=== PATIENT | female | born 1960 | race Caucasian/White ===

== ENCOUNTER → 2017-02-27 | Outpatient (CLI) | payer OTHER ==
--- NOTE | 2017-02-27 13:57 | DIAGNOSTIC IMAGING REPORT ---
ULTRASOUND-GUIDED FINE-NEEDLE ASPIRATION OF A RIGHT INGUINAL LYMPH NODE HISTORY:. INGUINAL LYMPHADENOPATHY COMPARISON: None. PROCEDURE: Written informed consent was obtained. The right groin was prepped and draped in the usual sterile fashion. 1% lidocaine was used for local anesthesia. A total of 2 passes using a 25-gauge needle were made through enlarged right inguinal lymph node under ultrasound guidance. Specimens were given to the on-site pathologist who determined adequate tissue for diagnosis. The patient tolerated the procedure well. There were no immediate complications. IMPRESSION: Successful ultrasound-guided fine-needle aspiration of a right inguinal lymph node. Electronically signed by: Benito Griffiths M.D. 02/27/2017 1:56 PM Dictated Date/Time: 02/27/2017 1:55 PM
== END | disposition home or self-care (01) ==
LOC: C.ULTR 12:59
PROVIDERS: ATTEND Internal Medicine Hematology
DX: C50.912 Malignant neoplasm of unspecified site of left female breast (principal); Z17.0 Estrogen receptor positive status [ER+]; R59.0 Localized enlarged lymph nodes; C85.95 Non-Hodgkin lymphoma, unspecified, lymph nodes of inguinal region and lower limb

== ENCOUNTER 2017-03-23 07:25 | Day surgery (SDC) | payer OTHER ==
[2017-03-19 13:26] VITALS: BMI 35.0
[~2017-03-23] VITALS: Ht 162.6 cm; Wt 92.3 kg
[~2017-03-23 07:25] MED LIST: CEFAZOLIN 2000MG IV PUSH 10 ML IV SCH; CYAN500T PO; LACTATED RINGER'S 1000ML 1,000 ML IV SCH; LISI20TA3 PO
[2017-03-23 07:51] VITALS: BP 120/69; PULSE 88; TEMP 36.4; O2SAT 94; Ht 162.6 cm; Wt 92.3 kg
[2017-03-23] MEDS ORDERED: ONDANSETRON INJ 2 MG/ML 2 ML VIAL IV PRN ×2 (08:45→10:15)
[2017-03-23] MEDS ORDERED: ATROPINE SULFATE 0.1 MG/ML 5ML SYR IV PRN (08:45)
[2017-03-23] MEDS ORDERED: FENTANYL CITRATE INJ 50 MCG/1 ML 2 ML VIAL IV PRN (08:45)
[2017-03-23] MEDS ORDERED: CLINDAMYCIN 600 MG/54 ML D5W IV ONE (08:58)
[2017-03-23] MEDS ORDERED: MIDAZOLAM HCL 1 MG/ML 2ML VIAL ONE (08:58)
[2017-03-23] MEDS ORDERED: FENTANYL CITRATE INJ 50 MCG/1 ML 2 ML VIAL ONE (08:58)
--- NOTE | 2017-03-23 08:58 | History & Physical Bridge Note ---
H&P Re-Evaluation Bridge Note: I have examined the patient, reviewed the History & Physical and in the interval since the performance of the History & Physical I have noted the following changes of clinical significance: No changes noted
[2017-03-23] MEDS ORDERED: LIDOCAINE HCL 1% 20 ML VIAL ONE (09:06)
[2017-03-23] MEDS ORDERED: BUPIVACAINE 0.5 % 5 MG/1 ML MPF 30ML VIAL ONE (09:06)
[2017-03-23] MEDS ORDERED: BACITRACIN OINT 15 GM TUBE ONE (09:06)
[2017-03-23] MEDS ORDERED: ONDANSETRON INJ 2 MG/ML 2 ML VIAL ONE (09:40)
[2017-03-23] MEDS ORDERED: PROPOFOL IV EMULSION 10 MG/ML 20 ML VIAL IV ONE (09:40)
[2017-03-23] MEDS ORDERED: SODIUM CHLORIDE 0.9% 1000ML 1,000 ML IV SCH (10:13)
--- NOTE | 2017-03-23 10:13 | [facility] Post Operative Brief Note ---
Immediate Operative Summary Operative Date Mar 23, 2017. Pre-Operative Diagnosis Enlarged Right Inguinal Lymph Node Post-Operative Diagnosis Enlarged Right Inguinal Lymph Node Procedure(s) Performed Right Groin Lymph Node Biopsy Surgeon Dr. Karlie Corrigan [employer]p [employer] Surgeon(s) none Estimated Blood Loss 5mL Findings enlargement og right groin lymph node Fluids (cc crystalloids) 500ml Specimens Fresh Specimen out of room at 0952 by Anni Wadsworth RN 1. Right Groin Lymph Node Drains none Anesthesia LMA Complication(s) None Disposition Recovery Room / PACU
[2017-03-23] MEDS ORDERED: OXYC-57 PO (10:15)
[2017-03-23] MEDS ORDERED: OXYCODONE/ACETAMINOPHEN 5-325 TAB PO PRN ×2 (10:15)
--- NOTE | 2017-03-23 10:18 | Discharge Instructions ---
Discharge Instructions Date of Service Mar 23, 2017. Visit Reason for Visit: Lymphadenopathy, Inguinal Discharge Discharge Diagnosis / Problem: S/P biopsy right groin lymph node Discharge Goals Goal(s): Decrease discomfort, Improve function Activity Recommendations Activity Limitations: per Instructions/Follow-up section Lifting Limitations: none Exercise/Sports Limitations: rest today May Resume Sexual Activity: when tolerated Shower/Bathe: may shower/bathe in 3 days Driving or Machine Use: resume 3 days after discharge Anesthesia . Post Anesthesia Instructions: If you have had General Anesthesia or IV Sedation: * Do not drive today. * Resume driving when surgeon permits. * Do not make important decisions or sign legal documents today. * Call surgeon for: 1. Temperature elevations greater than 101 degrees F. 2. Uncontrollable pain. 3. Excessive bleeding. 4. Persistent nausea and vomiting. 5. Medication intolerance (nausea, vomiting or rash). * For nausea and vomiting use only clear liquids such as: tea, soda, bouillon until nausea subsides, then gradually increase diet as tolerated. * If you have any concerns or questions, call your surgeon's office. If physician is unavailable and it is an emergency, call 911 or go to the nearest emergency room. . Instructions / Follow-Up Instructions / Follow-Up Keep the dressing on for 4 days, she can take a shower on 03/27/2017, no driving while taking pain medicine, follow up Dr. Corrigan 1 week, Diet Recommendations Recommended Home Diet: resume previous diet Procedures Procedures Performed: Right Groin Lymph Node Biopsy Pending Studies Studies pending at discharge: no Medical Emergencies . Who to Call and When: Medical Emergencies: If at any time you feel your situation is an emergency, please call 911 immediately. . Non-Emergent Contact Non-Emergency issues call your: Surgeon . . "Provider Documentation" section prepared by Arianna Corrigan. . [place] Drug Monitoring Program Search Results: no issues identified
--- NOTE | 2017-03-23 10:41 | OPERATIVE REPORT ---
DATE OF OPERATION: 03/23/2017 PREOPERATIVE DIAGNOSIS: Enlarged right inguinal lymph node. POSTOPERATIVE DIAGNOSIS: Same. PROCEDURE: Biopsy of right groin lymph node. SURGEON: Arianna Corrigan MD. ANESTHESIA: LMA plus local. ESTIMATED BLOOD LOSS: 5 mL. FINDINGS: Enlarged lymph node on the right groin. COMPLICATIONS: None. INDICATIONS FOR THE PROCEDURE: This is a 56-year-old female who is referred for biopsy of enlarged lymph node on the right groin. I did talk to the patient about the benefit and risk, alternate procedure. I indicated the risks may include but not limited such as bleeding, infection, nonhealing wound, DVT. The patient understands. She signed informed consent and I answered all questions. DETAILS OF PROCEDURE: We brought the patient to the OR, put the patient in the supine position. The patient received SCD on bilateral legs to prevent DVT. Also, the patient received 600 mg of clindamycin IV for prophylactic antibiotic. The patient received LMA by the anesthesiology without difficulty. The right groin area was prepped and draped in routine sterile fashion. After time out, I injected the local anesthesia by using 1% lidocaine mixed with 0.5% Marcaine around the right groin. Then I made about 3 cm incision on the right groin, deepened through the subcutaneous layer. Then we found the patient had 1 enlarged lymph node size about 2 x 1.5 cm and I used a 5 mm metal clip, clipped across the lesion to the lymph node and then we completely removed the lymph node and sent to pathology. Hemostasis was obtained. Then, I used 2-0 Vicryl to close subcutaneous layer continuous running, closed skin by using 4-0 Vicryl continuous running. We put the dressing on. The patient tolerated the procedure well. All the instrument, needle and sponge count correct x2 at the end of case. The specimen sent to pathology. The patient tolerated the procedure well and transferred to recovery room in stable condition. After the procedure, I did talk to the patient's family member about the OR findings, procedure we did and he understands. Also, I gave them the postop care instructions, the patient's family member understands. I attest to the content of the Intraoperative Record and any orders documented therein. Any exceptions are noted below. MIGUEL
--- NOTE | 2017-03-23 10:51 | Anesthesiology Progress Note ---
Anesthesia Post Op Note Date & Time Mar 23, 2017 at 10:50 Vital Signs Pain Intensity: 2 Vital Signs Past 12 Hours Date Time Temp Pulse Resp B/P (MAP) Pulse Ox O2 Delivery O2 Flow Rate FiO2 03/23/17 10:45 36.8 59 17 121/77 95 Room Air 03/23/17 10:40 69 16 122/83 95 Room Air 03/23/17 10:30 70 15 113/81 100 Oxymask 10 03/23/17 10:20 74 15 130/90 100 Oxymask 10 03/23/17 10:12 36.9 72 16 132/98 100 Oxymask 10 03/23/17 07:51 36.4 88 18 120/69 (86) 94 Room Air Notes Mental Status: alert / awake / arousable, participated in evaluation Pt Amnestic to Procedure: Yes Nausea / Vomiting: adequately controlled Pain: adequately controlled Airway Patency, RR, SpO2: stable & adequate BP & HR: stable & adequate Hydration State: stable & adequate Anesthetic Complications: no major complications apparent
[2017-03-23 11:00] VITALS: BP 118/69; PULSE 69; TEMP 36.7; O2SAT 95
[2017-03-23 11:30] VITALS: BP 114/67; PULSE 70; O2SAT 97
[2017-03-24] MEDS ORDERED: CLINDAMYCIN 600 MG/54 ML D5W IV ONE (06:00)
== END 2017-03-23 11:58 | disposition home or self-care (01) ==
LOC: C.ACU 07:25
PROVIDERS: ATTEND Surgery
DX: R59.0 Localized enlarged lymph nodes (principal); C50.919 Malignant neoplasm of unspecified site of unspecified female breast; Z85.72 Personal history of non-Hodgkin lymphomas; Z92.3 Personal history of irradiation; I10 Essential (primary) hypertension; F41.9 Anxiety disorder, unspecified; F32.9 Major depressive disorder, single episode, unspecified; E66.9 Obesity, unspecified; Z68.35 Body mass index [BMI] 35.0-35.9, adult; Z79.899 Other long term (current) drug therapy

== ENCOUNTER 2017-04-24 09:52 | Observation (INO) | payer OTHER ==
[2017-04-15 10:44] VITALS: BMI 35.0
--- NOTE | 2017-04-15 11:13 | PAT Medication Instructions ---
Service Date Apr 15, 2017. Current Home Medication List Cyanocobalamin (Vitamin B-12), 500 MCG PO QAM Lisinopril (Prinivil), 20 MG PO QAM Medication Instructions For Your Scheduled Surgery - Hold the following medications the morning of surgery: Cyanocobalamin (Vitamin B-12), 500 MCG PO QAM Lisinopril (Prinivil), 20 MG PO QAM If you have any questions please call us at [phone] or [phone] or [phone]
[2017-04-15 11:34] LABS: BASO % 0.4 %; BASO ABS # 0.02 K/uL (0-0.2); EOS % 1.7 %; EOS ABS # 0.09 K/uL (0-0.5); HEMATOCRIT 41.5 % (37-47); HEMOGLOBIN 13.7 g/dL (12.0-16.0); IG# 0.01 K/uL (0.00-0.02); LYMPH % 21.6 %; LYMPH ABS # 1.16 K/uL (1.2-3.4); MEAN CELL VOLUME 91.6 fL (80-100); MEAN CORPUSCULAR HEMOGLOBIN 30.2 pg (25-34); MONO % 10.6 %; MONO ABS # 0.57 K/uL (0.11-0.59); NEUT % 65.5 %; NEUT ABS # 3.52 K/uL (1.4-6.5); PLATELET COUNT 221 K/uL (130-400); RED CELL DISTRIBUTION WIDTH SD 46.6 fL (36.4-46.3); WHITE BLOOD COUNT 5.37 K/uL (4.8-10.8)
--- NOTE | 2017-04-15 11:57 | DIAGNOSTIC IMAGING REPORT ---
CHEST 2 VIEWS ROUTINE CLINICAL HISTORY: Preoperative chest HISTORY OF PRIOR LEFT BREAST CARCINOMA COMPARISON STUDY: No previous studies for comparison. FINDINGS: The cardiac and mediastinal contours are normal. There is no evidence of focal pulmonary consolidation. There is no evidence of failure. No pleural effusions are visualized.[ Multiple surgical clips are present in the left axillary region. There are postsurgical changes within the lower cervical spine. IMPRESSION: No active disease in the chest. Electronically signed by: Ari Mckeon M.D. 04/15/2017 11:56 AM Dictated Date/Time: 04/15/2017 11:55 AM
[2017-04-15 13:40] LABS: CALCIUM 9.3 mg/dl (8.5-10.1); CREATININE 0.69 mg/dl (0.60-1.20); POTASSIUM 4.3 mmol/L (3.5-5.1)
[2017-04-24] VITALS (8 sets, daily range): BP systolic 103–129; BP diastolic 68–80; PULSE 54–85; TEMP 36.4–36.8; O2SAT 95–99; Ht 162.6 cm; Wt 93.2 kg
[~2017-04-24] VITALS: Ht 162.6 cm; Wt 93.2 kg
[~2017-04-24 09:52] MED LIST changes: -CEFAZOLIN 2000MG IV PUSH 10 ML IV SCH; +CEFAZOLIN 2000MG IV PUSH 15 ML IV SCH
[2017-04-24] MEDS ORDERED: PHENYLEPHRINE HCL INJ 10 MG/ML VIAL ONE (10:12)
[2017-04-24] MEDS ORDERED: DEXAMETHASONE SOD INJ 4 MG/ML VIAL ONE (10:12)
[2017-04-24] MEDS ORDERED: EpHEDrine SULFATE INJ 50 MG/ML AMP ONE (10:12)
[2017-04-24] MEDS ORDERED: SUCCINYLCHOLINE CHLORIDE 20 MG/ML 10 ML VIAL IV ONE (10:12)
[2017-04-24] MEDS ORDERED: LIDOCAINE HCL 2% 2 ML VIAL (20MG/ML) ONE (10:12)
[2017-04-24] MEDS ORDERED: FENTANYL CITRATE INJ 50 MCG/1 ML 2 ML VIAL ONE ×2 (10:13→13:52)
[2017-04-24] MEDS ORDERED: MIDAZOLAM HCL 1 MG/ML 2ML VIAL ONE (10:13)
[2017-04-24] MEDS ORDERED: GLYCOPYRROLATE INJ 0.2 MG/ML VIAL ONE (10:13)
[2017-04-24] MEDS ORDERED: NEOSTIGMINE METHYLSULFATE 5 MG/5 ML SYR ONE (10:13)
[2017-04-24] MEDS ORDERED: ONDANSETRON INJ 2 MG/ML 2 ML VIAL ONE (10:13)
[2017-04-24] MEDS ORDERED: PROPOFOL IV EMULSION 10 MG/ML 20 ML VIAL IV ONE (10:13)
[2017-04-24] MEDS ORDERED: BUPIVACAINE 0.5 % 5 MG/1 ML MPF 30ML VIAL ONE (11:16)
[2017-04-24] MEDS ORDERED: CEFAZOLIN SOD 2000MG/15 ML IV PUSH IV ONE (11:19)
[2017-04-24] MEDS ORDERED: ATROPINE SULFATE 0.1 MG/ML 5ML SYR IV PRN (12:00)
[2017-04-24] MEDS ORDERED: PROMETHAZINE HCL INJ 12.5 MG in SODIUM CHLORIDE 0.9% 50ML 50 ML IV PRN ×2 (12:00→15:00)
[2017-04-24] MEDS ORDERED: ONDANSETRON INJ 2 MG/ML 2 ML VIAL IV PRN ×2 (12:00→15:00)
[2017-04-24] MEDS ORDERED: KETOROLAC TROMETHAMINE 30 MG/ML VIAL IV. PRN ×2 (12:00→15:00)
[2017-04-24] MEDS ORDERED: HYDROmorphone INJ 2 MG/ML SYR/VIAL ONE (12:46)
[2017-04-24] MEDS ORDERED: DiphenhydrAMINE HCL 50 MG/ML VIAL ONE ×2 (13:08→13:32)
[2017-04-24] MEDS ORDERED: METHYLENE BLUE 0.5% 10 ML VIAL ONE (13:31)
[2017-04-24] MEDS ORDERED: ROCURONIUM BROMIDE 10 MG/ML 5 ML VIAL IV ONE (13:32)
[2017-04-24] MEDS ORDERED: TISSEEL FIBRIN SEALANT 4ML TOP ONE (14:20)
--- NOTE | 2017-04-24 14:52 | [facility] Post Operative Brief Note ---
Immediate Operative Summary Operative Date Apr 24, 2017. Pre-Operative Diagnosis Thickened Endometrium, History of breast cancer, Previous Tamoxifen Use Post-Operative Diagnosis Thickened Endometrium, History of breast cancer, Previous Tamoxifen Use Procedure(s) Performed Total Laparoscopic Hysterectomy, Bilateral Salpingo-Oophorectomy, Cystoscopy, Repair of Vaginal tear Surgeon Dr. Re Lerner Claim Processor Surgeon(s) Dr. Brayden Cobb Estimated Blood Loss 50 ml Findings Consistent with Post-Op Diagnosis Fluids (cc crystalloids) 1900 Specimens Permanent Specimen A: Uterus, cervix and bilateral ovaries and Fallopian tubes Drains None Anesthesia Type General Complication(s) none Disposition Disposition: Recovery Room / PACU
[2017-04-24] MEDS ORDERED: OXYCODONE/ACETAMINOPHEN 5-325 TAB PO PRN (15:00)
[2017-04-24] MEDS ORDERED: ACETAMINOPHEN 325 MG TAB PO PRN (15:00)
[2017-04-24] MEDS ORDERED: SIMETHICONE 80 MG CHEW PO PRN (15:00)
--- NOTE | 2017-04-24 15:11 | [facility] Operative Report ---
Operative Report Operative Date Apr 24, 2017. Pre-Operative Diagnosis Thickened Endometrium, History of breast cancer, Previous Tamoxifen Use Post-Operative Diagnosis Thickened Endometrium, History of breast cancer, Previous Tamoxifen Use Procedure(s) Performed Total Laparoscopic Hysterectomy, Bilateral Salpingo-Oophorectomy, Cystoscopy, Repair of Vaginal tear Surgeon Dr. Re Lerner Laboratory Coordinator Surgeon(s) Dr. Brayden Cobb Estimated Blood Loss 50 ml Findings 8 cm anteverted uterus. Normal appearing fallopian tubes and ovaries. Bowel adhered to the pelvic sidewall bilaterally. Normal appearing anterior and posterior cul de sacs. Normal appearing liver edge. Fluids 1900 Specimens Permanent Specimen A: Uterus, cervix and bilateral ovaries and Fallopian tubes Drains None Anesthesia Type General Complication(s) none Disposition Recovery Room / PACU Description of Procedure Mrs. Heather Olmos is a 57 year old patient with history of breast cancer and previous tamoxifen use. Patient with a thickened endometrium noted on pelvic sonogram. Endometrial biopsy negative for neoplasia. The patient requested definitive management with a hysterectomy and bilateral removal of fallopian tubes and ovaries after discussing all possible medical options. Consent was signed in the office prior and all risks and benefits were reviewed. Under GA in the dorsal lithotomy position, the patient was prepped and drapped in the usual sterile fashion. A weighted speculum was placed in the vagina and with the help of a right angle retractor the cervix was visualized and grasped anteriorly with a single tooth tenaculum. The uterus was then sounded to 8 cm. A V-care uterine manipulator was then applied to allow mobilization of the uterus. The weighted speculum was then removed. Attention was turned to the abdomen. 0.25% marcaine solution was infiltrated in the subumbilical area. A 5 mm subumbilical incision was made through the skin with a #11 blade and the 5 mm trocar with laparoscope was inserted uneventfully in the peritoneal cavity. The peritoneal cavity was insufflated with CO2 gas to a maximum pressure of 15 mmHg. The laparoscope confirmed appropriate location with no inadvertent damage to underlying structures. Examination of the peritoneal cavity revealed the above noted findings. The patient was then placed in steep Trendelenburg and three more 5 mm trocars were placed, one on the right and two on the left, taking care to avoid the epigastric vessels. All trocars were placed under direct visualization with no inadvertent damage to underlying structures. The uterus was upheld from below with good visualization. Beginning on the left side, the Infundibular ligament was identified by lifting the tube towards the anterior wall of the abdomen. The ureter was confirmed along the pelvic side wall and peristalsis was noted. The XI Harmonic device was then used to clamp and ligate the IP ligament in three sequential bites. The IP was then cut middistance, again being sure to be clear of the ureter. Following this, the broad ligament was sequentially grasped, ligated, and cut in the direction of the round ligament hugging next to the fallopean tube. The round ligament was then ligated and cut. Following this, the anterior leaf of the broad ligament was then taken down on the left side, dissecting down towards the peritoneal reflection at the base of the bladder and adjacent to the cervix. The same process was then repeated on the right side such that both sides met and the anterior leaflet had been appropriately skeletonized. Once the bladder was appropriately dissected free from the lower anterior uterine segment and the tissues skeletonized, the uterine arteries were bilaterally clamped and ligated. Pedicles were checked and hemostatic. At the level of the plastic cup of the uterine manipulator, the vaginal vault was incised circumferentially with an XI Harmonic. The uterus and cervix was delivered through the vagina and sent to pathology. A sterile glove was placed into the vagina to form a pneumatic seal and all the pedicles as well as the cuff edges were examined. Hemostasis was achieved with bipolar cautery. The vaginal vault was then closed with a 2-0 V-loc being sure to avoid the bladder lateral pedicles. Following vault closure, an inspection of all areas was made to ensure hemostasis. All ports were removed under direct visualization and hemostasis noted. The final 5 mm port was then opened to release the abdominal gas and removed with the laparoscope inplace to visualize its removal. All the incision sites were then closed with 4-0 monocryl sutures in a subcuticular fashion and dermabond. Cystoscopy was then performed with a 30 degree scope and revealed no lesions or suture in the bladder. Normal appearing bladder dome and trigone. Bilateral efflux of methylene blue by ureteral orifices. The bladder was then drained and the cystoscope was then removed. Vaginal inspection revealed a laceration in the left apex of the vaginal. The laceration was closed with 2-0 Vicryl in a running locked fashion. Hemostasis was achieved. At the end of the procedure, all sponges, instruments, and sharps were counted and correct. Estimated blood loss was 50 ml. The patient was taken to recovery in stable condition. I attest to the content of the Intraoperative Record and any orders documented therein. Any exceptions are noted below.
[2017-04-24] MEDS ORDERED: MRLP17 PO (15:14)
[2017-04-24] MEDS ORDERED: OXYC-57 PO (15:14)
[2017-04-24] MEDS ORDERED: CLC100 PO (15:14)
[2017-04-24] MEDS ORDERED: IBUP-1450 PO (15:14)
[2017-04-24] MEDS ORDERED: MYL80 PO (15:14)
[2017-04-24] MEDS ORDERED: ACET-1047 PO (15:14)
--- NOTE | 2017-04-24 15:16 | Discharge Instructions ---
Discharge Instructions Date of Service Apr 24, 2017. Admission Reason for Admission: History of Breast Cancer, Previous Tamoxifen Use Discharge Discharge Diagnosis / Problem: Postop Discharge Goals Goal(s): Routine recovery after surgery Activity Recommendations Activity Limitations: per Instructions/Follow-up section POST OPERATIVE: BOWEL FUNCTION/MEDICATIONS: 1. Constipation pain and discomfort are the most common complaints 5-7 days after surgery. Points 2-6 address the things that can help. 2. Chewing gum can help stimulate the gut and help improve digestion and motility. 3. Milk of Magnesia 1-2 times per day until return of bowel function. 4. Colace is a stool softener that helps. Taking this 2-3 times per day until bowel function returns to normal is highly recommended. 5. Dulcolax is a laxative that may be used if several days have passed without a bowel movement. Alternatively Miralax may be used daily instead. 6. Drink plenty of fluids as this will also reduce constipation. 7. Narcotic pain medications will be prescribed by your physician. They are safe to use and we encourage you to use them. If you are not allergic, ibuprofen will also be prescribed. Many patients will be able to transition off of the narcotic medications to ibuprofen by postoperative day 3. ACTIVITY RECOMMENDATIONS: 1. Get plenty of rest and listen to your body. If you are tired, take a nap. 2. You may shower, but do not take a tub bath until you see your doctor at the 2 week post operative visit. 3. Absolutely NO intercourse and nothing in the vagina until you are examined by your doctor at the 6 week visit. At that visit it will be determined when such activities can be resumed. This can range from 6-12 weeks after your surgery depending on healing time. 4. The main physical activity in the first week should be walking. By the second week you can slowly increase activity. There are no limits on walking up and down stairs. 5. Do not lift more than 5-10 lbs for 4 weeks. Remember the "one-handed rule", i.e. if you can lift something with only one hand it's likely okay. 6. Minimize incident commander like vacuuming and exercising for 4 weeks. "Overdoing it" can lead to incisions not healing, pain and vaginal bleeding , so again, listen to your body. 7. Driving can be resumed when you feel able. Do not drive within 24 hours of taking a narcotic medication. EXPECTATIONS: 1. Vaginal spotting, bleeding and discharge are common after surgery. There may even be an odor to the discharge which is often related to sutures used in the vagina. If you experience heavy vaginal bleeding, call the office number day or night [phone]. 2. Bladder discomfort is common after surgery from the catheter. This usually resolves in 1-2 weeks. 3. By the end of the 3rd or 4th week you should be feeling much better. It may take up to 6 weeks for your energy levels to return to normal. 4. Narcotic medications have side effects such as: dizziness, headache, nausea and/or vomiting. If you suspect your pain medication is causing problems, call our office and we may be able to prescribe an alternate medication. 5. The skin incisions are often covered with a liquid bandage. This will gradually peel off over time. CALL THE OFFICE IF YOU HAVE ANY OF THE FOLLOWIN. Temperature of 101 degrees or higher. 2. Severe abdominal or pelvic pain not relieved by pain medication. 3. Persistent nausea or vomiting. 4. Increased pain with urination or difficulty urinating. 5. Bright red bleeding that soaks more than 1 pad per hour. CONTACT PHONE NUMBERS: Main Office: [phone] FOLLOW-UP: Post-Operative Appointments: * Individual instructions will have been given about the timing of your first examination, but this is usually at the end of the second week home. * You will need to call the office at soon after discharge to make the appointment for your post-op check-up if it has not already been scheduled. * Additional information regarding activity, sexual intercourse and when to return to work will be given at this appointment. WE WISH YOU A SPEEDY RECOVERY! . Current Hospital Diet Patient's current hospital diet: Discharge Diet Recommended Diet: Regular Diet Procedures Procedures Performed: Total Laparoscopic Hysterectomy, Bilateral Salpingo-Oophorectomy, Cystoscopy, Repair of Vaginal tear Pending Studies Studies pending at discharge: no Medical Emergencies . Who to Call and When: Medical Emergencies: If at any time you feel your situation is an emergency, please call 911 immediately. . Non-Emergent Contact Non-Emergency issues call your: Specialist . . "Provider Documentation" section prepared by Re Thakur. . VTE Core Measure Inpt VTE Proph given/why not?: Treatment not indicated
[2017-04-24] MEDS: HYDROmorphone INJ 2 MG/ML SYR/VIAL IV PRN ×8 (15:19→15:57)
--- NOTE | 2017-04-24 16:26 | Anesthesiology Progress Note ---
Anesthesia Post Op Note Date & Time Apr 24, 2017 at 16:25 Vital Signs Pain Intensity: 5 Vital Signs Past 12 Hours Date Time Temp Pulse Resp B/P (MAP) Pulse Ox O2 Delivery O2 Flow Rate FiO2 04/24/17 16:10 57 12 111/72 95 Nasal Cannula 2 04/24/17 16:00 37.1 53 12 113/68 98 Nasal Cannula 2 04/24/17 15:50 56 12 129/77 98 Nasal Cannula 2 04/24/17 15:40 54 16 139/86 98 Nasal Cannula 2 04/24/17 15:30 55 12 150/83 96 Nasal Cannula 2 04/24/17 15:20 59 12 145/91 100 Oxymask 10 04/24/17 15:10 71 23 143/98 100 Oxymask 10 04/24/17 15:04 36.4 74 17 114/83 100 Oxymask 10 04/24/17 10:18 36.8 85 18 122/80 (94) 98 Room Air Notes Mental Status: alert / awake / arousable, participated in evaluation Pt Amnestic to Procedure: Yes Nausea / Vomiting: adequately controlled Pain: adequately controlled Airway Patency, RR, SpO2: stable & adequate BP & HR: stable & adequate Hydration State: stable & adequate Anesthetic Complications: no major complications apparent
[2017-04-24] MEDS ORDERED: IV FLUIDS COMPLETED PRN (17:00)
[2017-04-24] MEDS ORDERED: LACTATED RINGER'S 1000ML 1,000 ML IV SCH (17:15)
[2017-04-24] MEDS: IBUPROFEN 600 MG TAB PO SCH ×2 (18:05→20:49)
[2017-04-24 20:32] LABS: HEMATOCRIT 38.5 % (37-47); HEMOGLOBIN 12.5 g/dL (12.0-16.0)
[2017-04-24] MEDS: DOCUSATE SODIUM 100 MG CAP PO SCH (20:49)
[2017-04-24] MEDS ORDERED: NURSING VERBAL MED ORDER ONE (21:15)
[2017-04-24] MEDS ORDERED: PHENAZOPYRIDINE HCL 200 MG TAB PO STA (21:30)
[2017-04-25 04:30] VITALS: BP 131/86; PULSE 61; TEMP 36.5; O2SAT 93
[2017-04-25 06:11] LABS: HEMATOCRIT 35.8 % (37-47); HEMOGLOBIN 11.8 g/dL (12.0-16.0); IG# 0.01 K/uL (0.00-0.02); LYMPH % 15.1 %; LYMPH ABS # 1.08 K/uL (1.2-3.4); MEAN CORPUSCULAR HEMOGLOBIN 30.3 pg (25-34); MEAN PLATELET VOLUME 9.3 fL (7.4-10.4); MONO % 11.2 %; NEUT % 73.6 %; NEUT ABS # 5.26 K/uL (1.4-6.5); PLATELET COUNT 203 K/uL (130-400); RED CELL DISTRIBUTION WIDTH CV 13.8 % (11.5-14.5); RED CELL DISTRIBUTION WIDTH SD 46.3 fL (36.4-46.3); WHITE BLOOD COUNT 7.15 K/uL (4.8-10.8)
[2017-04-25 07:08] LABS: BLOOD UREA NITROGEN 16 mg/dl (7-18); CALCIUM 8.3 mg/dl (8.5-10.1); CARBON DIOXIDE 27 mmol/L (21-32); CREATININE 0.63 mg/dl (0.60-1.20); GLUCOSE 92 mg/dl (70-99); SODIUM 135 mmol/L (136-145)
[2017-04-25 07:30] VITALS: BP 118/68; PULSE 79; TEMP 36.5; O2SAT 95
[2017-04-25] MEDS ORDERED: POLYETHYLENE (MIRALAX) 17 GM PACK PO SCH (09:00)
[2017-04-25] MEDS: DOCUSATE SODIUM 100 MG CAP PO SCH (09:08)
[2017-04-25] MEDS: IBUPROFEN 600 MG TAB PO SCH (09:09)
[2017-04-25 09:17] VITALS: BP 118/68; PULSE 79; TEMP 36.5; O2SAT 95
--- NOTE | 2017-04-25 09:47 | Surgery Progress Note ---
Surgery Progress Note Date of Service Apr 25, 2017. Subjective Post OP Day: 1 + feeling well, + ambulating, + pain controlled (with oral medication), + diet ( tolerating regular diet), No complaints, No chest pain, No SOB, No bowel movement, No flatus, No nausea, No vomiting Objective Vital Signs: Date Time Temp Pulse Resp B/P (MAP) Pulse Ox O2 Delivery O2 Flow Rate FiO2 04/25/17 09:17 36.5 79 18 95 Room Air 04/25/17 07:30 95 04/25/17 07:30 36.5 79 18 118/68 (85) 95 Room Air 04/25/17 04:30 36.5 61 18 131/86 (101) 93 Room Air 04/24/17 23:45 97 Room Air 04/24/17 23:45 36.5 55 18 129/79 (96) 97 Room Air 04/24/17 19:00 36.6 67 20 124/79 (94) 95 Room Air 04/24/17 18:00 36.5 54 18 124/77 (93) 99 Nasal Cannula 2.0 04/24/17 17:40 36.6 67 16 109/70 (83) 95 Nasal Cannula 2.0 04/24/17 17:00 36.6 55 18 103/68 (80) 97 Nasal Cannula 2.0 04/24/17 16:45 36.6 62 16 111/72 (85) 96 Nasal Cannula 2.0 04/24/17 16:30 98 Nasal Cannula 2.0 04/24/17 16:30 98 Nasal Cannula 2.0 04/24/17 16:30 36.4 57 18 106/69 (81) 98 Nasal Cannula 2.0 04/24/17 16:10 57 12 111/72 95 Nasal Cannula 2 04/24/17 16:00 37.1 53 12 113/68 98 Nasal Cannula 2 04/24/17 15:50 56 12 129/77 98 Nasal Cannula 2 04/24/17 15:40 54 16 139/86 98 Nasal Cannula 2 04/24/17 15:30 55 12 150/83 96 Nasal Cannula 2 04/24/17 15:20 59 12 145/91 100 Oxymask 10 04/24/17 15:10 71 23 143/98 100 Oxymask 10 04/24/17 15:04 36.4 74 17 114/83 100 Oxymask 10 04/24/17 10:18 36.8 85 18 122/80 (94) 98 Room Air General Appearance: WD/WN, no apparent distress Respiratory/Chest: chest non-tender, lungs clear, normal breath sounds, no respiratory distress, no accessory muscle use Cardiovascular: regular rate, rhythm, no edema, no gallop, no JVD, no murmur Abdomen: normal bowel sounds, non tender, non distended, soft, no organomegaly , no pulsatile mass Incision(s): clean, dry, intact, no erythema, no drainage Extremities: normal range of motion, non-tender, normal inspection, no pedal edema, no calf tenderness, normal capillary refill, pelvis stable Laboratory Results: Results Past 24 Hours Test 04/24/17 20:13 04/25/17 05:43 04/25/17 07:42 Range/Units Hemoglobin 12.5 11.8 12.0-16.0 g/dL Hematocrit 38.5 35.8 37-47 % White Blood Count 7.15 4.8-10.8 K/uL Red Blood Count 3.89 4.2-5.4 M/uL Mean Corpuscular Volume 92.0 80-100 fL Mean Corpuscular Hemoglobin 30.3 25-34 pg Mean Corpuscular Hemoglobin Concent 33.0 32-36 g/dl Platelet Count 203 130-400 K/uL Mean Platelet Volume 9.3 7.4-10.4 fL Neutrophils (%) (Auto) 73.6 % Lymphocytes (%) (Auto) 15.1 % Monocytes (%) (Auto) 11.2 % Eosinophils (%) (Auto) 0.0 % Basophils (%) (Auto) 0.0 % Neutrophils # (Auto) 5.26 1.4-6.5 K/uL Lymphocytes # (Auto) 1.08 1.2-3.4 K/uL Monocytes # (Auto) 0.80 0.11-0.59 K/uL Eosinophils # (Auto) 0.00 0-0.5 K/uL Basophils # (Auto) 0.00 0-0.2 K/uL RDW Standard Deviation 46.3 36.4-46.3 fL RDW Coefficient of Variation 13.8 11.5-14.5 % Immature Granulocyte % (Auto) 0.1 % Immature Granulocyte # (Auto) 0.01 0.00-0.02 K/uL Sodium Level 135 136-145 mmol/L Potassium Level 3.8 3.5-5.1 mmol/L Chloride Level 103 98-107 mmol/L Carbon Dioxide Level 27 21-32 mmol/L Anion Gap 5.0 3-11 mmol/L Blood Urea Nitrogen 16 7-18 mg/dl Creatinine 0.63 0.60-1.20 mg/dl Est Creatinine Clear Calc Drug Dose 106.4 ml/min Estimated GFR () 113.8 Estimated GFR (Non- 98.2 BUN/Creatinine Ratio 25.8 10-20 Random Glucose 92 70-99 mg/dl Calcium Level 8.3 8.5-10.1 mg/dl Assessment & Plan 57 yo G0 s/p TLH/BSO/Repair of vaginal laceration/Cystoscopy on 04/24/2017 for thickened endometrium, h/o breast cancer, and previous tamoxifen use. Patient meeting all discharge criteria. Discharge to home.
--- NOTE | 2017-04-29 08:24 | EDITING REQUIRED CODING QUERY ---
CODING QUERY To promote full compliance with coding requirements relating to patient care, provider participation is requested in all cases of medical records coder uncertainty. Please assist us with the question(s) below: Coding Question(s): Please clarify the length of the vaginal tear repair 2 cm. Physician's Response(s): Thank you Cristal Snell Principal Diagnosis: "_that condition established after study, to be chiefly responsible for occasioning the admission of the patient to the hospital for care." Co-Existing Principal Diagnosis: "_when two or more diagnoses equally meet the criteria for principal diagnosis as determined by the circumstances of admission, diagnostic work up, and/or therapy provided, and the Alphabetic Index, Tabular List, or another coding guideline does not provide sequencing direction, any one of the diagnoses may be sequenced first." "When the physician has documented what appears to be a current diagnosis in the body of the record, but has not included the diagnosis in the final diagnostic statement, the physician should be asked whether the diagnosis should be added." (Source [facility] 2 QTR90. p3-4)
== END 2017-04-25 10:45 | disposition home or self-care (01) ==
LOC: C.ACU 09:52 → C.MS4N 14:51 → ENRESERV 15:33 → EDBEDREQ 15:55
PROVIDERS: ADMIT Obstetrics & Gynecology Obstetrics; ATTEND Obstetrics & Gynecology Obstetrics
DX: N85.00 Endometrial hyperplasia, unspecified (principal); N73.6 Female pelvic peritoneal adhesions (postinfective); N83.8 Other noninflammatory disorders of ovary, fallopian tube and broad ligament; N72 Inflammatory disease of cervix uteri; N85.8 Other specified noninflammatory disorders of uterus; D25.9 Leiomyoma of uterus, unspecified; N80.0 Endometriosis of uterus; Z85.3 Personal history of malignant neoplasm of breast; Z92.29 Personal history of other drug therapy; E66.9 Obesity, unspecified; I10 Essential (primary) hypertension; Z98.890 Other specified postprocedural states; Z90.12 Acquired absence of left breast and nipple; Z80.7 Family history of other malignant neoplasms of lymphoid, hematopoietic and related tissues; Z68.35 Body mass index [BMI] 35.0-35.9, adult

== ENCOUNTER 2022-11-13 19:18 | Observation (INO) ==
[2022-11-13 20:22] LABS: Basophils # (auto) 0.01 K/uL (0.00-0.20); Basophils % (auto) 0.3 %; Eosinophils # (auto) 0.04 K/uL (0.00-0.50); Eosinophils % (auto) 1.4 %; Hematocrit (blood only) 37.4 % (37.0-47.0); Hemoglobin 12.3 g/dl (12.0-16.0); Immature Granulocytes # (auto) 0.02 K/uL (0.01-0.20); Immature Granulocytes % (auto) 0.7 %; Lymphocytes # (auto) 0.41 K/uL (1.20-3.40); Lymphocytes % (auto) 14.2 %; Mean Corpuscular Hemoglobin 27.8 pg (25.0-34.0); Mean Corpuscular Hgb Conc 32.9 g/dL (32.0-36.0); Mean Corpuscular Volume 84.4 fL (80.0-100.0); Mean Platelet Volume 8.6 fL (9.4-12.4); Monocytes # (auto) 0.26 K/uL (0.11-0.59); Neutrophils # (auto) 2.15 K/uL (1.40-6.50); Neutrophils % (auto) 74.4 %; Platelet Count 100 K/uL (130-400); RDW Coefficient of Variation 14.1 % (11.5-14.5); RDW Standard Deviation 43.2 fL (36.4-46.3); Red Blood Count 4.43 M/uL (4.20-5.40); White Blood Count 2.89 K/ul (4.8-10.8)
[2022-11-13 20:39] LABS: Albumin Globulin Ratio 2.4 (0.9-2); Albumin Level 4.6 gm/dl (3.4-5.0); BUN Creatinine Ratio 17.2 (10-20); Calcium 9.4 mg/dl (8.6-10.3); Creatinine Clr Calc Pharmacy 71.3 ml/min; Est GFR (African American) 81.6 ml/min; Est GFR (Non-African American) 70.4 ml/min; Globulin 1.9 gm/dl (2.5-4.0); Potassium 3.5 mmol/L (3.5-5.1); Total Protein 6.5 gm/dl (6.0-8.3)
[2022-11-13 20:50] LABS: Appearance Urine Clear (Clear); Bilirubin Urine 2+ (Negative); Blood Urine Negative (Negative); Color Urine Yellow; Glucose Urine UA Negative (Negative); Ketones Urine 2+ (Negative); Leukocyte Esterase Urine Trace (Negative); Nitrite Urine Negative (Negative); Protein Urine 2+ (Negative); Specific Gravity Urine >= 1.030 (1.000-1.030); Urobilinogen Urine Negative (Negative); pH Urine 5.5 (4.5-7.5)
[2022-11-13] MEDS ORDERED: SODIUM CHLORIDE 0.9% 1000ML 1,000 ML IV ONE (21:42)
[2022-11-13] MEDS ORDERED: fentaNYL citrate PF 100 MCG/2 ML VIAL IV STA (21:42)
--- NOTE | 2022-11-13 21:57 | Emergency Department Note ---
History of Present Illness General Chief complaint: Referred by Doctor Stated complaint: REF BY Time Seen by Provider: 11/13/22 21:34 History of Present Illness Maximum Pain Intensity: 6 62-year-old female presents emergency department with a 3-day history of left upper quadrant abdominal pain and generally not feeling well. Patient of note has a history of non-Hodgkin's lymphoma and breast cancer and follicular lymphoma that has infected and spread to her bone and into her spleen. Patient is followed by Dr. Chavez from oncology. Patient is not currently undergoing any treatment. Patient states decreased p.o. intake and no appetite for the past few days. Patient denies any nausea vomiting denies diarrhea. Patient denies urinary symptoms. Patient denies fever. Patient was referred by her primary care physician to an urgent care center and states that her pain increased and therefore she presented here. Patient has no other mitigating or alleviating factors.'s nonradiating left upper quadrant Home Medications Medication Instructions Recorded Confirmed Type Lisinopril (Prinivil) 20 mg PO QAM #0 tabs 03/19/17 History ACETAMINOPHEN (MAPAP) 650 mg PO Q6H PRN Pain-(Pain scale 04/24/17 Rx 1-3)/BUCKLEY/fever #60 tabs Docusate Sodium 100 mg PO BID #60 caps 04/24/17 Rx OXYCODONE/ACETAMINOPHEN 5MG/325MG 1 tab PO Q4H PRN Pain (pain scale 04/24/17 Rx (PERCOCET 5MG/325MG) 1-5) #20 tabs Polyethylene (Miralax) 17 g PO DAILY #1 btl 04/24/17 Rx Simethicone (Mi-Acid Gas Relief) 80 mg PO TID PRN GAS #90 tabs 04/24/17 Rx lisinopril 30 mg tablet 30 mg PO DAILY 11/14/22 11/14/22 History mirabegron 50 mg tablet,extended 50 mg PO DAILY 11/14/22 11/14/22 History release 24 hr (Myrbetriq) pregabalin 50 mg capsule 50 mg PO BID 11/14/22 11/14/22 History Allergies Allergy/AdvReac Type Severity Reaction Status Date / Time cephalexin Allergy Unknown HIVES Verified 04/24/17 10:32 Past Med/Surg History Social History Smoking Status: Never smoker Preferred Language: Grenadian Feels Safe at Home: Yes Immunizations: Past medical history non-Hodgkin's lymphoma, follicular cancer Review of Systems A total of 10 systems reviewed and were otherwise negative Cardiovascular: no chest pain Gastrointestinal: + abdominal pain Physical Exam Vital Signs Vital Signs - 24 hr 11/13/22 19:32 Temperature 36.8 C Temperature Source Temporal Artery Scan Pulse Rate 87 Respiratory Rate 18 Respiratory Depth Normal Blood Pressure 132/89 Blood Pressure Mean 103 Pulse Oximetry 96 Oxygen Delivery Method Room Air Sepsis Recent Fever Within 48 Hours No Sepsis New/Unexplained Change in Mental Status N/A Sepsis Action Taken by Nursing No Action Required GENERAL: Patient is awake alert in no acute distress patient is resting comfortably and showing no signs of anxiety EYES: The conjunctivae are clear. The pupils are round and reactive. EARS, NOSE, MOUTH AND THROAT: The nose is without any evidence of any deformity. Mucous membranes are moist. Tongue is midline. NECK: The neck is nontender and supple. RESPIRATORY: Normal respiratory effort is noted there is no evidence of wheezing rhonchi or rales CARDIOVASCULAR: Regular rate and rhythm noted there no murmurs rubs or gallops normal S1 normal S2. GASTROINTESTINAL: The abdomen is soft. Abdomen is mildly tender in her left upper quadrant, there is no rebound rigidity guarding BACK: No midline tenderness or or step-off noted range of motion in flexion extension as well as rotation no signs of muscle spasm noted MUSCULOSKELETAL/EXTREMITIES: There is no evidence of gross deformity full range of motion is noted in the hips and shoulders. SKIN: There is no obvious evidence of any rash. There are no petechiae, pallor or cyanosis noted. NEUROLOGIC: Patient is awake alert and oriented x3 strength is symmetric Course Reevaluation(s) Reevaluation #1: On my repeat examination, the patient continues to have diffuse abdominal pain. I discussed evaluation with the patient at bedside. Time: 23:37 Consultations Consultation #1: Case was discussed with the [facility] hospitalist for intractable abdominal pain in the setting of lymphoma Time: 23:37 Administered Medications Discontinued Medications Fentanyl Citrate (Fentanyl Citrate Pf 100 Mcg/2 Ml Vial) 50 mcg IV NOW STA Stop: 11/13/22 21:43 Last Admin: 11/13/22 22:08 Dose: 50 mcg Documented By: MED Sodium Chloride (Nss 1000ml) 1,000 mls @ 999 mls/hr IV .Q1H1M ONE Stop: 11/13/22 22:42 Last Infusion: 11/13/22 23:29 Dose: 0 mls/hr Documented By: railway switchman: 11/13/22 22:09 Dose: 999 mls/hr Documented By: JAI Ioversol (Optiray 320 100ml) 100 ml IV ONCE ONE Stop: 11/13/22 22:34 Last Admin: 11/13/22 22:35 Dose: 90 ml Documented By: DARRIAN Medical Decision Making Medical Records Attestation: I reviewed the patient's medical records. Home Medications Current Medication List: was personally reviewed by me Laboratory Data Attestation: I reviewed the patient's lab results. Patient has leukopenia per my interpretation 11/13/22 20:05 11/13/22 20:05 Lab Results 11/13/22 11/13/22 11/13/22 Range/Units 20:05 20:05 20:24 WBC 2.89 L (4.8-10.8) K/ul RBC 4.43 (4.20-5.40) M/uL Hgb 12.3 (12.0-16.0) g/dl Hct 37.4 (37.0-47.0) % MCV 84.4 (80.0-100.0) fL MCH 27.8 (25.0-34.0) pg MCHC 32.9 (32.0-36.0) g/dL RDW Std Deviation 43.2 (36.4-46.3) fL RDW Coeff of Sudhakar 14.1 (11.5-14.5) % Plt Count 100 L (130-400) K/uL MPV 8.6 L (9.4-12.4) fL Immature Gran % (Auto) 0.7 % Neut % (Auto) 74.4 % Lymph % (Auto) 14.2 % [place] % (Auto) 9.0 % Eos % (Auto) 1.4 % Baso % (Auto) 0.3 % Neut # (Auto) 2.15 (1.40-6.50) K/uL Lymph # (Auto) 0.41 L (1.20-3.40) K/uL [place] # (Auto) 0.26 (0.11-0.59) K/uL Eos # (Auto) 0.04 (0.00-0.50) K/uL Baso # (Auto) 0.01 (0.00-0.20) K/uL Immature Gran # (Auto) 0.02 (0.01-0.20) K/uL Sodium 142 (136-145) mmol/L Potassium 3.5 (3.5-5.1) mmol/L Chloride 105 (98-107) mmol/L Carbon Dioxide 27 (21-32) mmol/L Anion Gap 10 (3-11) BUN 15 (6-23) mg/dl Creatinine 0.87 (0.6-1.2) mg/dl Est Cr Clr Drug Dosing 71.3 ml/min Est GFR ( Amer) 81.6 ml/min Est GFR (Non-Af Amer) 70.4 ml/min BUN/Creatinine Ratio 17.2 (10-20) Glucose 90 (70-99(Fasting)) mg/dl Lactate (0.4-2.0) mmol/L Calcium 9.4 (8.6-10.3) mg/dl Total Bilirubin 1.0 (0.2-1.0) mg/dl AST 32 (13-39) U/L ALT 13 (7-52) U/L Alkaline Phosphatase 87 (34-104) U/L Troponin I High Sens (0-14) pg/ml Total Protein 6.5 (6.0-8.3) gm/dl Albumin 4.6 (3.4-5.0) gm/dl Globulin 1.9 L (2.5-4.0) gm/dl Albumin/Globulin Ratio 2.4 H (0.9-2) Lipase 7 L (11-82) U/L Urine Color Yellow Urine Appearance Clear (Clear) Urine pH 5.5 (4.5-7.5) Ur Specific [place] >= 1.030 (1.000-1.030) Urine Protein 2+ H (Negative) Urine Glucose (UA) Negative (Negative) Urine Ketones 2+ H (Negative) Urine Blood Negative (Negative) Urine Nitrite Negative (Negative) Urine Bilirubin 2+ H (Negative) Urine Urobilinogen Negative (Negative) Ur Leukocyte Esterase Trace H (Negative) SARS-CoV-2, RNA, NAAT (NEGATIVE) 11/13/22 11/13/22 11/13/22 Range/Units 21:38 22:05 22:05 WBC (4.8-10.8) K/ul RBC (4.20-5.40) M/uL Hgb (12.0-16.0) g/dl Hct (37.0-47.0) % MCV (80.0-100.0) fL MCH (25.0-34.0) pg MCHC (32.0-36.0) g/dL RDW Std Deviation (36.4-46.3) fL RDW Coeff of Sudhakar (11.5-14.5) % Plt Count (130-400) K/uL MPV (9.4-12.4) fL Immature Gran % (Auto) % Neut % (Auto) % Lymph % (Auto) % [place] % (Auto) % Eos % (Auto) % Baso % (Auto) % Neut # (Auto) (1.40-6.50) K/uL Lymph # (Auto) (1.20-3.40) K/uL [place] # (Auto) (0.11-0.59) K/uL Eos # (Auto) (0.00-0.50) K/uL Baso # (Auto) (0.00-0.20) K/uL Immature Gran # (Auto) (0.01-0.20) K/uL Sodium (136-145) mmol/L Potassium (3.5-5.1) mmol/L Chloride (98-107) mmol/L Carbon Dioxide (21-32) mmol/L Anion Gap (3-11) BUN (6-23) mg/dl Creatinine (0.6-1.2) mg/dl Est Cr Clr Drug Dosing ml/min Est GFR ( Amer) ml/min Est GFR (Non-Af Amer) ml/min BUN/Creatinine Ratio (10-20) Glucose (70-99(Fasting)) mg/dl Lactate 0.7 (0.4-2.0) mmol/L Calcium (8.6-10.3) mg/dl Total Bilirubin (0.2-1.0) mg/dl AST (13-39) U/L ALT (7-52) U/L Alkaline Phosphatase (34-104) U/L Troponin I High Sens 8.1 (0-14) pg/ml Total Protein (6.0-8.3) gm/dl Albumin (3.4-5.0) gm/dl Globulin (2.5-4.0) gm/dl Albumin/Globulin Ratio (0.9-2) Lipase (11-82) U/L Urine Color Urine Appearance (Clear) Urine pH (4.5-7.5) Ur Specific [place] (1.000-1.030) Urine Protein (Negative) Urine Glucose (UA) (Negative) Urine Ketones (Negative) Urine Blood (Negative) Urine Nitrite (Negative) Urine Bilirubin (Negative) Urine Urobilinogen (Negative) Ur Leukocyte Esterase (Negative) SARS-CoV-2, RNA, NAAT NEGATIVE (NEGATIVE) Imaging Data Radiologist's Impression: Abdomen/Pelvis CT 11/13/22 21:34 Exam(s): CT ABDOMEN + PELVIS With Contrast IV Amt: 90 ml optiray 320 EXAM: CT Abdomen and Pelvis With Intravenous Contrast CLINICAL HISTORY: Reason for exam: abd pain. TECHNIQUE: Axial computed tomography images of the abdomen and pelvis with intravenous contrast. CTDI is 27.3 mGy and DLP is 1372.73 mGy-cm. Automated exposure control was utilized for the study. A dose lowering technique was utilized adhering to the principles of ALARA. CONTRAST: Patient received 90 ml optiray 320 of IV contrast COMPARISON: No relevant prior studies available. FINDINGS: Lung bases: Unremarkable. No mass. No consolidation. ABDOMEN: Liver: Numerous large simple cysts throughout the liver measuring up to 8.1 cm. Gallbladder and bile ducts: Unremarkable. No calcified stones. No ductal dilation. Pancreas: Unremarkable. No mass. No ductal dilation. Spleen: Moderate splenomegaly measuring up to 16.4 cm. Adrenals: Unremarkable. No mass. Kidneys and ureters: Unremarkable. No solid mass. No hydronephrosis. Stomach and bowel: Unremarkable. No obstruction. No mucosal thickening. PELVIS: Appendix: No findings to suggest acute appendicitis. Bladder: Unremarkable. No mass. Reproductive: Uterus has been removed. ABDOMEN and PELVIS: Intraperitoneal space: Small amount of free fluid in the pelvis. No free air. Bones/joints: No acute fracture. No dislocation. Mild remote L4 compression fracture. Soft tissues: Subcutaneous collection measuring 3.3 cm within the left lower quadrant adjacent to the anterior abdominal wall. This has a thick wall. Questions small subacute hematoma. Vasculature: Unremarkable. No abdominal aortic aneurysm. Lymph nodes: Extensive conglomerate lymphadenopathy involving the central mesentery. Additional examples of lymphadenopathy are present as follows: Left gastric-3.6 cm, aortocaval-1.8 cm, left para-aortic retroperitoneal-2.5 cm, and left common iliac-2.6 cm. Findings are consistent with lymphoma until proven otherwise. IMPRESSION: 1. Extensive conglomerate lymphadenopathy involving the central mesentery. Additional examples of lymphadenopathy are present as follows: Left gastric-3.6 cm, aortocaval-1.8 cm, left para-aortic retroperitoneal- 2.5 cm, and left common iliac-2.6 cm. Findings are consistent with lymphoma until proven otherwise. 2. Moderate splenomegaly. 3. Subcutaneous collection measuring 3.3 cm within the left lower quadrant adjacent to the anterior abdominal wall with a thick wall. Questions small subacute hematoma. Electronically signed by: Kd Chavez M.D. 11/13/22 23:23 PM MDM Narrative Medical decision making differential diagnosis includes bowel obstruction, colitis, gastritis, gastroenteritis, metabolic derangement, urinary tract infection. Plan is to check labs, CT, give IV fluids IV pain medicine Patient has a history of lymphoma currently not being treated however the patient is followed by oncology. Patient continues to complain of abdominal distention and pain. Patient has a multitude of lymphadenopathy and splenomeg tish in the abdomen. Patient has no evidence of bowel obstruction. Patient was receiving IV fluids and IV opiates. Will admit the patient for intractable abdominal pain Impression & Plan Abdominal pain, Leukopenia, Splenomegaly Discharge Plan Visit Data Chief Complaint: Referred by Doctor Stated Complaint: REF BY ED Provider: Isaias Omalley Discharge Problem: Abdominal pain, Leukopenia, Splenomegaly Patient Disposition: Admitted As Inpatient Forms Stand Alone Forms: [facility] Prescriptions Prescriptions: No Action Lisinopril (Prinivil) 20 MG tablet 20 mg PO QAM Qty: 0 ACETAMINOPHEN (MAPAP) 325 MG tablet 650 mg PO Q6H PRN (Reason: Pain-(Pain scale 1-3)/BUCKLEY/fever) Qty: 60 0RF Docusate Sodium 100 MG capsule 100 mg PO BID Qty: 60 1RF OXYCODONE/ACETAMINOPHEN 5MG/325MG (PERCOCET 5MG/325MG) tablet 1 tab PO Q4H PRN (Reason: Pain (pain scale 1-5)) Qty: 20 0RF Rx Instructions: PAIN Polyethylene (Miralax) 17 GM POW 17 g PO DAILY Qty: 1 1RF Simethicone (Mi-Acid Gas Relief) 80 MG CHEWABLE TAB 80 mg PO TID PRN (Reason: GAS) Qty: 90 0RF lisinopril 30 mg tablet 30 mg PO DAILY pregabalin 50 mg capsule 50 mg PO BID Myrbetriq 50 mg tablet extended release 24 hr 50 mg PO DAILY Referrals Referrals: PCP,NO [Physician] -
[2022-11-13] MEDS ORDERED: OPTIRAY 320 100ml IV ONE (22:33)
--- NOTE | 2022-11-13 23:23 | CT Scan Report ---
Exam(s): CT ABDOMEN + PELVIS With Contrast IV Amt: 90 ml optiray 320 EXAM: CT Abdomen and Pelvis With Intravenous Contrast CLINICAL HISTORY: Reason for exam: abd pain. TECHNIQUE: Axial computed tomography images of the abdomen and pelvis with intravenous contrast. CTDI is 27.3 mGy and DLP is 1372.73 mGy-cm. Automated exposure control was utilized for the study. A dose lowering technique was utilized adhering to the principles of ALARA. CONTRAST: Patient received 90 ml optiray 320 of IV contrast COMPARISON: No relevant prior studies available. FINDINGS: Lung bases: Unremarkable. No mass. No consolidation. ABDOMEN: Liver: Numerous large simple cysts throughout the liver measuring up to 8.1 cm. Gallbladder and bile ducts: Unremarkable. No calcified stones. No ductal dilation. Pancreas: Unremarkable. No mass. No ductal dilation. Spleen: Moderate splenomegaly measuring up to 16.4 cm. Adrenals: Unremarkable. No mass. Kidneys and ureters: Unremarkable. No solid mass. No hydronephrosis. Stomach and bowel: Unremarkable. No obstruction. No mucosal thickening. PELVIS: Appendix: No findings to suggest acute appendicitis. Bladder: Unremarkable. No mass. Reproductive: Uterus has been removed. ABDOMEN and PELVIS: Intraperitoneal space: Small amount of free fluid in the pelvis. No free air. Bones/joints: No acute fracture. No dislocation. Mild remote L4 compression fracture. Soft tissues: Subcutaneous collection measuring 3.3 cm within the left lower quadrant adjacent to the anterior abdominal wall. This has a thick wall. Questions small subacute hematoma. Vasculature: Unremarkable. No abdominal aortic aneurysm. Lymph nodes: Extensive conglomerate lymphadenopathy involving the central mesentery. Additional examples of lymphadenopathy are present as follows: Left gastric-3.6 cm, aortocaval-1.8 cm, left para-aortic retroperitoneal-2.5 cm, and left common iliac-2.6 cm. Findings are consistent with lymphoma until proven otherwise. IMPRESSION: 1. Extensive conglomerate lymphadenopathy involving the central mesentery. Additional examples of lymphadenopathy are present as follows: Left gastric-3.6 cm, aortocaval-1.8 cm, left para-aortic retroperitoneal- 2.5 cm, and left common iliac-2.6 cm. Findings are consistent with lymphoma until proven otherwise. 2. Moderate splenomegaly. 3. Subcutaneous collection measuring 3.3 cm within the left lower quadrant adjacent to the anterior abdominal wall with a thick wall. Questions small subacute hematoma. Electronically signed by: Kd Chavez M.D. 11/13/22 23:23 PM
[2022-11-14] MEDS ORDERED: HYDROmorphone INJ 0.5 MG/0.5 ML SYR IV STA (01:57)
[2022-11-14] MEDS ORDERED: FAMOTIDINE 20MG IV PUSH 20 MG/5 ML SYR IV STA (02:03)
--- NOTE | 2022-11-14 02:29 | History & Physical Report ---
Date of Service November 14, 2022 Assessment & Plan (1) Abdominal pain: Plan: 62-year-old female with past medical significant for lymphoma involving the left of the neck in 1993 s/p radiation treatment to that area, history of left breast intraductal carcinoma s/p lumpectomy, s/p MammoSite radiation to left breast in 2010, follicular lymphoma involving the bone marrow splenomegaly lymph nodes in the chest and abdomen in September 2021 currently under observation, as per the [facility] heme-onc notes patient not interested in any kind of chemotherapy treatment at this time presents with severe abdominal pain Severe abdominal pain Started last Thursday and getting worse CT abdomen pelvis showing extensive lymphadenopathy, moderate splenomegaly and possible small subacute hematoma in the left lower quadrant region close to anterior abdominal wall Pain control, gentle fluids, clear liquids for now If not improving will discuss with GI/surgery and heme-onc Follicular lymphoma Currently under observation Lymphopenia and thrombocytopenia From underlying lymphoma We will follow labs Hypertension continue home lisinopril Anxiety continue clonazepam as needed DVT prophylaxis SCDs for now Disposition observation medical floor Full code as per my discussion with the patient History of Present Illness Chief Complaint: Severe abdominal pain Primary Care Provider: Anju Oneill MD 62-year-old female with past medical significant for lymphoma involving the left of the neck in 1993 s/p radiation treatment to that area, history of left breast intraductal carcinoma s/p lumpectomy, s/p MammoSite radiation to left breast in 2010, follicular lymphoma involving the bone marrow splenomegaly lymph nodes in the chest and abdomen in September 2021 currently under observation ,as per the [facility] heme-onc notes patient not interested in any kind of chemotherapy treatment at this time presents with severe abdominal pain. Patient states abdominal pain started last Thursday but got progressively worse.. Appetite is down since she has abdominal pain. Having normal bowel movements , denies any blood in the stools. Normal bladder movements. Afebrile. Denies any chest pain or shortness of breath. Has some nausea. No cough. No headaches. Currently asking for pain medication. Hemodynamically stable. Past medical history as mentioned above also had C. difficile diarrhea and MRSA infection Past surgical history bronchoscopy, right groin lymph node biopsy, colonoscopy, cervical fusions, IR biopsy, partial left mastectomy with axillary lymphadenopathy, debridement of breast lump lumpectomy site, radiation therapy, sentinel lymph node biopsy on left side, Social history . No smoking. Alcohol 1-2 drinks a week. No drug use. Family history mother had non-Hodgkin's lymphoma. Father had colon cancer Allergies Allergy/AdvReac Type Severity Reaction Status Date / Time cephalexin Allergy Unknown HIVES Verified 11/14/22 00:06 Home Medications Medication Instructions Recorded Confirmed Type clonazepam 0.5 mg tablet 0.5 mg PO TID PRN Anxiety 11/14/22 11/14/22 History lisinopril 30 mg tablet 30 mg PO DAILY 11/14/22 11/14/22 History mirabegron 50 mg tablet,extended 50 mg PO DAILY 11/14/22 11/14/22 History release 24 hr (Myrbetriq) pregabalin 50 mg capsule 50 mg PO BID 11/14/22 11/14/22 History Past Med/Surg History Social History Smoking Status: Never smoker Hx Alcohol Use: Yes Alcohol type: hard liquor Hx Substance Use: No Preferred Language: Serbian Beliefs That Will Affect Care: None Current Living Situation: Spouse Feels Safe at Home: Yes Assistive Devices: None Review of Systems Review of Systems: All systems reviewed & are unremarkable except as noted in HPI & below Physical Exam Physical Exam: General- Not in distress Head- atraumatic Eyes- PERRL. ENT- oropharynx clear Neck- supple, no JVD, Lungs- clear to auscultation no wheezing or crackles. Heart- regular rate and rhythm; no murmur, no gallop. Abdomen- normal bowel sounds, soft, diffuse tenderness and mild guarding, no rigidity or distension. Extremities- no pretibial edema, no erythema seen. Neuro- alert, oriented x 3; PERRL, no facial palsy; no dysarthria;Non focal. Skin- warm & dry Results & Data Results & Data Vital Signs (Past 12 Hours) Vital Signs Temp Pulse Pulse Resp BP BP Pulse Ox 11/14/22 00:51 84 11/14/22 00:44 80 24 134/85 93 11/13/22 19:32 36.8 C 87 18 132/89 96 O2 Del Method 11/14/22 00:51 11/14/22 00:44 Room Air 11/13/22 19:32 Room Air Diagnostic Findings Laboratory Results WBC 2.89 K/ul (4.8-10.8) L 11/13/22 20:05 RBC 4.43 M/uL (4.20-5.40) 11/13/22 20:05 Hgb 12.3 g/dl (12.0-16.0) 11/13/22 20:05 Hct 37.4 % (37.0-47.0) 11/13/22 20:05 MCV 84.4 fL (80.0-100.0) 11/13/22 20:05 MCH 27.8 pg (25.0-34.0) 11/13/22 20:05 MCHC 32.9 g/dL (32.0-36.0) 11/13/22 20:05 RDW Std Deviation 43.2 fL (36.4-46.3) 11/13/22 20:05 RDW Coeff of Sudhakar 14.1 % (11.5-14.5) 11/13/22 20:05 Plt Count 100 K/uL (130-400) L 11/13/22 20:05 MPV 8.6 fL (9.4-12.4) L 11/13/22 20:05 Immature Gran % (Auto) 0.7 % 11/13/22 20:05 Neut % (Auto) 74.4 % 11/13/22 20:05 Lymph % (Auto) 14.2 % 11/13/22 20:05 [place] % (Auto) 9.0 % 11/13/22 20:05 Eos % (Auto) 1.4 % 11/13/22 20:05 Baso % (Auto) 0.3 % 11/13/22 20:05 Neut # (Auto) 2.15 K/uL (1.40-6.50) 11/13/22 20:05 Lymph # (Auto) 0.41 K/uL (1.20-3.40) L 11/13/22 20:05 [place] # (Auto) 0.26 K/uL (0.11-0.59) 11/13/22 20:05 Eos # (Auto) 0.04 K/uL (0.00-0.50) 11/13/22 20:05 Baso # (Auto) 0.01 K/uL (0.00-0.20) 11/13/22 20:05 Immature Gran # (Auto) 0.02 K/uL (0.01-0.20) 11/13/22 20:05 Sodium 142 mmol/L (136-145) 11/13/22 20:05 Potassium 3.5 mmol/L (3.5-5.1) 11/13/22 20:05 Chloride 105 mmol/L (98-107) 11/13/22 20:05 Carbon Dioxide 27 mmol/L (21-32) 11/13/22 20:05 Anion Gap 10 (3-11) 11/13/22 20:05 BUN 15 mg/dl (6-23) 11/13/22 20:05 Creatinine 0.87 mg/dl (0.6-1.2) 11/13/22 20:05 Est Cr Clr Drug Dosing 71.3 ml/min 11/13/22 20:05 Est GFR ( Amer) 81.6 ml/min 11/13/22 20:05 Est GFR (Non-Af Amer) 70.4 ml/min 11/13/22 20:05 BUN/Creatinine Ratio 17.2 (10-20) 11/13/22 20:05 Glucose 90 mg/dl (70-99(Fasting)) 11/13/22 20:05 Lactate 0.7 mmol/L (0.4-2.0) 11/13/22 22:05 Calcium 9.4 mg/dl (8.6-10.3) 11/13/22 20:05 Total Bilirubin 1.0 mg/dl (0.2-1.0) 11/13/22 20:05 AST 32 U/L (13-39) 11/13/22 20:05 ALT 13 U/L (7-52) 11/13/22 20:05 Alkaline Phosphatase 87 U/L (34-104) 11/13/22 20:05 Troponin I High Sens 8.1 pg/ml (0-14) 11/13/22 22:05 Total Protein 6.5 gm/dl (6.0-8.3) 11/13/22 20:05 Albumin 4.6 gm/dl (3.4-5.0) 11/13/22 20:05 Globulin 1.9 gm/dl (2.5-4.0) L 11/13/22 20:05 Albumin/Globulin Ratio 2.4 (0.9-2) H 11/13/22 20:05 Lipase 7 U/L (11-82) L 11/13/22 20:05 Urine Color Yellow 11/13/22 20:24 Urine Appearance Clear (Clear) 11/13/22 20:24 Urine pH 5.5 (4.5-7.5) 11/13/22 20:24 Ur Specific [place] >= 1.030 (1.000-1.030) 11/13/22 20:24 Urine Protein 2+ (Negative) H 11/13/22 20:24 Urine Glucose (UA) Negative (Negative) 11/13/22 20:24 Urine Ketones 2+ (Negative) H 11/13/22 20:24 Urine Blood Negative (Negative) 11/13/22 20:24 Urine Nitrite Negative (Negative) 11/13/22 20:24 Urine Bilirubin 2+ (Negative) H 11/13/22 20:24 Urine Urobilinogen Negative (Negative) 11/13/22 20:24 Ur Leukocyte Esterase Trace (Negative) H 11/13/22 20:24 SARS-CoV-2, RNA, NAAT NEGATIVE (NEGATIVE) 11/13/22 21:38 Impressions Abdomen/Pelvis CT 11/13/22 21:34 Exam(s): CT ABDOMEN + PELVIS With Contrast IV Amt: 90 ml optiray 320 EXAM: CT Abdomen and Pelvis With Intravenous Contrast CLINICAL HISTORY: Reason for exam: abd pain. TECHNIQUE: Axial computed tomography images of the abdomen and pelvis with intravenous contrast. CTDI is 27.3 mGy and DLP is 1372.73 mGy-cm. Automated exposure control was utilized for the study. A dose lowering technique was utilized adhering to the principles of ALARA. CONTRAST: Patient received 90 ml optiray 320 of IV contrast COMPARISON: No relevant prior studies available. FINDINGS: Lung bases: Unremarkable. No mass. No consolidation. ABDOMEN: Liver: Numerous large simple cysts throughout the liver measuring up to 8.1 cm. Gallbladder and bile ducts: Unremarkable. No calcified stones. No ductal dilation. Pancreas: Unremarkable. No mass. No ductal dilation. Spleen: Moderate splenomegaly measuring up to 16.4 cm. Adrenals: Unremarkable. No mass. Kidneys and ureters: Unremarkable. No solid mass. No hydronephrosis. Stomach and bowel: Unremarkable. No obstruction. No mucosal thickening. PELVIS: Appendix: No findings to suggest acute appendicitis. Bladder: Unremarkable. No mass. Reproductive: Uterus has been removed. ABDOMEN and PELVIS: Intraperitoneal space: Small amount of free fluid in the pelvis. No free air. Bones/joints: No acute fracture. No dislocation. Mild remote L4 compression fracture. Soft tissues: Subcutaneous collection measuring 3.3 cm within the left lower quadrant adjacent to the anterior abdominal wall. This has a thick wall. Questions small subacute hematoma. Vasculature: Unremarkable. No abdominal aortic aneurysm. Lymph nodes: Extensive conglomerate lymphadenopathy involving the central mesentery. Additional examples of lymphadenopathy are present as follows: Left gastric-3.6 cm, aortocaval-1.8 cm, left para-aortic retroperitoneal-2.5 cm, and left common iliac-2.6 cm. Findings are consistent with lymphoma until proven otherwise. IMPRESSION: 1. Extensive conglomerate lymphadenopathy involving the central mesentery. Additional examples of lymphadenopathy are present as follows: Left gastric-3.6 cm, aortocaval-1.8 cm, left para-aortic retroperitoneal- 2.5 cm, and left common iliac-2.6 cm. Findings are consistent with lymphoma until proven otherwise. 2. Moderate splenomegaly. 3. Subcutaneous collection measuring 3.3 cm within the left lower quadrant adjacent to the anterior abdominal wall with a thick wall. Questions small subacute hematoma. Electronically signed by: Kd Chavez M.D. 11/13/22 23:23 PM Code Status & VTE Plan VTE Prophylaxis Plan VTE Prophylaxis will be ordered: Yes
[2022-11-14] MEDS ORDERED: clonazePAM 0.5 MG TAB PO PRN (02:44)
[2022-11-14] MEDS ORDERED: POLYETHYLENE (MIRALAX) 17 GM PACK PO PRN (02:44)
[2022-11-14] MEDS: HYDROmorphone INJ 0.5 MG/0.5 ML SYR IV PRN ×3 (05:47→15:45)
[2022-11-14] MEDS ORDERED: FAMOTIDINE 20MG/5ML IV PUSH IV ONE (08:07)
[2022-11-14] MEDS: PREGABALIN 50 MG CAP PO SCH ×2 (08:12→21:05)
[2022-11-14] MEDS: FAMOTIDINE 20 MG in SYRINGE 3 ML IV SCH ×2 (08:12→21:01)
[2022-11-14] MEDS: VIBEGRON 75 MG TAB PO SCH (08:13)
[2022-11-14] MEDS: lisinopril 10 MG TAB PO SCH (08:13)
[2022-11-14] MEDS: ACETAMINOPHEN 325 MG TAB PO PRN ×2 (08:17→15:46)
[2022-11-14] MEDS: ONDANSETRON INJ 2 MG/ML 2 ML VIAL IV PRN ×2 (08:17→15:01)
[2022-11-14 08:25] LABS: BUN Creatinine Ratio 18.2 (10-20); Calcium 8.5 mg/dl (8.6-10.3); Creatinine Clr Calc Pharmacy 93.9 ml/min; Est GFR (African American) 108.2 ml/min; Est GFR (Non-African American) 93.4 ml/min; Magnesium 1.6 mg/dl (1.7-2.4); Potassium 3.6 mmol/L (3.5-5.1)
[2022-11-14 08:50] LABS: Basophils # (auto) 0.01 K/uL (0.00-0.20); Basophils % (auto) 0.5 %; Eosinophils # (auto) 0.03 K/uL (0.00-0.50); Eosinophils % (auto) 1.5 %; Hematocrit (blood only) 32.1 % (37.0-47.0); Hemoglobin 10.6 g/dl (12.0-16.0); Immature Granulocytes # (auto) 0.01 K/uL (0.01-0.20); Immature Granulocytes % (auto) 0.5 %; Lymphocytes % (auto) 19.7 %; Mean Corpuscular Hemoglobin 27.4 pg (25.0-34.0); Mean Corpuscular Volume 82.9 fL (80.0-100.0); Mean Platelet Volume 9.6 fL (9.4-12.4); Monocytes # (auto) 0.31 K/uL (0.11-0.59); Monocytes % (auto) 15.3 %; Neutrophils # (auto) 1.27 K/uL (1.40-6.50); Neutrophils % (auto) 62.5 %; Platelet Count 83 K/uL (130-400); Platelet Estimate Decreased (Normal); RDW Coefficient of Variation 14.2 % (11.5-14.5); RDW Standard Deviation 42.6 fL (36.4-46.3); Red Blood Count 3.87 M/uL (4.20-5.40); Tear Drop Cells 1+; White Blood Count 2.03 K/ul (4.8-10.8)
[2022-11-14] MEDS ORDERED: KETOROLAC TROMETHAMINE 15 MG/ML VIAL IV ONE (15:00)
[2022-11-14] MEDS ORDERED: PROMETHAZINE HCL 12.5 MG in SODIUM CHLORIDE 0.9% 50 ML IV PRN (16:02)
[2022-11-14] MEDS ORDERED: ACETAMINOPHEN 1,000 MG/100 ML VIAL IV PRN (16:02)
--- NOTE | 2022-11-14 16:21 | Communication Note ---
Date of Service: November 14, 2022 The patient was seen and examined in medical floor in presence of the . Admitted early this morning with severe abdominal pain with history of non- Hodgkin's lymphoma. Now complaining of severe headache. Received contrast for abdominal CT scan so we will get a CT scan of the head without contrast now. Pain medications including IV Tylenol was prescribed. Full progress note will be done tomorrow. Dr Keturah Bauer
--- NOTE | 2022-11-14 18:08 | CT Scan Report ---
CT head/brain wo con CLINICAL HISTORY: Severe Headache,Lymphoma Technique: Contiguous axial CT images of the head were acquired from the base of the skull to the matthew horacio without intravenous contrast administration. Images were viewed in brain, subdural and bone [facility]. Automated dose lowering techniques and/or adjustment according to patient size were utilized for this exam. Comparison: None available at the time of this dictation. Findings: The ventricles, basal cisterns, and cerebral sulci are normal. There is no acute intracranial hemorrh age or evidence of acute territorial infarction. Neither mass effect, shift of the midline structures , nor abnormal extra-axial fluid collections are shown. Imaged portions of the paranasal sinuses and mastoid air cells are clear. The orbits appear normal. There are no acute fractures of the calvaria or scalp swelling. Impression: No acute intracranial hemorrhage, no evidence of acute territorial infarction or other acute intracra nial disease process. ACT 112: Negative or not required by law. Electronically signed by: Arnoldo John M.D. 11/14/2022 6:06 PM
[2022-11-15] MEDS: lisinopril 10 MG TAB PO SCH (08:32)
[2022-11-15] MEDS: VIBEGRON 75 MG TAB PO SCH (08:32)
[2022-11-15] MEDS: FAMOTIDINE 20 MG in SYRINGE 3 ML IV SCH ×2 (08:35→09:23)
[2022-11-15] MEDS: PREGABALIN 50 MG CAP PO SCH (08:35)
[2022-11-15 09:32] LABS: Hematocrit (blood only) 34.7 % (37.0-47.0); Hemoglobin 11.4 g/dl (12.0-16.0); Mean Corpuscular Hemoglobin 27.5 pg (25.0-34.0); Mean Corpuscular Hgb Conc 32.9 g/dL (32.0-36.0); Mean Corpuscular Volume 83.6 fL (80.0-100.0); Mean Platelet Volume 9.2 fL (9.4-12.4); Platelet Count 82 K/uL (130-400); RDW Coefficient of Variation 14.2 % (11.5-14.5); RDW Standard Deviation 43.5 fL (36.4-46.3); Red Blood Count 4.15 M/uL (4.20-5.40); White Blood Count 2.03 K/ul (4.8-10.8)
[2022-11-15 09:33] LABS: Basophils # (auto) 0.01 K/uL (0.00-0.20); Basophils % (auto) 0.5 %; Eosinophils # (auto) 0.04 K/uL (0.00-0.50); Immature Granulocytes # (auto) 0.01 K/uL (0.01-0.20); Immature Granulocytes % (auto) 0.5 %; Lymphocytes # (auto) 0.35 K/uL (1.20-3.40); Lymphocytes % (auto) 17.2 %; Monocytes # (auto) 0.24 K/uL (0.11-0.59); Monocytes % (auto) 11.8 %; Neutrophils # (auto) 1.38 K/uL (1.40-6.50); Ovalocytes 1+
[2022-11-15 09:48] LABS: Calcium 8.8 mg/dl (8.6-10.3); Potassium 3.6 mmol/L (3.5-5.1)
[2022-11-15 09:54] LABS: BUN Creatinine Ratio 14.4 (10-20); Creatinine Clr Calc Pharmacy 68.9 ml/min; Est GFR (African American) 78.3 ml/min; Est GFR (Non-African American) 67.6 ml/min
--- NOTE | 2022-11-15 11:29 | Hospitalist Progress Note ---
Date of Service November 15, 2022 Assessment & Plan (1) Abdominal pain: Plan: 62-year-old female with past medical significant for lymphoma involving the left of the neck in 1993 s/p radiation treatment to that area, history of left breast intraductal carcinoma s/p lumpectomy, s/p MammoSite radiation to left breast in 2010, follicular lymphoma involving the bone marrow splenomegaly lymph nodes in the chest and abdomen in September 2021 currently under observation, as per the [facility] heme-onc notes patient not interested in any kind of chemotherapy treatment at this time presents with severe abdominal pain Severe abdominal pain Started last Thursday and getting worse CT abdomen pelvis showing extensive lymphadenopathy, moderate splenomegaly and possible small subacute hematoma in the left lower quadrant region close to anterior abdominal wall Pain control, gentle fluids, clear liquids for now Has been feeling much better and the abdominal pain is resolved Denies any symptoms this morning and has been ambulating without any difficulties Severe headache Without any associated symptoms CT scan of the head remained unremarkable Denies any more headache this morning Follicular lymphoma Currently under observation Patient does not want to get any treatment for that Lymphopenia and thrombocytopenia From underlying lymphoma We will follow labs Hypertension continue home lisinopril Anxiety continue clonazepam as needed DVT prophylaxis SCDs for now Disposition observation medical floor Full code as per my discussion with the patient Should be discharged this afternoon Admission and Anticipated Discharge Date Admission Date: November 14, 2022 Subjective 11/15/2022 The patient was seen and examined in medical floor She has been feeling much better and denies any headache, abdominal pain or distention, any nausea and or vomiting She has been ambulating in the room without any difficulties She wants to go home this afternoon Review of Systems Review of Systems: All systems reviewed and are unremarkable except as noted below Physical Exam Physical Exam: Moving around in the room without any difficulties Constitutional: well developed, well nourished and + obese; not ill appearing Eyes: PERRL, conjunctivae normal, anicteric sclerae ENMT: external ear and nose normal, oropharynx normal Neck: trachea midline, no thyromegaly Respiratory: no respiratory distress Auscultation: lungs clear to auscultation bilaterally Cardiovascular: Rate/Rhythm: regular rate and regular rhythm; not tachycardic Heart Sounds: normal S1 and normal S2; no murmur Gastrointestinal (Abdomen): Inspection/Auscultation: normal bowel sounds; abdomen not distended Percussion/Palpation: abdomen soft; abdomen nontender A fatty lump involving the epigastric area, nontender Musculoskeletal: No acute arthritis involving any of the joint Neurologic: normal touch/pain/proprioception and moves all extremities; no focal motor deficits Lymphatic: no cervical or axillary lymphadenopathy Results & Data Results & Data Vital Signs (Past 12 Hours) Vital Signs Temp Pulse Resp BP Pulse Ox O2 Del Method 11/15/22 07:59 36.9 C 92 H 16 121/83 95 Room Air Laboratory Results Short CBC 11/15/22 Range/Units 07:44 WBC 2.03 L (4.8-10.8) K/ul Hgb 11.4 L (12.0-16.0) g/dl Hct 34.7 L (37.0-47.0) % Plt Count 82 L (130-400) K/uL BMP 11/15/22 07:44 Sodium 140 Potassium 3.6 Chloride 106 Carbon Dioxide 25 BUN 13 Creatinine 0.90 Glucose 92 Calcium 8.8 Medications Administered Current Inpatient Medications Acetaminophen (Acetaminophen 325 Mg Tab) 650 mg PO Q4H PRN PRN Reason: pain/fever Stop: 12/14/22 02:43 Last Admin: 11/14/22 08:17 Dose: 650 mg Clonazepam (Clonazepam 0.5 Mg Tab) 0.5 mg PO TID PRN PRN Reason: Anxiety Stop: 12/14/22 02:43 Hydromorphone HCl (Hydromorphone Inj 0.5 Mg/0.5 Ml Syr) 0.5 mg IV Q3H PRN PRN Reason: Pain Stop: 11/28/22 02:43 Last Admin: 11/14/22 15:45 Dose: 0.5 mg Famotidine 20 mg/ Syringe 5 mls @ 2.5 mls/min IV BID SIGRID Stop: 12/14/22 08:59 Last Admin: 11/15/22 09:23 Dose: 2.5 mls/min Promethazine HCl 12.5 mg/ (Sodium Chloride) 50.5 mls @ 202 mls/hr IV Q6H PRN PRN Reason: Nausea And Vomiting Stop: 12/14/22 16:01 Last Infusion: 11/14/22 17:15 Dose: Infused Acetaminophen (Ofirmev) 1,000 mg in 100 mls @ 400 mls/hr IV Q8H PRN PRN Reason: Pain Stop: 11/17/22 16:01 Lisinopril (Lisinopril 10 Mg Tab) 30 mg PO DAILY SIGRID Stop: 12/14/22 08:59 Last Admin: 11/15/22 08:32 Dose: 30 mg Ondansetron HCl (Ondansetron Inj 2 Mg/Ml 2 Ml Vial) 4 mg IV Q6H PRN PRN Reason: Nausea Stop: 12/14/22 02:43 Last Admin: 11/14/22 15:01 Dose: 4 mg Polyethylene Glycol (Polyethylene (Miralax) 17 Gm Pack) 17 gm PO DAILY PRN PRN Reason: Constipation Stop: 12/14/22 02:43 Pregabalin (Pregabalin 50 Mg Cap) 50 mg PO BID [facility] Stop: 12/14/22 08:59 Last Admin: 11/15/22 08:35 Dose: 50 mg Vibegron (Vibegron 75 Mg Tab) 75 mg PO DAILY SIGRID Stop: 12/14/22 08:59 Last Admin: 11/15/22 08:32 Dose: 75 mg
--- NOTE | 2022-11-15 15:08 | Discharge Summary ---
Date of Service November 15, 2022 Admission HPI Per Admitting Provider 62-year-old female with past medical significant for lymphoma involving the left of the neck in 1993 s/p radiation treatment to that area, history of left breast intraductal carcinoma s/p lumpectomy, s/p MammoSite radiation to left breast in 2010, follicular lymphoma involving the bone marrow splenomegaly lymph nodes in the chest and abdomen in September 2021 currently under observation ,as per the [facility] heme-onc notes patient not interested in any kind of chemotherapy treatment at this time presents with severe abdominal pain. Patient states abdominal pain started last Thursday but got progressively worse.. Appetite is down since she has abdominal pain. Having normal bowel movements , denies any blood in the stools. Normal bladder movements. Afebrile. Denies any chest pain or shortness of breath. Has some nausea. No cough. No headaches. Currently asking for pain medication. Hemodynamically stable. Past medical history as mentioned above also had C. difficile diarrhea and MRSA infection Past surgical history bronchoscopy, right groin lymph node biopsy, colonoscopy, cervical fusions, IR biopsy, partial left mastectomy with axillary lymphadenopathy, debridement of breast lump lumpectomy site, radiation therapy, sentinel lymph node biopsy on left side, Social history . No smoking. Alcohol 1-2 drinks a week. No drug use. Family history mother had non-Hodgkin's lymphoma. Father had colon cancer Admission Exam Per Admitting Provider Physical Exam: General- Not in distress Head- atraumatic Eyes- PERRL. ENT- oropharynx clear Neck- supple, no JVD, Lungs- clear to auscultation no wheezing or crackles. Heart- regular rate and rhythm; no murmur, no gallop. Abdomen- normal bowel sounds, soft, diffuse tenderness and mild guarding, no rigidity or distension. Extremities- no pretibial edema, no erythema seen. Neuro- alert, oriented x 3; PERRL, no facial palsy; no dysarthria;Non focal. Skin- warm & dry Principal Diagnosis Severe abdominal pain-resolved, follicular lymphoma. Hypertension Discharge Exam Moving around in the room without any difficulties Constitutional well developed, well nourished and + obese; not ill appearing Eyes PERRL, conjunctivae normal, anicteric sclerae ENMT external ear and nose normal, oropharynx normal Neck trachea midline, no thyromegaly Respiratory no respiratory distress Auscultation: lungs clear to auscultation bilaterally Cardiovascular Rate/Rhythm: regular rate and regular rhythm; not tachycardic Heart Sounds: normal S1 and normal S2; no murmur Gastrointestinal (Abdomen) Inspection/Auscultation: normal bowel sounds; abdomen not distended Percussion/Palpation: abdomen soft; abdomen nontender Neurologic normal touch/pain/proprioception and moves all extremities; no focal motor deficits Lymphatic no cervical or axillary lymphadenopathy Discharge Data Allergies Allergy/AdvReac Type Severity Reaction Status Date / Time cephalexin Allergy Unknown HIVES Verified 11/14/22 00:06 Consultations 11/13/22 23:37 ED Decision to Admit Stat Ordered Studies 11/13/22 21:34 CT abd pelvis IV con only Stat 11/14/22 16:15 CT head/brain wo con Routine Hospital Course (1) Abdominal pain: 62-year-old female with past medical significant for lymphoma involving the left of the neck in 1993 s/p radiation treatment to that area, history of left breast intraductal carcinoma s/p lumpectomy, s/p MammoSite radiation to left breast in 2010, follicular lymphoma involving the bone marrow splenomegaly lymph nodes in the chest and abdomen in September 2021 currently under observation, as per the [facility] heme-onc notes patient not interested in any kind of chemotherapy treatment at this time presents with severe abdominal pain Severe abdominal pain Started last Thursday and getting worse CT abdomen pelvis showing extensive lymphadenopathy, moderate splenomegaly and possible small subacute hematoma in the left lower quadrant region close to anterior abdominal wall Pain control, gentle fluids, clear liquids for now Has been feeling much better and the abdominal pain is resolved Denies any symptoms this morning and has been ambulating without any difficulties Severe headache Without any associated symptoms CT scan of the head remained unremarkable Denies any more headache this morning Follicular lymphoma Currently under observation Patient does not want to get any treatment for that Lymphopenia and thrombocytopenia From underlying lymphoma We will follow labs Hypertension continue home lisinopril Anxiety continue clonazepam as needed DVT prophylaxis SCDs for now Disposition observation medical floor Full code as per my discussion with the patient Should be discharged this afternoon Total Time Total Time Spent Total Time Spent (In Minutes): 35 minutes Discharge Plan Discharge Items Patient Disposition: Home - Self-Care Reason For Visit: ABDOMINAL PAIN SEVERE Discharge Diagnosis: Severe abdominal pain-resolved, follicular lymphoma. Hypertension Condition on Discharge: Good Activity: Resume your previous activity Non-emergency contact: Primary Care Provider Call non-emergency contact if: you have any medication questions and your symptoms worsen Follow-up/Referrals: Anju Oneill MD [Primary Care Provider] - (Your doctor's office will call you with an appointment within 7 days) Diet: Regular Addtl Attending Provider Instructions: Please take precautions to avoid falls Continue medications as advised Please keep appointments with your healthcare provider Pending Studies at Discharge: No Stand-Alone Forms: My [facility], Smoking Cessation Medications and DC Order Prescriptions: Continued lisinopril 30 mg tablet 30 mg PO DAILY pregabalin 50 mg capsule 50 mg PO BID Myrbetriq 50 mg tablet extended release 24 hr 50 mg PO DAILY clonazepam 0.5 mg tablet 0.5 mg PO TID PRN (Reason: Anxiety) Discharge Orders: Discharge Order (Routine); Ordered 11/15/22 Ordered By: Brendan Espinoza/Other Patient Handouts: Controlling High Blood Pressure Admission Data Admit Date/Time: 11/14/22 02:03 Attending Provider: Brendan Bauer Admit Provider: Alfonso Ventura Primary Care Provider: Anju Oneill Other Providers: Alfonso Ventura Other Interventions: Discharge Summary Assessment (RN) Last Done: 11/15/22 11:43
== END 2022-11-15 13:17 | disposition home or self-care (01) ==
LOC: EDINP 19:18 → ED 19:18 → 3N 11-14 02:45

== ENCOUNTER 2024-01-09 10:04 | Inpatient (IN) ==
--- OUTSIDE RECORDS SUMMARY | 2024-01-09 10:13 | External Medical Summary | Summary of Care ---
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 Patient states she was having stomach pain, poor appetite, and concerns of constipation, Patient states she has been taking colace and eating very small amounts of food. Patients last BM was today. Patient states she currently has a mass in her stomach on the left side and has concerns it is growing, also would like to discuss lymph nodes. Patient would like to know if she should see Dr. Chavez now. 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 30 Tablet 1 3 Active Lidocaine-Prilocain e 2.5-2.5 % External Cream (Emla)Indications:G rade 1 follicular lymphoma of lymph nodes of multiple regions (HCC) APPLY TO SKIN OVER MEDIPORT & COVER 1HR PRIOR TO ACCESSING. 30 g 1 3 Active Lisinopril 30 MG Oral TabletIndications:E ssential hypertension with goal blood pressure less than 140/90 TAKE ONE TABLET BY MOUTH EVERY MORNING 90 Tablet 2 4 05/27/19 25 Active Mirabegron ER 50 MG Oral Tablet Extended Release 24 Hour (Myrbetriq)Indicati ons:Overactive bladder Take 1 Tablet by mouth in the morning. 90 Tablet 3 4 Active Acyclovir 400 MG Oral Tablet (Zovirax)Indication s:Grade 1 follicular lymphoma of lymph nodes of multiple regions (HCC) Take 1 Tablet by mouth in the morning and 1 Tablet before bedtime. 180 Tablet 3 4 Active Pregabalin 50 MG Oral Capsule (Lyrica) TAKE ONE CAPSULE BY MOUTH IN THE MORNING AND ONE CAPSULE BEFORE BEDTIME 180 Capsule 1 4 Active clonazePAM 0.5 MG Oral Tablet (KlonoPIN)Indicatio ns:Anxiety Take 1 Tablet by mouth 3 times a day as needed for Anxiety. 30 Tablet 3 01/08/20 24 Discontinu ed(Patient preference /discontin uation) oxyCODONE HCl 5 MG Oral Tablet (Oxy IR)Indications:Grad e 1 follicular lymphoma of lymph nodes of multiple regions (HCC),Generalized abdominal pain Take 1 Tablet by mouth every 4 hours as needed for Pain, Breakthrough or Pain, Moderate. 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 20 Tablet 3 01/08/20 Discontinu ed(Medicat ion List Clean Up) Ondansetron HCl 8 MG Oral Tablet (Zofran)Indications :Grade 1 follicular lymphoma of lymph nodes of multiple regions (HCC),Encounter for antineoplastic chemotherapy Take 1 Tablet by mouth every 8 hours as needed for Nausea. 30 Tablet 1 3 01/08/20 Discontinu ed(Medicat ion List Clean Up) Prochlorperazine Maleate 10 MG Oral Tablet (Compazine)Indicati ons:Grade 1 follicular lymphoma of lymph nodes of multiple regions (HCC),Encounter for antineoplastic chemotherapy Take 1 Tablet by mouth every 6 hours as needed for Nausea. 30 Tablet 1 3 01/08/20 Discontinu ed(Medicat ion List Clean Up) Loratadine 10 MG Oral Tablet (Claritin)Indicatio ns:Grade 1 follicular lymphoma of lymph nodes of multiple regions (HCC) Take 1 tablet daily on days 1-5 of each chemo cycle 30 Tablet 3 01/08/20 Discontinu ed(Medicat ion List Clean Up) predniSONE 50 MG Oral Tablet (Deltasone)Indicati ons:Grade 1 follicular lymphoma of lymph nodes of multiple regions (HCC) Take 100mg (2 tabs) once a day on days 1-5 of each chemo cycle 60 Tablet 3 01/08/20 Discontinu ed(Medicat ion List Clean Up) Morphine Sulfate (Concentrate) 100 MG/5ML Oral SolutionIndications :Grade 1 follicular lymphoma of lymph nodes of multiple regions (HCC) Take 0.2 mL by mouth every 4 hours as needed for Pain, Moderate. 30 mL 3 01/08/20 Discontinu ed(Medicat ion List Clean Up) Omeprazole 20 MG Oral Capsule Delayed Release (PriLOSEC)Indicatio ns:Grade 1 follicular lymphoma of lymph nodes of multiple regions (HCC) Take 1 Capsule by mouth in the morning. 90 Capsule 3 4 01/08/20 24 Discontinu ed(Medicat ion List Clean Up) documented as of this encounter (statuses as of 01/08/2024) Active Problems Problem Noted Date Diagnosed Date History of lymphoma 03/12/2023 Dehydration 11/27/2022 Encounter for antineoplastic chemotherapy 2022 Grade 1 follicular lymphoma of lymph nodes of multiple regions 11/20/2022 Generalized abdominal pain 11/20/2022 Small B-cell lymphoma 06/02/2022 Sensation of pressure in bladder area 01/18/2018 Advanced directives, counseling/discussion 12/18 Urge incontinence of urine 09/04/2017 Vaginal stenosis 09/04/2017 Feeling of incomplete bladder emptying 8 History of breast cancer 10/10/2013 Cancer Staging:Clinical:Stage IIA(T1c, N1, M0) - Signed by Phillip Chavez MD on 10/12/2013 Pathologic: Unsigned Overview: History of documented as of this encounter (statuses as of 01/08/2024) Resolved Problems Problem Noted Date Diagnosed Date Resolved Date Diffuse large B-cell lymphom a of lymph nodes of inguinal region 03/05/2017 03/05/2017 Otalgia of left ear 03/13/2014 07/15/19 17 Dysfunction of eustachian tube 03/13/2014 07/14/2016 documented as of this encounter (statuses as of 01/08/2024) Immunizations Name Administration Dates Next Due COVID-19 mRNA, LNP-s, No Pre serve, 2-Dose Series ([employer]) 06/07/2020,05/17/2020 Seasonal Influenza, High Dos e, Trivalent, PF, IM (Fluzone HD) 11/30/2023 Seasonal Influenza, MDCK, Tr ivalent, PF, (Flucelvax) 01/05/2023 Seasonal Influenza, PF, 6 M & above, IM , (FluLaval or Fluzone) 01/17/2022,01/11/2021,12/27/2019 TD, Preservative Free 06/04/2018 TDAP, Age 7 and older, IM (Adacel) 10/18/2007 Zoster Vaccine Recombinant (Shingrix) 08/07/2020 ,09/06/2019 documented as of this encounter Social History Tobacco Use Types Packs/Day Years Used Date Smoking Tobacco: Never Smokeless Tobacco: Never Alcohol Use Standard Drinks/Week Comments Not Currently 0 (1 standard drink = 0.6 oz pur e alcohol) 1-2 drinks a week PHQ-2 Answer Date Recorded PHQ-2 Score -1 12/05/2019 Hunger Vital Sign Answer Date Recorded Worried About Running Out of Food in the Last Ye ar Never true 03/02/2019 Ran Out of Food in the Last Year Never true 03/02/2019 Utilities Answer Date Recorded Do you have trouble paying y our heating, water, or electric bill? (Adult - for ages 18 years and over) Not on file 09/01/2023 Is your family able to pay t he heat, water, or electric bill? (Household - for ages 0-17 years) Not on file 09/01/2023 Does your family have access to good internet? (Household - for ages 0-17 years) Not on file 09/01/2023 Social Connections Answer Date Recorded How often do you feel lonely or isolated from those around you? (Adult - for ages 18 years and over) Not on file 09/01/2023 Sex and Gender Information Value Date Recorded Sex Assigned at Female 06/02/2022 3:36 PM EDT Gender Identity Female 06/02/2022 3:36 PM EDT Sexual Orientation Straight 10/22/2020 4: 34 PM EDT Job Start Date Occupation Industry Not on file Not on file Not on file documented as of this encounter Last Filed Vital Signs Vital Sign Reading Time Taken Comments Blood Pressure 94/66 01/08/2024 10:03 AM EDT Pulse 96 01/08/2024 10:03 AM EDT Temperature 36.4 C (97.5 F) 01/08/2024 10:03 AM E DT Respiratory Rate 16 01/08/2024 10:03 AM EDT Oxygen Saturation 94% 01/08/2024 10:03 AM EDT Inhaled Oxygen Concentration - - Weight 91.2 kg (201 lb) 01/08/2024 10:03 AM EDT Height 160.4 cm (5' 3.15") 01/08/2024 10:03 AM E DT Body Mass Index 35.44 01/08/2024 10:03 AM EDT documented in this encounter Progress Notes * Arnoldo Rodriguez MD - 01/08/2024 10:34 AM EDT Subjective: Heather Olmos is a 63 year old female. Chief Complaint Patient presents with Acute Patient is here today due to ongoing GI symptoms for the last week. Patient states she was having stomach pain, poor appetite, and concerns of constipation, Patient states she has been taking colace and eating very small amounts of food. Patients last BM was today. Patient states she currently has a mass in her stomach on the left side and has concerns it is growing, also would like to discuss lymph nodes. Patient would like to know if she should see Dr. Chavez now. HPI: 63-year-old who has a history of non-Hodgkin's lymphoma dating back to 1993. In September of 2021 she was diagnosed with follicular lymphoma involving spleen lymph nodes the chest and abdomen as wellas bone marrow and in May 08 diagnosed with B-cell lymphoma. She follows closely with Dr. Lulu Chavez. She had a CT scan of chest abdomen and pelvis in August of 2023 which showed no change compared to the study done March 31, 2023. Multiple enlarged gastrohepatic salvador hepatic mesenteric retroperitoneal lymph nodes were noted but unchanged in size. Over the last week she has had diffuse abdominal discomfort. Initially she thought she might be constipated started using MiraLax in did have bowel movement but it did not make any significant difference with the amount of discomfort which persist. It is not localized to 1 side or another but maybea little worse on the left. She has had no melena or hematochezia. She has not vomited. Over the same week she essentially has had no appetite. 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 30 Tablet 1 Lidocaine-Prilocaine 2.5-2.5 % External Cream (Emla) APPLY TO SKIN OVER MEDIPORT & COVER 1HR PRIOR TO ACCESSING. 30 g 1 Lisinopril 30 MG Oral Tablet TAKE ONE TABLET BY MOUTH EVERY MORNING 90 Tablet 2 Mirabegron ER 50 MG Oral Tablet Extended Release 24 Hour (Myrbetriq) Take 1 Tablet by mouth in the morning. 90 Tablet 3 Acyclovir 400 MG Oral Tablet (Zovirax) Take 1 Tablet by mouth in the morning and 1 Tablet before bedtime. 180 Tablet 3 Pregabalin 50 MG Oral Capsule (Lyrica) TAKE ONE CAPSULE BY MOUTH IN THE MORNING AND ONE CAPSULE BEFORE BEDTIME 180 Capsule 1 No current facility-administered medications for this visit. Review of patient's allergies indicates: Allergen Reactions Keflex [Cephalexin] Hives [facility] Medical Records Objective: BP 94/66 | Pulse 96 | Temp 36.4 C (97.5 F) (Tympanic) | Resp 16 | Ht 1.604 m (5' 3.15") | Wt 91.2 kg (201 lb) | SpO2 94% | BMI 35.44 kg/m | BSA 2.02 m Physical Exam: CONST: alert, pleasant, no acute distress HEAD: normocephalic, atraumatic NECK: supple, soft, no adenopathy Eyes - PERRLA, EOM'I OROPHARYNX: clear, no swelling or erythema, moist CV: regular rate and rhythm, no murmur CHEST: clear to auscultation bilaterally, no rales or wheezing ABD: soft, nondistended. Diffuse tenderness throughout the abdomen especially mid and lower abdomen. She has a easily palpable mass in the left side of the abdomen (maybe in the abdominal wall) whichshe notes has been noted for long time but she thinks has gotten a little larger. 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 Now with steady abdominal discomfort. The question is whether she has worsening underlying lymphoma with increase in intra-abdominal lymph adenopathy causing that pain. Will get CT scan of the chest abdomen and pelvis with oral contrast and IV contrast within the nextseveral days. She actually is scheduled for this study February 14 but I think it should be done sooner. Also will get a basic metabolic panel as she will have to have that in order to do the IV contrast and CBC looking for elevated white count and/or anemia. I did message Dr. Chavez her oncologist letting him know my plan in in asking him for any advice on other testing that he might want. Arnoldo Rodriguez MD documented in this encounter Nursing Notes * Guera Schreiber LPN - 01/08/2024 10:08 AM EDT The patient has been properly identified by confirmation of name and date of . Chief Complaint Patient presents with Acute Patient is here today due to ongoing GI symptoms for the last week. Patient states she was having stomach pain, poor appetite, and concerns of constipation, Patient states she has been taking colace and eating very small amounts of food. Patients last BM was today. Patient states she currently has a mass in her stomach on the left side and has concerns it is growing, also would like to discuss lymph nodes. Patient would like to know if she should see Dr. Chavez now. documented in this encounter Plan of Treatment Upcoming Encounters Date Type Department Care Team (Late st Contact Info) Description 01/13/2024 12:45 PM EDT Imaging Radiology [address] [place] [address] 02/05/2024 9:30 AM EST Immunization/Injec tion Hematology/Oncology Treatment, [address] [place] [phone] Sharyn, Chair 3 Hem Onc [address] [place] [address] 02/15/2024 10:30 AM EST Imaging Radiology [address] [place] [address] 03/08/2024 2:45 PM EST Office Visit Hematology/Oncology [address] [place] [phone] Phillip Chavez MD [address] [place] [address] Pending Results Name Type Priority Associated Diagnoses Date /Time BASIC METABOLIC PANEL Lab Routine 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) 01/08/2024 11:12 AM EDT CBC WITH WBC DIFFERENTIAL Lab Routine 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) 01/08/2024 11:12 AM EDT Scheduled Orders Name Type Priority Associated Diagnoses Orde r Schedule CT CHEST/ABDOMEN/PELVIS WITH IV CONTRAST WITH ORAL CONTRAST Medical Imaging Routine 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) Expected: 01/08/2024, Expires: 02/08/2024 BASIC METABOLIC PANEL Lab Routine 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) Expected: 01/08/2024 (Approximate), Expires: 01/07/2025 CBC WITH WBC DIFFERENTIAL Lab Routine 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) Expected: 01/08/2024 (Approximate), Expires: 01/07/2025 COMPREHENSIVE METABOLIC PANEL Lab Routine 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) Expected: 01/08/2024 (Approximate), Expires: 01/07/2025 URIC ACID Lab Routine 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) Expected: 01/08/2024 (Approximate), Expires: 01/07/2025 LD Lab Routine 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) Expected: 01/08/2024 (Approximate), Expires: 01/07/2025 Scheduled Procedures Name Priority Associated Diagnoses Date/Ti me COLONOSCOPY FLEXIBLE PROXIMA L DIAGNOSTIC Recall History of colon polyps Family history of colon cancer Health Maintenance Due Date Last Done Comments Pneumococcal Vaccine: 65+ Years (1 of 2 - PCV) 1964 Cologuard 2003 Sigmoidoscopy 2003 COVID-19 Vaccine (3 - Pfizer risk series) 07/05/2020 06/07/2020, 05/17/2020 Depression Screening 09/05/2020 09/06/2019 Fecal Occult Blood Test 04/30/2022 04/30/19, 04/30/2021, 09/20/2019, Additional history exists Mammogram 12/29/2024 12/30/2023, 12/14, 12/18/2023, Additional history exists DXA Scan 01/07/2025 06/04/2011 Postponed from 2023 (Patient Declined After Education) HIV Screening 01/07/2025 Postponed from 1973 (Patient Declined After Education) Hepatitis C Screening 01/07/2025 Postpo jonatan from 1976 (Patient Declined After Education) Colonoscopy 05/30/2026 05/30/2021, 05/30/2021 Colorectal Cancer Screening 05/30/2026 Lipid Panel 07/16/2026 07/16/2021, 07/15, 09/06/2019, Additional history exists Diabetes Screening 09/01/2026 09/02/2023, 1 05/12/2022, 02/18/2023, Additional history exists DTap/Tdap Vaccines (3 - Td or Tdap) 06/04/2028 06/04/2018, 10/18/2007 Zoster Vaccines Completed 08/07/2020, 09/06/2019 RETIRED - COLONOSCOPY-EVERY 5 YRS AGES 18-100 Discontinued 05/30/2021, 05/30/2021 Influenza Vaccine (FLU shot) Completed 11/30/2023, 01/05/2023, 01/17/2022, Additional history exists HPV (Gardasil) Vaccine Aged Out No lo nger eligible based on patient's age to complete this topic Hepatitis B Vaccine Aged Out No longe r eligible based on patient's age to complete this topic MENINGOCOCCAL (MENACTRA/MENVEO) Aged Out No longer eligible based on patient's age to complete this topic documented as of this encounter Medical Devices Implanted Type Area Vehicle Calibration Engineer Device Identifier Shelf Expiration Date Model / Serial / Lot Port Implant W/8f Poly Cath - [id number] Implanted:Qty : 1 on 12/10/2022 by Ravin Chandler Jr., MD at OR 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
--- OUTSIDE RECORDS SUMMARY | 2024-01-09 10:13 | External Medical Summary ---
Author Name Unknown Address Unknown Organization [id number] [place] [address] [facility] [place] [address] Laboratory Report Ordering Provider Test Date Status SANAM SELF 01/08/2024 11:12:53 Final Observation Date Value Abnormality Reference (Units ) Status BUN 01/08/2024 11:12:53 20 6-20 (mg/dL) Final Creatinine 01/08/2024 11:12:53 1.1 Above high normal 0.5-1.0 (mg/dL) Final Glomerular filtration rate/1.73 sq M.predicted [Volume Rate/Area] in Serum, Plasma or Blood by Creatinine-based formula (CKD-EPI) 01/08/2024 11:12:53 55 Below low normal >=60 (mL/min) Final eGFR is calculated based on the CKD-EPI 2020 equation. Sodium 01/08/2024 11:12:53 144 135-146 (m mol/L) Final Potassium 01/08/2024 11:12:53 4.5 3.5-5.1 (m mol/L) Final Cl 01/08/2024 11:12:53 103 98-107 (mm ol/L) Final CO2 01/08/2024 11:12:53 28 22-32 (mmo l/L) Final Anion gap 01/08/2024 11:12:53 13 7-15 (mmol /L) Final Glucose 01/08/2024 11:12:53 90 70-120 (mg /dL) Final Albumin 01/08/2024 11:12:53 4.6 3.8-5.0 (g /dL) Final AST (Aspartate aminotransferase) 01/08/2024 11:12:53 39 Above high normal 10-35 (U/L) Final Alk Phos 01/08/2024 11:12:53 100 35-130 (U/ L) Final Bilirubin, Total 01/08/2024 11:12:53 0.8 <=1 .2 (mg/dL) Final Calcium 01/08/2024 11:12:53 9.2 8.4-10.2 ( mg/dL) Final Protein 01/08/2024 11:12:53 6.3 6.0-8.3 (g /dL) Final ALT (Alanine aminotransferase) 01/08/2024 11:12:53 18 10-35 (U/L) Yann whelan Performing Location [facility] [place] [facility] [address] [facility] [address]
--- OUTSIDE RECORDS SUMMARY | 2024-01-09 10:13 | External Medical Summary ---
Author Name Unknown Address Unknown Organization [id number][place] [place] [address] [facility] [address] Laboratory Report Ordering Provider Test Date Status SANAM SELF 01/08/2024 11:12:53 Final Observation Date Value Abnormality Reference (Units ) Status SYNC LEUKOCYTES IN BLOOD BY AUTOMATED COUNT 01/08/2024 11:12:53 5.72 4.00-10.80 (K/uL) Final Segs 01/08/2024 11:12:53 70.2 40.0-75.0 (%) Final Lymphs % 01/08/2024 11:12:53 13.8 Below low normal 18.0-42.0 (%) Final Monos 01/08/2024 11:12:53 13.3 Above high normal 1.0-11.0 (%) Final Eosinophils 01/08/2024 11:12:53 2.1 0.0-6.0 (%) Final Basos 01/08/2024 11:12:53 0.3 0.0-2.0 (%) Final Immature Granulocyte, Percent 01/08/2024 11:12:53 0.3 0.0-2.0 (%) Final Absolute Segs 01/08/2024 11:12:53 4.01 1.80-7.70 (K/uL) Final Lymphs, absolute 01/08/2024 11:12:53 0.79 Below low normal 1.00-4.80 (K/ul) Final Monos, Abs 01/08/2024 11:12:53 0.76 0.00-1.10 (K/uL) Final Eos, Abs 01/08/2024 11:12:53 0.12 0.00-0.70 (K/uL) Final Basos, Abs 01/08/2024 11:12:53 0.02 0.00-0.20 (K/uL) Final Immature Granulocytes, Number 01/08/2024 11:12:53 0.02 0.00-0.20 (K/uL) Final Performing Location [facility] [place] [facility] [place] [address]
--- OUTSIDE RECORDS SUMMARY | 2024-01-09 10:13 | External Medical Summary | Summary of Care ---
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 30 g 1 11/21/2022 Active Lisinopril 30 MG Oral TabletIndications:E ssential hypertension with goal blood pressure less than 140/90 TAKE ONE TABLET BY MOUTH EVERY MORNING 90 Tablet 2 05/27/2023 05/26/2024 Active Mirabegron ER 50 MG Oral Tablet Extended Release 24 Hour (Myrbetriq)Indicati ons:Overactive bladder Take 1 Tablet by mouth in the morning. 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 180 Tablet 3 12/07/2023 Active Pregabalin 50 MG Oral Capsule (Lyrica) TAKE ONE CAPSULE BY MOUTH IN THE MORNING AND ONE CAPSULE BEFORE BEDTIME 180 Capsule 1 12/31/2023 Active documented as of this encounter (statuses as [...] mRNA, LNP-s, No Pre serve, 2-Dose Series (Vollee) 06/07/2020,05/17/2020 Seasonal Influenza, High Dos e, Trivalent, [...] on file documented as of this encounter Plan of Treatment Upcoming Encounters Date Type Department Care Team (Late st Contact Info) Description 01/13/2024 12:45 PM EDT Imaging Radiology [facility], [place] [address] [facility] [place] [address] 02/05/2024 9:30 AM EST Immunization/Injec tion Hematology/Oncology Treatment, [place] [address] [place] [address] Sharyn, Chair 3 Hem Onc [address] [place] [address] 02/15/2024 10:30 AM EST Imaging Radiology [facility] [facility], [place] [address] [facility] [place] [address] 03/08/2024 2:45 PM EST Office Visit Hematology/Oncology [facility] [place] [address] [place] [address] Phillip Chavez MD [address] [place] [address] Pending Results Name Type Priority Associated Diagnoses Date /Time BASIC METABOLIC PANEL Lab Routine 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) 01/08/2024 11:12 AM EDT CBC WITH WBC DIFFERENTIAL Lab Routine 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) 01/08/2024 11:12 AM EDT CBC Lab Routine 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) 01/08/2024 11:12 AM EDT DIFFERENTIAL, AUTOMATED Lab Routine 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) 01/08/2024 11:12 AM EDT Scheduled Procedures Name Priority Associated Diagnoses Date/Ti [...] this encounter Medical Devices Implanted Type Area Information Systems Auditor Device Identifier Shelf Expiration Date Model / Serial / Lot Port Implant W/8f Poly Cath - [id number] Implanted:Qty : 1 on 12/10/2022 by Ravin Chandler Jr., MD at OR [facility] Right: Chest CR BARD : PERIPHERAL VASCULAR [id number] 02/13/2024 [id number] / / [id number] documented as of this encounter Visit Diagnoses Diagnosis 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
--- OUTSIDE RECORDS SUMMARY | 2024-01-09 10:13 | External Medical Summary ---
Author Name Unknown Address Unknown Organization K01:LABORATORY [facility] [place] - [facility] [address] [facility] [address] [facility] [address] Laboratory Report Ordering Provider Test Date Status SANAM SELF 01/08/2024 11:12:53 Final Observation Date Value Abnormality Reference (Units ) Status WBC, Total 01/08/2024 11:12:53 5.72 4.00-10.80 (K/uL) Final RBC 01/08/2024 11:12:53 4.25 3.85-5.15 (M/uL) Final Hemoglobin 01/08/2024 11:12:53 12.8 12.0-15.3 (g/dL) Final HCT 01/08/2024 11:12:53 40.2 36.0-45.2 (%) Final MCV 01/08/2024 11:12:53 94.6 81.5-97.5 (fL) Final MCH 01/08/2024 11:12:53 30.1 27.0-34.0 (pg) Final MCHC 01/08/2024 11:12:53 31.8 32.0-36.0 (g/dL) Final RDW 01/08/2024 11:12:53 13.7 11.5-15.5 (%) Final Platelets 01/08/2024 11:12:53 144 140-400 (K/uL) Final MPV 01/08/2024 11:12:53 9.6 6.6-11.1 (fL) Final Nucleated erythrocytes/100 leukocytes [Ratio] in Blood by Automated count 01/08/2024 11:12:53 0 <=0 (/100 WBCs) Final Performing Location LABORATORY [facility] - [address] [place] [address]
--- OUTSIDE RECORDS SUMMARY | 2024-01-09 10:13 | External Medical Summary ---
Author Name Unknown Address Unknown Organization K01:LABORATORY [facility] - [address] [place] [address] Laboratory Report Ordering Provider Test Date Status SANAM SELF 01/08/2024 11:12:53 Final Observation Date Value Abnormality Reference (Units ) Status LDH 01/08/2024 11:12:53 993 Above high normal <= 250 (U/L) Final Performing Location LABORATORY [facility] - [address] [place] [address]
--- OUTSIDE RECORDS SUMMARY | 2024-01-09 10:13 | External Medical Summary ---
Author Name Unknown Address Unknown Organization K01:[facility]ORY [facility] [place] - [address] [place] [address] Laboratory Report Ordering Provider Test Date Status [...] 01/08/2024 11:12:53 90 70-120 (mg /dL) Final Calcium 01/08/2024 11:12:53 9.2 8.4-10.2 ( mg/dL) Final Performing Location LABORATORY [facility] [place] - [address] [place] [address]
--- OUTSIDE RECORDS SUMMARY | 2024-01-09 10:13 | External Medical Summary ---
Author Name Unknown Address Unknown Organization K01[place] [place] [address] [place] [address] Laboratory Report Ordering Provider Test Date Status AMADOU SELFCRUZ 01/08/2024 11:12:53 Final Observation Date Value Abnormality Reference (Units ) Status Uric Acid 01/08/2024 11:12:53 9.6 Above high normal 2. 4-5.7 (mg/dL) Final Performing Location [facility] [address] [place] [address]
--- OUTSIDE RECORDS SUMMARY | 2024-01-09 10:14 | External Medical Summary ---
Author Name Unknown Address Unknown Organization K01:[place]ORY [facility] [place] - Formerly named [facility] [address] [facility] [address] Laboratory Report Ordering Provider Test Date Status CRISTY VO 09/18/2023 08:56:19 Final Observation Date Value Abnormality Reference (Units ) Status WBC, Total 09/18/2023 08:56:19 4.32 4.00-10.80 (K/uL) Final RBC 09/18/2023 08:56:19 4.14 3.85-5.15 (M/uL) Final Hemoglobin 09/18/2023 08:56:19 12.4 12.0-15.3 (g/dL) Final HCT 09/18/2023 08:56:19 37.9 36.0-45.2 (%) Final MCV 09/18/2023 08:56:19 91.5 81.5-97.5 (fL) Final MCH 09/18/2023 08:56:19 30.0 27.0-34.0 (pg) Final MCHC 09/18/2023 08:56:19 32.7 32.0-36.0 (g/dL) Final RDW 09/18/2023 08:56:19 14.2 11.5-15.5 (%) Final Platelets 09/18/2023 08:56:19 152 140-400 (K/uL) Final MPV 09/18/2023 08:56:19 11.0 6.6-11.1 (fL) Final Nucleated erythrocytes/100 leukocytes [Ratio] in Blood by Automated count 09/18/2023 08:56:19 0 <=0 (/100 WBCs) Final Performing Location LABORATORY [facility] [place] [address] [place] [id number]
--- OUTSIDE RECORDS SUMMARY | 2024-01-09 10:14 | External Medical Summary | Summary of Care ---
Author Name Unknown Organization [facility] Address [address] [place] [address] Phone [phone] Care Team Providers Care Head Paper Tester Name Role Phone Mago Mcmillan MD Primary Care Provid er Reason for Visit * Reason Onset Date Comments Medication Refill 12/28/2023 Encounter Details Date Type Department Care Team (Late st Contact Info) Description 12/28/2023 Refill [facility] [address] [place] [address] Mago Mcmillan MD [address] [place] [address] Allergies Active Allergy Reactions Criticality Noted Date Comments Cephalexin Hives 10/14/2013 [facility] Records documented as of this encounter (statuses as of 12/31/2023) Medications Medication Sig Dispensed Refills Start Date End Date Status clonazePAM 0.5 MG Oral Tablet (KlonoPIN)Indicatio ns:Anxiety Take 1 Tablet by mouth 3 times a day as needed for Anxiety. 30 Tablet 3 Active Additional Information Patient not taking.Reported on 12/10/2022 oxyCODONE HCl 5 MG Oral Tablet (Oxy IR)Indications:Grad e 1 follicular lymphoma of lymph nodes of multiple regions (HCC),Generalized abdominal pain Take 1 Tablet by mouth every 4 hours as needed for Pain, Breakthrough or Pain, Moderate. 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 20 Tablet 3 Active Ondansetron HCl 8 MG Oral Tablet (Zofran)Indications :Grade 1 follicular lymphoma of lymph nodes of multiple regions (HCC),Encounter for antineoplastic chemotherapy Take 1 Tablet by mouth every 8 hours as needed for Nausea. 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 30 Tablet 1 3 Active Additional Information Patient not taking.Reported on 11/30/2023 Lidocaine-Prilocain e 2.5-2.5 % External Cream (Emla)Indications:G rade 1 follicular lymphoma of lymph nodes of multiple regions (HCC) APPLY TO SKIN OVER MEDIPORT & COVER 1HR PRIOR TO ACCESSING. 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 30 mL 3 Active Lisinopril 30 MG Oral TabletIndications:E [...] before bedtime. 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 90 Capsule 3 4 Active Pregabalin 50 MG Oral Capsule (Lyrica) TAKE ONE CAPSULE BY MOUTH IN THE MORNING AND ONE CAPSULE BEFORE BEDTIME 180 Capsule 1 4 Active Pregabalin 50 MG Oral Capsule (Lyrica) TAKE ONE CAPSULE BY MOUTH IN THE MORNING AND ONE CAPSULE BEFORE BEDTIME 180 Capsule 1 4 12/28/19 24 Discontinu ed(Refill) documented as of this encounter (statuses as of 12/31/2023) Active Problems Problem Noted Date Diagnosed Date [...] as of this encounter (statuses as of 12/31/2023) Resolved Problems Problem Noted Date Diagnosed Date Resolved Date Diffuse large B-cell lymphom a of lymph nodes of inguinal region 03/05/2017 03/05/2017 Otalgia of left ear 03/13/2014 07/15/19 Dysfunction of eustachian tube 03/13/2014 07/14/2016 documented as of this encounter (statuses as of 12/31/2023) Immunizations Name Administration Dates Next Due COVID-19 mRNA, LNP-s, No Pre serve, 2-Dose Series (Pfizer) 06/07/2020,05/17/2020 Seasonal Influenza, High Dos e, Trivalent, [...] Tobacco: Never Alcohol Use Standard Drinks/Week Comments Yes 0 (1 standard drink = 0.6 oz [...] on file documented as of this encounter Miscellaneous Notes * Telephone Encounter - Mago Mcmillan MD - 12/31/2023 3:39 PM EDT Signed Prescriptions: Disp Refills Pregabalin 50 MG Oral Capsule (Lyrica) 180 Ca*1 Sig: TAKE ONE CAPSULE BY MOUTH IN THE MORNING AND ONE CAPSULE BEFORE BEDTIME Authorizing Provider: MAGO MCMILLAN * Telephone Encounter - Kalyani Gonzalez [facility] - 12/29/2023 5:40 PM EDT Pending Prescriptions: Disp Refills Pregabalin 50 MG Oral Capsule (Lyrica) 180 Ca*1 * Telephone Encounter - Kalyani Gonzalez [facility] - 12/29/2023 5:39 PM EDT I have reviewed the patients controlled substance dispensing history in the Prescription Drug Monitoring Program in compliance with the [place] regulations before prescribing a controlled substance. PDMP checked on 12/29/2023. Pending Prescriptions: Disp Refills Pregabalin 50 MG Oral Capsule (Lyrica) 180 Ca*1 Last Visit: 11/30/2023 (in office), 03/05/2020 (telemedicine) Next Visit: Visit date not found Date medication was last filled: 10/05/23 Date medication is due for refill: 01/02/24 Pharmacy: [facility] Is this request for a controlled substance? Yes and Urine Drug Screen Not completed Toxicology results: No results found for this or any previous visit. Please approve if appropriate. Thank you, Kalyani Gonzalez PharmD Clinical Pharmacist [facility] ([facility]) 12/29/23 5:39 PM [phone] * Telephone Encounter - Neris Worrell PHARM Tech - 12/28/2023 10:23 AM EDT Did you pend patient's preferred pharmacy and medication before forwarding?yes Pharmacy: [facility] Pending Prescriptions: Disp Refills Pregabalin 50 MG Oral Capsule (Lyrica) 180 Ca*1 Last Visit: 11/30/2023 (in office), 03/05/2020 (telemedicine) Next Visit: Visit date not found If no future appointments scheduled, and last appointment is greater than a year ago, please schedule patient for a follow-up appointment Last date the medication was ordered: 07/01/23 Is this request for a controlled substance?Yes, What was the last refill date 07/01/23 w/ quantity 180 and dosage 50 mg and Urine Drug Screen Not completed Urine Drug Screen:No results found for this or any previous visit. Patient Phone Numbers Labs: Lab Results Component Value Date/Time CREAT 0.8 09/02/2023 11:48 AM CREAT 0.9 03/07/2020 02:27 PM POTASSIUM 4.1 09/02/2023 11:48 AM POTASSIUM 4.6 03/07/2020 02:27 PM TSH 2.26 07/16/2021 12:58 PM TSH 2.29 03/07/2020 02:24 PM LDL 93 07/16/2021 12:58 PM LDL 66 09/06/2019 11:07 AM LDL NOT APPLICABLE 09/06/2019 11:07 AM ALT 8 (L) 09/02/2023 11:48 AM ALT 18 09/06/2019 11:07 AM HGBA1C 5.4 07/14/2016 10:39 AM documented in this encounter Plan of Treatment Upcoming Encounters Date Type Department Care Team (Late st Contact Info) Description 02/05/2024 9:30 AM EST Immunization/Injec tion Hematology/Oncology Treatment, [place] [address] [place] [phone] [place], Chair 3 Hem Onc [facility] [address] [place] [address] 02/15/2024 10:30 AM EST Imaging Radiology [facility]st [facility], [place] [address] [facility] [place] [address] 03/03/2024 1:45 PM EST Office Visit Hematology/Oncology [facility] [address] [facility] [place] [place] [phone] Phillip Chavez MD [address] [place] [address] Scheduled Procedures Name Priority Associated Diagnoses Date/Ti me COLONOSCOPY FLEXIBLE PROXIMA L DIAGNOSTIC Recall History of colon polyps Family history of colon cancer Health Maintenance Due Date Last Done Comments Pneumococcal Vaccine: 65+ Years (1 of 2 - PCV) 1964 HIV Screening 1973 Hepatitis C Screening 1976 Cologuard 2003 Sigmoidoscopy 2003 COVID-19 Vaccine (3 - Pfizer risk series) 07/05/2020 06/07/2020, 05/17/2020 Depression Screening 09/05/2020 09/06/2019 Fecal Occult Blood Test 04/30/2022 04/30/19, 04/30/2021, 09/20/2019, Additional history exists DXA Scan 2023 06/04/2011 Mammogram 12/29/2024 12/30/2023, 06/2023, 05/20/2021, Additional history exists Colonoscopy 05/30/2026 05/30/2021, 05/30/2021 Colorectal Cancer Screening [...] this encounter Medical Devices Implanted Type Area Classification Control Clerk Device Identifier Shelf Expiration Date Model / Serial / Lot Port Implant W/8f Poly Cath - [id number] Implanted:Qty : 1 on 12/10/2022 by Ravin Chandler Jr., MD at OR [facility] Right: Chest CR BARD : PERIPHERAL VASCULAR [id number] 02/13/2024 [id number] / / [id number] documented as of this encounter Advance Directives Documents on File Type Date Recorded Patient Cable Operator Expl anation POLST 02/03/2022 [place] OR [facility] FOR LIFE-SUSTAINING TREATMENT Care Teams Head Paper Tester Relationship Specialty Start Date End Date Mago Mcmillan MD [address] [place] [address] PCP - General Family Medicine 01/15/22 documented as of this encounter
--- OUTSIDE RECORDS SUMMARY | 2024-01-09 10:14 | External Medical Summary | Summary of Care ---
Author Name Unknown Organization [facility] Address [address] [place] [address] Phone [phone] Care Team Providers Care Market Survey Representative Name Role Phone Anju Oneill MD Primary Care Provid er Reason for Visit * Reason Onset Date Comments NEW PATIENT YearlyWill need to have refills of the MyrbetriqHas had issues with memory and thinks there is a link with the pregabalin Medication Administration 11/30/2023 Flu an d/or Pneumo Inj Encounter Details Date Type Department Care Team (Late st Contact Info) Description 11/30/2023 3:00 PM EDT Office Visit [facility] [address] [place] [address] Anju Oneill MD [address] [place] [address] Overactive bladder*; Need for prophylactic vaccination and inoculation against influenza; Small B-cell lymphoma, unspecified body region (HCC); History of breast cancer; Screening mammogram for breast cancer Allergies Active Allergy Reactions Criticality Noted Date Comments Cephalexin Hives 10/14/2013 [facility] Records documented as of this encounter (statuses as of 11/30/2023) Medications Medication Sig Dispensed Refills Start Date [...] each chemo cycle 60 Tablet 3 Active Omeprazole 20 MG Oral Capsule Delayed Release (PriLOSEC)Indicatio ns:Grade 1 follicular lymphoma of lymph nodes of multiple regions (HCC) Take 1 Capsule by mouth in the morning. 90 Capsule 3 3 Active Acyclovir 400 MG Oral Tablet (Zovirax)Indication s:Grade 1 follicular lymphoma of lymph nodes of multiple regions (HCC) Take 1 Tablet by mouth in the morning and 1 Tablet before bedtime. 180 Tablet 3 3 Active Morphine Sulfate (Concentrate) 100 MG/5ML [...] 90 Tablet 2 4 05/27/19 25 Active Pregabalin 50 MG Oral Capsule (Lyrica) TAKE ONE CAPSULE BY MOUTH IN THE MORNING AND ONE CAPSULE BEFORE BEDTIME 180 Capsule 1 4 01/03/20 24 Active Mirabegron ER 50 MG Oral Tablet Extended Release 24 Hour (Myrbetriq)Indicati ons:Overactive bladder Take 1 Tablet by mouth in the morning. 90 Tablet 3 4 Active Myrbetriq 50 MG Oral Tablet Extended Release 24 Hour (Mirabegron ER)Indications:Over active bladder TAKE ONE TABLET BY MOUTH EVERY MORNING 90 Tablet 3 3 11/30/19 24 Discontinu ed(Refill) documented as of this encounter (statuses as of 11/30/2023) Active Problems Problem Noted Date Diagnosed Date [...] as of this encounter (statuses as of 11/30/2023) Resolved Problems Problem Noted Date Diagnosed Date Resolved Date Diffuse large B-cell lymphom a of lymph nodes of inguinal region 03/05/2017 03/05/2017 Otalgia of left ear 03/13/2014 07/15/19 Dysfunction of eustachian tube 03/13/2014 07/14/2016 documented as of this encounter (statuses as of 11/30/2023) Immunizations Name Administration Dates Next Due COVID-19 mRNA, LNP-s, No Pre serve, 2-Dose Series ([employer]) 06/07/2020,05/17/2020 Seasonal Influenza, High Dos e, Trivalent, [...] Date Smoking Tobacco: Never Smokeless Tobacco: Never Tobacco Cessation:Counseling Given: Not Answered Alcohol Use Standard Drinks/Week Comments Yes 0 [...] Sign Reading Time Taken Comments Blood Pressure - - Pulse 90 11/30/2023 2:59 PM EDT Temperature 36.7 C (98 F) 11/30/2023 2:59 PM EDT Respiratory Rate 17 11/30/2023 2:59 PM EDT Oxygen Saturation 94% 11/30/2023 2:59 PM EDT Inhaled Oxygen Concentration - - Weight 90.9 kg (200 lb 8 oz) 11/30/2023 2:59 PM EDT Height 162.6 cm (5' 4") 11/30/2023 2:59 PM EDT Body Mass Index 34.42 11/30/2023 2:59 PM EDT documented in this encounter Progress Notes * Anju Oneill MD - 11/30/2023 3:14 PM EDT ASSESSMENT / PLAN: Heather Olmos is a 63 year old female with PMHx lymphoma (1993) / left breast ductal carcinoma (inremission) / and newly diagnosed follicular lymphoma, with subcutaneous nodules 2022 - here for recheck #Anxiety / insomnia Historically complicated by self medication with 2 hard liquor drinks every night -->trial benzodiazepine is going well, using sparingly at night for now #Compression frx L4 / coccyx fracture S/p mechanical fall resolved #Small b cell lymphoma, recurrent, with metastases [facility] palliative treatment ongoing with positive results. Following with hematology #H/o breast ca Pt states she is willing to get a mammogram now Order in Urge incontinence Stable on myrbetriq - refilled Neuropathy Reviewed pregabalin's risks and benefits Pt elects to continue w this medication for now despite concern for worsening memory Follow Up: Return in about 1 year (around 11/29/2024), or if symptoms worsen or fail to improve. Overactive bladder (Primary) - Mirabegron ER 50 MG Oral Tablet Extended Release 24 Hour (Myrbetriq); Take 1 Tablet by mouth in the morning. Need for prophylactic vaccination and inoculation against influenza - INFLUENZA VAC., TRIVALENT, HD, PF, 65 AND ABOVE, 0.5 ML IM (FLUZONE HD) Small B-cell lymphoma, unspecified body region (HCC) History of breast cancer - MAMMOGRAM SCREENING DEBORAH BILATERAL; Future; Expected date: 12/01/2023 Screening mammogram for breast cancer - MAMMOGRAM SCREENING DEBORAH BILATERAL; Future; Expected date: 12/01/2023 Follow Up: Return in about 1 year (around 11/29/2024), or if symptoms worsen or fail to improve. If needed, prefers contact by: Ok to leave message on phone: SUBJECTIVE: Nursing Notes: Mary Healy LPN 11/30/23 1510 Signed Chief Complaint Patient presents with NEW PATIENT Yearly Will need to have refills of the Myrbetriq HPI: Heather Olmos is a 63 year old female. Here for recheck. Endorses worsening memory over the past few years - forgetfulness Worried that lyrica is causing it/making it worse Gabapentin did not help her symptoms but lyrica has Wondering about other options? 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 60 Tablet 0 predniSONE 20 MG Oral Tablet (Deltasone) Take 4 tablets once a day in the morning with food for 5 days only. 20 Tablet 0 Ondansetron HCl 8 MG Oral Tablet (Zofran) Take 1 Tablet by mouth every 8 hours as needed for Nausea. 30 Tablet 1 Prochlorperazine Maleate 10 MG Oral Tablet (Compazine) Take 1 Tablet by mouth every 6 hours as needed for Nausea. 30 Tablet 1 Lidocaine-Prilocaine 2.5-2.5 % External Cream (Emla) APPLY TO SKIN OVER MEDIPORT & COVER 1HR PRIOR TO ACCESSING. 30 g 1 Loratadine 10 MG Oral Tablet (Claritin) Take 1 tablet daily on days 1-5 of each chemo cycle 30 Tablet 0 predniSONE 50 MG Oral Tablet (Deltasone) Take 100mg (2 tabs) once a day on days 1-5 of each chemo cycle 60 Tablet 0 Omeprazole 20 MG Oral Capsule Delayed Release (PriLOSEC) Take 1 Capsule by mouth in the morning. 90Capsule 3 Acyclovir 400 MG Oral Tablet (Zovirax) Take 1 Tablet by mouth in the morning and 1 Tablet before bedtime. 180 Tablet 3 Morphine Sulfate (Concentrate) 100 MG/5ML Oral Solution Take 0.2 mL by mouth every 4 hours as needed for Pain, Moderate. 30 mL 0 Lisinopril 30 MG Oral Tablet TAKE ONE TABLET BY MOUTH EVERY MORNING 90 Tablet 2 Pregabalin 50 MG Oral Capsule (Lyrica) TAKE ONE CAPSULE BY MOUTH IN THE MORNING AND ONE CAPSULE BEFORE BEDTIME 180 Capsule 1 Mirabegron ER 50 MG Oral Tablet Extended Release 24 Hour (Myrbetriq) Take 1 Tablet by mouth in the morning. 90 Tablet 3 clonazePAM 0.5 MG Oral Tablet (KlonoPIN) Take 1 Tablet by mouth 3 times a day as needed for Anxiety. (Patient not taking: Reported on 12/10/2022) 30 Tablet 0 Allopurinol 300 MG Oral Tablet (Zyloprim) Take 1 Tablet by mouth in the morning. (Patient not taking: Reported on 11/30/2023) 30 Tablet 1 No current facility-administered medications for this visit. OBJECTIVE: Pulse 90 | Temp 36.7 C (98 F) | Resp 17 | Ht 1.626 m (5' 4") | Wt 90.9 kg (200 lb 8 oz) | SpO2 94% | BMI 34.42 kg/m | BSA 2.03 m Vitals reviewed and is afebrile / and not tachycardic General: No acute distress. Neuro: Alert Pleasant & interactive. Respiratory: Good inspiratory effort, no labored breathing. HEENT: Conjunctivae appear clear. No swelling noted face or lips. Skin: No rash visible on exposed skin areas, normal coloration & appears dry. Psych: Normal affect. Fluent speech. Anju Oneill MD [address] [phone] There are no Patient Instructions on file for this visit. * Mary Healy LPN - 11/30/2023 3:06 PM EDT Immunization Administration Documentation Time Out Procedure Performed: Yes Patient Identified (Ask Name/Date of ): Yes Does the patient have a fever greater than 101 degrees today? No Patient allergic to latex? No VFC Stock: No Immunization(s) verified: Yes, Immunization Name: Flu, VIS Sheet(s) given: Yes Verified Side and Site: Yes Verified Shot(s) with Parent(s)/Patient: Yes documented in this encounter Nursing Notes * Mary Healy LPN - 11/30/2023 3:06 PM EDT Chief Complaint Patient presents with NEW PATIENT Yearly Will need to have refills of the Myrbetriq documented in this encounter Plan of Treatment Upcoming Encounters Date Type Department Care Team (Late st Contact Info) Description 12/25/2023 9:30 AM EDT Immunization/Injec tion Hematology/Oncology Treatment, [place] [address] [facility] [address] [place] [address] Sharyn, Chair 7 Hem Onc [facility] [place] [address] 02/15/2024 10:30 AM EST Imaging Radiology [address], [place] [address] [facility] [place] [address] 03/03/2024 1:45 PM EST Office Visit Hematology/Oncology [facility] [address] [place] [phone] Phillip Chavez MD [address] [place] [address] Scheduled Orders Name Type Priority Associated Diagnoses Orde r Schedule MAMMOGRAM SCREENING DEBORAH BILATERAL Medical Imaging Routine History of breast cancer Screening mammogram for breast cancer Expected: 12/01/2023 (Approximate), Expires: 12/29/2024 Scheduled Procedures Name Priority Associated Diagnoses Date/Ti [...] 09/05/2020 09/06/2019 Fecal Occult Blood Test 04/30/2022 04/30/19 22, 04/30/2021, 09/20/2019, Additional history exists Mammogram 05/20/2022 05/20/2021, 09/2021, 05/01/2021, Additional history exists DXA Scan 2023 06/04/2011 Colonoscopy 05/30/2026 05/30/2021, 05/30/2021 Colorectal Cancer Screening 05/30/2026 Lipid Panel 07/16/2026 07/16/2021, 0507/2020, 09/06/2019, Additional history exists Diabetes Screening 09/01/2026 [...] this encounter Medical Devices Implanted Type Area Commercial Attache Device Identifier Shelf Expiration Date Model / Serial / Lot Port Implant W/8f Poly Cath - [id number] Implanted:Qty : 1 on 12/10/2022 by Ravin Chandler Jr., MD at OR [facility] Right: Chest CR BARD : PERIPHERAL VASCULAR [id number] 02/13/2024 [id number] / / [id number] documented as of this encounter Visit Diagnoses Diagnosis Overactive bladder- Primary Hypertonicity of bladder Need for prophylactic vaccination and inoculation against influenza Small B-cell lymphoma, unspecified body region (HCC) History of breast cancer Personal history of malignant neoplasm of breast Screening mammogram for breast cancer documented in this encounter Advance Directives Documents on File Type Date Recorded Patient Cooling Pan Tender Expl anation POLST 02/03/2022 [facility] FOR LIFE-SUSTAINING TREATMENT Care Teams Market Survey Representative Relationship Specialty Start Date End Date Anju Oneill MD [address] [place] [address] PCP - General Family Medicine 01/15/22 documented as of this encounter
--- OUTSIDE RECORDS SUMMARY | 2024-01-09 10:14 | External Medical Summary ---
Author Name Unknown Address Unknown Organization K01:[facility] [place] [address] [facility] [place] [id number] Laboratory Report Ordering Provider Test Date Status CRISTY VO 09/18/2023 08:56:19 Final Observation Date Value Abnormality Reference (Units ) Status SYNC LEUKOCYTES IN BLOOD BY AUTOMATED COUNT 09/18/2023 08:56:19 4.32 4.00-10.80 (K/uL) Final Segs 09/18/2023 08:56:19 68.1 40.0-75.0 (%) Final Lymphs % 09/18/2023 08:56:19 18.8 18.0-42.0 (%) Final Monos 09/18/2023 08:56:19 10.0 1.0-11.0 (%) Final Eosinophils 09/18/2023 08:56:19 1.9 0.0-6.0 (%) Final Basos 09/18/2023 08:56:19 0.5 0.0-2.0 (%) Final Immature Granulocyte, Percent 09/18/2023 08:56:19 0.7 0.0-2.0 (%) Final Absolute Segs 09/18/2023 08:56:19 2.95 1.80-7.70 (K/uL) Final Lymphs, absolute 09/18/2023 08:56:19 0.81 Below low normal 1.00-4.80 (K/ul) Final Monos, Abs 09/18/2023 08:56:19 0.43 0.00-1.10 (K/uL) Final Eos, Abs 09/18/2023 08:56:19 0.08 0.00-0.70 (K/uL) Final Basos, Abs 09/18/2023 08:56:19 0.02 0.00-0.20 (K/uL) Final Immature Granulocytes, Number 09/18/2023 08:56:19 0.03 0.00-0.20 (K/uL) Final Performing Location [facility] [place] [address] [facility] [id number]
--- OUTSIDE RECORDS SUMMARY | 2024-01-09 10:14 | External Medical Summary | Summary of Care ---
Author Name Unknown Organization [facility] Address [address] [place] [address] Phone [phone] Care Team Providers Care Fancy Needleworker Name Role Phone Anju Oneill MD Primary Care Provid er Reason for Visit * Reason Comments Procedure Port flush Encounter Details Date Type Department Care Team (Late st Contact Info) Description 11/13/2023 9:30 AM EDT Immunization/I njection Hematology/Oncology Treatment, [address] [address] Sharyn, Chair 7 Hem Onc [address] [address] History of lymphoma*; Encounter for adjustment and management of vascular access device Allergies Active Allergy Reactions Criticality Noted Date Comments Cephalexin Hives 10/14/2013 [facility] Records documented as of this encounter (statuses as of 11/13/2023) Medications Medication Sig Dispensed Refills Start Date End Date Status clonazePAM 0.5 MG Oral Tablet (KlonoPIN)Indication s:Anxiety Take 1 Tablet by mouth 3 times a day as needed for Anxiety. 30 Tablet 05/16/2022 Active Additional Information Patient not taking.Reported on 12/10/2022 Myrbetriq 50 MG Oral Tablet Extended Release 24 Hour (Mirabegron ER)Indications:Overa ctive bladder TAKE ONE TABLET BY MOUTH EVERY MORNING 90 Tablet 3 10/06/2022 4 Active oxyCODONE HCl 5 MG Oral Tablet (Oxy IR)Indications:Grade 1 follicular lymphoma of lymph nodes of multiple regions (HCC),Generalized abdominal pain Take 1 Tablet by mouth every 4 hours as needed for Pain, Breakthrough or Pain, Moderate. 60 Tablet 11/20/2022 Active predniSONE 20 MG Oral Tablet (Deltasone)Indicatio ns:Grade 1 follicular lymphoma of lymph nodes of multiple regions (HCC),Generalized abdominal pain Take 4 tablets once a day in the morning with food for 5 days only. 20 Tablet 11/20/2022 Active Ondansetron HCl 8 MG Oral Tablet (Zofran)Indications: Grade 1 follicular lymphoma of lymph nodes of multiple regions (HCC),Encounter for antineoplastic chemotherapy Take 1 Tablet by mouth every 8 hours as needed for Nausea. 30 Tablet 1 11/20/2022 Active Prochlorperazine Maleate 10 MG Oral Tablet (Compazine)Indicatio ns:Grade 1 follicular lymphoma of lymph nodes of multiple regions (HCC),Encounter for antineoplastic chemotherapy Take 1 Tablet by mouth every 6 hours as needed for Nausea. 30 Tablet 1 11/20/2022 Active Allopurinol 300 MG Oral Tablet (Zyloprim)Indication s: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 30 Tablet 1 11/21/2022 Active Lidocaine-Prilocaine 2.5-2.5 % External Cream (Emla)Indications:Gr bertrand 1 follicular lymphoma of lymph nodes of multiple regions (HCC) APPLY TO SKIN OVER MEDIPORT & COVER 1HR PRIOR TO ACCESSING. 30 g 1 11/21/2022 Active Loratadine 10 MG Oral Tablet (Claritin)Indication s:Grade 1 follicular lymphoma of lymph nodes of multiple regions (HCC) Take 1 tablet daily on days 1-5 of each chemo cycle 30 Tablet 11/21/2022 Active predniSONE 50 MG Oral Tablet (Deltasone)Indicatio ns:Grade 1 follicular lymphoma of lymph nodes of multiple regions (HCC) Take 100mg (2 tabs) once a day on days 1-5 of each chemo cycle 60 Tablet 11/21/2022 Active Omeprazole 20 MG Oral Capsule Delayed Release (PriLOSEC)Indication s:Grade 1 follicular lymphoma of lymph nodes of multiple regions (HCC) Take 1 Capsule by mouth in the morning. 90 Capsule 3 11/21/2022 Active Acyclovir 400 MG Oral Tablet (Zovirax)Indications :Grade 1 follicular lymphoma of lymph nodes of multiple regions (HCC) Take 1 Tablet by mouth in the morning and 1 Tablet before bedtime. 180 Tablet 3 11/21/2022 Active Morphine Sulfate (Concentrate) 100 MG/5ML Oral SolutionIndications: Grade 1 follicular lymphoma of lymph nodes of multiple regions (HCC) Take 0.2 mL by mouth every 4 hours as needed for Pain, Moderate. 30 mL 11/27/2022 Active Lisinopril 30 MG Oral TabletIndications:Es sential hypertension with goal blood pressure less than 140/90 TAKE ONE TABLET BY MOUTH EVERY MORNING 90 Tablet 2 05/27/2023 5 Active Pregabalin 50 MG Oral Capsule (Lyrica) TAKE ONE CAPSULE BY MOUTH IN THE MORNING AND ONE CAPSULE BEFORE BEDTIME 180 Capsule 1 07/01/2023 4 Active documented as of this encounter (statuses as of 11/13/2023) Active Problems Problem Noted Date Diagnosed Date [...] as of this encounter (statuses as of 11/13/2023) Resolved Problems Problem Noted Date Diagnosed Date Resolved Date Diffuse large B-cell lymphom a of lymph nodes of inguinal region 03/05/2017 03/05/2017 Otalgia of left ear 03/13/2014 07/15/19 17 Dysfunction of eustachian tube 03/13/2014 07/14/2016 documented as of this encounter (statuses as of 11/13/2023) Immunizations Name Administration Dates Next Due COVID-19 mRNA, LNP-s, No Pre serve, 2-Dose Series ([employer]) 06/07/2020,05/17/2020 Seasonal Influenza, MDCK, Tr ivalent, PF, (Flucelvax) [...] on file documented as of this encounter Nursing Notes * Leona Agustin, RN - 11/13/2023 11:47 AM EDT Chair 1, port flush. VAD (Venous Access Device) accessed with #19G 3/4" without difficulty. VAD flushed with 10 ml NSS and Heparin 5 ml (100 units/ml). Alex needle removed intact. Pt discharged in stable condition. documented in this encounter Plan of Treatment Upcoming Encounters Date Type Department Care Team (Late st Contact Info) Description 11/30/2023 3:00 PM EDT Office Visit [facility] [address] [place] [address] Anju Oneill MD [address] [place] [address] 12/25/2023 9:30 AM EDT Immunization/Injec tion Hematology/Oncology Treatment, [place] [address] [facility] [place] [phone] Sharyn, Chair 7 Hem Onc [address] [place] [address] 02/15/2024 10:30 AM EST Imaging Radiology [facility] [address] [facility], [place] [address] [place] [address] 03/03/2024 1:45 PM EST Office Visit Hematology/Oncology [address] [place] [phone] Phillip Chavez MD [address] [place] [address] Scheduled Procedures Name Priority Associated Diagnoses Date/Ti [...] 04/30/19, 04/30/2021, 09/20/2019, Additional history exists Mammogram 05/20/2022 05/20/2021, 0309/2021, 05/01/2021, Additional history exists DXA Scan 2023 06/04/2011 Influenza Vaccine (FLU shot) (#1) 2023 01/05/2023, 01/17/2022, 01/11/2021, Additional history exists Colonoscopy 05/30/2026 05/30/2021, 05/30/2021 Colorectal Cancer Screening 05/30/2026 Lipid Panel 07/16/2026 07/16/2021, 07/15, 09/06/2019, Additional history exists Diabetes Screening 09/01/2026 09/02/2023, 1 05/12/2022, 02/18/2023, Additional history exists DTap/Tdap Vaccines (3 - Td or Tdap) 06/04/2028 06/04/2018, 10/18/2007 Zoster Vaccines Completed 08/07/2020, 09/06/2019 RETIRED - COLONOSCOPY-EVERY 5 YRS AGES 18-100 Discontinued 05/30/2021, 05/30/2021 HPV (Gardasil) Vaccine Aged Out No lo nger eligible based on patient's age to complete this topic Hepatitis B Vaccine Aged Out No longe r eligible based on patient's age to complete this topic MENINGOCOCCAL (MENACTRA/MENVEO) Aged Out No longer eligible based on patient's age to complete this topic documented as of this encounter Medical Devices Implanted Type Area Customer Engagement Representative Device Identifier Shelf Expiration Date Model / Serial / Lot Port Implant W/8f Poly Cath - [id number] Implanted:Qty : 1 on 12/10/2022 by Ravin Chandler Jr., MD at OR [facility] Right: Chest CR BARD : PERIPHERAL VASCULAR [id number] 02/13/2024 [id number] / / [id number] documented as of this encounter Visit Diagnoses Diagnosis History of lymphoma- Primary Personal history of other lymphatic and hematopoietic neoplasm Encounter for adjustment and management of vascular access device documented in this encounter Administered Medications Active Administered Medications - up to 3 most recent administrations Medication Order MAR Action Action Date Dose Rate Site hEParin 100 UNIT/ML Lock Flush inj 500 Units 500 Units (5 mL), IV Lock, PRN Other, IV Flush, Starting on Thu11/13/23 at 0955, Until 11/14/23 at 0954, For 24 hours, Do not flush if lock, PICC, or central line not in place; IV infusing or unable to flush. Given 11/13/2023 10:05 AM EDT 500 Units sodium chloride 0.9 % flush central line 10 mL 10 mL, IV Push, PRN Other, IV Flush, Starting on Thu11/13/23 at 0955, Until 11/14/23 at 0954, For 24 hours, Do not flush if lock, PICC, or central line not in place; IV infusing or unable to flush. Given 11/13/2023 10:04 AM EDT 10 mL documented in this encounter Advance Directives Documents on File Type Date Recorded Patient Ultimate Hoops Referee Expl anation POL 02/03/2022 [place] [facility] FOR LIFE-SUSTAINING TREATMENT Care Teams Fancy Needleworker Relationship Specialty Start Date End Date Anju Oneill MD [address] [facility] [place] [phone] PCP - General Family Medicine 01/15/22 documented as of this encounter
--- OUTSIDE RECORDS SUMMARY | 2024-01-09 10:14 | External Medical Summary | Summary of Care ---
Author Name Unknown Organization [facility] Address [address] [place] [address] Phone [phone] Care Team Providers Care Die Reamer Name Role Phone Anju Oneill MD Primary Care Provid er Reason for Visit * Reason Comments Procedure Port flush. Encounter Details Date Type Department Care Team (Late st Contact Info) Description 10/02/2023 9:30 AM EDT Immunization/I njection Hematology/Oncology Treatment, [address] [address] Sharyn, Chair [address] [address] History of lymphoma*; Encounter for central line care Allergies Active Allergy Reactions Criticality Noted Date Comments Cephalexin Hives 10/14/2013 [facility] Records documented as of this encounter (statuses as of 10/22/2023) Medications Medication Sig Dispensed Refills Start Date [...] MOUTH EVERY MORNING 90 Tablet 2 05/27/2023 Active Pregabalin 50 MG Oral Capsule (Lyrica) TAKE ONE CAPSULE BY MOUTH IN THE MORNING AND ONE CAPSULE BEFORE BEDTIME 180 Capsule 1 07/01/2023 4 Active documented as of this encounter (statuses as of 10/22/2023) Active Problems Problem Noted Date Diagnosed Date [...] as of this encounter (statuses as of 10/22/2023) Resolved Problems Problem Noted Date Diagnosed Date Resolved Date Diffuse large B-cell lymphom a of lymph nodes of inguinal region 03/05/2017 03/05/2017 Otalgia of left ear 03/13/2014 07/15/19 17 Dysfunction of eustachian tube 03/13/2014 07/14/2016 documented as of this encounter (statuses as of 10/22/2023) Immunizations Name Administration Dates Next Due COVID-19 mRNA, LNP-s, No Pre serve, 2-Dose Series ([facility]) 06/07/2020,05/17/2020 Season Influenza, Cell Cultu re, 18+ Yrs, With Preserv (Flucelvax) 01/05/2023 Seasonal Influenza, PF, 6 M [...] as of this encounter Nursing Notes * Jenny Wright RN - 10/02/2023 10:01 AM EDT Chair 7. VAD (Venous Access Device) accessed with #19G 3/4" without difficulty. VAD flushed with 10 ml NSS and Heparin 5 ml (100 units/ml). Alex needle removed intact. Patient tolerated procedure well. Discharged in stable condition. documented in this encounter Plan of Treatment Upcoming Encounters Date Type Department Care Team (Late st Contact Info) Description 11/13/2023 9:30 AM EDT Immunization/Injec tion [facility]ematology/Oncology Treatment, [place] [address] [facility] [phone] Sharyn, Chair [address] [place] [place] [address] 11/30/2023 3:00 PM EDT Office Visit [facility] [address] [place] [phone] Anju Oneill MD [address] [place] [address] 02/15/2024 10:30 AM EST Imaging Radiology [facility] 1st [facility], [place] [address] [place] [address] 03/03/2024 1:45 PM EST Office Visit Hematology/Oncology [address] [place] [phone] Phillip Chavez MD [address] [place] [address] [place] [address] Scheduled Procedures Name Priority Associated Diagnoses Date/Ti [...] 09/02/2023, 1 05/12/2022, 02/18/2023, Additional history exists DTaP,Tdap,and Td Vaccines (3 - Td or Tdap) 06/04/2028 [...] this encounter Medical Devices Implanted Type Area Help Desk Team Leader Device Identifier Shelf Expiration Date Model / Serial / Lot Port Implant W/8f Poly Cath - [id number] Implanted:Qty : 1 on 12/10/2022 by Ravin Chandler Jr., MD at OR [facility] Right: Chest CR BARD : PERIPHERAL VASCULAR [id number] 02/13/2024 [id number] / / [id number] documented as of this encounter Visit Diagnoses Diagnosis History of lymphoma- Primary Personal history of other lymphatic and hematopoietic neoplasm Encounter for central line care Fitting and adjustment of vascular catheter documented in this encounter Administered Medications Inactive Administered Medications - up to 3 most recent administrations Medication Order MAR Action Action Date Dose Rate Site hEParin 100 UNIT/ML Lock Flush inj 500 Units 500 Units (5 mL), IV Lock, PRN Other, IV Flush, Starting on Thu10/02/23 at 0937, Until Thu10/02/23 at 1403, For 24 hours, Do not flush if lock, PICC, or central line not in place; IV infusing or unable to flush. Given 10/02/2023 9:38 AM EDT 500 Units sodium chloride 0.9 % flush central line 10 mL 10 mL, IV Push, PRN Other, IV Flush, Starting on Thu10/02/23 at 0937, Until Thu10/02/23 at 1403, For 24 hours, Do not flush if lock, PICC, or central line not in place; IV infusing or unable to flush. Given 10/02/2023 9:38 AM EDT 10 mL documented in this encounter Advance Directives Documents on File Type Date Recorded Patient Tire Stripper Expl anation POL 02/03/[address] [place] [address] [facility] FOR LIFE-SUSTAINING TREATMENT Care Teams Die Reamer Relationship Specialty Start Date End Date Anju Oneill MD [address] [facility] [place] [address] PCP - General Family Medicine 01/15/22 documented as of this encounter
--- OUTSIDE RECORDS SUMMARY | 2024-01-09 10:14 | External Medical Summary | Summary of Care ---
Author Name Unknown Organization [facility] Address [address] [place] [address] Phone [phone] Care Team Providers Care Electrophysiology Technician Name Role Phone Anju Oneill MD Primary Care Provid er Reason for Visit * Reason Onset Date Comments Medication Refill Status Check 11/06/2023 Encounter Details Date Type Department Care Team (Late st Contact Info) Description 11/06/2023 Refill Family Practice [address], [place] [address] [place] [address] Anju Oneill MD [address] [place] [address] Overactive bladder Allergies Active Allergy Reactions Criticality Noted Date Comments Cephalexin Hives 10/14/2013 [facility] Medical Records documented as of this encounter (statuses as of 11/09/2023) Medications Medication Sig Dispensed Refills Start Date [...] as of this encounter (statuses as of 11/09/2023) Active Problems Problem Noted Date Diagnosed Date [...] as of this encounter (statuses as of 11/09/2023) Resolved Problems Problem Noted Date Diagnosed Date Resolved Date Diffuse large B-cell lymphom a of lymph nodes of inguinal region 03/05/2017 03/05/2017 Otalgia of left ear 03/13/2014 07/15/19 17 Dysfunction of eustachian tube 03/13/2014 07/14/2016 documented as of this encounter (statuses as of 11/09/2023) Immunizations Name Administration Dates Next Due COVID-19 mRNA, LNP-s, No Pre serve, 2-Dose Series (Pfizer) 06/07/2020,05/17/2020 Season Influenza, Cell Cultu re, 18+ [...] as of this encounter Miscellaneous Notes * Addendum Note - Shelley Mclaughlin, [facility] - 11/09/2023 8:34 AM EDTAddended by: SHELLEY MCLAUGHLIN on: 11/09/2023 08:34 AM Modules accepted: Orders * Telephone Encounter - Shelley Mclaughlin CPhT - 11/09/2023 8:31 AM EDT Did you pend patient's preferred pharmacy and medication before forwarding?yes Pharmacy: [facility] Pending Prescriptions: Disp Refills Mirabegron ER 50 MG Oral Tablet Extended *90 Tab*3 Sig: TAKE ONE TABLET BY MOUTH EVERY MORNING Last Visit: 11/03/22 (in office), Visit date not found (telemedicine) Next Visit: 11/30/23 If no future appointments scheduled, and last appointment is greater than a year ago, please schedule patient for a follow-up appointment Last date the medication was ordered: 10/06/22 Is this request for a controlled substance?No Urine Drug Screen:No results found for this or any previous visit. Patient Phone Numbers Labs: Lab Results Component Value Date/Time CREAT 0.8 09/02/2023 11:48 AM CREAT 0.9 03/07/2020 02:27 PM POTASSIUM 4.1 09/02/2023 11:48 AM POTASSIUM 4.6 03/07/2020 02:27 PM TSH 2.26 07/16/2021 12:58 PM TSH 2.29 03/07/2020 02:24 PM LDLCALC 93 07/16/2021 12:58 PM LDLCALC 66 09/06/2019 11:07 AM LDLDIRECT NOT APPLICABLE 09/06/2019 11:07 AM ALT 8 (L) 09/02/2023 11:48 AM ALT 18 09/06/2019 11:07 AM HGBA1C 5.4 07/14/2016 10:39 AM * Telephone Encounter - Shelley Mclaughlin CPhT - 11/09/2023 8:28 AM EDTNo prescriptions requested or ordered in this encounter * Telephone Encounter - Jesus Watts - 11/06/2023 5:42 PM EDTPending Prescriptions: Disp Refills Mirabegron ER 50 MG Oral Tablet Extended R*90 Tab*3 Sig: TAKE ONE TABLET BY MOUTH EVERY MORNING * Telephone Encounter - Shelley Mclaughlin CPhT - 11/06/2023 1:29 PM EDT Did you pend patient's preferred pharmacy and medication before forwarding?yes Pharmacy: [facility] Pending Prescriptions: Disp Refills Mirabegron ER 50 MG Oral Tablet Extended *90 Tab*3 Sig: TAKE ONE TABLET BY MOUTH EVERY MORNING Last Visit: Visit date not found (in office), Visit date not found (telemedicine) Next Visit: Visit date not found If no future appointments scheduled, and last appointment is greater than a year ago, please schedule patient for a follow-up appointment Last date the medication was ordered: 10/06/22 Is this request for a controlled substance?No Urine Drug Screen:No results found for this or any previous visit. Patient Phone Numbers Labs: Lab Results Component Value Date/Time CREAT 0.8 09/02/2023 11:48 AM CREAT 0.9 03/07/2020 02:27 PM POTASSIUM 4.1 09/02/2023 11:48 AM POTASSIUM 4.6 03/07/2020 02:27 PM TSH 2.26 07/16/2021 12:58 PM TSH 2.29 03/07/2020 02:24 PM LDLCALC 93 07/16/2021 12:58 PM LDLCALC 66 09/06/2019 11:07 AM LDLDIRECT NOT APPLICABLE 09/06/2019 11:07 AM ALT 8 (L) 09/02/2023 11:48 AM ALT 18 09/06/2019 11:07 AM HGBA1C 5.4 07/14/2016 10:39 AM documented in this encounter Plan of Treatment Upcoming Encounters Date Type Department Care Team (Late st Contact Info) Description 11/13/2023 9:30 AM EDT Immunization/Injec tion Hematology/Oncology Treatment, [place] [address] [place] [phone] Sharyn, Chair 7 Hem [address] [place] [address] 11/30/2023 3:00 PM EDT Office Visit [facility] [address] [place] [address] Anju Oneill MD [address] [place] [address] 02/15/2024 10:30 AM EST Imaging Radiology [address], [place] [address] [place] [address] 03/03/2024 1:45 PM EST Office Visit Hematology/Oncology [facility] [address] [facility] [place] [phone] Phillip Chavez MD [address] [facility] [place] [address] Scheduled Procedures Name Priority Associated Diagnoses Date/Ti [...] this encounter Medical Devices Implanted Type Area Healthcare Business Analyst Device Identifier Shelf Expiration Date Model / Serial / Lot Port Implant W/8f Poly Cath - [id number] Implanted:Qty : 1 on 12/10/2022 by Ravin Chandler Jr., MD at OR [facility] Right: Chest CR BARD : PERIPHERAL VASCULAR [id number] 02/13/2024 [id number] / / [id number] documented as of this encounter Visit Diagnoses Diagnosis Overactive bladder Hypertonicity of bladder documented in this encounter Advance Directives Documents on File Type Date Recorded Patient Bass String Winder Expl anation POLST 02/03/2022 [place] [facility] FOR LIFE-SUSTAINING TREATMENT Care Teams Electrophysiology Technician Relationship Specialty Start Date End Date Anju Oneill MD [address] [place] [address] PCP - General Family Medicine 01/15/22 documented as of this encounter
--- OUTSIDE RECORDS SUMMARY | 2024-01-09 10:14 | External Medical Summary | Summary of Care ---
Author Name Unknown Organization [facility] Address [address] [place] [address] Phone [phone] Care Team Providers Care Speech Correction Assistant Name Role Phone Anju Oneill MD Primary Care Provid er Reason for Visit * Reason Onset Date Comments Health Maintenance 10/12/2023 Encounter Details Date Type Department Care Team (Late st Contact Info) Description 10/12/2023 Telephone [facility] [address] [place] [address] Anju Oneill MD [address] [place] [address] Health Maintenance Allergies Active Allergy Reactions Criticality Noted Date Comments Cephalexin Hives 10/14/2013 [facility] Medical Records documented as of this encounter (statuses as of 10/12/2023) Medications Medication Sig Dispensed Refills Start Date [...] as of this encounter (statuses as of 10/12/2023) Active Problems Problem Noted Date Diagnosed Date [...] as of this encounter (statuses as of 10/12/2023) Resolved Problems Problem Noted Date Diagnosed Date Resolved Date Diffuse large B-cell lymphom a of lymph nodes of inguinal region 03/05/2017 03/05/2017 Otalgia of left ear 03/13/2014 07/15/19 17 Dysfunction of eustachian tube 03/13/2014 07/14/2016 documented as of this encounter (statuses as of 10/12/2023) Immunizations Name Administration Dates Next Due COVID-19 mRNA, LNP-s, No Pre serve, 2-Dose Series ([facility]) 06/07/2020,05/17/2020 Season Influenza, Cell Cultu re, 18+ [...] encounter Miscellaneous Notes * Telephone Encounter - Marcelina MeierLUIS - 10/12/2023 10:33 AM EDT Care Gaps Comprehensive Care Outreach Last Office/Telemedicine Visit: 11/03/2022 (in office), 03/05/2020 (telemedicine) Next Office Visit: Visit date not found Hemoglobin AIC Results: Lab Results Component Value Date/Time HEMOGLOBIN A1C - UHDSONER 5.4 07/14/2016 10:39 AM BP Readings from Last 1 Encounters: 09/02/23 131/86 Reviewed Health Maintenance below: Health Maintenance Topic Date Due Pneumococcal Vaccine: 65+ Years (1 of 2 - PCV) Never done HIV Screening Never done Hepatitis C Screening Never done COVID-19 Vaccine (3 - Pfizer risk series) 07/05/2020 Depression Screening 09/05/2020 Mammogram 05/20/2022 DXA Scan 2023 Influenza Vaccine (FLU shot) (1) 11/15/2023 Ghp recapture Ov scheduled Mamm declined Care Gap Outreach Action Taken: Spoke to patient documented in this encounter Plan of Treatment Upcoming Encounters Date Type Department Care Team (Late st Contact Info) Description 11/13/2023 9:30 AM EDT Immunization/Injec tion Hematology/Oncology Treatment, [place] [address] [facility] [phone] Sharyn, Chair 7 Hem On[address] [place] [address] 11/30/2023 3:00 PM EDT Office Visit [place] [address] [place] [address] Anju Oneill MD [address] [place] [address] 02/15/2024 10:30 AM EST Imaging Radiology [facility] 1st [facility], [place] [address] [facility] [place] [address] 03/03/2024 1:45 PM EST Office Visit Hematology/Oncology [facility] [place] [address] [facility] [place] [phone] Phillip Chavez MD [address] [facility] [place] [address] Scheduled Procedures Name Priority Associated Diagnoses Date/Ti [...] this encounter Medical Devices Implanted Type Area Bottle Assembler Device Identifier Shelf Expiration Date Model / Serial / Lot Port Implant W/8f Poly Cath - [id number] Implanted:Qty : 1 on 12/10/2022 by Ravin Chandler Jr., MD at OR [facility] Right: Chest CR BARD : PERIPHERAL VASCULAR [id number] 02/13/2024 [id number] / / [id number] documented as of this encounter Advance Directives Documents on File Type Date Recorded Patient High School Librarian Expl anation POLST 02/03/2022 [facility] FOR LIFE-SUSTAINING TREATMENT Care Teams Speech Correction Assistant Relationship Specialty Start Date End Date Anju Oneill MD [address] [place] [address] PCP - General Family Medicine 01/15/22 documented as of this encounter
--- OUTSIDE RECORDS SUMMARY | 2024-01-09 10:14 | External Medical Summary | Summary of Care ---
Author Name Unknown Organization [facility] Address [address] [place] [address] Phone [phone] Care Team Providers Care Fox Raiser Name Role Phone Anju Oneill MD Primary Care Provid er Reason for Visit * Reason Comments Procedure Port flush Encounter Details Date Type Department Care Team (Late st Contact Info) Description 11/13/2023 9:30 AM EDT Immunization/I njection Hematology/Oncology Treatment, [address] [address] Sharyn, Chair [address] [address] History of lymphoma*; Encounter for adjustment and management of vascular access device Allergies Active Allergy Reactions Criticality Noted Date Comments Cephalexin Hives 10/14/2013 [facility] Medical Records documented as of this encounter (statuses as of 11/19/2023) Medications Medication Sig Dispensed Refills Start Date [...] MOUTH EVERY MORNING 90 Tablet 3 10/06/2022 Active oxyCODONE HCl 5 MG Oral Tablet [...] as of this encounter (statuses as of 11/19/2023) Active Problems Problem Noted Date Diagnosed Date [...] as of this encounter (statuses as of 11/19/2023) Resolved Problems Problem Noted Date Diagnosed Date Resolved Date Diffuse large B-cell lymphom a of lymph nodes of inguinal region 03/05/2017 03/05/2017 Otalgia of left ear 03/13/2014 07/15/19 17 Dysfunction of eustachian tube 03/13/2014 07/14/2016 documented as of this encounter (statuses as of 11/19/2023) Immunizations Name Administration Dates Next Due COVID-19 mRNA, LNP-s, No Pre serve, 2-Dose Series ([employer]) 06/07/2020,05/17/2020 Seasonal Influenza, MDCK, Tr ivalent, PF, [...] Description 11/30/2023 3:00 PM EDT Office Visit [facility] [address] [place] [phone] Anju Oneill MD [address] [place] [address] 12/25/2023 9:30 AM EDT Immunization/Injec tion Hematology/Oncology Treatment, [place] [address] [place] [phone] Sharyn, Chair 7 Hem Onc [facility] 200 [place] [address] 02/15/2024 10:30 AM EST Imaging Radiology [facility] 1st [facility], [place] [address] [place] [address] 03/03/2024 1:45 PM EST Office Visit Hematology/Oncology [facility] [address] [place] [phone] Phillip Chavez MD 200 [place] [address] Scheduled Procedures Name Priority Associated Diagnoses Date/Ti [...] this encounter Medical Devices Implanted Type Area Lead Pressman Roto Gravure Printing Device Identifier Shelf Expiration Date Model / Serial / Lot Port Implant W/8f Poly Cath - [id number] Implanted:Qty : 1 on 12/10/2022 by Ravin Chandler Jr., MD at OR [facility] Right: Chest CR BARD : PERIPHERAL VASCULAR [id number] 02/13/2024 [id number] / / [id number] documented as of this encounter Visit Diagnoses Diagnosis History of lymphoma- Primary Personal history of other lymphatic and hematopoietic neoplasm Encounter for adjustment and management of vascular access device documented in this encounter Administered Medications Inactive Administered Medications - up to 3 most recent administrations Medication Order MAR Action Action Date Dose Rate Site hEParin 100 UNIT/ML Lock Flush inj 500 Units 500 Units (5 mL), IV Lock, PRN Other, IV Flush, Starting on Thu11/13/23 at 0955, Until Thu11/13/23 at 1551, For 24 hours, Do not flush if lock, PICC, or central line not in place; IV infusing or unable to flush. Given 11/13/2023 10:05 AM EDT 500 Units sodium chloride 0.9 % flush central line 10 mL 10 mL, IV Push, PRN Other, IV Flush, Starting on Thu11/13/23 at 0955, Until Thu11/13/23 at 1551, For 24 hours, Do not flush if lock, PICC, or central line not in place; IV infusing or unable to flush. Given 11/13/2023 10:04 AM EDT 10 mL documented in this encounter Advance Directives Documents on File Type Date Recorded Patient Clam Sorter Expl anation POL 02/03/2022 [place] [facility] FOR LIFE-SUSTAINING TREATMENT Care Teams Fox Raiser Relationship Specialty Start Date End Date Anju Oneill MD [address] [place] [address] PCP - General Family Medicine 01/15/22 documented as of this encounter
--- OUTSIDE RECORDS SUMMARY | 2024-01-09 10:14 | External Medical Summary | Summary of Care ---
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 180 Tablet 3 3 12/06/19 24 Discontinu ed(Refill) documented as of this encounter (statuses as of 12/07/2023) Active Problems Problem Noted Date Diagnosed Date [...] Staging:Clinical:Stage IIA(T1c, N1, M0) - Signed by Gilda Chavez MD on 10/12/2013 Pathologic: Unsigned Overview: History of documented as of this encounter (statuses as of 12/07/2023) Resolved Problems Problem Noted Date Diagnosed Date Resolved Date Diffuse large B-cell lymphom a of lymph nodes of inguinal region 03/05/2017 03/05/2017 Otalgia of left ear 03/13/2014 07/15/19 Dysfunction of eustachian tube 03/13/2014 07/14/2016 documented as of this encounter (statuses as of 12/07/2023) Immunizations Name Administration Dates Next Due COVID-19 [...] encounter Miscellaneous Notes * Telephone Encounter - Gilda Chavez MD - 12/07/2023 8:59 AM EDTSigned Prescriptions: Disp Refills Acyclovir 400 MG Oral Tablet (Zovirax) 180 Ta*3 Sig: Take 1 Tablet by mouth in the morning and 1 Tablet before bedtime.Authorizing Provider: GILDA CHAVEZ Omeprazole 20 MG Oral Capsule Delayed Rele*90 Cap*3 Sig: Take 1 Capsule by mouth in the morning.Authorizing Provider: GILDA CHAVEZ * Telephone Encounter - Gilda Chavez MD - 12/07/2023 8:59 AM EDT E-prescribed. * Telephone Encounter - Mare Mai LPN - 12/07/2023 8:33 AM EDTPending Prescriptions: Disp Refills Acyclovir 400 MG Oral Tablet (Zovirax) 180 Ta*3 Sig: Take 1 Tablet by mouth in the morning and 1 Tablet before bedtime. Omeprazole 20 MG Oral Capsule Delayed Rele*90 Cap*3 Sig: Take 1 Capsule by mouth in the morning. * Telephone Encounter - Mare Mai LPN - 12/07/2023 8:31 AM EDT Refill request pended below for Omeprazole 20 mg and Acyclovir 400 mg Last filled: 11/21/2022 Last Seen: 09/02/2023 * Telephone Encounter - Transfer User, Rx Adt - 12/06/2023 12:12 AM EDTPending Prescriptions: Disp Refills Acyclovir 400 MG Oral Tablet (Zovirax) 180 Ta*3 Sig: Take 1 Tablet by mouth in the morning and 1 Tablet before bedtime. Omeprazole 20 MG Oral Capsule Delayed Rele*90 Cap*3 Sig: Take 1 Capsule by mouth in the morning. documented in this encounter Plan of Treatment Upcoming Encounters Date Type Department Care Team (Late st Contact Info) Description 12/18/2023 10:30 AM EDT Imaging Radiology [facility] 1st [facility], [place] [address] [facility] [place] [address] 12/25/2023 9:30 AM EDT Immunization/Injec tion Hematology/Oncology Treatment, [place] [address] [place] [address] Sharyn, Chair 7 Hem Onc Sc[address] [facility] [address] 02/15/2024 10:30 AM EST Imaging Radiology [facility] 1st [facility], [place] [address] [place] [address] 03/03/2024 1:45 PM EST Office Visit Hematology/Oncology [facility] [address] [facility] [place] [phone] Gilda Chavez MD [address] [facility] [place] [address] Scheduled Procedures Name Priority Associated Diagnoses Date/Ti [...] this encounter Medical Devices Implanted Type Area Micropaleontologist Device Identifier Shelf Expiration Date Model / Serial / Lot Port Implant W/8f Poly Cath - [id number] Implanted:Qty : 1 on 12/10/2022 by Ravin Chandler Jr., MD at OR [facility] Right: Chest CR BARD : PERIPHERAL VASCULAR [id number] 02/13/2024 [id number] / / [id number] documented as of this encounter Visit Diagnoses Diagnosis 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
--- OUTSIDE RECORDS SUMMARY | 2024-01-09 10:14 | External Medical Summary | Summary of Care ---
Author Name Unknown Organization [facility] Address [address] [facility] [place] [address] Phone [phone] Care Team Providers Care Senior Oracle Applications Developer Name Role Phone Anju Oneill MD Primary Care Provid er Encounter Details Date Type Department Care Team (Late st Contact Info) Description 09/08/2023 Orders Only PATIENT PORTAL DO NOT DELETE THIS DEPT USED BY [place] [id number] Allergies Active Allergy Reactions Criticality Noted Date Comments Cephalexin Hives 10/14/2013 [facility] Records documented as of this encounter (statuses as of 09/08/2023) Medications Medication Sig Dispensed Refills Start Date [...] as of this encounter (statuses as of 09/08/2023) Active Problems Problem Noted Date Diagnosed Date [...] as of this encounter (statuses as of 09/08/2023) Resolved Problems Problem Noted Date Diagnosed Date Resolved Date Diffuse large B-cell lymphom a of lymph nodes of inguinal region 03/05/2017 03/05/2017 Otalgia of left ear 03/13/2014 07/15/19 17 Dysfunction of eustachian tube 03/13/2014 07/14/2016 documented as of this encounter (statuses as of 09/08/2023) Immunizations Name Administration Dates Next Due COVID-19 mRNA, LNP-s, No Pre serve, 2-Dose Series ([employer]) 06/07/2020,05/17/2020 Season Influenza, Cell Cultu re, 18+ [...] Contact Info) Description 10/02/2023 9:30 AM EDT Immunization/Injec tion Hematology/Oncology Treatment, [place] [address] [place] [address] Nurse, Med [address] [place] [address] 02/15/2024 10:30 AM EST Imaging Radiology [facility] 1st [facility], [place] 132 [facility] [place] [address] 03/03/2024 1:45 PM EST Office Visit Hematology/Oncology [facility] [place] [address] [facility] [address] Phillip Chavez MD 200 [facility] [place] [address] Scheduled Procedures Name Priority Associated Diagnoses Date/Ti [...] 05/30/2021, 05/30/2021 Influenza Vaccine (FLU shot) Completed 01/05/2023, 01/17/2022, 01/11/2021, Additional history exists GARDASIL-HPV IMMUNIZATION SERIES Aged Out No longer eligible based on patient's age to complete this topic Hepatitis B Aged Out No longer eligi ble based on patient's age to complete this topic MENINGOCOCCAL (MENACTRA/MENVEO) Aged Out No longer eligible based on patient's age to complete this topic documented as of this encounter Medical Devices Implanted Type Area Medical Practitioners Device Identifier Shelf Expiration Date Model / Serial / Lot Port Implant W/8f Poly Cath - [id number] Implanted:Qty : 1 on 12/10/2022 by Ravin Chandler Jr., MD at OR [facility] Right: Chest CR BARD : PERIPHERAL VASCULAR [id number] 02/13/2024 [id number] / / [id number] documented as of this encounter Advance Directives Documents on File Type Date Recorded Patient Weather Reporter Expl anation POLST 02/03/2022 [facility] FOR LIFE-SUSTAINING TREATMENT Care Teams Senior Oracle Applications Developer Relationship Specialty Start Date End Date Anju Oneill MD [address] [place] [address] PCP - General Family Medicine 01/15/22 documented as of this encounter
--- OUTSIDE RECORDS SUMMARY | 2024-01-09 10:14 | External Medical Summary | Summary of Care ---
Author Name Unknown Organization [facility] Address [address] [place] [address] Phone [phone] Care Team Providers Care Typesetters Printer Name Role Phone Anju Onelil MD Primary Care Provid er Reason for Visit * Reason Onset Date Comments Medication Refill Status Check 11/06/2023 Encounter Details Date Type Department Care Team (Late st Contact Info) Description 11/06/2023 Refill Family Practice [address], [place] [address] [place] [address] Anju Oneill MD [address] [place] [address] Overactive bladder Allergies Active Allergy [...] Notes * Addendum Note - Shelley Mclaughlin, [facility] - 11/09/2023 8:34 AM EDTAddended by: SHELLEY MCLAUGHLIN on: 11/09/2023 08:34 AM Modules accepted: Orders * Telephone Encounter - Shelley Mclaughlin CPhT - 11/09/2023 8:31 AM EDT Did you pend patient's preferred pharmacy and medication before forwarding?yes Pharmacy: [facility] Pending Prescriptions: Disp Refills [...] preferred pharmacy and medication before forwarding?yes Pharmacy: [facility] Pending Prescriptions: Disp Refills [...] 9:30 AM EDT Immunization/Injec tion Hematology/Oncology Treatment, [place] 200 [place] [address] Sharyn, Chair 7 Hem On[address] [place] [address] 11/30/2023 3:00 PM EDT Office Visit [facility] [address] [place] [address] Anju Oneill MD [address] [place] [address] 02/15/2024 10:30 AM EST Imaging Radiology [address], [place] 132 [place] [address] 03/03/2024 1:45 PM EST Office Visit Hematology/Oncology [facility] 200 [facility] [place] [phone] Phillip Chavez MD 200 [facility] [place] [address] Scheduled Procedures Name Priority Associated Diagnoses Date/Ti [...] this encounter Medical Devices Implanted Type Area Steward/Stewardess Second Device Identifier Shelf Expiration Date Model / Serial / Lot Port Implant W/8f Poly Cath - [id number] Implanted:Qty : 1 on 12/10/2022 by Ravin Chandler Jr., MD at OR [facility] Right: Chest CR BARD : PERIPHERAL VASCULAR [id number] 02/13/2024 [id number] / / [id number] documented as of this encounter Visit Diagnoses Diagnosis Overactive bladder Hypertonicity of bladder documented in this encounter Advance Directives Documents on File Type Date Recorded Patient Oil Gas And Pipe Tester Expl anation POLST 02/03/2022 [place] [facility] FOR LIFE-SUSTAINING TREATMENT Care Teams Typesetters Printer Relationship Specialty Start Date End Date Anju Oneill MD [address] [place] [address] PCP - General Family Medicine 01/15/22 documented as of this encounter
--- OUTSIDE RECORDS SUMMARY | 2024-01-09 10:14 | External Medical Summary | Summary of Care ---
Author Name Unknown Organization [facility] Address [address] [place] [address] Phone [phone] Care Team Providers Care Swiss Machinist Name Role Phone Anju Oneill MD Primary Care Provid er Reason for Visit * Reason Comments Procedure Port flush Encounter Details Date Type Department Care Team (Late st Contact Info) Description 12/25/2023 9:30 AM EDT Immunization/I njection Hematology/Oncology Treatment, [address] [address] Sharyn, Chair [address] [address] History of lymphoma*; Encounter for adjustment and management of vascular access device Allergies Active Allergy Reactions Criticality Noted Date Comments Cephalexin Hives 10/14/2013 [facility] Medical Records documented as of this encounter (statuses as of 12/25/2023) Medications Medication Sig Dispensed Refills Start Date [...] the morning. 30 Tablet 1 11/21/2022 Active Additional Information Patient not taking.Reported on 11/30/2023 Lidocaine-Prilocaine 2.5-2.5 % External Cream (Emla)Indications:Gr bertrand [...] each chemo cycle 60 Tablet 11/21/2022 Active Morphine Sulfate (Concentrate) 100 MG/5ML [...] CAPSULE BEFORE BEDTIME 180 Capsule 1 07/01/2023 Active Mirabegron ER 50 MG Oral Tablet Extended Release 24 Hour (Myrbetriq)Indicatio ns:Overactive bladder Take 1 Tablet by mouth in the morning. 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 90 Capsule 3 12/07/2023 Active documented as of this encounter (statuses as of 12/25/2023) Active Problems Problem Noted Date Diagnosed Date [...] as of this encounter (statuses as of 12/25/2023) Resolved Problems Problem Noted Date Diagnosed Date Resolved Date Diffuse large B-cell lymphom a of lymph nodes of inguinal region 03/05/2017 03/05/2017 Otalgia of left ear 03/13/2014 07/15/19 17 Dysfunction of eustachian tube 03/13/2014 07/14/2016 documented as of this encounter (statuses as of 12/25/2023) Immunizations Name Administration Dates Next Due COVID-19 [...] as of this encounter Nursing Notes * Paula Hidalgo, RN - 12/25/2023 10:02 AM EDT Chair 7 Patient here for port flush. VAD accessed with brisk blood return and flushed with 10 ml NSS and Heparin 5 ml (100 units/ml). Alex needle removed intact. Dressing applied and Pt discharged in stable condition. documented in this encounter Plan of Treatment Upcoming Encounters Date Type Department Care Team (Late st Contact Info) Description 12/30/2023 1:30 PM EDT [address] [place] [address] 12/30/2023 2:00 PM EDT Imaging Radiology [address] [place] [address] 02/05/2024 9:30 AM EST Immunization/Injec tion Hematology/Oncology Treatment, [place] [facility] [phone] Sharyn, Chair 3 Hem On[address] [place] [address] 02/15/2024 10:30 AM EST Imaging Radiology [address], [address] [place] [address] 03/03/2024 1:45 PM EST Office Visit Hematology/Oncology [address] [place] [phone] Phillip Chavez MD 200 [facility] [place] [address] Scheduled Procedures Name Priority Associated Diagnoses Date/Ti [...] history exists DXA Scan 2023 06/04/2011 Mammogram 12/17/2024 12/18/2023, 03/09/2021, 05/20/2021, Additional history exists Colonoscopy 05/30/2026 05/30/2021, [...] this encounter Medical Devices Implanted Type Area Cad Librarian Device Identifier Shelf Expiration Date Model / Serial / Lot Port Implant W/8f Poly Cath - [id number] Implanted:Qty : 1 on 12/10/2022 by Ravin Chandler Jr., MD at OR [facility] Right: Chest CR BARD : PERIPHERAL VASCULAR [id number] 02/13/2024 [id number] / / [id number] documented as of this encounter Visit Diagnoses [...] Lock, PRN Other, IV Flush, Starting on Thu12/25/23 at 0956, Until Thu12/25/23 at 1408, For 24 hours, Do not flush if lock, PICC, or central line not in place; IV infusing or unable to flush. Given 12/25/2023 9:56 AM EDT 500 Units sodium chloride 0.9 % flush central line 10 mL 10 mL, IV Push, PRN Other, IV Flush, Starting on Thu12/25/23 at 0956, Until Thu12/25/23 at 1408, For 24 hours, Do not flush if lock, PICC, or central line not in place; IV infusing or unable to flush. Given 12/25/2023 9:00 AM EDT 10 mL documented in this encounter Advance Directives Documents on File Type Date Recorded Patient Fertilizing Machine Operator Expl anation POLST 02/03/2022 [place] [facility] FOR LIFE-SUSTAINING TREATMENT Care Teams Swiss Machinist Relationship Specialty Start Date End Date Anju Oneill MD [address] [facility] [place] [address] PCP - General Family Medicine 01/15/22 documented as of this encounter
--- OUTSIDE RECORDS SUMMARY | 2024-01-09 10:14 | External Medical Summary | Summary of Care ---
Author Name Unknown Organization [facility] Address [address] [place] [address] Phone [phone] Care Team Providers Care Bench Hand Machine Name Role Phone Anju Oneill MD Primary Care Provid er Reason for Visit * Reason Comments Outpatient Testing Encounter Details Date Type Department Care Team (Late st Contact Info) Description 09/18/2023 8:50 AM EDT Laboratory Laboratory, [place] [address] [place] [address] [place], Laboratory [address] [place] [address] Small B-cell lymphoma (HCC) Allergies Active Allergy Reactions Criticality Noted Date Comments Cephalexin Hives 10/14/2013 [facility] Medical Records documented as of this encounter (statuses as of 09/18/2023) Medications Medication Sig Dispensed Refills Start Date [...] as of this encounter (statuses as of 09/18/2023) Active Problems Problem Noted Date Diagnosed Date [...] as of this encounter (statuses as of 09/18/2023) Resolved Problems Problem Noted Date Diagnosed Date Resolved Date Diffuse large B-cell lymphom a of lymph nodes of inguinal region 03/05/2017 03/05/2017 Otalgia of left ear 03/13/2014 07/15/19 17 Dysfunction of eustachian tube 03/13/2014 07/14/2016 documented as of this encounter (statuses as of 09/18/2023) Immunizations Name Administration Dates Next Due COVID-19 mRNA, LNP-s, No Pre serve, 2-Dose Series ([employer]) 06/07/2020,05/17/2020 Season Influenza, Cell Cultu re, 18+ [...] 9:30 AM EDT Immunization/Injec tion Hematology/Oncology Treatment, [place] [address] [place] [address] Nurse, Med 4 200 [facility] [place] [address] 02/15/2024 10:30 AM EST Imaging Radiology [address] [facility] [place] [address] 03/03/2024 1:45 PM EST Office Visit Hematology/Oncology [facility] [place] 200 [facility] [address] [place] [phone] Phillip Chavez MD 200 [place] [address] Pending Results Name Type Priority Associated Diagnoses Date /Time CBC WITH WBC DIFFERENTIAL Lab STAT Small B-cell lymphoma (HCC) 09/18/2023 8:56 AM EDT CBC Lab STAT Small B-cell lymphoma (HCC) 09/18/2023 8:56 AM EDT DIFFERENTIAL, AUTOMATED Lab STAT Small B-cell lymphoma (HCC) 09/18/2023 8:56 AM EDT Scheduled Procedures Name Priority Associated [...] this encounter Medical Devices Implanted Type Area Retail And Restaurant Device Identifier Shelf Expiration Date Model / Serial / Lot Port Implant W/8f Poly Cath - [id number] Implanted:Qty : 1 on 12/10/2022 by Ravin Chandler Jr., MD at OR [facility] Right: Chest CR BARD : PERIPHERAL VASCULAR [id number] 02/13/2024 [id number] / / [id number] documented as of this encounter Visit Diagnoses Diagnosis Small B-cell lymphoma (HCC) documented in this encounter Advance Directives Documents on File Type Date Recorded Patient Bench Repair Technician Expl anation POLST 02/03/2022 [facility] FOR LIFE-SUSTAINING TREATMENT Care Teams Bench Hand Machine Relationship Specialty Start Date End Date Anju Oneill MD [address] [place] [facility] [place] [address] PCP - General Family Medicine 01/15/22 documented as of this encounter
--- OUTSIDE RECORDS SUMMARY | 2024-01-09 10:14 | External Medical Summary | Summary of Care ---
Author Name Unknown Organization [facility] Address [address] [place] [address] Phone [phone] Care Team Providers Care Legal Instruments Examiner Name Role Phone Anju Oneill MD Primary Care Provid er Reason for Visit * Reason Comments Procedure Port flush Encounter Details Date Type Department Care Team (Late st Contact Info) Description 12/25/2023 9:30 AM EDT Immunization/I njection Hematology/Oncology Treatment, [address] [address] Sharyn, Chair [address] [address] History of lymphoma*; Encounter for adjustment and [...] Description 12/30/2023 1:30 PM EDT Imaging Radiology [address] [place] [address] 12/30/2023 2:00 PM EDT Imaging Radiology [address] [place] [address] 02/05/2024 9:30 AM EST Immunization/Injec tion Hematology/Oncology Treatment, [place] 200 [facility] [phone] Sharyn, Chair 3 Hem On[address] [place] [address] 02/15/2024 10:30 AM EST Imaging Radiology [address], [address] [place] [address] 03/03/2024 1:45 PM EST Office Visit Hematology/Oncology [address] [place] [phone] Phillip Chavez MD 200 [facility] [place] [address] Scheduled Procedures Name Priority Associated Diagnoses Date/Ti [...] this encounter Medical Devices Implanted Type Area Salt Miner Device Identifier Shelf Expiration Date Model / Serial / Lot Port Implant W/8f Poly Cath - [id number] Implanted:Qty : 1 on 12/10/2022 by Ravin Chandler Jr., MD at OR [facility] Right: Chest CR BARD : PERIPHERAL VASCULAR [id number] 02/13/2024 [id number] / / [id number] documented as of this encounter Visit Diagnoses [...] Flush, Starting on Thu12/25/23 at 0956, Until 12/26/23 at 0955, For 24 hours, Do not flush if lock, PICC, or central line not in place; IV infusing or unable to flush. Given 12/25/2023 9:56 AM EDT 500 Units sodium chloride 0.9 % flush central line 10 mL 10 mL, IV Push, PRN Other, IV Flush, Starting on Thu12/25/23 at 0956, Until 12/26/23 at 0955, For 24 hours, Do not flush if lock, PICC, or central line not in place; IV infusing or unable to flush. Given 12/25/2023 9:00 AM EDT 10 mL documented in this encounter Advance Directives Documents on File Type Date Recorded Patient Plycor Operator Expl anation POLST 02/03/2022 [place] OR [facility] FOR LIFE-SUSTAINING TREATMENT Care Teams Legal Instruments Examiner Relationship Specialty Start Date End Date Anju Oneill MD [address] [facility] [place] [address] PCP - General Family Medicine 01/15/22 documented as of this encounter
--- OUTSIDE RECORDS SUMMARY | 2024-01-09 10:14 | External Medical Summary | Summary of Care ---
Author Name Unknown Organization [facility] Address [address] [facility] [place] [address] Phone [phone] Care Team Providers Care Sql Programmer Analyst Name Role Phone Anju Oneill MD Primary Care Provid er Reason for Visit * Reason Onset Date Comments Test Results Lab 09/21/2023 Encounter Details Date Type Department Care Team (Late st Contact Info) Description 09/21/2023 Telephone Hematology/Oncology [facility] [place] [place] [address] [facility] [place] [phone] Phillip Chavez MD 200 [facility] [place] [address] Test Results Lab Allergies Active Allergy Reactions Criticality Noted Date Comments Cephalexin Hives 10/14/2013 [facility] Medical Records documented as of this encounter (statuses as of 09/21/2023) Medications Medication Sig Dispensed Refills Start Date [...] as of this encounter (statuses as of 09/21/2023) Active Problems Problem Noted Date Diagnosed Date [...] as of this encounter (statuses as of 09/21/2023) Resolved Problems Problem Noted Date Diagnosed Date Resolved Date Diffuse large B-cell lymphom a of lymph nodes of inguinal region 03/05/2017 03/05/2017 Otalgia of left ear 03/13/2014 07/15/19 17 Dysfunction of eustachian tube 03/13/2014 07/14/2016 documented as of this encounter (statuses as of 09/21/2023) Immunizations Name Administration Dates Next Due COVID-19 mRNA, LNP-s, No Pre serve, 2-Dose Series ([employer]) 06/07/2020,05/17/2020 Season Influenza, Cell Cultu re, 18+ [...] encounter Miscellaneous Notes * Telephone Encounter - Mare Mai LPN - 09/21/2023 11:30 AM EDT Called and spoke with patient, informed patient of her test results note from provider below. Patient verbalized understanding, denies any questions or concerns. * Telephone Encounter - Mare Mai LPN - 09/21/2023 11:28 AM EDT ----- Message from Phillip Chavez MD sent at 09/18/2023 9:11 PM EDT ----- Blood workup done on 09/18/2023: - WBC 4300, H&H of 12.4/37.9, platelet count of 152,000. - ANC 2900, Absolute Lymphocyte count 800. Overall improvement of the blood counts noted, previously noted neutropenia improved. Will continue to observe. documented in this encounter Plan of Treatment Upcoming Encounters Date Type Department Care Team (Late st Contact Info) Description 10/02/2023 9:30 AM EDT Immunization/Injec tion Hematology/Oncology Treatment, [place] 200 [place] [address] Nurse, Med [address] [place] [address] [place] [address] 02/15/2024 10:30 AM EST Imaging Radiology [address] [address] 03/03/2024 1:45 PM EST Office Visit Hematology/Oncology [facility] 200 [facility] [place] [phone] Phillip Chavez MD 200 [facility] [place] [address] Scheduled Procedures Name Priority Associated Diagnoses Date/Ti [...] this encounter Medical Devices Implanted Type Area Closing Coordinator Device Identifier Shelf Expiration Date Model / Serial / Lot Port Implant W/8f Poly Cath - [id number] Implanted:Qty : 1 on 12/10/2022 by Ravin Chandler Jr., MD at OR [facility] Right: Chest CR BARD : PERIPHERAL VASCULAR [id number] 02/13/2024 [id number] / / [id number] documented as of this encounter Advance Directives Documents on File Type Date Recorded Patient Dehairing Machine Tender Expl anation POLST 02/03/2022 [place] [facility] Care Teams Sql Programmer Analyst Relationship Specialty Start Date End Date Anju Oneill MD [address] [facility] [place] [address] PCP - General Family Medicine 01/15/22 documented as of this encounter
--- OUTSIDE RECORDS SUMMARY | 2024-01-09 10:14 | External Medical Summary | Summary of Care ---
Author Name Unknown Organization [facility] Address [address] [place] [address] Phone [phone] Care Team Providers Care Department Head College Or [employer] Name Role Phone Anju Oneill MD Primary Care Provid er Reason for Visit * Reason Comments Procedure Port flush. Encounter Details Date Type Department Care Team (Late st Contact Info) Description 10/02/2023 9:30 AM EDT Immunization/I njection Hematology/Oncology Treatment, [address] [address] Sharyn, Chair 7 Hem On[address] [address] History of lymphoma*; Encounter for central line care Allergies Active Allergy Reactions Criticality Noted Date Comments Cephalexin Hives 10/14/2013 [facility] Medical Records documented as of this encounter (statuses as of 10/02/2023) Medications Medication Sig Dispensed Refills Start Date [...] as of this encounter (statuses as of 10/02/2023) Active Problems Problem Noted Date Diagnosed Date [...] as of this encounter (statuses as of 10/02/2023) Resolved Problems Problem Noted Date Diagnosed Date Resolved Date Diffuse large B-cell lymphom a of lymph nodes of inguinal region 03/05/2017 03/05/2017 Otalgia of left ear 03/13/2014 07/15/19 17 Dysfunction of eustachian tube 03/13/2014 07/14/2016 documented as of this encounter (statuses as of 10/02/2023) Immunizations Name Administration Dates Next Due COVID-19 mRNA, LNP-s, No Pre serve, 2-Dose Series ([employer]) 06/07/2020,05/17/2020 Season Influenza, Cell Cultu re, 18+ [...] 9:30 AM EDT Immunization/Injec tion Hematology/Oncology Treatment, [place] [address] [place] [address] Sharyn, Chair 7 Hem Onc [facility] 200 [facility] [place] [address] 02/15/2024 10:30 AM EST Imaging Radiology [address], [place] 132 [facility] [place] [address] 03/03/2024 1:45 PM EST Office Visit Hematology/Oncology [address] [place] [phone] Phillip Chavez MD [address] [place] [address] Scheduled Procedures Name Priority Associated Diagnoses Date/Ti [...] this encounter Medical Devices Implanted Type Area Link Cutter Device Identifier Shelf Expiration Date Model / Serial / Lot Port Implant W/8f Poly Cath - [id number] Implanted:Qty : 1 on 12/10/2022 by Ravin Chandler Jr., MD at [facility] Right: Chest CR BARD : PERIPHERAL VASCULAR [id number] 02/13/2024 [id number] / / [id number] documented as of this encounter Visit Diagnoses Diagnosis History of lymphoma- Primary Personal history of other lymphatic and hematopoietic neoplasm Encounter for central line care Fitting and adjustment of vascular catheter documented in this encounter Administered Medications Active Administered Medications - up to 3 most recent administrations Medication Order MAR Action Action Date Dose Rate Site hEParin 100 UNIT/ML Lock Flush inj 500 Units 500 Units (5 mL), IV Lock, PRN Other, IV Flush, Starting on 10/02/23 at 0937, Until 10/03/23 at 0936, For 24 hours, Do not flush if lock, PICC, or central line not in place; IV infusing or unable to flush. Given 10/02/2023 9:38 AM EDT 500 Units sodium chloride 0.9 % flush central line 10 mL 10 mL, IV Push, PRN Other, IV Flush, Starting on 10/02/23 at 0937, Until 10/03/23 at 0936, For 24 hours, Do not flush if lock, PICC, or central line not in place; IV infusing or unable to flush. Given 10/02/2023 9:38 AM EDT 10 mL documented in this encounter Advance Directives Documents on File Type Date Recorded Patient Genetic Counsellor Expl anation POLST 02/03/2022 [place] OR [facility]SUSTAIN[facility] TREATMENT Care Teams Department Head College Or University Relationship Specialty Start Date End Date Anju Oneill MD [address] [place] [address] PCP - General Family Medicine 01/15/22 documented as of this encounter
--- OUTSIDE RECORDS SUMMARY | 2024-01-09 10:15 | External Medical Summary ---
Author Name Unknown Address Unknown Organization K09:[facility] [place] [address] Laboratory Report Ordering Provider Test Date Status CRISTY VO 09/02/2023 11:48:35 Final Observation Date Value Abnormality Reference (Units ) Status SYNC LEUKOCYTES IN BLOOD BY AUTOMATED COUNT 09/02/2023 11:48:35 2.59 Below low normal 4.00-10.80 (K/uL) Final Segs 09/02/2023 11:48:35 35.1 Below low normal 40.0-75.0 (%) Final Lymphs % 09/02/2023 11:48:35 36.3 18.0-42.0 (%) Final Monos 09/02/2023 11:48:35 25.9 Above high normal 1.0-11.0 (%) Final Eosinophils 09/02/2023 11:48:35 2.3 0.0-6.0 (%) Final Basos 09/02/2023 11:48:35 0.4 0.0-2.0 (%) Final Absolute Segs 09/02/2023 11:48:35 0.91 Below low normal 1.80-7.70 (K/uL) Final Lymphs, absolute 09/02/2023 11:48:35 0.94 Below low normal 1.00-4.80 (K/ul) Final Monos, Abs 09/02/2023 11:48:35 0.67 0.00-1.10 (K/uL) Final Eos, Abs 09/02/2023 11:48:35 0.06 0.00-0.70 (K/uL) Final Basos, Abs 09/02/2023 11:48:35 0.01 0.00-0.20 (K/uL) Final Performing Location [facility] [place] [address]
--- OUTSIDE RECORDS SUMMARY | 2024-01-09 10:15 | External Medical Summary | Summary of Care ---
Author Name Unknown Organization [facility] Address [address] [place] [address] Phone [phone] Care Team Providers Care Export Documents Clerk Name Role Phone Anju Oneill MD Primary Care Provid er Reason for Visit * Reason Onset Date Comments Test Results 09/04/2023 Encounter Details Date Type Department Care Team (Late st Contact Info) Description 09/04/2023 Telephone Hematology/Oncology Treatment, [place] [address] [facility] [place] [address] Phillip Chavez MD 200 [place] [address] Test Results Allergies Active Allergy Reactions Criticality Noted Date Comments Cephalexin Hives 10/14/2013 [facility] Medical Records documented as of this encounter (statuses as of 09/04/2023) Medications Medication Sig Dispensed Refills Start Date [...] as of this encounter (statuses as of 09/04/2023) Active Problems Problem Noted Date Diagnosed Date [...] as of this encounter (statuses as of 09/04/2023) Resolved Problems Problem Noted Date Diagnosed Date Resolved Date Diffuse large B-cell lymphom a of lymph nodes of inguinal region 03/05/2017 03/05/2017 Otalgia of left ear 03/13/2014 07/15/19 17 Dysfunction of eustachian tube 03/13/2014 07/14/2016 documented as of this encounter (statuses as of 09/04/2023) Immunizations Name Administration Dates Next Due COVID-19 mRNA, LNP-s, No Pre serve, 2-Dose Series ([employer]) 06/07/2020,05/17/2020 Season Influenza, Cell Cultu re, 18+ [...] encounter Miscellaneous Notes * Telephone Encounter - Benito Fuller RN - 09/04/2023 12:59 PM EDT Called patient back and relayed her results to her. * Telephone Encounter - Sahra Blackwell OSA - 09/04/2023 12:56 PM EDT Patient calling back. Please contact thank you * Telephone Encounter - Yolande Jernigan RN - 09/04/2023 12:45 PM EDT Left message for patient to return call. CBCd order placed for in 2 weeks. * Telephone Encounter - Yolande Jernigan RN - 09/04/2023 12:42 PM EDT ----- Message from Phillip Chavez MD sent at 09/02/2023 4:53 PM EDT ----- Blood workup done on 08/1923: -BUN/Creat: 16/0.8, Calcium 9.1, normal LFT -WBC 2500, H&H of 12.7/39, Platelet count of 889403 -ANC 900, Absolute lymphocyte count 940. Overall stable blood count other than low ANC and the low lymphocyte count. She did not have any signs of infection, I would like to observe . Would like to repeat another CBCD in about 2 weeks' time. documented in this encounter Plan of Treatment Upcoming Encounters Date Type Department Care Team (Late st Contact Info) Description 10/02/2023 9:30 AM EDT Immunization/Injec tion Hematology/Oncology Treatment, [place] [address] [place] [address] Nurse, Med [address] [place] [address] 02/15/2024 10:30 AM EST Imaging Radiology [address], [place] 132 [facility] [place] [address] 03/03/2024 1:45 PM EST Office Visit Hematology/Oncology [place] 200 [facility] [place] [address] Phillip Chavez MD 200 [facility] [place] [address] Scheduled Orders Name Type Priority Associated Diagnoses Orde r Schedule CBC WITH WBC DIFFERENTIAL Lab STAT Small B-cell lymphoma (HCC) Expected: 09/18/2023 (Approximate), Expires: 09/03/2024 Scheduled Procedures Name Priority Associated Diagnoses Date/Ti [...] this encounter Medical Devices Implanted Type Area Manager Of Sustainability Device Identifier Shelf Expiration Date Model / Serial / Lot Port Implant W/8f Poly Cath - [id number] Implanted:Qty : 1 on 12/10/2022 by Ravin Chandler Jr., MD at OR [facility] Right: Chest CR BARD : PERIPHERAL VASCULAR [id number] 02/13/2024 [id number] / / [id number] documented as of this encounter Visit Diagnoses Diagnosis Small B-cell lymphoma (HCC)- Primary documented in this encounter Advance Directives Documents on File Type Date Recorded Patient Locomotive Driver Expl anation POLST 02/03/2022 [facility] Care Teams Export Documents Clerk Relationship Specialty Start Date End Date Anju Oneill MD [address] [place] [address] PCP - General Family Medicine 01/15/22 documented as of this encounter
--- OUTSIDE RECORDS SUMMARY | 2024-01-09 10:15 | External Medical Summary | Summary of Care ---
Author Name Unknown Organization [facility] Address [address] [place] [address] Phone [phone] Care Team Providers Care Vice President Payer Name Role Phone Anju Oneill MD Primary Care Provid er Reason for Visit * Reason Comments Procedure Port flush. Encounter Details Date Type Department Care Team (Late st Contact Info) Description 07/10/2023 9:15 AM EDT Immunization/I njection Hematology/Oncology Treatment, [place] [address] [facility] [place] [address] Nurse, Med 200 [facility] [place] [address] History of lymphoma*; Encounter for central line care Allergies Active Allergy Reactions Criticality Noted Date Comments Cephalexin Hives 10/14/2013 [facility] Medical Records documented as of this encounter (statuses as of 07/25/2023) Medications Medication Sig Dispensed Refills Start Date End Date Status clonazePAM 0.5 MG Oral Tablet (KlonoPIN)Indication s:Anxiety Take 1 Tablet by mouth 3 times a day as needed for Anxiety. 30 Tablet 0 05/16/2022 Active Additional Information Patient not taking.Reported [...] Breakthrough or Pain, Moderate. 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 30 mL 0 11/27/2022 Active Lisinopril 30 MG Oral TabletIndications:Es sential hypertension with goal blood pressure less than 140/90 TAKE ONE TABLET BY MOUTH EVERY MORNING 90 Tablet 2 05/27/2023 5 Active Pregabalin 50 MG Oral Capsule (Lyrica) TAKE ONE CAPSULE BY MOUTH IN THE MORNING AND ONE CAPSULE BEFORE BEDTIME 180 Capsule 1 07/01/2023 4 Active documented as of this encounter (statuses as of 07/25/2023) Active Problems Problem Noted Date Diagnosed Date [...] as of this encounter (statuses as of 07/25/2023) Resolved Problems Problem Noted Date Diagnosed Date Resolved Date Diffuse large B-cell lymphom a of lymph nodes of inguinal region 03/05/2017 03/05/2017 Otalgia of left ear 03/13/2014 07/15/19 17 Dysfunction of eustachian tube 03/13/2014 07/14/2016 documented as of this encounter (statuses as of 07/25/2023) Immunizations Name Administration Dates Next Due COVID-19 mRNA, LNP-s, No Pre serve, 2-Dose Series ([employer]) 06/07/2020,05/17/2020 Season Influenza, Cell Cultu re, 18+ Yrs, With Preserv (Flucelvax) 01/05/2023 Seasonal Influenza, PF, 6 M & above, IM , (FluLaval or Fluzone) 01/17/2022,01/11/2021,12/27/2019 TD, Preservative Free 06/04/2018 TDAP (age 11 and older)(Adacel) 10/18/2007 Zoster Vaccine Recombinant (Shingrix) 08/07/2020 ,09/06/2019 [...] in the Last Year Never true 03/02/2019 Sex and Gender Information Value Date Recorded Sex Assigned at Female 06/02/2022 3:36 PM EDT Gender Identity Female 06/02/2022 3:36 PM EDT Sexual Orientation Straight 10/22/2020 4: 34 PM EDT Job Start Date Occupation Industry Not on file Not on file Not on file documented as of this encounter Nursing Notes * Jenny Wright RN - 07/10/2023 9:10 AM EDT Chair 7. VAD (Venous Access Device) accessed with #19G 3/4" without difficulty. VAD flushed with 10 ml NSS and Heparin 5 ml (100 units/ml). Alex needle removed intact. Patient tolerated procedure well. Discharged in stable condition. documented in this encounter Plan of Treatment Upcoming Encounters Date Type Department Care Team (Late st Contact Info) Description 08/21/2023 9:30 AM EDT Immunization/Injec tion Hematology/Oncology Treatment, [place] [address] [place] [address] Nurse, Med 4 [facility] [address] 08/24/2023 9:30 AM EDT Imaging Radiology [facility], [place] [address] [place] [address] 09/02/2023 11:15 AM EDT Office Visit Hematology/Oncology [facility] 200 [facility] [place] [phone] Phillip Chavez MD 200 [facility] [place] [address] Scheduled Procedures Name Priority Associated Diagnoses Date/Ti [...] 09/20/2019, Additional history exists Mammogram 05/20/2022 05/20/2021, 030 09/2021, 05/01/2021, Additional history exists DXA Scan 2023 06/04/2011 Diabetes Screening 03/11/2026 03/11/2023, 1 2022, 01/28/2023, Additional history exists Colonoscopy 05/30/2026 05/30/2021, 05/30/2021 Colorectal Cancer Screening 05/30/2026 Lipid Panel 07/16/2026 07/16/2021, 07/15, 09/06/2019, Additional history exists DTaP,Tdap,and Td Vaccines (3 [...] this encounter Medical Devices Implanted Type Area Event Host Device Identifier Shelf Expiration Date Model / Serial / Lot Port Implant W/8f Poly Cath - [id number] Implanted:Qty : 1 on 12/10/2022 by Ravin Chandler Jr., MD at OR [facility] Right: Chest CR BARD : PERIPHERAL VASCULAR [id number] 02/13/2024 [id number] / / [id number] documented as of this encounter Visit Diagnoses [...] Lock, PRN Other, IV Flush, Starting on Thu07/10/23 at 0902, Until Thu07/10/23 at 1312, For 24 hours, Do not flush if lock, PICC, or central line not in place; IV infusing or unable to flush. Given 07/10/2023 9:03 AM EDT 500 Units sodium chloride 0.9 % flush central line 10 mL 10 mL, IV Push, PRN Other, IV Flush, Starting on Thu07/10/23 at 0902, Until Thu07/10/23 at 1312, For 24 hours, Do not flush if lock, PICC, or central line not in place; IV infusing or unable to flush. Given 07/10/2023 9:03 AM EDT 10 mL documented in this encounter Advance Directives Documents on File Type Date Recorded Patient Funeral Car Driver Expl espinoza LOPEZ 02/03/2022 [place] OR [facility]SUSTAINING TREATMENT Care Teams Vice President Payer Relationship Specialty Start Date End Date Anju Oneill MD [address] [place] [address] PCP - General Family Medicine 01/15/22 documented as of this encounter
--- OUTSIDE RECORDS SUMMARY | 2024-01-09 10:15 | External Medical Summary ---
Author Name Unknown Address Unknown Organization K01:[facility] - [address] [place] [address] Laboratory Report Ordering Provider Test Date Status CRISTY VO 09/02/2023 11:48:35 Final Observation Date Value Abnormality Reference (Units ) Status LDH 09/02/2023 11:48:35 210 <=250 (U/L ) Final Performing Location [facility] - [address] [place] [address]
--- OUTSIDE RECORDS SUMMARY | 2024-01-09 10:15 | External Medical Summary ---
Author Name Unknown Address Unknown Organization K01:[facility] [address] [place] [address] Laboratory Report Ordering Provider Test Date Status ANOOP DAUGHERTY 09/02/2023 11:48:35 Final Observation Date Value Abnormality Reference (Units ) Status MYCODE SPECIMEN-SST 09/02/2023 11:48:35 Freezing of extracted DNA, whole blood and/or serum. Final Performing Location [facility] [address] [facility] [address]
--- OUTSIDE RECORDS SUMMARY | 2024-01-09 10:15 | External Medical Summary | Summary of Care ---
Author Name Unknown Organization [facility] Address [address] [place] [address] Phone [phone] Care Team Providers Care Uniform Cap Operator Name Role Phone Anju Oneill MD Primary Care Provid er Reason for Visit * Reason Comments Outpatient Testing Encounter Details Date Type Department Care Team (Late st Contact Info) Description 09/02/2023 11:50 AM EDT Laboratory Laboratory [facility] [address] [place] [address] [facility] [address] [place] [address] Audemat Other*[id number] Allergies Active Allergy Reactions Criticality Noted Date Comments Cephalexin Hives 10/14/2013 [facility] Medical Records documented as of this encounter (statuses as of 09/02/2023) Medications Medication Sig Dispensed Refills Start Date [...] as of this encounter (statuses as of 09/02/2023) Active Problems Problem Noted Date Diagnosed Date [...] as of this encounter (statuses as of 09/02/2023) Resolved Problems Problem Noted Date Diagnosed Date Resolved Date Diffuse large B-cell lymphom a of lymph nodes of inguinal region 03/05/2017 03/05/2017 Otalgia of left ear 03/13/2014 07/15/19 17 Dysfunction of eustachian tube 03/13/2014 07/14/2016 documented as of this encounter (statuses as of 09/02/2023) Immunizations Name Administration Dates Next Due COVID-19 mRNA, LNP-s, No Pre serve, 2-Dose Series ([employer]) 06/07/2020,05/17/2020 Season Influenza, Cell Cultu re, 18+ [...] 9:30 AM EDT Immunization/Injec tion Hematology/Oncology Treatment, [place] [address] [place] [address] Nurse, Med 4 200 [facility] [place] [address] 02/15/2024 10:30 AM EST Imaging Radiology [address], [place] 132 [facility] [place] [address] 03/03/2024 1:45 PM EST Office Visit Hematology/Oncology [facility] 200 [facility] [place] [id number] Phillip Chavez MD [address] [facility] [place] [address] Pending Results Name Type Priority Associated Diagnoses Date /Time MYCODE SUBSEQUENT ADULT Lab Routine MyCode Research Other*[id number] 09/02/2023 11:48 AM EDT MYCODE SST1 Lab Routine [employer] Other*[id number] 09/02/2023 11:48 AM EDT MYCODE SST2 Lab Routine [employer] Research Other*[id number] 09/02/2023 11:48 AM EDT Scheduled Procedures Name Priority Associated [...] this encounter Medical Devices Implanted Type Area Rotary Drill Operator Device Identifier Shelf Expiration Date Model / Serial / Lot Port Implant W/8f Poly Cath - [id number] Implanted:Qty : 1 on 12/10/2022 by Ravin Chandler Jr., MD at OR [facility] Right: Chest CR BARD : PERIPHERAL VASCULAR [id number] 02/13/2024 [id number] / / [id number] documented as of this encounter Visit Diagnoses Diagnosis MyCode Research Other*[id number] documented in this encounter Advance Directives Documents on File Type Date Recorded Patient Intake Worker Expl anation POLST 02/03/2022 [place] OR [facility]ST[facility] Care Teams Uniform Cap Operator Relationship Specialty Start Date End Date Anju Oneill MD [address] [place] [address] PCP - General Family Medicine 01/15/22 documented as of this encounter
--- OUTSIDE RECORDS SUMMARY | 2024-01-09 10:15 | External Medical Summary | Summary of Care ---
Author Name Unknown Organization [facility] Address [address] [place] [address] Phone [phone] Care Team Providers Care Patternmaker Plaster And Plastic Name Role Phone Anju Oneill MD Primary Care Provid er Reason for Visit * Reason Comments Procedure Port flush Encounter Details Date Type Department Care Team (Late st Contact Info) Description 05/29/2023 9:15 AM EDT Immunization/I njection Hematology/Oncology Treatment, [place] [address] [place] [address] Nurse, Med [address] [place] [address] History of lymphoma* Allergies Active Allergy Reactions Criticality Noted Date Comments Cephalexin Hives 10/14/2013 [facility] Medical Records documented as of this encounter (statuses as of 07/17/2023) Medications Medication Sig Dispensed Refills Start Date End Date Status clonazePAM 0.5 MG Oral Tablet (KlonoPIN)Indicatio ns:Anxiety Take 1 Tablet by mouth 3 times a day as needed for Anxiety. 30 Tablet 0 3 Active Additional Information Patient not taking.Reported on 12/10/2022 Myrbetriq 50 MG Oral Tablet Extended Release 24 Hour (Mirabegron ER)Indications:Over active bladder TAKE ONE TABLET BY MOUTH EVERY MORNING 90 Tablet 3 3 10/06/19 24 Active oxyCODONE HCl 5 MG Oral Tablet (Oxy IR)Indications:Grad e 1 follicular lymphoma of lymph nodes of multiple regions (HCC),Generalized abdominal pain Take 1 Tablet by mouth every 4 hours as needed for Pain, Breakthrough or Pain, Moderate. 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 30 mL 0 3 Active Lisinopril 30 MG Oral TabletIndications:E ssential hypertension with goal blood pressure less than 140/90 TAKE ONE TABLET BY MOUTH EVERY MORNING 90 Tablet 2 4 05/27/19 25 Active Pregabalin 50 MG Oral Capsule (Lyrica) TAKE ONE CAPSULE BY MOUTH IN THE MORNING AND ONE CAPSULE BEFORE BEDTIME 180 Capsule 1 3 06/29/19 24 Discontinu ed(Refill) documented as of this encounter (statuses as of 07/17/2023) Active Problems Problem Noted Date Diagnosed Date [...] as of this encounter (statuses as of 07/17/2023) Resolved Problems Problem Noted Date Diagnosed Date Resolved Date Diffuse large B-cell lymphom a of lymph nodes of inguinal region 03/05/2017 03/05/2017 Otalgia of left ear 03/13/2014 07/15/19 17 Dysfunction of eustachian tube 03/13/2014 07/14/2016 documented as of this encounter (statuses as of 07/17/2023) Immunizations Name Administration Dates Next Due COVID-19 mRNA, LNP-s, No Pre serve, 2-Dose Series ([employer]) 06/07/2020,05/17/2020 Season Influenza, Cell Cultu re, 18+ [...] as of this encounter Nursing Notes * Lauren Rascon RN - 05/29/2023 9:57 AM EDT Chair 6 VAD (Venous Access Device) accessed with #20G 3/4" without difficulty. VAD flushed with 10 ml NSS and Heparin 5 ml (100 units/ml). Alex needle removed intact. Patient tolerated treatment well and was discharged in stable condition. documented in this encounter Plan of Treatment Upcoming Encounters Date Type Department Care Team (Late st Contact Info) Description 08/21/2023 9:30 AM EDT Immunization/Injec tion Hematology/Oncology Treatment, [place] [address] [place] [address] Nurse, Med 4 200 [facility] [place] [address] 08/24/2023 9:30 AM EDT Imaging Radiology [facility] 1st [facility], [place] [address] [place] [address] 09/02/2023 11:15 AM EDT Office Visit Hematology/Oncology [facility] [place] [address] [facility] [place] [phone] Phillip Chavez MD 200 [facility] [place] [address] Scheduled Procedures Name Priority Associated Diagnoses Date/Ti [...] this encounter Medical Devices Implanted Type Area Campus Wellness Coordinator Device Identifier Shelf Expiration Date Model / Serial / Lot Port Implant W/8f Poly Cath - [id number] Implanted:Qty : 1 on 12/10/2022 by Ravin Chandler Jr., MD at [facility] Right: Chest CR BARD : PERIPHERAL VASCULAR [id number] 02/13/2024 [id number] / / [id number] documented as of this encounter Visit Diagnoses Diagnosis History of lymphoma- Primary Personal history of other lymphatic and hematopoietic neoplasm documented in this encounter Administered Medications Inactive Administered Medications - up to 3 most recent administrations Medication Order MAR Action Action Date Dose Rate Site hEParin 100 UNIT/ML Lock Flush inj 500 Units 500 Units (5 mL), IV Lock, PRN Other, IV Flush, Starting on Thu05/29/23 at 0945, Until Thu05/29/23 at 1359, For 24 hours, Do not flush if lock, PICC, or central line not in place; IV infusing or unable to flush. Given 05/29/2023 9:49 AM EDT 500 Units sodium chloride 0.9 % flush central line 10 mL 10 mL, IV Push, PRN Other, IV Flush, Starting on Thu05/29/23 at 0945, Until Thu05/29/23 at 1359, For 24 hours, Do not flush if lock, PICC, or central line not in place; IV infusing or unable to flush. Given 05/29/2023 9:49 AM EDT 10 mL documented in this encounter Advance Directives Documents on File Type Date Recorded Patient Linen Tech Expl espinoza LOPEZ 02/03/2022 [place] [facility] FOR [facility]SUSTAIN[facility] TREATMENT Care Teams Patternmaker Plaster And Plastic Relationship Specialty Start Date End Date Anju Oneill MD [address] [place] [address] PCP - General Family Medicine 01/15/22 documented as of this encounter
--- OUTSIDE RECORDS SUMMARY | 2024-01-09 10:15 | External Medical Summary ---
Author Name Unknown Address Unknown Organization [id number]:[facility] [place] - [address] [place] [address] Laboratory Report Ordering Provider Test Date Status CRISTY VO 09/02/2023 11:48:35 Final Observation Date Value Abnormality Reference (Units ) Status Uric Acid 09/02/2023 11:48:35 5.8 Above high normal 2. 4-5.7 (mg/dL) Final Performing Location [facility] - [address] [place] [address]
--- OUTSIDE RECORDS SUMMARY | 2024-01-09 10:15 | External Medical Summary ---
Author Name Unknown Address Unknown Organization K09:[facility] [place] [address] Laboratory Report Ordering Provider Test Date Status CRISTY VO 09/02/2023 11:48:35 Final Observation Date Value Abnormality Reference (Units ) Status Nucleated erythrocytes/100 leukocytes [Ratio] in Blood by Automated count 09/02/2023 11:48:35 Final Performing Location [facility] [place] [address]
--- OUTSIDE RECORDS SUMMARY | 2024-01-09 10:15 | External Medical Summary | Summary of Care ---
Author Name Unknown Organization [facility] Address [address] [place] [address] Phone [phone] Care Team Providers Care Pack Mule Worker Name Role Phone Anju Oneill MD Primary Care Provid er Reason for Visit * Reason Onset Date Comments Test Results 09/04/2023 Encounter Details Date Type Department Care Team (Late st Contact Info) Description 09/04/2023 Telephone Hematology/Oncology Treatment, [place] [address] [place] [address] Phillip Chavze MD [address] [place] [address] Test Results Allergies Active Allergy Reactions Criticality [...] mRNA, LNP-s, No Pre serve, 2-Dose Series ([employer]) 06/07/2020,05/17/2020 Season Influenza, Cell Cultu re, 18+ [...] encounter Miscellaneous Notes * Telephone Encounter - Sahra Blackwell OSA [...] 2500, H&H of 12.7/39, Platelet count of [id number] -ANC 900, Absolute lymphocyte count 940. Overall [...] 9:30 AM EDT Immunization/Injec tion Hematology[facility]cology Treatment, [place] [facility] [address] Nurse, Med [address] [place] [address] [place] [address] 02/15/2024 10:30 AM EST Imaging Radiology [facility] [address]st [facility], [place] [address] [facility] [place] [address] 03/03/2024 1:45 PM EST Office Visit Hematology/Oncology [facility] [address] [facility] [place] [phone] Phillip Chavez MD [address] [facility] [place] [address] Scheduled Orders Name Type Priority Associated Diagnoses [...] 09/20/2019, Additional history exists Mammogram 05/20/2022 05/20/2021, 03/09/2021, 05/01/2021, Additional history exists DXA Scan 2023 [...] this encounter Medical Devices Implanted Type Area Plate Setter Device Identifier Shelf Expiration Date Model / Serial / Lot Port Implant W/8f Poly Cath - [id number] Implanted:Qty : 1 on 12/10/2022 by Ravin Chandler Jr., MD at [facility] Right: Chest CR BARD : PERIPHERAL VASCULAR [id number] 02/13/2024 [id number] / / [id number] documented as of this encounter Visit Diagnoses Diagnosis Small B-cell lymphoma (HCC)- Primary documented in this encounter Advance Directives Documents on File Type Date Recorded Patient Sr Account Executive Expl anation POLST 02/03/2022 [facility] Care Teams Pack Mule Worker Relationship Specialty Start Date End Date Anju Oneill MD [address] [place], [place] [phone] PCP - General Family Medicine 01/15/22 documented as of this encounter
--- OUTSIDE RECORDS SUMMARY | 2024-01-09 10:15 | External Medical Summary ---
Author Name Unknown Address Unknown Organization K09:[facility] [place] [address] Laboratory Report Ordering Provider Test Date Status CRISTY VO 09/02/2023 11:48:35 Final Observation Date Value Abnormality Reference (Units ) Status WBC, Total 09/02/2023 11:48:35 2.59 Below low normal 4. 00-10.80 (K/uL) Final RBC 09/02/2023 11:48:35 4.32 3.85-5.15 (M/uL) Final Hemoglobin 09/02/2023 11:48:35 12.7 12.0-15.3 (g/dL) Final HCT 09/02/2023 11:48:35 39.2 36.0-45.2 (%) Final MCV 09/02/2023 11:48:35 90.7 81.5-97.5 (fL) Final MCH 09/02/2023 11:48:35 29.4 27.0-34.0 (pg) Final MCHC 09/02/2023 11:48:35 32.4 32.0-36.0 (g/dL) Final RDW 09/02/2023 11:48:35 14.7 11.5-15.5 (%) Final Platelets 09/02/2023 11:48:35 210 140-400 (K /uL) Final MPV 09/02/2023 11:48:35 8.5 6.6-11.1 ( fL) Final Performing Location [facility] [place] [address]
--- OUTSIDE RECORDS SUMMARY | 2024-01-09 10:15 | External Medical Summary | Summary of Care ---
Author Name Unknown Organization [facility] Address [address] [place] [address] Phone [phone] Care Team Providers Care Trimming Caser Name Role Phone Anju Oneill MD Primary Care Provid er Reason for Referral * Precert (Within 10 days (routine)) - Pending Review Specialty Diagnoses / Procedures Referred By Imelda t Referred To Contact Radiology Diagnoses Follicular lymphoma of intra-abdominal lymph nodes, unspecified follicular lymphoma type (HCC) Procedures CT CHEST/ABDOMEN/PELVIS WITH IV CONTRAST WITH ORAL CONTRAST Phillip Chavez MD [address] [place] [id number] Referral ID Status Reason Start Date Expiration Date V isits Requested Visits Authorized [id number] Pending Review 09/02/2023 999 999 Reason for Visit * Reason Comments Chemotherapy Chemo/recheck Encounter Details Date Type Department Care Team (Late st Contact Info) Description 09/02/2023 11:15 AM EDT Office Visit Hematology/Oncology State [facility] [address] [place] [id number] Phillip Chavez MD [address] [place] [id number] Follicular lymphoma of intra-abdominal lymph nodes, unspecified follicular lymphoma type (HCC)* Allergies Active Allergy Reactions Criticality Noted Date [...] mRNA, LNP-s, No Pre serve, 2-Dose Series (Kiwilogic) 06/07/2020,05/17/2020 Season Influenza, Cell Cultu re, 18+ [...] Sign Reading Time Taken Comments Blood Pressure 131/86 09/02/2023 11:14 AM EDT Pulse 93 09/02/2023 11:14 AM EDT Temperature 36.6 C (97.9 F) 09/02/2023 1 1:14 AM EDT Respiratory Rate - - Oxygen Saturation 94% 09/02/2023 11: 14 AM EDT Inhaled Oxygen Concentration - - Weight 88.8 kg (195 lb 11.2 oz) 024 11:14 AM EDT Height - - Body Mass Index 33.59 01/28/2023 8:37 AM EST documented in this encounter Progress Notes * Phillip Chavez MD - 09/02/2023 11:15 AM EDT NAME: Heather Olmos 1960 63-year-old female, DIAGNOSIS: - Left breast inferior ductal carcinoma, T1c N1 M0, (1/2 sentinel lymph nodes positive for metastatic disease, all other 5 lymph nodes negative for metastatic disease ER and NV receptor positive, Her2/Francine negative) Oncotype Dx recurrence score--> 19 which falls into intermediate risk category. (2010) - History of lymphoma involving the left side of the neck (1993), S/P radiation treatment to that area - Follicular lymphoma involving the bone marrow, splenomegaly, lymph nodes in the chest and abdomen. (September 2021). FNA from the abdominal wall soft tissue mass (05/12/2022 ) --> atypical B-cell lymphoid poplitealcompatible with underlying B-cell lymphoma. CURRENT TREATMENT: Observation. PREVIOUS TREATMENT: S/P lumpectomy, S/P MammoSite radiation to the left breast in 2010. Tamoxifen therapy between . It was discontinued because of uterine finding noted in therecent PET-CT scan. She underwent PERRI/BSO on 04/24/2017, it showed benign findings. 05/04/2017--> Restarted tamoxifen. (Earlier in late 2016 she was off the tamoxifen about 3 months, originally she is on tamoxifen since 01/2011). Earlier she completed 10 year of tamoxifen in February 2021, She received 6 cycles of R-CHOP chemotherapy, 1st cycle was given without Adriamycin because of lack of port at that time (11/27/2022 - 03/11/2023). DIAGNOSTIC WORKUP: Breast cancer: Earlier she had annual mammogram in August of 2010 involving left breast, she underwent stereotactic biopsy, final pathology showed moderately differentiated grade 2 infiltrating ductal carcinoma, suspicious for lymphovascular invasion, ER /NV receptor positive, Her2/Francine 2+ by IHC, negative by FISH, Ki-67 6%. She underwent lumpectomy and a sentinel node biopsy, final pathology showed 1.2 cm moderate differentiated infiltrating ductal adenocarcinoma, 1/2 sentinel lymph carlie positive for metastatic disease, close resection margin, she had additional surgery in October of 2010, no residual carcinoma or invasive carcinoma noted, all 5 lymph nodes negative for metastatic disease, TNM staging --> T1c N1 M0. - PET-CT scan done at that time the diagnosis --> negative for metastatic disease. -Oncotype Dx recurrence score --> 19 which falls into intermediate risk category, she was offered for adjuvant systemic chemotherapy but she declined for that. She was started on tamoxifen therapy in January of 2011, OTHER IMPORTANT HISTORY: Somewhere in June, she started having some tingling and numbness of the both lower extremities, she was seen by neurologist, she had an extensive workup, no obvious cause for neuropathy identified. She had a routine CT scan of chest, abdomen pelvis (ordered because of history of lymphoma and breast cancer) done on 12/18/2016 showed recurrent lymph node measuring 1.7 x 1.5 cm, AP window lymph node measuring 1.5 x 1.2 cm, smaller precarinal lymph nodes noted, nodule in the right lobe of the thyroid gland noted no pleural effusions noted, hepatic cyst noted, no liver lesions, gastrohepatic, peripancreatic, portacaval lymph node noted, multiple enlarged mesenteric lymph nodes noted, multiple small retroperitoneal lymph nodes, the largest one close to the inferior to the left renal vessels measuring 1.8 x 1.4 x 2.4 cm. Irregular heterogeneous endometrium of the uterus noted, 1.4 cm left ovarian cyst noted. Pelvic ultrasound done on 12/26/2016--> Heterogenous thickened endometrial stripe up to 3.7 cm which could be tamoxifen effect versus endometrial carcinoma. PET-CT scan done on 02/11/2017--> asymmetric hypermetabolic right tongue base/right tonsillar pillar possible mass, markedly intense bilateral vocal cord activity noted, related limited uptake noted in the thoracic and abdominal lymph nodes. Right inguinal lymph node is metabolic active. Suspicious expansile uterine cavity mass with some increased metabolic activity. Pathology: -Biopsy from the endometrium--> small amount of atrophic endometrial glands in the fibrotic stroma noted. No evidence of hyperplasia noted (12/31/2016). She was seen by Dr. Ortega, had bronchoscopic evaluation on 01/09/2017, FNA from the paratracheal lymph node 2R, 4 L, 4 L, subcarinal lymph node--> mixed problem lymphocytes noted. B-cell gene rearrangement study--> positive. -FNA from the right inguinal lymph node (02/27/2017)--> B-cell lymphoma, positive for CD 10 and CD 38, differential diagnosis would be follicular lymphoma or diffuse large B-cell lymphoma. -Excisional biopsy of the right inguinal lymph node (03/23/2017)--> no evidence of lymphoma noted. She underwent PERRI/BSO on 04/24/2017, no evidence of malignancy noted, multiple leiomyoma noted. Blood workup done on 11/18/2022 at [facility]: -WBC 2500, H&H of 11.9/34.8, Platelet count 34761 -ANC 1800, absolute lymphocyte count 450 -BUN/Creat: 16/0.8, Calcium 9.1, normal liver function test -albumin level 4.3. -lipase --> 8. CT scan of the abdomen and pelvis on 11/18/2022: -splenomegaly measuring 17 cm ( It was 8 cm in 2017 -mildly enlarged the cardiophrenic lymph nodes noted - Innumerable pathologic lymph nodes of the abdomen and pelvis are noted, probably within the mesentery, periaortic, pericaval, iliac chain and pelvic sidewall distributions. Index conglomerate mesenteric adenopathy measures up to 15.7 cm -left iliac lymph node measuring 4.1 x 2.9 cm. -no bowel obstruction. Stable L3 and L4 compression deformity. -multiple liver cyst measuring up to 8 cm. Interval history: She has come to the clinic for the follow-up, accompanied by her in the office. So far she is received 6 cycles of chemotherapy with R-CHOP, 1st cycle was received without Adriamycin as she did not have port. Last treatment was received in last week of February 2023 Overall she has tolerated treatment well, did not have any febrile neutropenia, she did receive prophylactic Pegfilgrastim, previously noted abdominal pain improved significantly, currently no abdominal pain, no nausea no vomiting, good appetite, some hot flushing, no fever, weight is stable [id number] lb, no increasing neuropathy symptoms, ambulates well, good ECOG PS 1. No leg edema, no bleeding from the sites. Past Medical History: Diagnosis Date Breast cancer (HCC) 10/03/2010 LEFT, caused by radiation from NHL, had brachitherapy C. difficile diarrhea History of breast cancer 10/10/2013 History of MRSA (methicillin resistant Staphylococcus aureus) infection Non Hodgkin's lymphoma (HCC) treated with radiation Past Surgical History: Procedure Laterality Date BRONCHOSCOPY, DIAGNOSTIC N/A 01/09/2017 BRONCHOSCOPY DIAGNOSTIC WITH OR WITHOUT WASHING performed by Ravin Ortega MD at ENDOSCOPY [facility] BX LYMPH NODE-SUPERFIC Right 03/23/2017 03/23/2017 right groin lymph node biopsy - DR. Corrigan COLONOSCOPY, DIAGNOSTIC (RECTUM) 05/30/2021 benign adenomatous polyp, repeat 5 yrs / COLONOSCOPY FLEXIBLE PROXIMAL DIAGNOSTIC performed by Cresencio Griffiths MD at ENDOSCOPY [facility] INFORMATION Cervical fusion, Dr. London at [facility] ACC DEV;5 YRS/OLDER Right 12/10/2022 INSERT TUNNELED CENTRAL VENOUS ACCESS WITH SUBQ PORT performed by Ravin Chandler Jr., MD at OR [facility] IR BIOPSY 05/12/2022 MAMMOGRAM BREAST NEEDLE BIOPSY CORE LEFT Left 09/11/2010 Malignant MAMMOGRAM BREAST NEEDLE BIOPSY CORE RIGHT Right 09/12/2010 benign MASTECTOMY,PARTIAL, W/AXIL LYMPHADENECTOMY Left Mastectomy, part;axil lymphad MISCELLANEOUS ORDER ([facility] ONLY) debridement of breast lumpectomy site NEEDLE BIOPSY/REMOVE LYMPH NODE(S) Left 03/16/2011 RADIATION THERAPY 2011 RADIATION THERAPY MANAGEMENT Left 11/14/2010 SENTINEL LYMPH NODE BIOPSY PERFORMED Left 10/03/2010 Malignant Current Outpatient Medications Medication Sig Dispense Refill clonazePAM 0.5 MG Oral Tablet (KlonoPIN) Take 1 Tablet by mouth 3 times a day as needed for Anxiety. (Patient not taking: Reported on 12/10/2022) 30 Tablet 0 Myrbetriq 50 MG Oral Tablet Extended Release 24 Hour (Mirabegron ER) TAKE ONE TABLET BY MOUTH EVERYMORNING 90 Tablet 3 oxyCODONE HCl 5 MG Oral Tablet (Oxy [...] as needed for Nausea. 30 Tablet 1 Allopurinol 300 MG Oral Tablet (Zyloprim) Take [...] No current facility-administered medications for this visit. On exam: BP 131/86 (BP Site: Left Arm, BP Position: Sitting, BP Cuff Size: Regular) | Pulse 93 | Temp 36.6 C (97.9 F) (Tympanic) | Wt 88.8 kg (195 lb 11.2 oz) | SpO2 94% | BMI 33.59 kg/m | BSA 2 m Constitutional: Patient is alert, cooperative and oriented. Patient is in no acute distress. Neck: No cervical or supraclavicular adenopathy. Lungs: Clear to auscultation posteriorly bilaterally. No wheezing or rhonchi. Cardiovascular: Regular rate and rhythm. Abdomen: ill-defined about 5-6 cm soft tissue mass noted in the upper abdomen. Lymphatic: No axillary or inguinal adenopathy. Neurological: No gross focal neurological deficit; walks with a normal gait. Extremities: No edema or clubbing. Integumentary: No skin rash. No palpable lymph node in the axilla. No upper extremity lymphedema LABS: She will have blood workup today. Bone marrow examination (10/10/2021: -normocellular bone marrow with atypical infiltrates about 10% of the cellularity. - B cells are positive for CD10 and BCL-2. They are negative for CD5, BCL- 6(predominantly), CyclinD1, SOX-11and LEF-1. CD138 highlights rare scattered plasma cells. - normal female chromosome -B-cell gene rearrangement positive suggest monoclonal B-cells. -Ultrasound of the right groin done on 02/19/2017 showed 2.5 x 1.3 x 1.4 cm lymph node in the right inguinal region which is suspicious. Right inguinal US from 05/25/17: Targeted ultrasound of the right inguinal region demonstrates a 1.6x 1.6 x 1.6 cm morphologically abnormal appearing lymph node with thickened/eccentric cortex, not certain if this corresponds to a 2.5 x 1.3 x 1.4 cm lymph node seen on ultrasound 02/19/2017. A 3.8 x1.3 x 2.0 cm fluid collection is seen superior to the aforementioned lymph node Bilateral breast mammogram in April 2020 --> negative. CT scan of chest, abdomen pelvis done on 04/25/2022 : -overall stable to slightly increased mediastinal lymph nodes noted -stable splenomegaly measuring 14.7 cm. -slight interval increase in the mesenteric and retroperitoneal lymph nodes noted -new cystic lesion within the subcutaneous tissue of the left lower abdominal wall measuring 4.[address] scan of the abdomen and pelvis on 11/18/2022: -splenomegaly measuring 17 cm ( It was 8 cm in 2017 ) -mildly enlarged the cardiophrenic lymph nodes noted - Innumerable pathologic lymph nodes of the abdomen and pelvis are noted, probably within the mesentery, periaortic, pericaval, iliac chain and pelvic sidewall distributions. Index conglomerate mesenteric adenopathy measures up to 15.7 cm -left iliac lymph node measuring 4.1 x 2.9 cm. -no bowel obstruction. Stable L3 and L4 compression deformity. -multiple liver cyst measuring up to [address] chest done on 11/29/2022: -mediastinal lymphadenopathy, prevascular lymph node measuring 2.5 cm. -no lung masses noted. -small bilateral pleural effusion noted CT scan of the chest, abdomen and pelvis done after 3 cycles of R-CHOP on 01/20/2023: 1. Interval decrease in size of the mediastinal, cardiophrenic, gastrohepatic, mesenteric, retroperitoneal, iliac chain, and pelvic sidewall lymph nodes in comparison to the most recent prior studies. 2. Interval decrease in size of the spleen in comparison to 11/18/2022. 3. No significant change in left lower quadrant subcutaneous tissue cystic structure measuring 3.8 cm in comparison to 11/18/2022. The structure was previously biopsied and was positive for B-cell lymphoma. 4. Interval worsening of the L4 compression deformity with approximately 40 percent height loss in comparison to 04/25/2022. No significant change in L3 compression deformity. 5. Enlarging in 1.4 cm right thyroid nodule in comparison to 2017. Consider follow-up with thyroid ultrasound if this has not been performed. 6. Small hiatal hernia with air-fluid level in the distal esophagus, suggestive of gastroesophagealreflux. CT scan of the chest, abdomen pelvis on 03/31/2023: Chest: 1. Several small mediastinal lymph nodes, not significantly changed in size since the prior chest CT. 2. Stable irregular density in the posterior left breast. No new enlarged left axillary lymph nodes. 3. No new pulmonary nodules. Abdomen/pelvis: 1. Multiple enlarged gastrohepatic, salvador hepatic, mesenteric and retroperitoneal lymph nodes, not significantly changed in size since the prior CT. 2. Other incidental findings as detailed above. Bones: 1. New mild compression deformity of the superior endplate of T4 vertebral body. 2. Stable compression deformity of superior endplate of L4 vertebral body. CT scan of chest, abdomen and pelvis done on 08/24/2023: - Overall stable disease noted, no progression of the disease noted. ASSESSMENT AND PLAN: 63-year-old female, a case of left breast carcinoma S/P lumpectomy, S/P MammoSite radiation treatment which was completed in 2010, Oncotype DX recurrence score 19, T1c N1 M0, on tamoxifen since January,, tolerated it quite well, no new thrombotic complications or bleeding complications, no abnormal vaginal bleeding. She experienced some neuropathy symptoms in the both lower extremities, as a part of the routine workup she had imaging studies which showed enlarged lymph nodes in the mediastinum as well as in the retroperitoneal region, no splenomegaly or liver lesions noted. She had a history of lymphoma involving the left side of the lower neck, S/P radiation treatment in 1993. FNA from the paratracheal lymph node which showed mixed the lymphocytes, B-cell gene rearrangement study positive. She does not have any fever, no night sweats, no weight loss. Does not any palpable lymphadenopathy anywhere else. Recent PET-CT scan, she has slightly enlarged lymph nodes in the mediastinum as well in the abdomenbut that not significant metabolically active and in fact the size has gone down when compared to the previous CT scan done in December,. Imaging study also showed evidence of enlarged uterus, she is on tamoxifen since 2010, had endometrial biopsy which showed benign findings. In last week of February, decided discontinue tamoxifen. She had ultrasound of the abdomen which showed 2.5 cm enlarged lymph node in the right inguinal region, FNA from that showed B-cell lymphoma, it was positive for CD [address] Differential diagnosis would be follicular lymphoma or diffuse large B-cell lymphoma. Underwent excisional biopsy of the right inguinal lymph node which showed benign findings. She also underwent PERRI/BSO on 04/24/2017, no evidence of malignancy noted. Clinically she has done quite well, once again no B symptoms. Clinically no evidence of disease. Now since April 2017 she is back on tamoxifen, tolerated It well, bilateral breast mammogram done earlier showed no evidence of recurrent disease. Now she completed 10 years of tamoxifen so she is off the tamoxifen since February 2021. Lately for the last several months he is not feeling quite well, has increasing tiredness, she was seen by her primary-care provider, blood workup showed some mild anemia, mild leukopenia, mainly lymphocytopenia, mild thrombocytopenia bit Platelet count has improved. LDH is slightly on the higher side around 350 range. Bone marrow examination (10/10/2021: -normocellular bone marrow with atypical infiltrates about 10% of the cellularity. - B cells are positive for CD10 and BCL-2. They are negative for CD5, BCL- 6(predominantly), CyclinD1, SOX-11and LEF-1. CD138 highlights rare scattered plasma cells. - normal female chromosome -B-cell gene rearrangement positive suggest monoclonal B-cells. Overall clinical picture appears to be follicular lymphoma involving the bone marrow, she has splenomegaly, lymphadenopathy in the chest, abdomen. Biopsy of the left lower abdominal wall mass(04/2022): - Atypical B-cell lymphoid populations compatible with the involvement of the known prior B-cell lymphoma. Earlier she declined for any kind of systemic treatment for the lymphoma diagnosis She declined for follow-up bilateral breast mammogram checkup. Now in the last 6 months, she has somewhat rapid progression of the underlying lymphoma diagnosis with enlarging lymph nodes in the abdomen, causing significant abdominal discomfort. Earlier when I saw her, she was more interested in palliative treatment of her symptoms, we did nothave port at that time so we started her on R-CHOP without Adriamycin, received 1st cycle , her pain improved within few days. We did not have time for the repeat biopsy at that time. So far she is received 6 treatments with R-CHOP. Follow-up CT scan of chest, abdomen pelvis (after 3 cycles of R-CHOP ), she had partial response, symptomatically she has done quite well, not on pain medication, no other side effects of the chemotherapy She then completed 6 cycles of R-CHOP chemotherapy, reviewed with her and her regarding thefollow-up CT scan, overall stable findings noted, some mild lymphadenopathy in the chest and the abdomen, she has remained asymptomatic. No neuropathy symptoms, no febrile neutropenia Recently she had another follow-up CT scan of the chest, abdomen pelvis in August of 2023, stable lymphadenopathy noted when compared with the previous imaging studies done in March 2023. No B symptoms Will continue to observe She will have port flushed every 6 weekly Will get CBCD comprehensive metabolic panel, LDH, Uric acid today. I am planning for follow-up CT scan of chest, abdomen pelvis in about 6 months and then will see her back in the clinic. She will have blood workup before that. Dr. Phillip Chavez Hem/Onc (This note was completed using the dictation program Fluency Direct. As such, there may be misspellings word substitutions, or other variations that should not change the essence of the clinical content of this encounter note. If there is need for further clarification, please direct questions to the provider listed above.) documented in this encounter Nursing Notes * Sarahi Hyman, MED ASSIST - 09/02/2023 11:15 AM EDT Patient identifed by name and birthdate Do you have any concerns about pain management for today's visit? No Living Will or Advance Directive for Health Care as noted on the problem list. [facility] is a way you can talk to your provider on line through e-mail. Would you like to sign up? I can activate it for you? NO Filed Vitals: 09/02/23 1114 BP: 131/86 Pulse: 93 Temp: 36.6 C (97.9 F) TempSrc: Tympanic SpO2: 94% Weight: 88.8 kg (195 lb 11.2 oz) Patient was instructed to not get up on the exam table/exam chair until directed and assisted by their provider; patient is to remain seated in the chair/ wheelchair/ exam table/ exam chair for fall prevention and safety reasons. Patient is aware to have assistance to step down off exam table/exam chair with personnel. Patient voiced full comprehension of instructions. documented in this encounter Miscellaneous Notes * Result Encounter Note - Phillip Chavez MD - 09/02/2023 4:53 PM EDT Blood workup done on 08/1923: -BUN/Creat: 16/0.8, Calcium 9.1, normal LFT -WBC 2500, H&H of 12.7/39, Platelet count of [id number] -ANC 900, Absolute lymphocyte count 940. Overall [...] 9:30 AM EDT Immunization/Injec tion Hematology/Oncology Treatment, [place] [address] [place] [address] Nurse, Med [address] [facility] [place] [id number] 02/15/2024 10:30 AM EST Imaging Radiology [facility] 1st Floor, [place] [address] [facility] [place] [address] 03/03/2024 1:45 PM EST Office Visit Hematology/Oncology [facility] [place] [address] [facility] [place] [address] hPillip Chavez MD [address] [facility] [place] [address] Scheduled Orders Name Type Priority Associated Diagnoses Orde r Schedule CT CHEST/ABDOMEN/PELVI S WITH IV CONTRAST WITH ORAL CONTRAST Medical Imaging Routine Follicular lymphoma of intra-abdominal lymph nodes, unspecified follicular lymphoma type (HCC) Expected: 09/02/2023, Expires: 09/01/2024 Scheduled Procedures Name Priority Associated Diagnoses Date/Ti [...] this encounter Medical Devices Implanted Type Area Rail Signal Designer Device Identifier Shelf Expiration Date Model / Serial / Lot Port Implant W/8f Poly Cath - [id number] Implanted:Qty : 1 on 12/10/2022 by Ravin Chandler Jr., MD at [facility] Right: Chest CR BARD : PERIPHERAL VASCULAR [id number] 02/13/2024 [id number] / / [id number] documented as of this encounter Procedures Procedure Name Priority Date/Time Associated Diagnosis Comments DIFFERENTIAL, AUTOMATED STAT 09/02/2023 11:48 AM EDT Follicular lymphoma of intra-abdominal lymph nodes, unspecified follicular lymphoma type (HCC) COMPREHENSIVE METABOLIC PANEL STAT 09/02/2023 11:48 AM EDT Follicular lymphoma of intra-abdominal lymph nodes, unspecified follicular lymphoma type (HCC) CBC STAT 09/02/2023 11:48 AM EDT Follicular lymphoma of intra-abdominal lymph nodes, unspecified follicular lymphoma type (HCC) LD Routine 09/02/2023 11:48 AM EDT Follicular lymphoma of intra-abdominal lymph nodes, unspecified follicular lymphoma type (HCC) CBC STAT 09/02/2023 11:48 AM EDT Follicular lymphoma of intra-abdominal lymph nodes, unspecified follicular lymphoma type (HCC) DIFFERENTIAL, TECHNOLOGIST REVIEW Routine 09/02/2023 11:48 AM EDT Follicular lymphoma of intra-abdominal lymph nodes, unspecified follicular lymphoma type (HCC) URIC ACID STAT 09/02/2023 11:48 AM EDT Follicular lymphoma of intra-abdominal lymph nodes, unspecified follicular lymphoma type (HCC) documented in this encounter Results * DIFFERENTIAL, TECHNOLOGIST REVIEW (09/02/2023 11:48 AM EDT) Pathologist [facility] nRBCs 09/02/2023 12:00 PM EDT [facility] [address] Blood Venous blood specimen / Unknown Venipuncture / Unknown 09/02/2023 11:48 AM EDT 09/02/2023 11:48 AM EDT Phillip Chavez MD LAB BLOOD ORDERABLES Performing Organization Address City/State/[facility] Co de Phone Number [facility] [id number] [place] [address] * (ABNORMAL) DIFFERENTIAL, AUTOMATED (09/02/2023 11:48 AM EDT) [place] [facility] WBC 2.59(L) 4.00 - 10.80 K/uL 09/02/2023 12:00 PM EDT [facility] 56-02 Neutrophils % 35.1(L) 40.0 - 75.0 % 09/02/2023 12:00 PM EDT [facility] 56-02 Lymphocytes % 36.3 18.0 - 42.0 % 09/02/2023 12:00 PM EDT [facility] 56-02 Monocytes % 25.9(H) 1.0 - 11.0 % 09/02/2023 12:00 PM EDT [facility] 56-02 Eosinophils % 2.3 0.0 - 6.0 % 09/02/2023 12:00 PM EDT [facility] 56-02 Basophils % 0.4 0.0 - 2.0 % 09/02/2023 12:00 PM EDT [facility] 56-02 Absolute Neutrophils 0.91(L) 1.80 - 7.70 K/uL 09/02/2023 12:00 PM EDT [facility] 56-02 Absolute Lymphocytes 0.94(L) 1.00 - 4.80 K/ul 09/02/2023 12:00 PM EDT [facility] 56 Absolute Monocytes 0.67 0.00 - 1.10 K/uL 09/02/2023 12:00 PM EDT [facility] 56 Absolute Eosinophils 0.06 0.00 - 0.70 K/uL 09/02/2023 12:00 PM EDT [facility] 56 Absolute Basophils 0.01 0.00 - 0.20 K/uL 09/02/2023 12:00 PM EDT [facility] 56 Blood Venous blood specimen / Unknown Venipuncture / Unknown 09/02/2023 11:48 AM EDT 09/02/2023 11:48 AM EDT Phillip Chavez MD LAB BLOOD ORDERABLES [facility] [address] [place] [address] * (ABNORMAL) CBC (09/02/2023 11:48 AM EDT) WBC 2.59(L) 4.00 - 10.80 K/uL 09/02/2023 12:00 PM EDT [facility] 56 RBC 4.32 3.85 - 5.15 M/uL 09/02/2023 12:00 PM EDT [facility] 56 HGB 12.7 12.0 - 15.3 g/dL 09/02/2023 12:00 PM EDT [facility] 56 HCT 39.2 36.0 - 45.2 % 09/02/2023 12:00 PM EDT [facility] 56 MCV 90.7 81.5 - 97.5 fL 09/02/2023 12:00 PM EDT [facility] 56 MCH 29.4 27.0 - 34.0 pg 09/02/2023 12:00 PM EDT [facility] 56 MCHC 32.4 32.0 - 36.0 g/dL 09/02/2023 12:00 PM EDT [facility] 56 RDW 14.7 11.5 - 15.5 % 09/02/2023 12:00 PM EDT [facility] 56- PLT 210 140 - 400 K/uL 09/02/2023 12:00 PM EDT [facility] 56- MPV 8.5 6.6 - 11.1 fL 09/02/2023 12:00 PM EDT [facility] 56- Blood Venous blood specimen / Unknown Venipuncture / Unknown 09/02/2023 11:48 AM EDT 09/02/2023 11:48 AM EDT Phillip Chavez MD LAB BLOOD ORDERABLES [facility] 56- [address] [place] [address] * (ABNORMAL) URIC ACID (09/02/2023 11:48 AM EDT) Pathologist [facility] Uric Acid 5.8(H) 2.4 - 5.7 mg/dL 09/02/2023 5:56 PM EDT [facility] Blood Venous blood specimen / Unknown Venipuncture / Unknown 09/02/2023 11:48 AM EDT 09/02/2023 11:48 AM EDT Phillip Chavez MD LAB BLOOD ORDERABLES Performing Organization Address City/[facility]/ZIP Co de Phone Number LAB[facility]ATORY [facility] [address] [place] [address] * LD (09/02/2023 11:48 AM EDT) Pathologist [facility] LD 210 <=250 U/L 09/02/2023 5:5 6 PM EDT [facility] Blood Venous blood specimen / Unknown Venipuncture / Unknown 09/02/2023 11:48 AM EDT 09/02/2023 11:48 AM EDT Phillip Chavez MD LAB BLOOD ORDERABLES Performing Organization Address City/[facility]/ZIP Co de Phone Number LABORATORY [facility] [address] [place] [address] * (ABNORMAL) COMPREHENSIVE METABOLIC PANEL (09/02/2023 11:48 AM EDT) BUN 16 6 - 20 mg/dL 09/02/2023 12:11 PM EDT [place] [address] Creatinine 0.8 0.5 - 1.0 mg/dL 09/02/2023 12:11 PM EDT [place] [address] Estimated Glomerular Filtration Rate 88 >=60 mL/min 09/02/2023 12:[address] Comment:eGFR is calculated b ased on the CKD-EPI 2020 equation Sodium 142 135 - 146 mmol/L 09/02/2023 12:11 PM EDT [place] [address] Potassium 4.1 3.5 - 5.1 mmol/L 09/02/2023 12:[address] Chloride 107 98 - 107 mmol/L 09/02/2023 12:11 PM EDT [place] [address] CO2 24 22 - 32 mmol/L 09/02/2023 12:11 PM T [place] [address] Anion Gap 11 7 - 15 mmol/L 09/02/2023 12:11 PM T [place] [address] Glucose 94 70 - 120 mg/dL 09/02/2023 12:11 PM T [place] [address] Albumin 4.3 3.8 - 5.0 g/dL 09/02/2023 12:[address] AST 17 10 - 35 U/L 09/02/2023 12:[address] Alkaline Phosphatase 108 35 - 130 U/L 09/02/2023 12:[address] Bilirubin, Total 0.6 <=1.2 mg/dL 09/02/2023 12:[address] Calcium 9.1 8.4 - 10.2 mg/dL 09/02/2023 12:[address] Protein 6.4 6.0 - 8.3 g/dL 09/02/2023 12:11 PM T [facility] 56 ALT 8(L) 10 - 35 U/L 09/02/2023 12:[address] Blood Venous blood specimen / Unknown Venipuncture / Unknown 09/02/2023 11:48 AM EDT 09/02/2023 11:48 AM EDT Phillip Chavez MD LAB BLOOD ORDERABLES [facility] 56-[address] [place] [address] documented in this encounter Visit Diagnoses Diagnosis Follicular lymphoma of intra-abdominal lymph nodes, unspecified follicular lymphoma type (HCC)- Primary documented in this encounter Advance Directives Documents on File Type Date Recorded Patient County Judge Expl anation POLST 02/03/2022 [place] [facility] FOR LIFE-SUSTAINING TREATMENT Care Teams Trimming Caser Relationship Specialty Start Date End Date Anju Oneill MD [address] [place] [address] PCP - General Family Medicine 01/15/22 documented as of this encounter"
--- OUTSIDE RECORDS SUMMARY | 2024-01-09 10:15 | External Medical Summary | Summary of Care ---
Author Name Unknown Organization [facility] Address [address] [place] [address] Phone [phone] Care Team Providers Care Preanalytics Team Lead Name Role Phone Anju Oneill MD Primary Care Provid er Reason for Visit * Reason Comments Procedure Port Flush Encounter Details Date Type Department Care Team (Late st Contact Info) Description 08/21/2023 9:30 AM EDT Immunization/I njection Hematology/Oncology Treatment, [place] [address] [place] [address] Nurse, Med [address] [place] [address] History of lymphoma* Allergies Active Allergy Reactions Criticality Noted Date Comments Cephalexin Hives 10/14/2013 [facility] documented as of this encounter (statuses as of 08/21/2023) Medications Medication Sig Dispensed Refills Start Date [...] as of this encounter (statuses as of 08/21/2023) Active Problems Problem Noted Date Diagnosed Date [...] as of this encounter (statuses as of 08/21/2023) Resolved Problems Problem Noted Date Diagnosed Date Resolved Date Diffuse large B-cell lymphom a of lymph nodes of inguinal region 03/05/2017 03/05/2017 Otalgia of left ear 03/13/2014 07/15/19 17 Dysfunction of eustachian tube 03/13/2014 07/14/2016 documented as of this encounter (statuses as of 08/21/2023) Immunizations Name Administration Dates Next Due COVID-19 mRNA, LNP-s, No Pre serve, 2-Dose Series (MD.Voice) 06/07/2020,05/17/2020 Season Influenza, Cell Cultu re, 18+ [...] as of this encounter Nursing Notes * Benito Fuller, RN - 08/21/2023 9:44 AM EDT Chair 9. Pt denies any issues today. VAD accessed without issues, positive for blood return and flushed withNSS/Heparin per orders. VAD access removed without issues. Pt ambulated from treatment room in stable condition. documented in this encounter Plan of Treatment Upcoming Encounters Date Type Department Care Team (Late st Contact Info) Description 08/24/2023 9:30 AM EDT Imaging Radiology [address] 132 [facility] [place] [id number] 09/02/2023 11:15 AM EDT Office Visit Hematology/Oncology [facility] [place] [address] [place] [phone] Phillip Chavez MD [address] [place] [address] 10/02/2023 9:30 AM EDT Immunization/Injec tion Hematology/Oncology Treatment, [place] [address] [place] [phone] Nurse, Med [address] [place] [address] Scheduled Procedures Name Priority Associated Diagnoses Date/Ti [...] this encounter Medical Devices Implanted Type Area Insole Stiffener Device Identifier Shelf Expiration Date Model / Serial / Lot Port Implant W/8f Poly Cath - [id number] Implanted:Qty : 1 on 12/10/2022 by Ravin Chandler Jr., MD at OR [facility] Right: Chest CR BARD : PERIPHERAL VASCULAR [id number] 02/13/2024 [id number] / / [id number] documented as of this encounter Visit Diagnoses Diagnosis History of lymphoma- Primary Personal history of other lymphatic and hematopoietic neoplasm documented in this encounter Administered Medications Active Administered Medications - up to 3 most recent administrations Medication Order MAR Action Action Date Dose Rate Site hEParin 100 UNIT/ML Lock Flush inj 500 Units 500 Units (5 mL), IV Lock, PRN Other, IV Flush, Starting on Thu08/21/23 at 0934, Until 08/22/23 at 0933, For 24 hours, Do not flush if lock, PICC, or central line not in place; IV infusing or unable to flush. Given 08/21/2023 9:34 AM EDT 500 Units sodium chloride 0.9 % flush central line 10 mL 10 mL, IV Push, PRN Other, IV Flush, Starting on 08/21/23 at 0934, Until 08/22/23 at 0933, For 24 hours, Do not flush if lock, PICC, or central line not in place; IV infusing or unable to flush. Given 08/21/2023 9:34 AM EDT 10 mL documented in this encounter Advance Directives Documents on File Type Date Recorded Patient Clothing Sorter Expl anation POLST 02/03/2022 [place] [facility] FOR LIFE-SUSTAINING TREATMENT Care Teams Preanalytics Team Lead Relationship Specialty Start Date End Date Anju Oneill MD [address] [place] [address] PCP - General Family Medicine 01/15/22 documented as of this encounter
--- OUTSIDE RECORDS SUMMARY | 2024-01-09 10:15 | External Medical Summary | Summary of Care ---
Author Name Unknown Organization [facility] Address [address] [place] [address] Phone [phone] Care Team Providers Care International Trade Specialist Name Role Phone Anju Oneill MD Primary Care Provid er Reason for Visit * Reason Onset Date Comments Test Results 09/04/2023 Encounter Details Date Type Department Care Team (Late st Contact Info) Description 09/04/2023 Telephone Hematology/Oncology Treatment, [place] [address] [place] [address] Phillip Chavez MD [address] [place] [address] Test Results Allergies Active Allergy Reactions Criticality [...] mRNA, LNP-s, No Pre serve, 2-Dose Series (CyberDefender) 06/07/2020,05/17/2020 Season Influenza, Cell Cultu re, 18+ [...] 2500, H&H of 12.7/39, Platelet count of 885607 -ANC 900, Absolute lymphocyte count 940. Overall [...] 9:30 AM EDT Immunization/Injec tion Hematology/Oncology Treatment, [place] [address] [place] [address] Nurse, Med [address] [place] [address] 02/15/2024 10:30 AM EST Imaging Radiology [address], [place] 132 [facility] [place] [address] 03/03/2024 1:45 PM EST Office Visit Hematology/Oncology [place] [address] [address] [facility] [place] [address] Phillip Chavez MD [address] [facility] [place] [address] Scheduled Orders Name Type Priority Associated Diagnoses [...] this encounter Medical Devices Implanted Type Area Skoog Machine Operator Device Identifier Shelf Expiration Date Model / Serial / Lot Port Implant W/8f Poly Cath - [id number] Implanted:Qty : 1 on 12/10/2022 by Ravin Chandler Jr., MD at OR [facility] Right: Chest CR BARD : PERIPHERAL VASCULAR [id number] 02/13/2024 [id number] / / [id number] documented as of this encounter Visit Diagnoses Diagnosis Small B-cell lymphoma (HCC)- Primary documented in this encounter Advance Directives Documents on File Type Date Recorded Patient District Director Expl anation POLST 02/03/2022 [facility] FOR LIFE-SUSTAINING TREATMENT Care Teams International Trade Specialist Relationship Specialty Start Date End Date Anju Oneill MD [address] [place] [address] PCP - General Family Medicine 01/15/22 documented as of this encounter
--- OUTSIDE RECORDS SUMMARY | 2024-01-09 10:15 | External Medical Summary ---
Author Name Unknown Address Unknown Organization [id number]:[facility]AT[facility] 56-02 - [address] [place] [address] Laboratory Report Ordering Provider Test Date Status CRISTY VO 09/02/2023 11:48:35 Final Observation Date Value Abnormality Reference (Units ) Status BUN 09/02/2023 11:48:35 16 6-20 (mg/dL) Final Creatinine 09/02/2023 11:48:35 0.8 0.5-1.0 (mg/dL) Final Glomerular filtration rate/1.73 sq M.predicted [Volume Rate/Area] in Serum, Plasma or Blood by Creatinine-based formula (CKD-EPI) 09/02/2023 11:48:35 88 >=60 (mL/min) Final eGFR is calculated based on the CKD-EPI 2020 equation Sodium 09/02/2023 11:48:35 142 135-146 (m mol/L) Final Potassium 09/02/2023 11:48:35 4.1 3.5-5.1 (m mol/L) Final Cl 09/02/2023 11:48:35 107 98-107 (mm ol/L) Final CO2 09/02/2023 11:48:35 24 22-32 (mmo l/L) Final Anion gap 09/02/2023 11:48:35 11 7-15 (mmol /L) Final Glucose 09/02/2023 11:48:35 94 70-120 (mg /dL) Final Albumin 09/02/2023 11:48:35 4.3 3.8-5.0 (g /dL) Final AST (Aspartate aminotransferase) 09/02/2023 11:48:35 17 10-35 (U/L) Fin al Alk Phos 09/02/2023 11:48:35 108 35-130 (U/ L) Final Bilirubin, Total 09/02/2023 11:48:35 0.6 <=1 .2 (mg/dL) Final Calcium 09/02/2023 11:48:35 9.1 8.4-10.2 ( mg/dL) Final Protein 09/02/2023 11:48:35 6.4 6.0-8.3 (g /dL) Final ALT (Alanine aminotransferase) 09/02/2023 11:48:35 8 Below low normal 10-35 (U/L) Final Performing Location [facility] [place] [address]
--- OUTSIDE RECORDS SUMMARY | 2024-01-09 10:15 | External Medical Summary ---
Author Name Unknown Address Unknown Organization K01:[facility]ATORY [facility] - [address] [place] [address] Laboratory Report Ordering Provider Test Date Status ANOOP DAUGHERTY 09/02/2023 11:48:35 Final Observation Date Value Abnormality Reference (Units ) Status MYCODE SPECIMEN-SST 09/02/2023 11:48:35 Freezing of extracted DNA, whole blood and/or serum. Final Performing Location LABORATORY [facility] - [address] [facility] [address]
--- OUTSIDE RECORDS SUMMARY | 2024-01-09 10:15 | External Medical Summary | Summary of Care ---
Author Name Unknown Organization [facility] Address [address] [place] [address] Phone [phone] Care Team Providers Care Mechanical Cad Drafter Name Role Phone Anju Oneill MD Primary Care Provid er Reason for Visit * Reason Comments Procedure Port Flush Encounter Details Date Type Department Care Team (Late st Contact Info) Description 08/21/2023 9:30 AM EDT Immunization/I njection Hematology/Oncology Treatment, [place] [address] [place] [address] Nurse, Med 200 [place] [address] History of lymphoma* Allergies Active Allergy Reactions [...] Active Lidocaine-Prilocaine 2.5-2.5 % External Cream (Emla)Indications:Gr bertarnd 1 follicular lymphoma of lymph nodes of [...] mRNA, LNP-s, No Pre serve, 2-Dose Series (YPlan) 06/07/2020,05/17/2020 Season Influenza, Cell Cultu re, 18+ [...] Description 08/24/2023 9:30 AM EDT Imaging Radiology [address] 132 [facility] [place] [id number] 09/02/2023 11:15 AM EDT Office Visit Hematology/Oncology [facility] [place] [address] [place] [phone] Phillip Chavez MD [address] [place] [address] 10/02/2023 9:30 AM EDT Immunization/Injec tion Hematology/Oncology Treatment, [place] [address] [place] [phone] Nurse, Med 4 [address] [place] [address] Scheduled Procedures Name Priority Associated Diagnoses Date/Ti [...] this encounter Medical Devices Implanted Type Area Angiography Nurse Device Identifier Shelf Expiration Date Model / Serial / Lot Port Implant W/8f Poly Cath - [id number] Implanted:Qty : 1 on 12/10/2022 by Ravin Chandler Jr., MD at OR [facility] Right: Chest CR BARD : PERIPHERAL VASCULAR [id number] 02/13/2024 [id number] / / [id number] documented as of this encounter Visit Diagnoses [...] Flush, Starting on Thu08/21/23 at 0934, Until Thu08/21/23 at 1346, For 24 hours, Do not flush if lock, PICC, or central line not in place; IV infusing or unable to flush. Given 08/21/2023 9:34 AM EDT 500 Units sodium chloride 0.9 % flush central line 10 mL 10 mL, IV Push, PRN Other, IV Flush, Starting on Thu08/21/23 at 0934, Until Thu08/21/23 at 1346, For 24 hours, Do not flush if lock, PICC, or central line not in place; IV infusing or unable to flush. Given 08/21/2023 9:34 AM EDT 10 mL documented in this encounter Advance Directives Documents on File Type Date Recorded Patient Machine Operator Packaging Expl anation POLST 02/03/2022 [place] OR [facility] FOR LIFE-SUSTAINING TREATMENT Care Teams Mechanical Cad Drafter Relationship Specialty Start Date End Date Anju Oneill MD [address] [place] [address] PCP - General Family Medicine 01/15/22 documented as of this encounter
--- NOTE | 2024-01-09 10:34 | Emergency Department Note ---
Impression & Plan Intractable abdominal pain, Hypoxia, Intra-abdominal tumor, Bilateral hydronephrosis ED Provider Note HISTORY OF PRESENT ILLNESS: Patient is a 63-year-old female presenting with abdominal pain. Patient reports for the last week she has been feeling generally unwell and has had decreased appetite. Reports she has had a cramping abdominal pain throughout the week and saw her PCP yesterday and had laboratory workup and CT imaging ordered. However, her pain worsened, prompting her to present to the emergency department today. Reports an abdominal surgical history significant for a hysterectomy. She denies any dysuria or hematuria. Denies any fevers. She locates the pain to the lower part of her abdomen, more specifically the right side. Reports the pain radiates all throughout her abdomen and into her right flank. Denies any nausea or vomiting or diarrhea. She thought that she was just having bowel issues and had taken MiraLAX and Colace earlier in the week, with little improvement in her symptoms. ROS: as above PHYSICAL EXAM: Constitutional: Patient appears in no acute distress. HENT: Head: Normocephalic and atraumatic. Eyes: EOMI, PERRL Mouth/Throat: Mucous membranes moist. Neck: Trachea midline. Neck supple. Cardiovascular: RRR, No murmurs, rubs or gallops. Intact distal pulses. Pulmonary/Chest: No respiratory distress. Breath sounds clear and equal bilaterally. No wheezes or rales. Abdominal: Abdomen soft, no rebound or guarding. Diffuse TTP Musculoskeletal: No edema, tenderness or deformity noted. Skin: Warm and dry. No rash, erythema, pallor or cyanosis Psychiatric: Appropriate mood and affect for situation. Neurological: Alert and keenly responsive. CN II-XII grossly intact, moving all extremities equally and fully. MDM: - Vitals signs showed tachycardia - History obtained via patient. History as above. - Chronic conditions affecting care: lymphoma; HTN - Differential diagnoses include, but are not limited to: Appendicitis; cholecystitis; small bowel obstruction; colitis - Order placed for continuous cardiac monitoring. At this time, monitor showed rate of 74 bpm with normal sinus rhythm, per my interpretation. - External medical records reviewed. Discharge summary dated 11/15/2022 was reviewed. Patient was admitted that time for severe abdominal pain and follicular lymphoma. - Laboratory workup interpreted by myself showed leukopenia (WBC 4.63); anemia (Hgb 11.7); normal PT/INR; normal lactate; stable electrolytes; normal lipase - Patient initially given 4 mg IV zofran and 4 mg IV morphine. However, still complaining of pain. She did report the morphine initially helped. She was given 4 mg IV morphine again. - UA negative for infection - CT abdomen/pelvis with IV contrast showed extensive peritoneal tumor/lymphadenopathy throughout the abdomen and pelvis as well as retroperitoneal and iliac chain lymphadenopathy. Did have a large mass encasing the rectum without rectal obstruction. Noted to have moderate bilateral hydronephrosis secondary to the mass lesions in the pelvis. - Patient expressing significant pain throughout her abdomen on reassessment. Given her multiple doses of narcotic medications as well as her extensive new tumor burden on CT imaging, will admit for pain management and hematology/oncology consultation. Patient did become hypoxic down to 77% and was placed on 3 L nasal cannula. She has no complaints of shortness of breath at this time. - Discussion was had with disease case manager rn about patient's case and need for admission - Hospitalist consulted for admission - [facility] ASSESSMENT AND PLAN: Diagnosis: Intractable abdominal pain; hypoxia; intra-abdominal tumor; bilateral hydronephrosis Plan: Admit Past Med/Surg History Problem List (Updated 01/09/24 @ 14:20 by Thi Otero MD) Bilateral hydronephrosis (Acute) Intra-abdominal tumor (Acute) Hypoxia (Acute) Intractable abdominal pain (Acute) Abdominal pain (Acute) Leukopenia (Acute) Splenomegaly (Acute) History of breast cancer Thickened endometrium Social History Smoking Status: Never smoker Hx Alcohol Use: Yes Alcohol type: hard liquor Hx Substance Use: No Preferred Language: Slovak Beliefs That Will Affect Care: None Current Living Situation: Spouse Feels Safe at Home: Yes Assistive Devices: None Allergies Allergies Allergy/AdvReac Type Severity Reaction Status Date / Time cephalexin Allergy Intermediate HIVES Verified 11/18/22 16:04 Home Meds Home Medications Medication Instructions Recorded Confirmed lisinopril 30 mg tablet 30 mg PO QAM 11/14/22 01/09/24 mirabegron 50 mg tablet,extended 50 mg PO QAM 11/14/22 01/09/24 release 24 hr (Myrbetriq) pregabalin 50 mg capsule 50 mg PO BID 11/14/22 01/09/24 acyclovir 400 mg tablet 400 mg PO BID 01/09/24 01/09/24 allopurinol 300 mg tablet 300 mg PO QAM 01/09/24 01/09/24 Results & Data (ED) Vital Signs Vital Signs - 24 hr 01/09/24 10:09 01/09/24 11:23 01/09/24 13:12 Temperature 36.3 C L Temperature Source Temporal Artery Scan Pulse Rate 100 H Pulse Rate [Apical] 87 80 Pulse Rate from SpO2 Sensor Respiratory Rate 14 14 22 Blood Pressure 120/86 Blood Pressure [Right Arm] 109/72 98/64 L Blood Pressure Mean 97 Blood Pressure Mean [Right Arm] 84 75 Pulse Oximetry 94 93 97 Oxygen Delivery Method Room Air Room Air Room Air Oxygen Flow Rate Sepsis New/Unexplained Change in Mental Status No Sepsis Action Taken by Nursing No Action Required Oxygen Flow Rate - Titration Pulse Oximetry Post Tiitration 01/09/24 13:33 01/09/24 13:55 01/09/24 14:12 Temperature Temperature Source Pulse Rate 74 Pulse Rate [Apical] Pulse Rate from SpO2 Sensor 75 Respiratory Rate 12 Blood Pressure 130/86 Blood Pressure [Right Arm] Blood Pressure Mean 108 Blood Pressure Mean [Right Arm] Pulse Oximetry 96 77 L Oxygen Delivery Method Room Air Nasal Cannula Oxygen Flow Rate 0 Sepsis New/Unexplained Change in Mental Status Sepsis Action Taken by Nursing Oxygen Flow Rate - Titration 3 Pulse Oximetry Post Tiitration 97 Laboratory Data 01/09/24 10:40 01/09/24 10:40 Lab Results 01/09/24 01/09/24 Range/Units 10:40 13:55 WBC 4.63 L (4.8-10.8) K/ul RBC 3.94 L (4.20-5.40) M/uL Hgb 11.7 L (12.0-16.0) g/dl Hct 35.4 L (37.0-47.0) % MCV 89.8 (80.0-100.0) fL MCH 29.7 (25.0-34.0) pg MCHC 33.1 (32.0-36.0) g/dL RDW Std Deviation 44.1 (36.4-46.3) fL RDW Coeff of Sudhakar 13.4 (11.5-14.5) % Plt Count 100 L (130-400) K/uL MPV 9.0 L (9.4-12.4) fL Immature Gran % (Auto) 0.2 % Neut % (Auto) 75.4 % Lymph % (Auto) 10.6 % Story % (Auto) 12.3 % Eos % (Auto) 1.3 % Baso % (Auto) 0.2 % Neut # (Auto) 3.49 (1.40-6.50) K/uL Lymph # (Auto) 0.49 L (1.20-3.40) K/uL Story # (Auto) 0.57 (0.11-0.59) K/uL Eos # (Auto) 0.06 (0.00-0.50) K/uL Baso # (Auto) 0.01 (0.00-0.20) K/uL Immature Gran # (Auto) 0.01 (0.01-0.20) K/uL PT 11.0 (9.0-12.0) Seconds INR 1.0 (0.9-1.1) Sodium 140 (136-145) mmol/L Potassium 4.3 (3.5-5.1) mmol/L Chloride 104 (98-107) mmol/L Carbon Dioxide 27 (21-32) mmol/L Anion Gap 9 (3-11) BUN 19 (6-23) mg/dl Creatinine 1.04 (0.6-1.2) mg/dl Est Cr Clr Drug Dosing 57.9 ml/min eGFR 59.65 BUN/Creatinine Ratio 18.3 (10-20) Glucose 105 H (70-99(Fasting)) mg/dl Lactate 1.3 (0.4-2.0) mmol/L Calcium 8.9 (8.6-10.3) mg/dl Total Bilirubin 0.9 (0.2-1.0) mg/dl AST 19 (13-39) U/L ALT 12 (7-52) U/L Alkaline Phosphatase 73 (34-104) U/L Total Protein 6.2 (6.0-8.3) gm/dl Albumin 4.1 (3.4-5.0) gm/dl Globulin 2.1 L (2.5-4.0) gm/dl Albumin/Globulin Ratio 2.0 (0.9-2) Lipase 13 (11-82) U/L Urine Color Yellow Urine Appearance Clear (Clear) Urine pH 5.5 (4.5-7.5) Ur Specific [place] 1.024 (1.000-1.030) Urine Protein Negative (Negative) Urine Glucose (UA) Negative (Negative) Urine Ketones Trace H (Negative) Urine Blood Trace H (Negative) Urine Nitrite Negative (Negative) Urine Bilirubin Negative (Negative) Urine Urobilinogen Negative (Negative) Ur Leukocyte Esterase Negative (Negative) Urine WBC (Auto) 0-5 (0-5) /hpf Urine RBC (Auto) 0-2 (0-2) /hpf U Hyaline Cast (Auto) 0-2 (0-2) /lpf U Epithel Cells (Auto) 0-2 (0-2) /hpf Urine Bacteria (Auto) None Seen (None Seen) Administered Medications Discontinued Medications Ioversol (Optiray 320 100ml) 94 ml IV ONCE ONE Stop: 01/09/24 11:37 Last Admin: 01/09/24 11:36 Dose: 94 ml Documented By: RHODA Morphine Sulfate (Morphine Sulfate 4 Mg/Ml 1 Ml Carp\Vial) 4 mg IV NOW STA Stop: 01/09/24 10:30 Last Admin: 01/09/24 10:48 Dose: 4 mg Documented By: JOSE JUAN Morphine Sulfate (Morphine Sulfate 4 Mg/Ml 1 Ml Carp\Vial) 4 mg IV NOW STA Stop: 01/09/24 12:40 Last Admin: 01/09/24 12:47 Dose: 4 mg Documented By: EDUARDA Ondansetron HCl (Ondansetron Inj 2 Mg/Ml 2 Ml Vial) 4 mg IV NOW STA Stop: 01/09/24 10:30 Last Admin: 01/09/24 10:48 Dose: 4 mg Documented By: JOSE JUAN Imaging Data Radiologist's Impression: Abdomen/Pelvis CT 01/09/24 10:15 CT SCAN OF THE ABDOMEN AND PELVIS WITH IV CONTRAST CLINICAL HISTORY: Right-sided abdominal pain. Right flank pain. History of lymphoma. COMPARISON STUDY: Abdominal CT dated 11/18/2022. TECHNIQUE: Following the IV administration of 94 cc of Optiray 320, CT scan of the abdomen and pelvis is performed from the lung bases to the proximal femora. Images are reviewed in the axial, sagittal, and coronal planes. IV contrast was administered without complication. A dose lowering technique was utilized adhering to the principles of ALARA. CT DOSE: 1346.61 mGy.cm FINDINGS: Lung bases: The heart is normal in size and without pericardial effusion. The lung bases are clear noting bibasilar atelectasis. There is a small hiatal hernia. Liver: The contrast-enhanced liver is normal in size, contour, and attenuation. There is no intrahepatic biliary ductal dilatation. The hepatic veins and portal veins are patent. There are numerous large hepatic cysts which measure up to 9 cm. Gallbladder: Unremarkable. Spleen: Normal in size and attenuation, measuring 11.1 cm in length. Pancreas: Unremarkable. Adrenal glands: Unremarkable. Kidneys: The contrast enhanced kidneys are normal in size. There is mild to moderate bilateral hydroureteronephrosis. Ureters are dilated into the pelvis where there is bulky mass/lymphadenopathy. The kidneys enhance symmetrically. Abdominal vasculature: The abdominal aorta is normal in course and caliber. Bowel: There is no bowel obstruction. The appendix is normal as imaged. Peritoneum: There is trace perihepatic ascites. No peritoneal free air is identified. There is a ventral hernia in the left lower quadrant on image #225 which may contain a tiny segment of bowel. This also contains fluid and tumor. See below under lymphadenopathy for discussion of mesenteric tumor/lymphadenopathy. Lymphadenopathy: There is extensive tumor/lymphadenopathy seen throughout the mesentery. A large conglomerate mass in the central lower pelvis encases the rectum and measures approximately 9 x 7.5 x 10 cm in aggregate dimension as seen on image #297. There is bulky lymphadenopathy/mesenteric tumor throughout the omentum which closely approximates several bowel loops. There is also tumor/nodularity along the dome of the bladder. There are bulky bilateral iliac chain lymph nodes. A right external iliac carlie chain on image #277 measures 3.8 x 2.5 cm, and a right internal iliac node on image #236 measures 2.9 x 2.5 cm. There are numerous mildly enlarged retroperitoneal lymph nodes. A left periaortic node on image #163 measures 1.3 x 1.3 cm. A right cardiophrenic node on image #31 measures 1.9 x 1.6 cm. Pelvic viscera: There is asymmetric wall thickening along the bladder dome, likely related to implanted tumor. Uterus is surgically absent. The adnexa are filled with metastatic nodules/lymph nodes. Skeletal structures: The skeletal structures are osteopenic. There are mild chronic compression deformities of L3 and L4. Mild lumbosacral spondylosis is observed. Sclerotic change is noted in the pubic symphysis. No lytic or blastic lesions are seen. There are chronic/healed bilateral rib fractures. IMPRESSION: 1. There is extensive peritoneal tumor/lymphadenopathy throughout the abdomen and pelvis, as well as retroperitoneal and iliac chain lymphadenopathy. This likely represents lymphoma given the patient's history. Carcinomatosis of a different source is not excluded. 2. A large mass encases the rectum, with no evidence of rectal obstruction. 3. There is mild to moderate bilateral hydroureteronephrosis secondary to large mass lesions in the pelvis. 4. A ventral hernia in the left lower quadrant abdominal wall likely contains a tiny segment of small bowel. This also contains tumor and fluid. 5. Trace perihepatic ascites. 6. Additional findings as above. ACT 112: Negative or not required by law. Electronically signed by: Jad Ortez M.D. 01/09/2024 12:37 PM Discharge Plan Visit Data Chief Complaint: Pain (Generalized) Stated Complaint: ABD PAIN, SHARP RT FLANK PAIN, LOWER BACK PAIN ED Provider: Thi Otero Discharge Problem: Intractable abdominal pain, Hypoxia, Intra-abdominal tumor, Bilateral hydronephrosis Forms Stand Alone Forms: [employer] Prescriptions Prescriptions: No Action lisinopril 30 mg tablet 30 mg PO QAM pregabalin 50 mg capsule 50 mg PO BID mirabegron [Myrbetriq] 50 mg tablet extended release 24 hr 50 mg PO QAM acyclovir 400 mg tablet 400 mg PO BID allopurinol 300 mg Tablet 300 mg PO QAM Referrals Referrals: Anju Oneill MD [Primary Care Provider] -
[2024-01-09] MEDS: MoRPHine SULFATE 4 MG/ML 1 ML CARP\\VIAL IV STA ×2 (10:48→12:47)
[2024-01-09] MEDS: ONDANSETRON INJ 2 MG/ML 2 ML VIAL IV STA (10:48)
[2024-01-09 11:02] LABS: Basophils # (auto) 0.01 K/uL (0.00-0.20); Basophils % (auto) 0.2 %; Eosinophils # (auto) 0.06 K/uL (0.00-0.50); Eosinophils % (auto) 1.3 %; Hematocrit (blood only) 35.4 % (37.0-47.0); Hemoglobin 11.7 g/dl (12.0-16.0); Immature Granulocytes # (auto) 0.01 K/uL (0.01-0.20); Immature Granulocytes % (auto) 0.2 %; Lymphocytes # (auto) 0.49 K/uL (1.20-3.40); Lymphocytes % (auto) 10.6 %; Mean Corpuscular Hemoglobin 29.7 pg (25.0-34.0); Mean Corpuscular Hgb Conc 33.1 g/dL (32.0-36.0); Mean Corpuscular Volume 89.8 fL (80.0-100.0); Monocytes # (auto) 0.57 K/uL (0.11-0.59); Monocytes % (auto) 12.3 %; Neutrophils # (auto) 3.49 K/uL (1.40-6.50); Neutrophils % (auto) 75.4 %; Platelet Count 100 K/uL (130-400); RDW Coefficient of Variation 13.4 % (11.5-14.5); RDW Standard Deviation 44.1 fL (36.4-46.3); Red Blood Count 3.94 M/uL (4.20-5.40); White Blood Count 4.63 K/ul (4.8-10.8)
[2024-01-09 11:14] LABS: Albumin Level 4.1 gm/dl (3.4-5.0); BUN Creatinine Ratio 18.3 (10-20); Bilirubin,Total 0.9 mg/dl (0.2-1.0); Calcium 8.9 mg/dl (8.6-10.3); Creatinine Clr Calc Pharmacy 57.9 ml/min; Globulin 2.1 gm/dl (2.5-4.0); Potassium 4.3 mmol/L (3.5-5.1); Total Protein 6.2 gm/dl (6.0-8.3)
[2024-01-09] MEDS: OPTIRAY 320 100ml IV ONE (11:36)
--- NOTE | 2024-01-09 12:39 | CT Scan Report ---
CT SCAN OF THE ABDOMEN AND PELVIS WITH IV CONTRAST CLINICAL HISTORY: Right-sided abdominal pain. Right flank pain. History of lymphoma. COMPARISON STUDY: Abdominal CT dated 11/18/2022. TECHNIQUE: Following the IV administration of 94 cc of Optiray 320, CT scan of the abdomen and pelvi s is performed from the lung bases to the proximal femora. Images are reviewed in the axial, sagittal , and coronal planes. IV contrast was administered without complication. A dose lowering technique wa s utilized adhering to the principles of ALARA. CT DOSE: 1346.61 mGy.cm FINDINGS: Lung bases: The heart is normal in size and without pericardial effusion. The lung bases are clear no ting bibasilar atelectasis. There is a small hiatal hernia. Liver: The contrast-enhanced liver is normal in size, contour, and attenuation. There is no intrahepa tic biliary ductal dilatation. The hepatic veins and portal veins are patent. There are numerous larg e hepatic cysts which measure up to 9 cm. Gallbladder: Unremarkable. Spleen: Normal in size and attenuation, measuring 11.1 cm in length. Pancreas: Unremarkable. Adrenal glands: Unremarkable. Kidneys: The contrast enhanced kidneys are normal in size. There is mild to moderate bilateral hydrou reteronephrosis. Ureters are dilated into the pelvis where there is bulky mass/lymphadenopathy. The k idneys enhance symmetrically. Abdominal vasculature: The abdominal aorta is normal in course and caliber. Bowel: There is no bowel obstruction. The appendix is normal as imaged. Peritoneum: There is trace perihepatic ascites. No peritoneal free air is identified. There is a vent ral hernia in the left lower quadrant on image #225 which may contain a tiny segment of bowel. This a lso contains fluid and tumor. See below under lymphadenopathy for discussion of mesenteric tumor/lymp hadenopathy. Lymphadenopathy: There is extensive tumor/lymphadenopathy seen throughout the mesentery. A large marilyn lomerate mass in the central lower pelvis encases the rectum and measures approximately 9 x 7.5 x 10 cm in aggregate dimension as seen on image #297. There is bulky lymphadenopathy/mesenteric tumor thro ughout the omentum which closely approximates several bowel loops. There is also tumor/nodularity anthony ng the dome of the bladder. There are bulky bilateral iliac chain lymph nodes. A right external iliac carlie chain on image #277 measures 3.8 x 2.5 cm, and a right internal iliac node on image #236 measu res 2.9 x 2.5 cm. There are numerous mildly enlarged retroperitoneal lymph nodes. A left periaortic n ode on image #163 measures 1.3 x 1.3 cm. A right cardiophrenic node on image #31 measures 1.9 x 1.6 c m. Pelvic viscera: There is asymmetric wall thickening along the bladder dome, likely related to implant ed tumor. Uterus is surgically absent. The adnexa are filled with metastatic nodules/lymph nodes. Skeletal structures: The skeletal structures are osteopenic. There are mild chronic compression defor mities of L3 and L4. Mild lumbosacral spondylosis is observed. Sclerotic change is noted in the pubic symphysis. No lytic or blastic lesions are seen. There are chronic/healed bilateral rib fractures. IMPRESSION: 1. There is extensive peritoneal tumor/lymphadenopathy throughout the abdomen and pelvis, as well as retroperitoneal and iliac chain lymphadenopathy. This likely represents lymphoma given the patient's history. Carcinomatosis of a different source is not excluded. 2. A large mass encases the rectum, with no evidence of rectal obstruction. 3. There is mild to moderate bilateral hydroureteronephrosis secondary to large mass lesions in the p thompson. 4. A ventral hernia in the left lower quadrant abdominal wall likely contains a tiny segment of small bowel. This also contains tumor and fluid. 5. Trace perihepatic ascites. 6. Additional findings as above. ACT 112: Negative or not required by law. Electronically signed by: Jad Ortez M.D. 01/09/2024 12:37 PM
[2024-01-09 14:15] LABS: Appearance Urine Clear (Clear); Bacteria Urine Automated None Seen (None Seen); Bilirubin Urine Negative (Negative); Blood Urine Trace (Negative); Cast Urine Automated 0-2 /lpf (0-2); Color Urine Yellow; Epithelial Cell Urine Auto 0-2 /hpf (0-2); Glucose Urine UA Negative (Negative); Ketones Urine Trace (Negative); Leukocyte Esterase Urine Negative (Negative); Nitrite Urine Negative (Negative); Protein Urine Negative (Negative); RBC Urine Automated 0-2 /hpf (0-2); Specific Gravity Urine 1.024 (1.000-1.030); Urobilinogen Urine Negative (Negative); WBC Urine Automated 0-5 /hpf (0-5); pH Urine 5.5 (4.5-7.5)
[2024-01-09] MEDS ORDERED: oxyCODONE HCL IR 5 MG TAB (IMMEDIATE RELEASE) PO PRN (14:32)
[2024-01-09] MEDS: ACETAMINOPHEN 325 MG TAB PO SCH (14:50)
[2024-01-09] MEDS: LACTATED RINGER'S 1,000 ML IV SCH (14:53)
--- NOTE | 2024-01-09 15:30 | History & Physical Report ---
Date of Service January 09, 2024 Assessment & Plan (1) Bilateral hydronephrosis: (2) Abdominal pain: (3) Leukopenia: (4) Splenomegaly: (5) Intractable abdominal pain: (6) Lymphoma: Plan Assessment and plan: Intractable abdominal pain Bilateral hydroureteronephrosis Rectal mass Hx B-cell [id number] IV Dilaudid 0.5 every 3 hours for severe pain, 5 mg Oxy IR for breakthrough pain Patient will likely need to be discharged on oral pain medications CT A/P shows moderate bilateral hydroureteronephrosis secondary to large mass lesions in the pelvis Kidney function is within normal limits, consult urology for further recs Large mass encasing the rectum noted, no evidence of bowel obstruction rectal mass new since last CT A/P in 11/2022, consult general surgery to follow recently finished 6 cycles of R-CHOP chemo, last dose 03/[address] Chavez's last note, patient was just being observed, pain was controlled Consult heme-onc to follow throughout patient's hospitalization Hx of breast CA s/p lumpectomy Hx follicular lymphoma Has a history of lymphoma involving the left side of the neck 1993 s/p radiation S/p radiation to the left breast and completion of tamoxifen therapy in 2020 History of follicular lymphoma involving the bone marrow/spleen/lymph nodes in the chest/abdomen also noted Hx HTN: SBP trending low, hold lisinopril A total of 60 minutes was spent on chart review/reviewing diagnostic testing/discussion with consultants/facilitating plan of care. Patient is a DNR/DNI DVT prophylaxis: Heparin subcu History of Present Illness Chief Complaint: The patient is a 63-year-old female with a past medical history of stage B cell lymphoma, grade 1 follicular lymphoma, breast cancer, urge incontinence of urine, HTN, gout, who presents to the ED on 01/09/2024 with complaints of worsening abdominal pain. Patient most recently saw her oncologist 08/2023. She had a recent CAT scan of her abdomen/pelvis on 11/18/2022. Patient reported that over the past week she has just generally not been feeling well with a decreased appetite. Patient reports cramping and abdominal pain throughout the week. She saw her primary care doctor yesterday and had a laboratory workup and CT imaging ordered. Her pain began to worsen and she presented to the ER today. On exam, patient is visibly in pain. Reports her abdominal pain is a 10 out of 10. She is on 3 L of oxygen, does not wear any oxygen at home. Became hypoxic after receiving pain medications. She denies any blood in her stool or nausea/vomiting. She reports that she had a bowel movement earlier this morning, normal, formed, brown. Denies any fever/chills/chest pain or shortness of breath. On arrival to the ER, labs are remarkable for WBC 4.6, platelets 100, hemoglobin 11.[address] A/P of the abdomen showed: 1. There is extensive peritoneal tumor/lymphadenopathy throughout the abdomen and pelvis, as well as retroperitoneal and iliac chain lymphadenopathy. This likely represents lymphoma given the patient's history. Carcinomatosis of a different source is not excluded. 2. A large mass encases the rectum, with no evidence of rectal obstruction. 3. There is mild to moderate bilateral hydroureteronephrosis secondary to large mass lesions in the pelvis. 4. A ventral hernia in the left lower quadrant abdominal wall likely contains a tiny segment of small bowel. This also contains tumor and fluid. 5. Trace perihepatic ascites. 6. Additional findings as above. Patient follows with Dr. Chavez. Per his note: Previous treatment includes s/p lumpectomy/MammoSite radiation to the left [id number], tamoxifen therapy in completing a 10-year dosing. She received 6 cycles of R-CHOP chemo. She has a history of lymphoma involving the left side of the [id number] s/p radiation Follicular lymphoma involving the bone marrow, splenomegaly, lymph nodes in the chest and abdomen FNA from the abdominal wall soft tissue mass 2022, atypicalunderlying B-cell lymphoma She is currently being observed outpatient, her last dose of chemo was February 2023 She received 6 cycles of R-CHOP chemo. She had a recent CAT scan of the abdomen/pelvis on 11/18/2022 that showed: -splenomegaly measuring 17 cm ( It was 8 cm in 2017 -mildly enlarged the cardiophrenic lymph nodes noted - Innumerable pathologic lymph nodes of the abdomen and pelvis are noted, probably within the mesentery, periaortic, pericaval, iliac chain and pelvic sidewall distributions. Index conglomerate mesenteric adenopathy measures up to 15.7 cm -left iliac lymph node measuring 4.1 x 2.9 cm. -no bowel obstruction. Stable L3 and L4 compression deformity. -multiple liver cyst measuring up to 8 cm. The patient was given IV morphine in the ED and Zofran and will be admitted for pain management. Primary Care Provider: Anju Oneill MD Allergies Allergy/AdvReac Type Severity Reaction Status Date / Time cephalexin Allergy Intermediate HIVES Verified 11/18/22 16:04 Home Medications Medication Instructions Recorded Confirmed Type lisinopril 30 mg tablet 30 mg PO QAM 11/14/22 01/09/24 History mirabegron 50 mg tablet,extended 50 mg PO QAM 11/14/22 01/09/24 History release 24 hr (Myrbetriq) pregabalin 50 mg capsule 50 mg PO BID 11/14/22 01/09/24 History acyclovir 400 mg tablet 400 mg PO BID 01/09/24 01/09/24 History allopurinol 300 mg tablet 300 mg PO QAM 01/09/24 01/09/24 History Past Med/Surg History Problem List (Updated 01/09/24 @ 15:21 by MARK Ramires) Lymphoma Bilateral hydronephrosis (Acute) Intra-abdominal tumor (Acute) Hypoxia (Acute) Intractable abdominal pain (Acute) Abdominal pain (Acute) Leukopenia (Acute) Splenomegaly (Acute) History of breast cancer Thickened endometrium Social History Smoking Status: Never smoker Hx Alcohol Use: Yes Alcohol type: hard liquor Hx Substance Use: No Preferred Language: Tongan Beliefs That Will Affect Care: None Current Living Situation: Spouse Feels Safe at Home: Yes Assistive Devices: None Review of Systems Review of Systems: All systems reviewed & are unremarkable except as noted in HPI & below Physical Exam Constitutional: WD/WN, vitals as above well developed and well nourished; not ill appearing Eyes: PERRL, conjunctivae normal, anicteric sclerae ENMT: external ear and nose normal, oropharynx normal Neck: trachea midline, no thyromegaly Respiratory: normal respiratory effort, lungs clear to auscultation (On 3 L oxygen) Cardiovascular: RRR, no murmur, no edema Gastrointestinal (Abdomen): normal bowel sounds, soft, nontender, no hepatosplenomegaly Inspection/Auscultation: + abdomen distended and normal bowel sounds Percussion/Palpation: + abdomen tender (Left lower quadrant, hard mass is able to be palpated); no guarding Musculoskeletal: no cyanosis or clubbing, extremities motor strength 5/5 Skin: no rashes, warm and dry Neurologic: PERRL, EOMI, accommodation nl, no face palsy, no dysarthria Psychiatric: A+Ox3, euthymic affect Results & Data Results & Data Vital Signs (Past 12 Hours) Vital Signs Temp Pulse Pulse Resp BP BP Pulse Ox 01/09/24 14:13 97 01/09/24 14:12 77 L 01/09/24 13:55 130/86 01/09/24 13:33 74 12 96 01/09/24 13:12 80 22 98/64 L 97 01/09/24 11:23 87 14 109/72 93 01/09/24 10:09 36.3 C L 100 H 14 120/86 94 O2 Del Method O2 Flow Rate 01/09/24 14:13 Nasal Cannula 3 01/09/24 14:12 Nasal Cannula 0 01/09/24 13:55 01/09/24 13:33 Room Air 01/09/24 13:12 Room Air 01/09/24 11:23 Room Air 01/09/24 10:09 Room Air Diagnostic Findings Laboratory Results WBC 4.63 K/ul (4.8-10.8) L 01/09/24 10:40 RBC 3.94 M/uL (4.20-5.40) L 01/09/24 10:40 Hgb 11.7 g/dl (12.0-16.0) L 01/09/24 10:40 Hct 35.4 % (37.0-47.0) L 01/09/24 10:40 MCV 89.8 fL (80.0-100.0) 01/09/24 10:40 MCH 29.7 pg (25.0-34.0) 01/09/24 10:40 MCHC 33.1 g/dL (32.0-36.0) 01/09/24 10:40 RDW Std Deviation 44.1 fL (36.4-46.3) 01/09/24 10:40 RDW Coeff of Sudhakar 13.4 % (11.5-14.5) 01/09/24 10:40 Plt Count 100 K/uL (130-400) L 01/09/24 10:40 MPV 9.0 fL (9.4-12.4) L 01/09/24 10:40 Immature Gran % (Auto) 0.2 % 01/09/24 10:40 Neut % (Auto) 75.4 % 01/09/24 10:40 Lymph % (Auto) 10.6 % 01/09/24 10:40 [place] % (Auto) 12.3 % 01/09/24 10:40 Eos % (Auto) 1.3 % 01/09/24 10:40 Baso % (Auto) 0.2 % 01/09/24 10:40 Neut # (Auto) 3.49 K/uL (1.40-6.50) 01/09/24 10:40 Lymph # (Auto) 0.49 K/uL (1.20-3.40) L 01/09/24 10:40 [place] # (Auto) 0.57 K/uL (0.11-0.59) 01/09/24 10:40 Eos # (Auto) 0.06 K/uL (0.00-0.50) 01/09/24 10:40 Baso # (Auto) 0.01 K/uL (0.00-0.20) 01/09/24 10:40 Immature Gran # (Auto) 0.01 K/uL (0.01-0.20) 01/09/24 10:40 PT 11.0 Seconds (9.0-12.0) 01/09/24 10:40 INR 1.0 (0.9-1.1) 01/09/24 10:40 Sodium 140 mmol/L (136-145) 01/09/24 10:40 Potassium 4.3 mmol/L (3.5-5.1) 01/09/24 10:40 Chloride 104 mmol/L (98-107) 01/09/24 10:40 Carbon Dioxide 27 mmol/L (21-32) 01/09/24 10:40 Anion Gap 9 (3-11) 01/09/24 10:40 BUN 19 mg/dl (6-23) 01/09/24 10:40 Creatinine 1.04 mg/dl (0.6-1.2) 01/09/24 10:40 Est Cr Clr Drug Dosing 57.9 ml/min 01/09/24 10:40 eGFR 59.65 01/09/24 10:40 BUN/Creatinine Ratio 18.3 (10-20) 01/09/24 10:40 Glucose 105 mg/dl (70-99(Fasting)) H 01/09/24 10:40 Lactate 1.3 mmol/L (0.4-2.0) 01/09/24 10:40 Calcium 8.9 mg/dl (8.6-10.3) 01/09/24 10:40 Total Bilirubin 0.9 mg/dl (0.2-1.0) 01/09/24 10:40 AST 19 U/L (13-39) 01/09/24 10:40 ALT 12 U/L (7-52) 01/09/24 10:40 Alkaline Phosphatase 73 U/L (34-104) 01/09/24 10:40 Total Protein 6.2 gm/dl (6.0-8.3) 01/09/24 10:40 Albumin 4.1 gm/dl (3.4-5.0) 01/09/24 10:40 Globulin 2.1 gm/dl (2.5-4.0) L 01/09/24 10:40 Albumin/Globulin Ratio 2.0 (0.9-2) 01/09/24 10:40 Lipase 13 U/L (11-82) 01/09/24 10:40 Urine Color Yellow 01/09/24 13:55 Urine Appearance Clear (Clear) 01/09/24 13:55 Urine pH 5.5 (4.5-7.5) 01/09/24 13:55 Ur Specific [place] 1.024 (1.000-1.030) 01/09/24 13:55 Urine Protein Negative (Negative) 01/09/24 13:55 Urine Glucose (UA) Negative (Negative) 01/09/24 13:55 Urine Ketones Trace (Negative) H 01/09/24 13:55 Urine Blood Trace (Negative) H 01/09/24 13:55 Urine Nitrite Negative (Negative) 01/09/24 13:55 Urine Bilirubin Negative (Negative) 01/09/24 13:55 Urine Urobilinogen Negative (Negative) 01/09/24 13:55 Ur Leukocyte Esterase Negative (Negative) 01/09/24 13:55 Urine WBC (Auto) 0-5 /hpf (0-5) 01/09/24 13:55 Urine RBC (Auto) 0-2 /hpf (0-2) 01/09/24 13:55 U Hyaline Cast (Auto) 0-2 /lpf (0-2) 01/09/24 13:55 U Epithel Cells (Auto) 0-2 /hpf (0-2) 01/09/24 13:55 Urine Bacteria (Auto) None Seen (None Seen) 01/09/24 13:55 Impressions Abdomen/Pelvis CT 01/09/24 10:15 CT SCAN OF THE ABDOMEN AND PELVIS WITH IV CONTRAST CLINICAL HISTORY: Right-sided abdominal pain. Right flank pain. History of lymphoma. COMPARISON STUDY: Abdominal CT dated 11/18/2022. TECHNIQUE: Following the IV administration of 94 cc of Optiray 320, CT scan of the abdomen and pelvis is performed from the lung bases to the proximal femora. Images are reviewed in the axial, sagittal, and coronal planes. IV contrast was administered without complication. A dose lowering technique was utilized adhering to the principles of ALARA. CT DOSE: 1346.61 mGy.cm FINDINGS: Lung bases: The heart is normal in size and without pericardial effusion. The lung bases are clear noting bibasilar atelectasis. There is a small hiatal hernia. Liver: The contrast-enhanced liver is normal in size, contour, and attenuation. There is no intrahepatic biliary ductal dilatation. The hepatic veins and portal veins are patent. There are numerous large hepatic cysts which measure up to 9 cm. Gallbladder: Unremarkable. Spleen: Normal in size and attenuation, measuring 11.1 cm in length. Pancreas: Unremarkable. Adrenal glands: Unremarkable. Kidneys: The contrast enhanced kidneys are normal in size. There is mild to moderate bilateral hydroureteronephrosis. Ureters are dilated into the pelvis where there is bulky mass/lymphadenopathy. The kidneys enhance symmetrically. Abdominal vasculature: The abdominal aorta is normal in course and caliber. Bowel: There is no bowel obstruction. The appendix is normal as imaged. Peritoneum: There is trace perihepatic ascites. No peritoneal free air is identified. There is a ventral hernia in the left lower quadrant on image #225 which may contain a tiny segment of bowel. This also contains fluid and tumor. See below under lymphadenopathy for discussion of mesenteric tumor/lymphadenopathy. Lymphadenopathy: There is extensive tumor/lymphadenopathy seen throughout the mesentery. A large conglomerate mass in the central lower pelvis encases the rectum and measures approximately 9 x 7.5 x 10 cm in aggregate dimension as seen on image #297. There is bulky lymphadenopathy/mesenteric tumor throughout the omentum which closely approximates several bowel loops. There is also tumor/nodularity along the dome of the bladder. There are bulky bilateral iliac chain lymph nodes. A right external iliac carlie chain on image #277 measures 3.8 x 2.5 cm, and a right internal iliac node on image #236 measures 2.9 x 2.5 cm. There are numerous mildly enlarged retroperitoneal lymph nodes. A left periaortic node on image #163 measures 1.3 x 1.3 cm. A right cardiophrenic node on image #31 measures 1.9 x 1.6 cm. Pelvic viscera: There is asymmetric wall thickening along the bladder dome, likely related to implanted tumor. Uterus is surgically absent. The adnexa are filled with metastatic nodules/lymph nodes. Skeletal structures: The skeletal structures are osteopenic. There are mild chronic compression deformities of L3 and L4. Mild lumbosacral spondylosis is observed. Sclerotic change is noted in the pubic symphysis. No lytic or blastic lesions are seen. There are chronic/healed bilateral rib fractures. IMPRESSION: 1. There is extensive peritoneal tumor/lymphadenopathy throughout the abdomen and pelvis, as well as retroperitoneal and iliac chain lymphadenopathy. This likely represents lymphoma given the patient's history. Carcinomatosis of a different source is not excluded. 2. A large mass encases the rectum, with no evidence of rectal obstruction. 3. There is mild to moderate bilateral hydroureteronephrosis secondary to large mass lesions in the pelvis. 4. A ventral hernia in the left lower quadrant abdominal wall likely contains a tiny segment of small bowel. This also contains tumor and fluid. 5. Trace perihepatic ascites. 6. Additional findings as above. ACT 112: Negative or not required by law. Electronically signed by: Jad Ortez M.D. 01/09/2024 12:37 PM Code Status & VTE Plan VTE Prophylaxis Plan VTE Prophylaxis will be ordered: Yes Supervising Physician Co-Signing Physician Notes Attending addendum: The patient was seen and examined in emergency room She has been complaining of abdominal distention and pain for a few days Denies any nausea no vomiting and has been able to move bowel She was seen by her PCP PCP yesterday and was advised to have repeat CT of the abdomen and pelvis Her pain got worse and she is here in the emergency room. Denies any fever and or chills, denies any abdominal pain nausea or vomiting On examination Lying in bed with some discomfort due to abdominal distention and pain Remains afebrile and hemodynamically stable Chestclear to auscultate bilateral HeartS1-S2 regular Abdomendistended, soft, if palpable lump over left mid quadrant which is nontender and was there before. Bowel sound present Does not have any tenderness in the renal angles CNSalert, awake and oriented x 3 Her admission labs, EKG and imaging studies reviewed Noted to have significant lymphadenopathy in the abdomen and including perirectal mass without obstruction Has hydronephrosis bilaterally secondary to pelvic mass likely due to lymphoma Will need to have evaluation by urologist, surgery and thread machine operator while in the hospital Agree with assessment and plan as outlined above by their MARK Nieves and take the full responsibility of care Dr Keturah Bauer
--- NOTE | 2024-01-09 15:46 | XRay Report ---
XR chest 2V PA/lateral HISTORY: 63 years-old Female hx of lymphoma, abdominal pain acute chest and abdominal pain COMPARISON: CT abdomen and pelvis 01/09/2024 TECHNIQUE: PA and lateral views of the chest FINDINGS: Surgical clips project over the left axilla. Cervical spinal fusion hardware. Right IJ [id number] catheter. Mild cardiomegaly. Mild right hemidiaphragmatic elevation. No pneumothorax, pleural effusio n or airspace consolidation. IMPRESSION: No acute process. ACT 112: Negative or not required by law. The above report was generated using voice recognition software. It may contain grammatical, syntax o r spelling errors. Electronically signed by: Hari Robles M.D. 01/09/2024 3:45 PM
[2024-01-09] MEDS: ONDANSETRON INJ 2 MG/ML 2 ML VIAL IV PRN (15:47)
[2024-01-09] MEDS: DOCUSATE SODIUM 100 MG CAP PO SCH (20:08)
--- NOTE | 2024-01-09 20:27 | Urology Consultation ---
Date of Consultation January 09, 2024 Assessment & Plan (1) Bilateral hydronephrosis: Patient has been admitted on the hospitalist service. I evaluated her in room 357. From a urologic perspective we recommend the following: The patient is noted to have mild to moderate bilateral hydronephrosis. On her CT scan this admission this appears to be new when compared to CT scan from 11/18/2022 Will empirically make the patient n.p.o. after midnight tonight I discussed case with my attending physician Dr. Arroyo. He notes he will evaluate the patient the morning of 01/10/2024 and discussed the pros and cons of potentially putting ureteral stents in due to her hydronephrosis. He does note that this may alter patient's quality of life given the fact that she has normal renal function and does not have any urinary symptoms he may defer this procedure at this time but is yet to be determined until he is able to converse with the patient Additional recommendations to be forthcoming based on Dr. Arroyo's evaluation of this case. History of Present Illness Reason for Consultation: Bilateral hydronephrosis Attending Physician: Brendan Bauer MD History of Present Illness This is a 63-year-old female who presented to the emergency department secondary to abdominal pain x 1 week. Patient notes that the pain is located primarily in her lower abdomen but overall in a generalized fashion throughout her abdomen without any modifying factors. She notes that the pain does radiate slightly to her right flank. She has had no nausea or vomiting and denies any fevers, shakes, or chills. She does report night sweats. She notes since this abdominal pain was present she has had decreased appetite and is lost 5 to 6 pounds over the past week. She notes that she has been moving her bowels but they are somewhat smaller in caliber than usual. She denies any bloody bowel movements or melena. She denies any dysuria. She denies any decreased urinary stream and she denies any urinary frequency. She also feels as though she can empty her bladder completely. She has never had any abdominal surgery. Of note the patient has an extensive history of cancer. She was diagnosed with B-cell lymphoma 1993 which was diagnosed by biopsying a neck lymph node. This was performed In [place], [place] and the patient received radiation therapy for this. Patient also was diagnosed with breast cancer in 2010 for which she underwent a left lumpectomy and she also received radiation for this problem and refused chemotherapy. She was diagnosed with follicular lymphoma in 2021 and she did not undergo any treatment for this. Finally, she was diagnosed with diffuse B-cell lymphoma 2022 for which she received chemotherapy and this concluded in February 2023. Currently she is not receiving any active treatment for any of her malignancies and she is followed locally by Dr. Chavez of [facility] hematology/oncology. Since arrival to [facility] this patient has had labs and imaging which independent reviewed. She did have a chest x-ray that showed no evidence of pneumonia. A CT scan of the abdomen pelvis was performed. This study showed the patient had extensive peritoneal tumor/lymphadenopathy throughout the abdomen pelvis as well as retroperitoneal and iliac chain regions. Interpreting radiologist felt that this likely represented a lymphoma. Patient was noted to have a large cecal mass encasing the rectum with no evidence of rectal obstruction. Patient was noted to have mild to moderate bilateral hydronephrosis secondary to mass lesions noted in the pelvis. Patient was noted have a ventral hernia containing a small segment of bowel as well as tumor and fluid. There is trace perihepatic ascites. Labs include a CBC were white blood cell count was 4.6. Hemoglobin and hematocrit are 11.7 and 35.4. Platelet count is 100,000. Coagulation studies were noted to be normal. Chemistry profile showed sodium and potassium as well as the BUN and creatinine were normal. Lactic acid level is nonelevated at 1.3. There is no elevation of patient's LFTs or lipase. Urinalysis was not indicative of infection. At the time of my interview she was resting comfortably in bed and she was in no distress. Allergies Allergy/AdvReac Type Severity Reaction Status Date / Time cephalexin Allergy Intermediate HIVES Verified 11/18/22 16:04 Home Medications Medication Instructions Recorded Confirmed Type lisinopril 30 mg tablet 30 mg PO QAM 11/14/22 01/09/24 History mirabegron 50 mg tablet,extended 50 mg PO QAM 11/14/22 01/09/24 History release 24 hr (Myrbetriq) pregabalin 50 mg capsule 50 mg PO BID 11/14/22 01/09/24 History acyclovir 400 mg tablet 400 mg PO BID 01/09/24 01/09/24 History allopurinol 300 mg tablet 300 mg PO QAM 01/09/24 01/09/24 History Patient History Social History Smoking Status: Never smoker Second Hand Exposure: No; Do You Dip or Chew Tobacco: No; Tobacco Cessation Education Requested by Patient: No Hx Alcohol Use: No Hx Substance Use: No Preferred Language: Panamanian Communication Ability: Effective Title Coordinator Required: No Beliefs That Will Affect Care: None Current Living Situation: Spouse Other Information That Helps Us Care for You: No Feels Safe at Home: Yes Safety Concerns: Feels Safe At This Time Assistive Devices: Glasses Review of Systems Review of Systems: All systems reviewed & are unremarkable except as noted in HPI & below Physical Exam Constitutional: WD/WN, vitals as above Eyes: no conjunctival abnormality ENMT: Ears: no hearing impairment and no external ear abnormality Mouth: no oropharynx abnormality Neck: trachea midline Respiratory: normal respiratory effort; no respiratory distress and no labored breathing Cardiovascular: Rate/Rhythm: regular rate and regular rhythm Gastrointestinal (Abdomen): Abdomen is soft and nondistended. There is no pain with palpation or signs of peritonitis Musculoskeletal: No calf tenderness Skin: no rashes Neurologic: moves all extremities Psychiatric: A+Ox3, euthymic affect Genitourinary: No CVA tenderness with percussion bilaterally Results & Data Vital Signs (Past 12 Hours) Vital Signs Temp Pulse Pulse Pulse Resp BP BP 01/09/24 16:29 36.8 C 81 18 102/69 01/09/24 16:15 01/09/24 15:51 99 H 14 01/09/24 15:06 80 22 01/09/24 15:00 115/71 01/09/24 14:57 82 18 01/09/24 14:13 01/09/24 14:12 01/09/24 13:55 130/86 01/09/24 13:33 74 12 01/09/24 13:12 80 22 01/09/24 11:23 87 14 01/09/24 10:09 36.3 C L 100 H 14 120/86 BP Pulse Ox O2 Del Method O2 Flow Rate 01/09/24 16:29 99 Nasal Cannula 2 01/09/24 16:15 Nasal Cannula 3 01/09/24 15:51 114/66 96 Nasal Cannula 3 01/09/24 15:06 97 Nasal Cannula 3 01/09/24 15:00 01/09/24 14:57 97 Nasal Cannula 3 01/09/24 14:13 97 Nasal Cannula 3 01/09/24 14:12 77 L Nasal Cannula 0 01/09/24 13:55 01/09/24 13:33 96 Room Air 01/09/24 13:12 98/64 L 97 Room Air 01/09/24 11:23 109/72 93 Room Air 01/09/24 10:09 94 Room Air PG Care Time/CCT Total # of Minutes Spent Total Time Spent with Patient: Total time spent is greater than 50% in coordination of care (as documented) at patient's floor/unit and/or counseling patient: Critical Care Time Discussed patient with KIMBERLY. Agree with plan. Saw patient personally and had a long discussion with her. She has bilateral mild hydronephrosis, either from retroperitoneal disease or possibly new rectal mass. She is afebrile with stable vitals. Creatinine is baseline. Urinalysis is not concerning for infection. Her abdominal pain sounds to be more bowel related based on description. No current back or flank pain. Discussed treatment for malignant obstruction which would be bilateral ureteral stents which can be fairly bothersome and would require 3-month exchanges under anesthesia. I explained that these would likely be permanent and less she would have some sort of significant improvement with any further cancer treatment in the future. Discussed that stents can fail and ultimately require bilateral nephrostomy tubes. At this point, quality of life and comfort are her #1 goals and therefore we agreed on not placing stents at this time. Explained that if scenario were to change in the future there may be more of an indication to place stents but not currently. Urology to sign off. Follow-up has been sent to follow along in clinic. She can have a diet from a urologic perspective Coding Level of Care Code 20741 INT INP/OBS CARE 3/75MIN Diagnoses Bilateral hydronephrosis N13.30
[2024-01-09] MEDS: HEPARIN SOD 5,000 UNIT/0.5 ML VIAL SQ SCH (21:15)
--- NOTE | 2024-01-10 07:31 | Electrocardiogram Report ---
Test Reason : Blood Pressure : */* mmHG Vent. Rate : 78 BPM Atrial Rate : 78 BPM P-R Int : 132 ms QRS Dur : 84 ms QT Int : 398 ms P-R-T Axes : 35 20 36 degrees QTcB Int : 453 ms Normal sinus rhythm Normal ECG When compared with ECG of 18-Nov-2022 13:58, T wave amplitude has increased in Lateral leads Confirmed by Donnie Torres ([id number]) on 01/10/2024 7:31:09 AM Referred By: REFERRED SELF Confirmed By: Donnie Torres
[2024-01-10 09:06] LABS: Magnesium 1.6 mg/dl (1.7-2.4); Phosphorus 5.1 mg/dl (2.5-4.9)
[2024-01-10 09:43] LABS: Basophils # (auto) 0.01 K/uL (0.00-0.20); Basophils % (auto) 0.2 %; Eosinophils # (auto) 0.13 K/uL (0.00-0.50); Eosinophils % (auto) 2.2 %; Hematocrit (blood only) 34.2 % (37.0-47.0); Hemoglobin 11.2 g/dl (12.0-16.0); Immature Granulocytes # (auto) 0.03 K/uL (0.01-0.20); Immature Granulocytes % (auto) 0.5 %; Lymphocytes # (auto) 0.46 K/uL (1.20-3.40); Lymphocytes % (auto) 7.8 %; Mean Corpuscular Hemoglobin 29.9 pg (25.0-34.0); Mean Corpuscular Hgb Conc 32.7 g/dL (32.0-36.0); Mean Corpuscular Volume 91.2 fL (80.0-100.0); Mean Platelet Volume 9.2 fL (9.4-12.4); Monocytes # (auto) 0.68 K/uL (0.11-0.59); Monocytes % (auto) 11.5 %; Neutrophils # (auto) 4.62 K/uL (1.40-6.50); Neutrophils % (auto) 77.8 %; Platelet Count 85 K/uL (130-400); RDW Coefficient of Variation 13.7 % (11.5-14.5); RDW Standard Deviation 46.2 fL (36.4-46.3); Red Blood Count 3.75 M/uL (4.20-5.40); White Blood Count 5.93 K/ul (4.8-10.8)
[2024-01-10 09:48] LABS: Albumin Globulin Ratio 1.9 (0.9-2); Albumin Level 3.7 gm/dl (3.4-5.0); Bilirubin,Total 0.8 mg/dl (0.2-1.0); Calcium 8.4 mg/dl (8.6-10.3); Creatinine Clr Calc Pharmacy 23.6 ml/min; Potassium 4.8 mmol/L (3.5-5.1); Total Protein 5.7 gm/dl (6.0-8.3)
[2024-01-10] MEDS: allopurinoL 300 MG TAB PO SCH (09:48)
[2024-01-10] MEDS: POLYETHYLENE (MIRALAX) 17 GM PACK PO SCH (09:48)
--- NOTE | 2024-01-10 10:09 | Surgery Progress Note ---
Date of Service January 10, 2024 Assessment & Plan (1) Intra-abdominal tumor: Plan: No n/v + abd discomfort , bloating , known mass LLQ VSS Advise oncology consult and GI consult if biopsy is warranted, IR is out this week Patient may have liquid diet from surgical standpoint Will follow from peripherally call with questions /concerns Pt seen with Dr. Grigsby as above. awaiting input from oncology. currently no indications for surgery. already has port in place will follow from periphery /please call if any questions or concerns. Admission and Anticipated Discharge Date Admission Date: January 09, 2024 Subjective no n/v + abdominal discomfort abd mass LLQ Review of Systems Gastrointestinal: + abdominal pain and + bloating; no naus ea and no vomiting Physical Exam Constitutional: cooperative; no acute distress Respiratory: normal respiratory effort; no respiratory distress Gastrointestinal (Abdomen): Inspection/Auscultation: + abdomen distended Percussion/Palpation: + abdomen tender and + abdominal mass (LLQ) Results & Data Vital Signs (Past 12 Hours) Vital Signs Temp Pulse Resp BP BP Pulse Ox O2 Del Method 01/10/24 07:19 98.2 F 67 16 108/70 95 Nasal Cannula 01/10/24 03:23 60 113/75 01/09/24 22:37 93/57 L 01/09/24 22:15 97.9 F 70 20 90/55 L 96 Nasal Cannula O2 Flow Rate 01/10/24 07:19 2 01/10/24 03:23 01/09/24 22:37 01/09/24 22:15 2 PG Care Time/CCT Total # of Minutes Spent Total Time Spent with Patient: Total time spent is greater than 50% in coordination of care (as documented) at patient's floor/unit and/or counseling patient: Coding Level of Care Code 63523 SUB INP/OBS CARE 04/09MIN Diagnoses Intra-abdominal tumor D49.89
--- NOTE | 2024-01-10 10:17 | Hospitalist Progress Note ---
Date of Service January 10, 2024 Assessment & Plan (1) Bilateral hydronephrosis: (2) Abdominal pain: (3) Leukopenia: (4) Splenomegaly: (5) Intractable abdominal pain: (6) Lymphoma: Plan Assessment and plan: Intractable abdominal pain Bilateral hydroureteronephrosis Rectal mass Hx B-cell [id number] CT A/P of the abdomen showed: 1. There is extensive peritoneal tumor/lymphadenopathy throughout the abdomen and pelvis, as well as retroperitoneal and iliac chain lymphadenopathy. This likely represents lymphoma given the patient's history. Carcinomatosis of a different source is not excluded. 2. A large mass encases the rectum, with no evidence of rectal obstruction. 3. There is mild to moderate bilateral hydroureteronephrosis secondary to large mass lesions in the pelvis. 4. A ventral hernia in the left lower quadrant abdominal wall likely contains a tiny segment of small bowel. This also contains tumor and fluid. 5. Trace perihepatic ascites. IV Dilaudid 0.5 every 3 hours for severe pain, 5 mg Oxy IR for breakthrough pain Patient will likely need to be discharged on oral pain medications CT A/P shows moderate bilateral hydroureteronephrosis secondary to large mass lesions in the pelvis Kidney function is within normal limits, Urology consulted - no plan for stent placement for now Large mass encasing the rectum noted, no evidence of bowel obstruction rectal mass new since last CT A/P in 11/2022, General surgery consulted Lymphoma Patient follows with Dr. Chavez. Per his note: Previous treatment includes s/p lumpectomy/MammoSite radiation to the left [id number], tamoxifen therapy in completing a 10-year dosing. She received 6 cycles of R-CHOP chemo. She has a history of lymphoma involving the left side of the [id number] s/p radiation Follicular lymphoma involving the bone marrow, splenomegaly, lymph nodes in the chest and abdomen FNA from the abdominal wall soft tissue mass 2022, atypicalunderlying B-cell lymphoma She is currently being observed outpatient, her last dose of chemo was February 2023 She received 6 cycles of R-CHOP chemo. recently finished 6 cycles of R-CHOP chemo, last dose 03/[address] Chavez's last note, patient was just being observed, pain was controlled Consulted heme-onc to follow throughout patient's hospitalization - discussed with Dr. Vega and will further discuss w/ Dr. Chavez ([facility]) when available. Will also consult radiation onc. Hx of breast CA s/p lumpectomy Hx follicular lymphoma Has a history of lymphoma involving the left side of the neck 1993 s/p radiation S/p radiation to the left breast and completion of tamoxifen therapy in 2020 History of follicular lymphoma involving the bone marrow/spleen/lymph nodes in the chest/abdomen also noted Hx HTN: SBP on lower side, hold lisinopril Patient is a DNR/DNI DVT prophylaxis: Heparin subcu Admission and Anticipated Discharge Date Admission Date: January 09, 2024 Subjective Pt seen in follow up of abd. pain, LLQ mass, hx of lymphoma Surgery, urology, heme/onc consulted- and discussed with Currently pt is laying in bed in NAD She reports pain is controlled, but feels she has difficulty with BM - stool softeners ordered No fever, chills, chest pain, shortness of breath, nausea Review of Systems Review of Systems: All systems reviewed & are unremarkable except as noted in Subjective Physical Exam Physical Exam: Constitutional: WD/WN, well develo ped and well [place] shed, in NAD Eyes: PERRL, conjunctiva e normal, anicteri c sclerae ENMT: external ear and n ose normal, oropha rynx normal Neck: supple Respiratory: normal respiratory effort, lungs orin ar to auscultation Cardiovascular: RRR, no murmur, no edema Gastrointestinal ( Abdomen): normal bowel sound s, soft, + abdomen distended, Percu ssion/Palpation: + tender (Left lower quadrant, hard ma ss is able to be p alpated); no guard ing Musculoskeletal: extremities motor strength 5/5 Skin: no rashes, warm an d dry Neurologic: PERRL, EOMI, no fa ce palsy, no dysar thria, moves extre mities Psychiatric: A+Ox3, euthymic af fect Results & Data Results & Data Vital Signs (Past 12 Hours) Vital Signs Temp Pulse Resp BP BP Pulse Ox O2 Del Method 01/10/24 07:19 36.8 C 67 16 108/70 95 Nasal Cannula 01/10/24 03:23 60 113/75 01/09/24 22:37 93/57 L 01/09/24 22:15 36.6 C 70 20 90/55 L 96 Nasal Cannula O2 Flow Rate 01/10/24 07:19 2 01/10/24 03:23 01/09/24 22:37 01/09/24 22:15 2 Laboratory Results 01/10/24 01/09/24 01/09/24 Range/Units 07:32 13:55 10:40 WBC 5.93 4.63 L (4.8-10.8) K/ul RBC 3.75 L 3.94 L (4.20-5.40) M/uL Hgb 11.2 L 11.7 L (12.0-16.0) g/dl Hct 34.2 L 35.4 L (37.0-47.0) % MCV 91.2 89.8 (80.0-100.0) fL MCH 29.9 29.7 (25.0-34.0) pg MCHC 32.7 33.1 (32.0-36.0) g/dL RDW Std Deviation 46.2 44.1 (36.4-46.3) fL RDW Coeff of Sudhakar 13.7 13.4 (11.5-14.5) % Plt Count 85 L 100 L (130-400) K/uL MPV 9.2 L 9.0 L (9.4-12.4) fL Immature Gran % (Auto) 0.5 0.2 % Neut % (Auto) 77.8 75.4 % Lymph % (Auto) 7.8 10.6 % [place] % (Auto) 11.5 12.3 % Eos % (Auto) 2.2 1.3 % Baso % (Auto) 0.2 0.2 % Neut # (Auto) 4.62 3.49 (1.40-6.50) K/uL Lymph # (Auto) 0.46 L 0.49 L (1.20-3.40) K/uL [place] # (Auto) 0.68 H 0.57 (0.11-0.59) K/uL Eos # (Auto) 0.13 0.06 (0.00-0.50) K/uL Baso # (Auto) 0.01 0.01 (0.00-0.20) K/uL Immature Gran # (Auto) 0.03 0.01 (0.01-0.20) K/uL PT 11.0 (9.0-12.0) Seconds INR 1.0 (0.9-1.1) Sodium 140 140 (136-145) mmol/L Potassium 4.8 4.3 (3.5-5.1) mmol/L Chloride 104 104 (98-107) mmol/L Carbon Dioxide 27 27 (21-32) mmol/L Anion Gap 9 9 (3-11) BUN 23 19 (6-23) mg/dl Creatinine 2.56 H D 1.04 (0.6-1.2) mg/dl Est Cr Clr Drug Dosing 23.6 57.9 ml/min eGFR 20.24 59.65 BUN/Creatinine Ratio 9.0 L 18.3 (10-20) Glucose 93 105 H (70-99(Fasting)) mg/dl Lactate 1.3 (0.4-2.0) mmol/L Calcium 8.4 L 8.9 (8.6-10.3) mg/dl Phosphorus 5.1 H (2.5-4.9) mg/dl Magnesium 1.6 L (1.7-2.4) mg/dl Total Bilirubin 0.8 0.9 (0.2-1.0) mg/dl AST 17 19 (13-39) U/L ALT 9 12 (7-52) U/L Alkaline Phosphatase 68 73 (34-104) U/L Total Protein 5.7 L 6.2 (6.0-8.3) gm/dl Albumin 3.7 4.1 (3.4-5.0) gm/dl Globulin 2.0 L 2.1 L (2.5-4.0) gm/dl Albumin/Globulin Ratio 1.9 2.0 (0.9-2) Lipase 13 (11-82) U/L Urine Color Yellow Urine Appearance Clear (Clear) Urine pH 5.5 (4.5-7.5) Ur Specific [place] 1.024 (1.000-1.030) Urine Protein Negative (Negative) Urine Glucose (UA) Negative (Negative) Urine Ketones Trace H (Negative) Urine Blood Trace H (Negative) Urine Nitrite Negative (Negative) Urine Bilirubin Negative (Negative) Urine Urobilinogen Negative (Negative) Ur Leukocyte Esterase Negative (Negative) Urine WBC (Auto) 0-5 (0-5) /hpf Urine RBC (Auto) 0-2 (0-2) /hpf U Hyaline Cast (Auto) 0-2 (0-2) /lpf U Epithel Cells (Auto) 0-2 (0-2) /hpf Urine Bacteria (Auto) None Seen (None Seen) Medications Administered Current Inpatient Medications Acetaminophen (Acetaminophen 325 Mg Tab) 650 mg PO Q6H [facility] Stop: 02/08/24 14:44 Last Admin: 01/10/24 09:42 Dose: 650 mg Allopurinol (Allopurinol 300 Mg Tab) 300 mg PO QAM [facility] Stop: 02/09/24 08:59 Last Admin: 01/10/24 09:48 Dose: 300 mg Docusate Sodium (Docusate Sodium 100 Mg Cap) 100 mg PO BID [facility] Stop: 02/08/24 20:59 Last Admin: 01/10/24 09:48 Dose: 100 mg Heparin Sodium (Porcine) (Heparin Sod 5,000 Unit/0.5 Ml Vial) 5,000 units SQ Q8 [facility] Stop: 02/08/24 21:59 Last Admin: 01/10/24 05:49 Dose: 5,000 units Hydromorphone HCl (Hydromorphone Inj 0.5 Mg/0.5 Ml Syr) 0.5 mg IV Q3H PRN PRN Reason: Pain Stop: 01/23/24 14:21 Ondansetron HCl (Ondansetron Inj 2 Mg/Ml 2 Ml Vial) 4 mg IV Q6H PRN PRN Reason: Nausea And Vomiting Stop: 02/08/24 14:25 Last Admin: 01/10/24 03:06 Dose: 4 mg Oxycodone HCl (Oxycodone Hcl Ir 5 Mg Tab (Immediate Release)) 5 mg PO Q6H PRN PRN Reason: moderate pain Stop: 01/23/24 14:44 Polyethylene Glycol (Polyethylene (Miralax) 17 Gm Pack) 17 gm PO DAILY [facility] Stop: 02/09/24 08:59 Last Admin: 01/10/24 10:08 Dose: Not Given
[2024-01-10] MEDS: MAGNESIUM SULFATE / D5W 1 GM/100 ML BAG IV ONE (11:14)
[2024-01-10] MEDS: MAGNESIUM OXIDE 400 MG TAB PO SCH (11:17)
--- NOTE | 2024-01-10 14:51 | Oncology Consultation ---
Date of Consultation January 10, 2024 Assessment & Plan (1) Lymphoma: Again making it clear I do not have any records from [facility] so most of my plan will be formulated in the absence of previous treatment and without any input from the treating oncologist for the patient. Firstly I will recommend a biopsy, which can be obtained by an FNA of the abdominal wall mass or from the retroperitoneal or iliac chain lymphadenopathy to confirm relapsed lymphoma secondly will recommend reaching out to Dr. Chavez from [facility] for institution of second line therapy as well as consolidative therapy for this patient with rapidly progressive relapsed lymphoma. The second line therapy will most likely be in the form of polatuzumab Bendamustine rituximab followed by CAR-T cell therapy. However I will leave that decision to Dr. Chavez from [facility] hematology oncology. Given the patient's acute symptoms of constipation, bowel obstruction, bilateral hydronephrosis it will be prudent to consult radiation oncology for palliative radiation to the involved area as lymphomas are generally very radiosensitive and there may be a symptomatic improvement in the patient's symptoms (2) Bilateral hydronephrosis: . This is most likely a result of the large pelvic mass/perirectal mass. Again recommend consulting radiation oncology for palliative radiation to the area after we confirm relapsed lymphoma as that will be the quickest way of resolving the patient's symptoms. The patient will need palliative systemic chemotherapy soon and that can be facilitated through [facility] hematology oncology, Dr. Chavez's office. (3) Intractable abdominal pain: Continue medical care per our primary hospital internal medicine colleagues for rest of the issues including abdominal pain Plan thank you for this interesting oncological consult. A total of 60 minutes were spent in counseling, coordination of care, review of prior records. Medical oncology will continue to follow the patient make appropriate recommendations. I will be open to institute therapy in the hospital with anti-CD20 directed antibody such as rituximab however will want the input of the patient's primary oncologist from [facility], Dr. Chavez History of Present Illness Reason for Consultation: Relapsed large cell lymphoma Attending Physician: Albin Joseph MD History of Present Illness the patient is a very pleasant 63-year-old woman, who follows [facility] hematology oncology with my colleague, Dr. Phillip Chavez. She was initially diagnosed with follicular lymphoma back in 2021, subsequently progressed, developed DLBCL, was treated with 6 cycles of R-CHOP late last year. I do not have any of the treatment records from [facility], all of my history has been obtained verbally. currently the patient presented to [facility] with worsening abdominal pain, decreased appetite not feeling well. She had a CT of the abdomen pelvis which revealed extensive lymphadenopathy throughout the abdomen and pelvis, a large mass encasing the rectum, mild to moderate bilateral hydronephrosis. Medical oncology has been consulted to assist in management of this patient with most likely relapsed lymphoma. Allergies Allergy/AdvReac Type Severity Reaction Status Date / Time cephalexin Allergy Intermediate HIVES Verified 11/18/22 16:04 Home Medications Medication Instructions Recorded Confirmed Type lisinopril 30 mg tablet 30 mg PO QAM 11/14/22 01/09/24 History mirabegron 50 mg tablet,extended 50 mg PO QAM 11/14/22 01/09/24 History release 24 hr (Myrbetriq) pregabalin 50 mg capsule 50 mg PO BID 11/14/22 01/09/24 History acyclovir 400 mg tablet 400 mg PO BID 01/09/24 01/09/24 History allopurinol 300 mg tablet 300 mg PO QAM 01/09/24 01/09/24 History Patient History Social History Smoking Status: Never smoker Second Hand Exposure: No; Do You Dip or Chew Tobacco: No; Tobacco Cessation Education Requested by Patient: No Hx Alcohol Use: No Hx Substance Use: No Preferred Language: Divehi Communication Ability: Effective Business Strategy Manager Required: No Beliefs That Will Affect Care: None Current Living Situation: Spouse Other Information That Helps Us Care for You: No Feels Safe at Home: Yes Safety Concerns: Feels Safe At This Time Assistive Devices: Glasses Review of Systems Review of Systems: Worsening abdominal pain, fatigue. Constitutional: as per Subjective / HPI Eyes: as per Subjective / HPI Ear, Nose, Mouth, Throat: as per Subjective / HPI Respiratory: as per Subjective / HPI Cardiovascular: as per Subjective / HPI Gastrointestinal: as per Subjective / HPI Genitourinary: as per Subjective / HPI Musculoskeletal: as per Subjective / HPI Integumentary: as per Subjective / HPI Neurologic: as per Subjective / HPI Psychiatric: as per Subjective / HPI Endocrine: as per Subjective / HPI Hematologic / Lymphatic: as per Subjective / HPI Allergy / Immunological: as per Subjective / HPI Physical Exam Constitutional: WD/WN, vitals as above Eyes: PERRL, conjunctivae normal, anicteric sclerae ENMT: external ear and nose normal, oropharynx normal Neck: trachea midline, no thyromegaly Respiratory: normal respiratory effort, lungs clear to auscultation Cardiovascular: RRR, no murmur, no edema Gastrointestinal (Abdomen): normal bowel sounds, soft, nontender, no hepatosplenomegaly Musculoskeletal: no cyanosis or clubbing, extremities motor strength 5/5 Skin: no rashes, warm and dry Neurologic: patellar DTR's 2+ bilat, sensation intact Psychiatric: A+Ox3, euthymic affect Results & Data Vital Signs (Past 12 Hours) Vital Signs Temp Pulse Resp BP Pulse Ox O2 Del Method O2 Flow Rate 01/10/24 09:40 Nasal Cannula 2 01/10/24 07:19 36.8 C 67 16 108/70 95 Nasal Cannula 2 01/10/24 03:23 60 113/75
[2024-01-11] MEDS: HYDROmorphone INJ 0.5 MG/0.5 ML SYR IV PRN (02:17)
--- NOTE | 2024-01-11 07:12 | Urology Progress Note ---
Date of Service January 11, 2024 Assessment & Plan (1) Bilateral hydronephrosis: (2) Lymphoma: Plan 63-year-old female with a history of lymphoma, breast cancer and recently found rectal mass who is admitted due to abdominal pain. CT scan showed bilateral hydronephrosis. Initially creatinine was stable however creatinine worsened yesterday. Discussed with patient that with worsening kidney function, would recommend cystoscopy with bilateral stents today and last kidney function this morning has returned to normal. Patient is now agreeable to this N.p.o. To OR for above-noted procedure. Consent obtained. Admission and Anticipated Discharge Date Admission Date: January 09, 2024 Subjective Patient reporting worsening abdominal pain and pressure today. After discussing with her yesterday, labs came back with an elevated creatinine of 2.5. Afebrile with stable vitals. Physical Exam Physical Exam: General: Alert and oriented, no acute distress HEENT: Normocephalic, mucous membranes moist Pulmonary: Nonlabored respirations Abdomen: Nondistended Extremities: Moves all 4 spontaneously Neuro: No gross deficits Skin: Warm, dry, no rashes noted Results & Data Vital Signs (Past 12 Hours) Vital Signs Temp Pulse Resp BP Pulse Ox O2 Del Method 01/10/24 19:57 36.5 C 71 18 124/83 95 Room Air PG Care Time/CCT Total # of Minutes Spent Total Time Spent with Patient: Total time spent is greater than 50% in coordination of care (as documented) at patient's floor/unit and/or counseling patient: Coding Level of Care Code 46063 SUB INP/OBS CARE 2/35MIN Diagnoses Bilateral hydronephrosis N13.30 Lymphoma C85.90
[2024-01-11 08:33] LABS: Hematocrit (blood only) 34.2 % (37.0-47.0); Hemoglobin 11.3 g/dl (12.0-16.0); Mean Corpuscular Hemoglobin 29.6 pg (25.0-34.0); Mean Corpuscular Volume 89.5 fL (80.0-100.0); Mean Platelet Volume 8.9 fL (9.4-12.4); Platelet Count 85 K/uL (130-400); RDW Coefficient of Variation 13.7 % (11.5-14.5); Red Blood Count 3.82 M/uL (4.20-5.40); White Blood Count 5.85 K/ul (4.8-10.8)
[2024-01-11 08:43] LABS: BUN Creatinine Ratio 10.9 (10-20); Calcium 8.4 mg/dl (8.6-10.3); Creatinine Clr Calc Pharmacy 22.8 ml/min; Magnesium 2.1 mg/dl (1.7-2.4); Phosphorus 4.6 mg/dl (2.5-4.9); Potassium 4.9 mmol/L (3.5-5.1)
--- NOTE | 2024-01-11 10:38 | Radiation OncologyConsultation ---
Date of Consultation January 11, 2024 Assessment & Plan (1) Intra-abdominal tumor: Plan ATTENDING ADDENDUM: Diagnosis/Treatment History: 1993. Left neck lymphoma. Status post radiation therapy. 2020. Left breast carcinoma. Ductal carcinoma. [id number]. Oncotype DX score of 19. Status postlumpectomy. Radiation with MammoSite radiation therapy. [id number]. Tamoxifen therapy. Briefly discontinued due to findings on a CT. She had PERRI/BSO 04/24/2017. Benign. [id number]. Tamoxifen therapy 09/2021. Follicular lymphoma involving marrow marrow, spleen with adenopathy of the chest and abdomen. 05/12/2022. 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 11/27/2022-03/03/2023. 6 cycles of R-CHOP (Dr. Hugh Chavez). Assessment: Ms. Olmos is a 63-year-old female with a history of multiple cancers in the past. More recently, the patient was treated for B-cell lymphoma with chemotherapy in 2022 underneath the supervision of Dr. Phillip Chavez. The patient now presents with potential gastrointestinal obstruction due to a large rectal mass. The patient has been seen and evaluated by Dr. Vega from medical oncology who discussed options including obtaining a tissue diagnosis to confirm the primary etiology as well as consideration of both palliative radiation therapy or palliative chemotherapy. The patient is scheduled to undergo a urology procedure today due to obstruction of ureters bilaterally. Recommendation: I did agree with Dr. Vega regarding potentially obtaining a biopsy as this may help guide treatment for medical oncology. Additionally, I did discuss with the patient consideration of palliative radiation therapy to the pelvis to help reduce her overall obstruction. I have also this case the case with Dr. Phillip Chavez who is in agreement with consideration for both a biopsy as well as palliative radiation therapy and consideration of chemotherapy in the outpatient setting. At this point, the patient is reluctant to consider any further therapy. She would like to get a better assessment of her overall staging and diagnosis. I did caution her that she is at risk for bowel perforation and obstruction if she does not get any treatment to help address her obstruction. Plan: 1. Recommend the primary team complete the staging workup which could include a CT of chest with contrast and bone scan. Alternatively the workup could be done in the outpatient setting with a PET/CT scan which may or may not be possible. 2. Radiation therapy may be considered in the future for palliation to potentially reduce the mass which may help to relieve her gastrointestinal obstruction as well as her urinary obstruction. No plan for radiation therapy at this time as per patient. 3. We will continue to follow the patient's hospital course including any further studies. Please contact us if the patient would like to be considered for radiation therapy or there are any further questions or concerns. History of Present Illness Reason for Consultation: Large pelvic mass Requesting Physician: Albin Joseph MD Attending Physician: Albin Joseph MD History of Present Illness 1993. Left neck lymphoma. Status post radiation therapy. 2020. Left breast carcinoma. Ductal carcinoma. [id number]. Oncotype DX score of 19. Status postlumpectomy. Radiation with MammoSite radiation therapy. [id number]. Tamoxifen therapy. Briefly discontinued due to findings on a CT. She had PERRI/BSO 04/24/2017. Benign. [id number]. Tamoxifen therapy 09/2021. Follicular lymphoma involving marrow marrow, spleen with adenopathy of the chest and abdomen. 05/12/2022. 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 11/27/2022-03/03/2023. 6 cycles of R-CHOP (Dr. Hugh Chavez). 08/24/2023. CT of the chest, abdomen pelvis. There is no progression of disease. 10/2023. Development of a left lower quadrant abdominal mass. This has steadily become larger in size. 01/08/2024. Primary care visit (Dr. Rodriguez). Patient is noted constipation over the past several weeks. She has tried different vail-aox-yrkobmt medications. She used MiraLAX. And she used Colace. She typically has a bowel movement every day. She noted increased abdominal discomfort. Her abdomen feels bloated. After seeing the primary care physician she was scheduled for CT of the abdomen and pelvis. 01/09/2024. Due to increasing pain over the weekend she presented to the emergency room and was admitted. 01/09/2024. CT of the abdomen and pelvis. 1. There is extensive peritoneal tumor/lymphadenopathy throughout the abdomen and pelvis, as well as retroperitoneal and iliac chain lymphadenopathy. This likely represents lymphoma given the patient's history. Carcinomatosis of a different source is not excluded. 2. A large mass encases the rectum, with no evidence of rectal obstruction. 3. There is mild to moderate bilateral hydroureteronephrosis secondary to large mass lesions in the pelvis. 4. A ventral hernia in the left lower quadrant abdominal wall likely contains a tiny segment of small bowel. This also contains tumor and fluid. 5. Trace perihepatic ascites. 01/10/2024. Medical oncology consultation (Dr. Vega). He has recommended that the patient have an FNA of the abdominal wall mass or from the retroperitoneal or iliac chain lymphadenopathy to confirm relapsed lymphoma. He will speak with Dr. Hugh Chavez in regards to types of therapy. He consulted radiation oncology to discuss possible radiation therapy after biopsy is complete. 01/09/2024. Urology consultation (Jose Cowan PA-C). CT images reviewed. Patient has mild to moderate hydronephrosis. Attending urologist will review this. Tentative plans for placement of bilateral ureteral stents. 01/10/2024. Surgical consult (Desiree George NP) no surgical intervention at this time. Note that IR is out this week. 01/11/2024. Radiation oncology consultation (Claire/Becka Chavez). Patient continues to have discomfort in her abdomen. She states that she feels bloated. Previously had more discomfort in the suprapubic region. She has not had a bowel movement since last Thursday. She has been receiving stool softeners. No complaints of nausea or vomiting. She stated the abdominal wall mass has been there for approximately 2 months and more recently is becoming larger. Allergies Allergy/AdvReac Type Severity Reaction Status Date / Time cephalexin Allergy Intermediate HIVES Verified 11/18/22 16:04 Home Medications Medication Instructions Recorded Confirmed Type lisinopril 30 mg tablet 30 mg PO QAM 11/14/22 01/09/24 History mirabegron 50 mg tablet,extended 50 mg PO QAM 11/14/22 01/09/24 History release 24 hr (Myrbetriq) pregabalin 50 mg capsule 50 mg PO BID 11/14/22 01/09/24 History acyclovir 400 mg tablet 400 mg PO BID 01/09/24 01/09/24 History allopurinol 300 mg tablet 300 mg PO QAM 01/09/24 01/09/24 History Patient History Social History Smoking Status: Never smoker Second Hand Exposure: No; Do You Dip or Chew Tobacco: No; Hx Alcohol Use: No Hx Substance Use: No Preferred Language: Fijian Communication Ability: Effective Typing Pool Supervisor Required: No Beliefs That Will Affect Care: None Current Living Situation: Spouse Feels Safe at Home: Yes Assistive Devices: Walker Review of Systems Review of Systems: 13 point review of systems is negative o ther than what is in the history of present illness. Physical Exam Constitutional: WD/WN, vitals as above Eyes: PERRL, conjunctivae normal, anicteric sclerae ENMT: Ears: no hearing impairment Neck: trachea midline, no thyromegaly Well-healed incision of the left neck supraclavicular region. Respiratory: normal respiratory effort, lungs clear to auscultation Cardiovascular: RRR, no murmur, no edema Gastrointestinal (Abdomen): normal bowel sounds, soft, nontender, no hepatosplenomegaly Patient has a large palpable 6 cm mass of the left lower quadrant abdominal wall. There is mild tenderness. Abdomen is mildly distended. Skin: no rashes, warm and dry Psychiatric: A+Ox3, euthymic affect Lymphatic: no cervical or axillary lymphadenopathy Results (Rad Onc) Reviewed in the interim history. Time Spent Midlevel I spent [20] minutes in preparation for this consultation evaluation including reviewing all the clinical records, reviewing laboratory studies, pathology reports and imaging results. I spent [20] minutes with direct face to face interaction with the patient and/or family including performing a physical exam and answering all questions. I spent [15] minutes documenting this patient's visit. Attending I spent 15 minutes in preparation for this consultation including reviewing all the clinical records, reviewing laboratory studies, pathology reports and imaging results. I spent 20 minutes with direct face to face interaction with the patient and/or family including performing a physical exam and answering all questions. I spent 15 minutes documenting this patient's visit. I spent 10 minutes speaking with the following providers regarding this patient's care: Dr. Vega and Dr. Chavez. PG Care Time/CCT Total # of Minutes Spent Total Time Spent with Patient: Total time spent is greater than 50% in coordination of care (as documented) at patient's floor/unit and/or counseling patient: [place] [address] IN/OBS CONSULT LVL 5,80M Patient Type New History Expanded Problem Focused Exam Expanded Problem Focused Medical Decision Making Moderate Complexity Diagnoses Intra-abdominal tumor D49.89
[2024-01-11] MEDS ORDERED: MIDAZOLAM HCL 1 MG/ML 2ML VIAL ONE (12:43)
[2024-01-11] MEDS ORDERED: fentaNYL citrate PF 100 MCG/2 ML VIAL ONE (12:43)
[2024-01-11] MEDS ORDERED: LIDOCAINE 2% 2 ML VIAL/AMP(20MG/ML) INFIL ONE (12:43)
[2024-01-11] MEDS ORDERED: PROPOFOL IV EMULSION 10 MG/ML 20 ML VIAL IV ONE (12:43)
[2024-01-11] MEDS ORDERED: ONDANSETRON INJ 2 MG/ML 2 ML VIAL ONE (12:43)
[2024-01-11] MEDS ORDERED: fentaNYL citrate PF 100 MCG/2 ML VIAL IV PRN (13:05)
[2024-01-11] MEDS ORDERED: ATROPINE SULFATE 0.1 MG/ML 10ML SYR IV PRN (13:05)
[2024-01-11] MEDS ORDERED: ONDANSETRON INJ 2 MG/ML 2 ML VIAL IV PRN (13:05)
[2024-01-11] MEDS ORDERED: ePHEDrine sulfate 50 MG/ML AMP IV PRN (13:05)
--- NOTE | 2024-01-11 13:05 | Anesthesiology Consultation ---
Date of Service January 11, 2024 Assessment & Plan Chart Review Chart Review: Acceptable Risk for Surgery and Patient NOT seen in Pre Admission Testing Consults Requested none ASA ASA3 Proposed Anesthesia Anesthesia Type: MAC Risk / Benefits Reviewed With: PT / POA / Parent / Guardian, Accepts Plan and Informed Consent Obtained History Surgery Operation Date: 01/11/24 07:00 Proposed Procedures p Cystoscopy, Bilateral Retrograde Pyelograms and Stent Placements - Delano Arroyo MD Height/Weight Height: 5 ft 3 in Weight: 92 kg Allergies Allergy/AdvReac Type Severity Reaction Status Date / Time cephalexin Allergy Intermediate HIVES Verified 11/18/22 16:04 Medications Home Medications Medication Instructions Recorded Confirmed Last Taken lisinopril 30 mg tablet 30 mg PO QAM 11/14/22 01/09/24 01/09/24 mirabegron 50 mg tablet,extended 50 mg PO QAM 11/14/22 01/09/24 01/09/24 release 24 hr (Myrbetriq) pregabalin 50 mg capsule 50 mg PO BID 11/14/22 01/09/24 01/09/24 acyclovir 400 mg tablet 400 mg PO BID 01/09/24 01/09/24 01/09/24 allopurinol 300 mg tablet 300 mg PO QAM 01/09/24 01/09/24 01/09/24 Active Medications Generic Name Dose Route Start Last Admin Trade Name Freq PRN Reason Stop Dose Admin Acetaminophen 650 mg 01/09/24 14:45 01/11/24 11:39 Acetaminophen 325 Mg Tab PO 02/08/24 14:44 Not Given Q6H [facility] Allopurinol 300 mg 01/10/24 09:00 01/10/24 09:48 Allopurinol 300 Mg Tab PO 02/09/24 08:59 300 mg QAM SIGRID Administration Docusate Sodium 100 mg 01/09/24 21:00 01/11/24 11:39 Docusate Sodium 100 Mg Cap PO 02/08/24 20:59 Not Given BID [facility] Heparin Sodium (Porcine) 5,000 units 01/09/24 22:00 01/11/24 05:35 Heparin Sod 5,000 Unit/0.5 Ml Vial SQ 02/08/24 21:59 5,000 units Q8 SIGRID Administration Hydromorphone HCl 0.5 mg 01/09/24 14:22 01/11/24 02:17 Hydromorphone Inj 0.5 Mg/0.5 Ml Syr IV 01/23/24 14:21 0.5 mg Q3H PRN Administration Pain Magnesium Oxide 400 mg 01/10/24 11:00 01/10/24 11:17 Magnesium Oxide 400 Mg Tab PO 02/09/24 10:59 400 mg QAM SIGRID Administration Ondansetron HCl 4 mg 01/09/24 14:26 01/11/24 07:11 Ondansetron Inj 2 Mg/Ml 2 Ml Vial IV 02/08/24 14:25 4 mg Q6H PRN Administration Nausea And Vomiting Polyethylene Glycol 17 gm 01/10/24 09:00 01/10/24 10:45 Polyethylene (Miralax) 17 Gm Pack PO 02/09/24 08:59 17 gm DAILY SIGRID Administration NPO Date Last Intake of Fluids: 01/11/24 Last Intake of Fluids Comment: sip with pills Date Last Intake of Solids: 01/10/24 Time Last Intake of Solids: 18:00 Exercise / Class Metabolic Activity II 4-5 Yardwork/Stairs/Walk up hill Past Anesthesia History No Hx of Anesthesia Complications and No Family Hx of Anesthesia Complications History of PONV No Hx of PONV and No Hx of Motion Sickness Social History Smoking Status: Never smoker Do You Dip or Chew Tobacco: No Hx Alcohol Use: No Alcohol type: hard liquor alcohol intake frequency: 0-2 drinks per day Hx Substance Use: No Review of Systems ROS Unobtainable: All systems reviewed & are unremarkable except as noted in HPI & below Physical Exam Vital Signs Last Vital Signs Temp 36.8 C 01/11/24 12:34 Pulse 87 01/11/24 12:34 Resp 20 01/11/24 12:34 BP 132/84 01/11/24 12:34 Pulse Ox 91 01/11/24 12:34 O2 Del Method Room Air 01/11/24 12:34 O2 Flow Rate 2 01/10/24 09:40 ENMT Mouth: no TMJ abnormality Thyromental Distance: > or= 3.5 Finger Breadths Mallampati Class: II Neck normal visual inspection and trachea midline; neck extension not limited Respiratory normal respiratory effort Auscultation: lungs clear to auscultation bilaterally Cardiovascular Rate/Rhythm: regular rate and regular rhythm Heart Sounds: no murmur Musculoskeletal Spine: normal cervical ROM Extremities: full ROM of extremities Neurologic moves all extremities Psychiatric Orientation: alert and oriented x 3 Testing Laboratory Results 01/11/24 07:59 01/11/24 07:59 PT 11.0 Seconds (9.0-12.0) 01/09/24 10:40 INR 1.0 (0.9-1.1) 01/09/24 10:40 Urine Color Yellow 01/09/24 13:55 Urine Appearance Clear (Clear) 01/09/24 13:55 Urine pH 5.5 (4.5-7.5) 01/09/24 13:55 Ur Specific [place] 1.024 (1.000-1.030) 01/09/24 13:55 Urine Protein Negative (Negative) 01/09/24 13:55 Urine Glucose (UA) Negative (Negative) 01/09/24 13:55 Urine Ketones Trace (Negative) H 01/09/24 13:55 Urine Nitrite Negative (Negative) 01/09/24 13:55 Ur Leukocyte Esterase Negative (Negative) 01/09/24 13:55 Urine WBC (Auto) 0-5 /hpf (0-5) 01/09/24 13:55 Urine RBC (Auto) 0-2 /hpf (0-2) 01/09/24 13:55 U Hyaline Cast (Auto) 0-2 /lpf (0-2) 01/09/24 13:55 U Epithel Cells (Auto) 0-2 /hpf (0-2) 01/09/24 13:55 Urine Bacteria (Auto) None Seen (None Seen) 01/09/24 13:55
[2024-01-11] MEDS: SULFA/TRIMETH 400/80MG TAB PO ONE (13:08)
[2024-01-11] MEDS ORDERED: ACETAMINOPHEN 1000 MG/100 ML IV IV ONE (13:11)
[2024-01-11] MEDS ORDERED: DEXAMETHASONE SOD INJ 4 MG/ML VIAL ONE (13:22)
[2024-01-11] MEDS: LACTATED RINGER'S 1,000 ML IV SCH (13:28)
--- NOTE | 2024-01-11 14:04 | Operative Report ---
PG Post Operative Report Pre & Post Diagnosis Operation Date: 01/11/24 07:00 Pre-Op Diagnosis: ABDOMINAL PAIN Post-Op Diagnosis: ABDOMINAL PAIN I identified the patient and participated in the time-out.: Yes Procedure Operation Date: 01/11/24 07:00 Actual Procedures p Cystoscopy, Bilateral Retrograde Pyelograms with radiographic interpretation and Stent Placements(Bilateral) - Delano Arroyo MD Surgeon Delano Arroyo MD Crystalizer None Estimated Blood Loss 0 Findings Consistent with Post-Op Diagnosis Moderate bilateral hydro, stents in appropriate position. Evidence of inflammation on posterior bladder wall and dysplastic tissue which I suspect is from the rectal mass pushing up against this. 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 Creatinine shwetha from 0.8-2.5 discussions were had for stent placement. Description of Procedure After informed consent was obtained, the patient was transported to the operative suite. General anesthesia was induced. They were placed in dorsal lithotomy position and prepped and draped in sterile fashion. They received preoperative single strength p.o. Bactrim. An appropriate surgical timeout was performed. Cystoscope inserted per urethra into the bladder with the above-noted findings. Turned attention the right ureteral orifice and advanced a 5 Brazilian open-ended catheter and shot a right retrograde pyelogram which showed moderate hydronephrosis. Sensor wire was advanced and 5 Brazilian was removed. I deployed a 7 Brazilian by 24 cm right ureteral stent with a good proximal coil in the kidney confirmed fluoroscopically and a good distal coil in the bladder confirmed under direct visualization. Turned attention the left ureteral orifice and advanced a 5 Brazilian open-ended catheter and shot a left retrograde pyelogram which showed moderate hydronephrosis. Sensor wire was advanced and 5 Brazilian was removed. I deployed a 7 Brazilian by 24 cm left ureteral stent with a good proximal coil in the kidney confirmed fluoroscopically and a good distal coil in the bladder confirmed under direct visualization. The bladder was emptied scope was removed. This concluded the end the case. All counts correct at the end the case. I was present scrubbed and actively participated for the entirety of the procedure I attest to the content of the Intraoperative Record and any orders documented therein. Any exceptions are noted below.
--- NOTE | 2024-01-11 14:33 | Anesthesiology Progress Note ---
Date of Service January 11, 2024 Anesthesia Post Procedure Vital Signs Vital Signs: Temp Pulse Pulse Resp BP BP Pulse Ox 01/11/24 14:25 74 22 116/69 94 01/11/24 14:15 87 15 112/63 94 01/11/24 14:09 36.7 C 86 16 132/84 92 01/11/24 12:34 36.8 C 87 20 132/84 91 01/11/24 07:57 36.8 C 81 16 122/81 93 01/10/24 19:57 36.5 C 71 18 124/83 95 01/10/24 15:27 36.3 C L 79 16 109/72 92 01/10/24 15:22 36.5 C 90 16 111/72 95 O2 Del Method O2 Flow Rate 01/11/24 14:25 Oxymask 4 01/11/24 14:15 Oxymask 4 01/11/24 14:09 Oxymask 4 01/11/24 12:34 Room Air 01/11/24 07:57 Room Air 01/10/24 19:57 Room Air 01/10/24 15:27 Room Air 01/10/24 15:22 Room Air Pain Intensity Abdomen: Pain Intensity: 5 Transfer of Care Handoff Completed per policy Notes Mental Status: alert / awake / arousable and participated in evaluation Patient Amnestic to Procedure: Yes Nausea / Vomiting: adequately controlled Pain: adequately controlled Airway Patency, RR, SpO2: stable & adequate BP & HR: stable & adequate Hydration State: stable & adequate Anesthetic Complications: no major complications apparent and Pt Satisfied with anesthetic care
--- NOTE | 2024-01-11 14:50 | Fluoroscopy Report ---
FL retrograde includes kub CLINICAL HISTORY: B/L RETRO,CYSTO,STENT TECHNIQUE: 4 views were obtained with the C-arm in the OR with the above procedure. Total fluoroscopy time was 13.2 seconds. Radiation dose was 3.64 mGy. Comparison: Comparison is made to CT abdomen pelvis 01/09/2024 FINDINGS/IMPRESSION: Intraoperative images were obtained of bilateral retrograde pyelogram and stent exchange. In the final images, the stent is in satisfactory position. Please correlate with intraoperative fluoroscopy and operative report. ACT 112: Negative or not required by law. Electronically signed by: Arnoldo John M.D. 01/11/2024 2:49 PM
--- NOTE | 2024-01-11 18:23 | Hospitalist Progress Note ---
Date of Service January 11, 2024 Assessment & Plan (1) Bilateral hydronephrosis: (2) Abdominal pain: (3) Leukopenia: (4) Splenomegaly: (5) Intractable abdominal pain: (6) Lymphoma: Plan Assessment and plan: Intractable abdominal pain Bilateral hydroureteronephrosis Rectal mass Hx B-cell [id number] CT A/P of the abdomen showed: 1. There is extensive peritoneal tumor/lymphadenopathy throughout the abdomen and pelvis, as well as retroperitoneal and iliac chain lymphadenopathy. This likely represents lymphoma given the patient's history. Carcinomatosis of a different source is not excluded. 2. A large mass encases the rectum, with no evidence of rectal obstruction. 3. There is mild to moderate bilateral hydroureteronephrosis secondary to large mass lesions in the pelvis. 4. A ventral hernia in the left lower quadrant abdominal wall likely contains a tiny segment of small bowel. This also contains tumor and fluid. 5. Trace perihepatic ascites. IV Dilaudid 0.5 every 3 hours for severe pain, 5 mg Oxy IR for breakthrough pain Patient will likely need to be discharged on oral pain medications CT A/P shows moderate bilateral hydroureteronephrosis secondary to large mass lesions in the pelvis Kidney function is within normal limits, Urology consulted - initially no plan for stent placement but now her Cr increased and she still having pain - plan for ureteral stents today (02/10) Large mass encasing the rectum noted, no evidence of bowel obstruction rectal mass new since last CT A/P in 11/2022, General surgery consulted Lymphoma Patient follows with Dr. Chavez. Per his note: Previous treatment includes s/p lumpectomy/MammoSite radiation to the left [id number], tamoxifen therapy in completing a 10-year dosing. She received 6 cycles of R-CHOP chemo. 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 recently finished 6 cycles of R-CHOP chemo, last dose 03/[address] Chavez's last note, patient was just being observed, pain was controlled Consulted heme-onc to follow throughout patient's hospitalization - discussed with Dr. Vega and will further discuss w/ Dr. Chavez ([facility]) when available. Will also consult radiation onc. - Discussed w/ Dr. Chavez today (01/10) - pt may need transfer to [facility] for biopsy and treatment. Pt would however prefer treatment locally. Will discuss again after her urologic procedure. Hx of breast CA s/p lumpectomy Hx follicular lymphoma Has a history of lymphoma involving the left side of the neck 1993 s/p radiation S/p radiation to the left breast and completion of tamoxifen therapy in 2020 History of follicular lymphoma involving the bone marrow/spleen/lymph nodes in the chest/abdomen also noted Hx HTN: SBP on lower side, hold lisinopril Patient is a DNR/DNI DVT prophylaxis: Heparin subcu Admission and Anticipated Discharge Date Admission Date: January 09, 2024 Subjective Pt seen in follow up of abd. pain, LLQ mass, hx of lymphoma Surgery, urology, heme/onc consulted- and discussed with - plan for ureteral stents today. Also discussed w/ Dr. Chavez - pt may need transfer to [facility] for biopsy and treatment. Pt would however prefer treatment locally. Will discuss again after her urologic procedure. Currently pt is laying in bed in NAD Continues to have abd. pain, but controlled No fever, chills, chest pain, shortness of breath, nausea Review of Systems Review of Systems: All systems reviewed & are unremarkable except as noted in Subjective Physical Exam Physical Exam: Constitutional: WD/WN, well develo ped and well [place] shed, in NAD Eyes: PERRL, conjunctiva e normal, anicteri c sclerae ENMT: external ear and n ose normal, oropha rynx normal Neck: supple Respiratory: normal respiratory effort, lungs orin ar to auscultation Cardiovascular: RRR, no murmur, no edema Gastrointestinal ( Abdomen): normal bowel sound s, soft, + abdomen distended, Percu ssion/Palpation: + tender (Left lower quadrant, hard ma ss is able to be p alpated); no guard ing Musculoskeletal: extremities motor strength 5/5 Skin: no rashes, warm an d dry Neurologic: PERRL, EOMI, no fa ce palsy, no dysar thria, moves extre mities Psychiatric: A+Ox3, euthymic af fect Results & Data Results & Data Vital Signs (Past 12 Hours) Vital Signs Temp Pulse Pulse Pulse Resp BP BP 01/11/24 16:00 01/11/24 16:00 36.6 C 84 18 149/85 H 01/11/24 15:30 36.5 C 78 18 146/76 H 01/11/24 15:00 36.7 C 73 16 109/57 L 01/11/24 14:45 36.4 C L 72 20 110/74 01/11/24 14:35 77 19 119/76 01/11/24 14:25 74 22 116/69 01/11/24 14:15 87 15 112/63 01/11/24 14:09 36.7 C 86 16 132/84 01/11/24 12:34 36.8 C 87 20 132/84 01/11/24 07:57 36.8 C 81 16 122/81 Pulse Ox O2 Del Method O2 Flow Rate 01/11/24 16:00 Nasal Cannula 2 01/11/24 16:00 93 Nasal Cannula 2 01/11/24 15:30 94 Nasal Cannula 2 01/11/24 15:00 94 Nasal Cannula 2 01/11/24 14:45 95 Oxymask 2 01/11/24 14:35 95 Oxymask 2 01/11/24 14:25 94 Oxymask 4 01/11/24 14:15 94 Oxymask 4 01/11/24 14:09 92 Oxymask 4 01/11/24 12:34 91 Room Air 01/11/24 07:57 93 Room Air Laboratory Results 01/11/24 Range/Units 07:59 WBC 5.85 (4.8-10.8) K/ul RBC 3.82 L (4.20-5.40) M/uL Hgb 11.3 L (12.0-16.0) g/dl Hct 34.2 L (37.0-47.0) % MCV 89.5 (80.0-100.0) fL MCH 29.6 (25.0-34.0) pg MCHC 33.0 (32.0-36.0) g/dL RDW Std Deviation 45.0 (36.4-46.3) fL RDW Coeff of Sudhakar 13.7 (11.5-14.5) % Plt Count 85 L (130-400) K/uL MPV 8.9 L (9.4-12.4) fL Sodium 142 (136-145) mmol/L Potassium 4.9 (3.5-5.1) mmol/L Chloride 105 (98-107) mmol/L Carbon Dioxide 29 (21-32) mmol/L Anion Gap 8 (3-11) BUN 29 H (6-23) mg/dl Creatinine 2.65 H (0.6-1.2) mg/dl Est Cr Clr Drug Dosing 22.8 ml/min eGFR 19.41 BUN/Creatinine Ratio 10.9 (10-20) Glucose 92 (70-99(Fasting)) mg/dl Calcium 8.4 L (8.6-10.3) mg/dl Phosphorus 4.6 (2.5-4.9) mg/dl Magnesium 2.1 (1.7-2.4) mg/dl Medications Administered Current Inpatient Medications Acetaminophen (Acetaminophen 325 Mg Tab) 650 mg PO Q6H [facility] Stop: 02/08/24 14:44 Last Admin: 01/11/24 16:00 Dose: 650 mg Allopurinol (Allopurinol 300 Mg Tab) 300 mg PO QAM [facility] Stop: 02/09/24 08:59 Last Admin: 01/11/24 16:00 Dose: 300 mg Atropine Sulfate (Atropine Sulfate 0.1 Mg/Ml 10ml Syr) 0.5 mg IV Q1M PRN PRN Reason: PACU Use-HR<40 &/or Bradycardi Stop: 01/11/24 21:05 Docusate Sodium (Docusate Sodium 100 Mg Cap) 100 mg PO BID [facility] Stop: 02/08/24 20:59 Last Admin: 01/11/24 11:39 Dose: Not Given Ephedrine Sulfate (Ephedrine Sulfate 50 Mg/Ml Amp) 5 mg IV Q5M PRN PRN Reason: PACU Use Only-SBP<90 mmHg Stop: 01/11/24 21:05 Fentanyl Citrate (Fentanyl Citrate Pf 100 Mcg/2 Ml Vial) 25 mcg IV Q5M PRN PRN Reason: PACU Use Only-Pain Stop: 01/11/24 21:05 Heparin Sodium (Porcine) (Heparin Sod 5,000 Unit/0.5 Ml Vial) 5,000 units SQ Q8 [facility] Stop: 02/08/24 21:59 Last Admin: 01/11/24 16:01 Dose: 5,000 units Hydromorphone HCl (Hydromorphone Inj 0.5 Mg/0.5 Ml Syr) 0.5 mg IV Q3H PRN PRN Reason: Pain Stop: 01/23/24 14:21 Last Admin: 01/11/24 02:17 Dose: 0.5 mg Lactated Ringer's (Lr) 1,000 mls @ 15 mls/hr IV .Q24H [facility] Stop: 01/12/24 13:14 Last Infusion: 01/11/24 16:47 Dose: 15 mls/hr Magnesium Oxide (Magnesium Oxide 400 Mg Tab) 400 mg PO QAM [facility] Stop: 02/09/24 10:59 Last Admin: 01/11/24 16:00 Dose: 400 mg Ondansetron HCl (Ondansetron Inj 2 Mg/Ml 2 Ml Vial) 4 mg IV Q6H PRN PRN Reason: Nausea And Vomiting Stop: 02/08/24 14:25 Last Admin: 01/11/24 07:11 Dose: 4 mg Ondansetron HCl (Ondansetron Inj 2 Mg/Ml 2 Ml Vial) 4 mg IV ONCE PRN PRN Reason: PACU Use Only-Nausea/Vomiting Stop: 01/11/24 21:05 Oxycodone HCl (Oxycodone Hcl Ir 5 Mg Tab (Immediate Release)) 5 mg PO Q6H PRN PRN Reason: moderate pain Stop: 01/23/24 14:44 Polyethylene Glycol (Polyethylene (Miralax) 17 Gm Pack) 17 gm PO DAILY [facility] Stop: 02/09/24 08:59 Last Admin: 01/11/24 16:00 Dose: 17 gm
[2024-01-12 07:59] VITALS: RESP 16; O2SAT 91
--- NOTE | 2024-01-12 08:16 | Urology Progress Note ---
Date of Service January 12, 2024 Assessment & Plan (1) Bilateral hydronephrosis: (2) Lymphoma: Plan 63-year-old female with a history of lymphoma, breast cancer and recently found rectal mass who is admitted due to abdominal pain. CT scan showed bilateral hydronephrosis. Initially creatinine was stable however creatinine worsened yesterday. - Pt is now POD #1 s/p cystoscopy and bilateral ureteral stent placement - Tolerating the ureteral stents with minimal bother/discomfort. She does report urinary urge/freq. - Afebrile and hemodynamically stable - Labs today show REGINALD resolved, creatinine 0.99 today (2.65 yesterday); No leukocytosis - Voiding spontaneously, continue to monitor. - No further intervention warranted. - Will maintain bilateral ureteral stents and plan for outpatient follow-up with our service to discuss stent management. - Urinary urge/freq likely due to the stents and underlying OAB. She does take Myrbetriq at home but that is not on formulary so could consider addition of oxybutynin PRN while here. Can also use Pyridium PRN. - Urology will sign-off. Please call with any further questions or concerns. Admission and Anticipated Discharge Date Admission Date: January 09, 2024 Subjective Pt seen at bedside this AM Awake and resting in bed on arrival No acute distress Tolerating the stents with minimal bother She does endorse urinary urge/freq No hematuria or dysuria No fevers Review of Systems Constitutional: as per Subjective / HPI Genitourinary: as per Subjective / HPI Physical Exam Constitutional: no acute distress Respiratory: no respiratory distress and no labored breathing Neurologic: moves all extremities and awake Psychiatric: A+Ox3, euthymic affect Results & Data Vital Signs (Past 12 Hours) Vital Signs Temp Pulse Resp BP Pulse Ox O2 Del Method 01/12/24 07:59 36.7 C 87 16 113/73 91 Room Air 01/11/24 20:28 36.6 C 72 18 128/82 94 Room Air PG Care Time/CCT Total # of Minutes Spent Total Time Spent with Patient: Total time spent is greater than 50% in coordination of care (as documented) at patient's floor/unit and/or counseling patient: Coding Level of Care Code 61720 SUB INP/OBS CARE 2/35MIN Diagnoses Bilateral hydronephrosis N13.30 Lymphoma C85.90
[2024-01-12 10:17] LABS: Hematocrit (blood only) 32.5 % (37.0-47.0); Hemoglobin 11.1 g/dl (12.0-16.0); Immature Granulocytes # (auto) 0.02 K/uL (0.01-0.20); Immature Granulocytes % (auto) 0.4 %; Lymphocytes # (auto) 0.33 K/uL (1.20-3.40); Lymphocytes % (auto) 6.1 %; Mean Corpuscular Hemoglobin 29.8 pg (25.0-34.0); Mean Corpuscular Hgb Conc 34.2 g/dL (32.0-36.0); Mean Corpuscular Volume 87.4 fL (80.0-100.0); Mean Platelet Volume 8.8 fL (9.4-12.4); Monocytes # (auto) 0.34 K/uL (0.11-0.59); Monocytes % (auto) 6.3 %; Neutrophils # (auto) 4.71 K/uL (1.40-6.50); Neutrophils % (auto) 87.2 %; Platelet Count 109 K/uL (130-400); RDW Coefficient of Variation 13.4 % (11.5-14.5); RDW Standard Deviation 42.7 fL (36.4-46.3); Red Blood Count 3.72 M/uL (4.20-5.40)
[2024-01-12 10:25] LABS: BUN Creatinine Ratio 20.2 (10-20); Calcium 8.6 mg/dl (8.6-10.3)
--- NOTE | 2024-01-12 12:11 | Discharge Summary ---
Date of Service January 12, 2024 Admission HPI Per Admitting Provider History of Present Illness Chief Complaint: The patient is a 63-year-old female with a past medical history of stage B cell lymphoma, grade 1 follicular lymphoma, breast cancer, urge incontinence of uri ne, HTN, gout, who presents to the ED on 01/09/2024 with complaints of worsening abdominal pain. Patient most recently saw her oncologist 08/2023. She had a recent CAT scan of her abdomen/pelvis on 11/18/2022. Patient reported that over the past week she has just generally not been feeling well with a decreased appetite. Patient reports cramping and abdominal pain throughout the week. She saw her primary care doctor yesterday and had a laboratory workup and CT imaging ordered. Her pain began to worsen and she presented to the ER today. On exam, patient is visibly in pain. Reports her abdominal pain is a 10 out of 10. She is on 3 L of oxygen, does not wear any oxygen at home. Became hypoxic after receiving pain medications. She denies any blood in her stool or nausea/vomiting. She reports that she had a bowel movement earlier this morning, normal, formed, brown. Denies any fever/chills/chest pain or shortness of breath. On arrival to the ER, labs are remarkable for WBC 4.6, platelets 100, hemoglobin 11.[address] A/P of the abdomen showed: 1. There is extensive peritoneal tumor/lymphadenopathy throughout the abdomen and pelvis, as well as retroperitoneal and iliac chain lymphadenopathy. This likely represents lymphoma given the patient's history. Carcinomatosis of a different source is not excluded. 2. A large mass encases the rectum, with no evidence of rectal obstruction. 3. There is mild to moderate bilateral hydroureteronephrosis secondary to large mass lesions in the pelvis. 4. A ventral hernia in the left lower quadrant abdominal wall likely contains a tiny segment of small bowel. This also contains tumor and fluid. 5. Trace perihepatic ascites. 6. Additional findings as above. Patient follows with Dr. Chavez. Per his note: Previous treatment includes s/p lumpectomy/MammoSite radiation to the left [id number], tamoxifen therapy in completing a 10-year dosing. She received 6 cycles of R-CHOP chemo. She has a history of lymphoma involving the left side of the [id number] s/p radiation Follicular lymphoma involving the bone marrow, splenomegaly, lymph nodes in the chest and abdomen FNA from the abdominal wall soft tissue mass 2022, atypicalunderlying B-cell lymphoma She is currently being observed outpatient, her last dose of chemo was February 2023 She received 6 cycles of R-CHOP chemo. She had a recent CAT scan of the abdomen/pelvis on 11/18/2022 that showed: -splenomegaly measuring 17 cm ( It was 8 cm in 2017 -mildly enlarged the cardiophrenic lymph nodes noted - Innumerable pathologic lymph nodes of the abdomen and pelvis are noted, probably within the mesentery, periaortic, pericaval, iliac chain and pelvic sidewall distributions. Index conglomerate mesenteric adenopathy measures up to 15.7 cm -left iliac lymph node measuring 4.1 x 2.9 cm. -no bowel obstruction. Stable L3 and L4 compression deformity. -multiple liver cyst measuring up to 8 cm. The patient was given IV morphine in the ED and Zofran and will be admitted for pain management. Primary Care Provider: Anju Oneill MD Admission Exam Per Admitting Provider Constitutional: WD/WN, vitals as above well developed and well nourished; not ill appearing Eyes: PERRL, conjunctivae normal, anicteric sclerae ENMT: external ear and nose normal, oropharynx normal Neck: trachea midline, no thyromegaly Respiratory: normal respiratory effort, lungs clear to auscultation (On 3 L oxygen) Cardiovascular: RRR, no murmur, no edema Gastrointestinal (Abdomen): normal bowel sounds, soft, nontender, no hepatosplenomegaly Inspection/Auscultation: + abdomen distended and normal bowel sounds Percussion/Palpation: + abdomen tender (Left lower quadrant, hard mass is able to be palpated); no guarding Musculoskeletal: no cyanosis or clubbing, extremities motor strength 5/5 Skin: no rashes, warm and dry Neurologic: PERRL, EOMI, accommodation nl, no face palsy, no dysarthria Psychiatric: A+Ox3, euthymic affect Principal Diagnosis Rectal mass, Lymphoma, Hydronephrosis, REGINALD, abdominal pain Discharge Exam Constitutional: WD/WN, well developed and well nourished, in NAD Eyes: PERRL, conjunctivae normal, anicteric sclerae ENMT: external ear and nose normal, oropharynx normal Neck: supple Respiratory: normal respiratory effort, lungs clear to auscultation Cardiovascular: RRR, no murmur, no edema Gastrointestinal (Abdomen): normal bowel sounds, soft, + abdomen distended, Percussion/Palpation: +tender (Left lower quadrant, hard mass is able to be palpated); no guarding Musculoskeletal: extremities motor strength 5/5 Skin: no rashes, warm and dry Neurologic: PERRL, EOMI, no face palsy, no dysarthria, moves extremities Psychiatric: A+Ox3, euthymic affect Discharge Data Allergies Allergy/AdvReac Type Severity Reaction Status Date / Time cephalexin Allergy Intermediate HIVES Verified 11/18/22 16:04 Consultations 01/09/24 14:08 ED Decision to Admit Stat 01/09/24 14:24 Consult General Surgery Routine 01/09/24 14:26 Consult Urology Routine 01/09/24 14:33 Consult Hematology Routine 01/10/24 14:39 Consult Radiation Oncology Routine Procedures Performed Operation Date: 01/11/24 07:00 Actual Procedures p Cystoscopy, Bilateral Retrograde Pyelograms and Stent Placements(Bilateral) - Delano Arroyo MD Ordered Studies 01/09/24 10:15 CT abd pelvis IV con only Stat FINDINGS: Lung bases: The heart is normal in size and without pericardial effusion. The lung bases are clear noting bibasilar atelectasis. There is a small hiatal hernia. Liver: The contrast-enhanced liver is normal in size, contour, and attenuation. There is no intrahepatic biliary ductal dilatation. The hepatic veins and portal veins are patent. There are numerous large hepatic cysts which measure up to 9 cm. Gallbladder: Unremarkable. Spleen: Normal in size and attenuation, measuring 11.1 cm in length. Pancreas: Unremarkable. Adrenal glands: Unremarkable. Kidneys: The contrast enhanced kidneys are normal in size. There is mild to moderate bilateral hydroureteronephrosis. Ureters are dilated into the pelvis where there is bulky mass/lymphadenopathy. The kidneys enhance symmetrically. Abdominal vasculature: The abdominal aorta is normal in course and caliber. Bowel: There is no bowel obstruction. The appendix is normal as imaged. Peritoneum: There is trace perihepatic ascites. No peritoneal free air is identified. There is a ventral hernia in the left lower quadrant on image #225 which may contain a tiny segment of bowel. This also contains fluid and tumor. See below under lymphadenopathy for discussion of mesenteric tumor/lymphadenopathy. Lymphadenopathy: There is extensive tumor/lymphadenopathy seen throughout the mesentery. A large conglomerate mass in the central lower pelvis encases the rectum and measures approximately 9 x 7.5 x 10 cm in aggregate dimension as seen on image #297. There is bulky lymphadenopathy/mesenteric tumor throughout the omentum which closely approximates several bowel loops. There is also tumor/nodularity along the dome of the bladder. There are bulky bilateral iliac chain lymph nodes. A right external iliac carlie chain on image #277 measures 3.8 x 2.5 cm, and a right internal iliac node on image #236 measures 2.9 x 2.5 cm. There are numerous mildly enlarged retroperitoneal lymph nodes. A left periaortic node on image #163 measures 1.3 x 1.3 cm. A right cardiophrenic node on image #31 measures 1.9 x 1.6 cm. Pelvic viscera: There is asymmetric wall thickening along the bladder dome, likely related to implanted tumor. Uterus is surgically absent. The adnexa are filled with metastatic nodules/lymph nodes. Skeletal structures: The skeletal structures are osteopenic. There are mild chronic compression deformities of L3 and L4. Mild lumbosacral spondylosis is observed. Sclerotic change is noted in the pubic symphysis. No lytic or blastic lesions are seen. There are chronic/healed bilateral rib fractures. IMPRESSION: 1. There is extensive peritoneal tumor/lymphadenopathy throughout the abdomen and pelvis, as well as retroperitoneal and iliac chain lymphadenopathy. This likely represents lymphoma given the patient's history. Carcinomatosis of a different source is not excluded. 2. A large mass encases the rectum, with no evidence of rectal obstruction. 3. There is mild to moderate bilateral hydroureteronephrosis secondary to large mass lesions in the pelvis. 4. A ventral hernia in the left lower quadrant abdominal wall likely contains a tiny segment of small bowel. This also contains tumor and fluid. 5. Trace perihepatic ascites. 6. Additional findings as above. 01/11/24 13:45 FL retrograde includes kub Routine Hospital Course (1) Bilateral hydronephrosis: (2) Abdominal pain: (3) Leukopenia: (4) Splenomegaly: (5) Intractable abdominal pain: (6) Lymphoma: Plan Assessment and plan: Intractable abdominal pain Bilateral hydroureteronephrosis Rectal mass Hx B-cell [id number] CT A/P of the abdomen showed: 1. There is extensive peritoneal tumor/lymphadenopathy throughout the abdomen and pelvis, as well as retroperitoneal and iliac chain lymphadenopathy. This likely represents lymphoma given the patient's history. Carcinomatosis of a different source is not excluded. 2. A large mass encases the rectum, with no evidence of rectal obstruction. 3. There is mild to moderate bilateral hydroureteronephrosis secondary to large mass lesions in the pelvis. 4. A ventral hernia in the left lower quadrant abdominal wall likely contains a tiny segment of small bowel. This also contains tumor and fluid. 5. Trace perihepatic ascites. IV Dilaudid 0.5 every 3 hours for severe pain, 5 mg Oxy IR for breakthrough pain Patient will likely need to be discharged on oral pain medications CT A/P shows moderate bilateral hydroureteronephrosis secondary to large mass lesions in the pelvis Urology consulted - initially no plan for stent placement but then her Cr increased and she was still having pain -> pt is s/p ureteral stents placement (02/10) Large mass encasing the rectum noted, no evidence of bowel obstruction rectal mass new since last CT A/P in 11/2022, General surgery consulted - recommend IR for biopsy or GI - discussed in detail w/ oncology Lymphoma Patient follows with Dr. Chavez. Per his note: Previous treatment includes s/p lumpectomy/MammoSite radiation to the left b [id number], tamoxifen therapy in 02 02-2020 completing a 10-year dosing. She received 6 cycles of R-CHOP chemo. She has a history of lymphoma involving the left side of the [id number] s/p radiation Follicular lymphoma involving the bone marrow, splenomegaly, lymph nodes in the chest and abdomen FNA from the abdominal wall soft tissue mass 2022, atypicalunderlying B-cell lymphoma She is currently being observed outpatient, her last dose of chemo was February 2023 She received 6 cycles of R-CHOP chemo. recently finished 6 cycles of R-CHOP chemo, last dose 03/[address] Chavez's last note, patient was just being observed, pain was controlled Consulted heme-onc to follow throughout patient's hospitalization - discussed with Dr. Vega and will further discuss w/ Dr. Chavez ([facility]) when available. Will also consult radiation onc. - Discussed w/ Dr. Chavez today (01/10) - pt may need transfer to [facility] for biopsy and treatment. Pt would however prefer treatment locally. Will discuss again after her urologic procedure. 01/11 - Discussed again w/ Dr. Chavez and pt - plan for PET scan as outpt , biopsy and radiation treatment as outpt. She will have scan done today w/ radiation oncology and will be discharged home afterwards, and will follow up with the rest of her care as outpt. Hx of breast CA s/p lumpectomy Hx follicular lymphoma Has a history of lymphoma involving the left side of the neck 1993 s/p radiation S/p radiation to the left breast and completion of tamoxifen therapy in 2020 History of follicular lymphoma involving the bone marrow/spleen/lymph nodes in the chest/abdomen also noted Hx HTN: SBP on lower side, hold lisinopril Total Time Total Time Spent Total Time Spent (In Minutes): 40 Discharge Plan Discharge Items Patient Disposition: Home - Self-Care Reason For Visit: ABDOMINAL PAIN Discharge Diagnosis: Rectal mass, Lymphoma, Hydronephrosis, REGINALD, abdominal pain Activity: Per Instructions section Non-emergency contact: Primary Care Provider, Specialist and Oncologist Call non-emergency contact if: you have any medication questions and your symptoms worsen Follow-up/Referrals: Delano Arroyo MD [Physician] - 03/15/24 9:15 am Anju Oneill MD [Primary Care Provider] - Diet: Low Fiber Addtl Attending Provider Instructions: Follow up with primary care physician and oncologist. You will need a PET scan, biopsy, and there is also a plan for radiation treatment. You will be contacted about your appointments. Drink plenty of fluids and take stool softeners to facilitate bowel movements. Addtl [employer] Provider Instructions: Per urology Please call the [facility] Urology office at [phone] with any questions, concerns or need to reschedule appointments for any reason. We are happy to assist you. While you have a ureteral stent in place: Some discomfort is normal. Certain movements may trigger pain or a feeling that you need to urinate. You may also feel mild soreness or pressure before or during urination. Your urine may be slightly pink or red. This is due to bleeding caused by minor irritation from the stent. This may happen on and off while you have the stent, it is not harmful and is to be expected. Medication to help minimize discomfort or bladder spasms, or to prevent infection may be prescribed. Take this as directed. Drink plenty of fluids to help flush out your urinary tract. When to call [facility] Urology at [phone]: Your urine contains heavy blood clots You are constantly leaking urine Fever of 101F or higher, chills, nausea, or vomiting Your pain is not relieved with medication The end of the stent comes out of your urethra Pending Studies at Discharge: No Stand-Alone Forms: My [facility] [employer], Smoking Cessation Medications and DC Order Prescriptions: New docusate sodium 100 mg Capsule 100 mg PO BID Qty: 14 0RF polyethylene glycol 3350 [Miralax] 17 gram Powder In Packet 17 g PO DAILY Qty: 14 0RF oxycodone 5 mg Tablet 5 mg PO Q6H PRN (Reason: pain) Qty: 10 0RF Continued lisinopril 30 mg tablet 30 mg PO QAM pregabalin 50 mg capsule 50 mg PO BID mirabegron [Myrbetriq] 50 mg tablet extended release 24 hr 50 mg PO QAM acyclovir 400 mg tablet 400 mg PO BID allopurinol 300 mg Tablet 300 mg PO QAM Discharge Orders: Discharge Order (Routine); Ordered 01/12/24 Ordered By: Albin Joseph Admission Data Admit Date/Time: 01/09/24 14:17 Attending Provider: Albin Joseph Admit Provider: Brendan Bauer Primary Care Provider: Anju Oneill Other Providers: Brendan Bauer; Miah Grigsby; Delano Arroyo; David Duong; Samy Chavez
[2024-01-12 14:30] VITALS: TEMP 97.5
[2024-01-12 15:14] VITALS: BP 109/57; PULSE 73
== END 2024-01-12 16:32 | disposition home or self-care (01) | DRG 824 ==
LOC: ED 10:04 → 3W 14:17 → SUATTDRO 14:17 → 3W 16:15

== ENCOUNTER 2024-01-18 15:10 | Inpatient (IN) ==
--- NOTE | 2024-01-18 16:08 | Emergency Department Note ---
Impression & Plan Weakness, Lymphoma, Abdominal pain, Tachycardia ED Provider Note NAME: BUZZ BO AGE: 63 SEX: F : 1960 ARRIVES VIA: Walk-In INFORMANT: Patient ED PROVIDER(S): Robbi Salmeron DO CHIEF COMPLAINT: abdominal pain HPI: Patient is a 63-year-old female who presents to the ER for abdominal pain with a past medical history of breast cancer, lymphoma for abdominal pain. She notes that she feels like she has to urinate but cannot. This all started on the when she had stents placed. She was seen back or had a Hawkins placed. She notes she had three quarters of a full leg bag last night pulled. She has not had much output today. Denies any real outputs of stool but notes that she is not eating much. No fevers. No cough congestion. No chest pain or shortness of breath. She also admits to bilateral swelling in the lower extremities. ADDITIONAL HISTORY OBTAINED: Per HPI Chronic Medical/Social Conditions Affecting Care: Per HPI PAST MEDICAL HISTORY:See Below PAST SURGICAL HISTORY:See Below FAMILY HISTORY:See Below SOCIAL HISTORY:See Below HOME MEDICATIONS:See Below ALLERGIES:See Below VITALS:See Below PHYSICAL EXAMINATION: GENERAL: Sitting up in bed, alert, chronically ill-appearing, disheveled EYE EXAM: normal conjunctiva. PERRL and EOM's grossly intact. OROPHARYNX:mucous membranes are moist NECK: supple, no nuchal rigidity, no adenopathy, non-tender LUNGS: Clear to auscultation. Normal chest wall mechanics HEART: no murmurs, S1 normal and S2 normal ABDOMEN: abdomen soft, non-tender, normo-active bowel sounds, no masses, no rebound or guarding. UPPER EXTREMITIES: upper extremities are grossly normal. LOWER EXTREMITIES: Pitting edema bilaterally. Calves are equal bilateral. NEURO EXAM: Normal sensorium, cranial nerves II-XII grossly intact, normal speech, no gross weakness of arms, no gross weakness of legs. MEDICAL DECISION MAKING: Patient is a 63-year-old female who presents ER for the above-stated complaint. IV was established and blood work was obtained. Discussed with Dr. Chavez who saw the patient earlier today and noted that patient was coming over due to weakness and worsening pain. Labs show no significant leukocytosis or anemia. BMP with LFTs bilirubin is unremarkable. Troponin was negative. Pro-Waqar normal. UA does show leuks whites and +2 bacteria. Currently on antibiotics. Chest x-ray was clean. Patient was given IV Rocephin. Updated bedside. Discussed case with the hospitalist for further evaluation management and treatment. Consults/Care Managements Discussions: Per [facility] Triage Nursing notes reviewed. Limited review of prior medical records performed Vital Signs: reviewed and remarkable for tachy Differential diagnosis: Differential diagnoses includes but is not limited to gastritis, peptic ulcer disease, GERD, gallbladder disease, pancreatitis, small bowel obstruction, appendicitis, diverticulitis, hernia, urinary tract infection, torsion, perforation, trauma, infectious. ER treatment provided: See below Diagnostics interpreted by me include EKG and cardiac monitoring as listed below: -Cardiac Monitoring: An order was placed for continuous cardiac monitoring. The monitor shows a rate of 140 with sinus rhythm. -ECG: Sinus rhythm rate of 100 Normal axis No PVCs QTc 441 -Laboratory studies:Interpreted by me as stated above in MDM and shown below. Imaging studies: Xrays: As interpreted by me: Portable AP upright 1 view of the chest shows no focal infiltrate CTs show: CT abdomen pelvis as described above Procedures:none Critical Care: None Past Med/Surg History Problem List (Updated 01/18/24 @ 21:42 by Robbi Salmeron DO) Tachycardia (Acute) Abdominal pain (Acute) Lymphoma (Acute) Weakness (Acute) Catheter-associated urinary tract infection Generalized weakness S/P ureteral stent placement (Acute) Lymphoma (Acute) Bilateral hydronephrosis (Acute) Intra-abdominal tumor (Acute) Hypoxia (Acute) Intractable abdominal pain (Acute) Abdominal pain (Acute) Leukopenia (Acute) Splenomegaly (Acute) History of breast cancer Thickened endometrium Social History Smoking Status: Never smoker Second Hand Exposure: No; Do You Dip or Chew Tobacco: No; Hx Alcohol Use: No Hx Substance Use: No Preferred Language: Sinhala Communication Ability: Effective Mail 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 Beliefs That Will Affect Care: None Current Living Situation: Spouse Feels Safe at Home: Yes Assistive Devices: Walker Allergies Allergies Allergy/AdvReac Type Severity Reaction Status Date / Time cephalexin Allergy Intermediate HIVES Verified 11/18/22 16:04 Home Meds Home Medications Medication Instructions Recorded Confirmed lisinopril 30 mg tablet 30 mg PO QAM 11/14/22 01/18/24 mirabegron 50 mg tablet,extended 50 mg PO QAM 11/14/22 01/18/24 release 24 hr (Myrbetriq) pregabalin 50 mg capsule 50 mg PO BID 11/14/22 01/18/24 acyclovir 400 mg tablet 400 mg PO BID 01/09/24 01/18/24 allopurinol 300 mg tablet 300 mg PO QAM 01/09/24 01/18/24 acetaminophen 500 mg tablet 500 mg PO Q6H PRN Pain 01/16/24 01/18/24 Previous Rx's Medication Instructions Recorded docusate sodium 100 mg capsule 100 mg PO BID #14 caps 01/12/24 oxycodone 5 mg tablet 5 mg PO Q6H PRN pain #10 tabs 01/12/24 polyethylene glycol 3350 17 gram 17 g PO DAILY #14 ea 01/12/24 oral powder packet (Miralax) cefdinir 300 mg capsule 300 mg PO BID 10 days #20 caps 01/16/24 fluconazole 150 mg tablet 150 mg PO Q3D 2 doses #2 tabs 01/16/24 Results & Data (ED) Vital Signs Vital Signs - 24 hr 01/18/24 15:39 01/18/24 16:41 Temperature 36.3 C L Temperature Source Temporal Artery Scan Pulse Rate 123 H 96 H Pulse Rhythm Regular Pulse Strength Normal Respiratory Rate 20 Respiratory Effort / Characteristics Non-Labored Spontaneous Respiratory Depth Normal Respiratory Pattern Regular Blood Pressure 104/75 Blood Pressure Mean 84 Blood Pressure Position Sitting Pulse Oximetry 95 Oxygen Delivery Method Room Air Sepsis Recent Fever Within 48 Hours No Sepsis New/Unexplained Change in Mental Status No Sepsis Action Taken by Nursing No Action Required Laboratory Data 01/18/24 16:05 01/18/24 16:05 Lab Results 01/18/24 01/18/24 Range/Units 16:05 16:18 WBC 6.77 (4.8-10.8) K/ul RBC 4.03 L (4.20-5.40) M/uL Hgb 12.1 (12.0-16.0) g/dl Hct 35.2 L (37.0-47.0) % MCV 87.3 (80.0-100.0) fL MCH 30.0 (25.0-34.0) pg MCHC 34.4 (32.0-36.0) g/dL RDW Std Deviation 43.8 (36.4-46.3) fL RDW Coeff of Sudhakar 13.9 (11.5-14.5) % Plt Count 224 (130-400) K/uL MPV 9.2 L (9.4-12.4) fL Immature Gran % (Auto) 1.0 % Neut % (Auto) 84.1 % Lymph % (Auto) 5.3 % [place] % (Auto) 8.4 % Eos % (Auto) 0.9 % Baso % (Auto) 0.3 % Neut # (Auto) 5.69 (1.40-6.50) K/uL Lymph # (Auto) 0.36 L (1.20-3.40) K/uL [place] # (Auto) 0.57 (0.11-0.59) K/uL Eos # (Auto) 0.06 (0.00-0.50) K/uL Baso # (Auto) 0.02 (0.00-0.20) K/uL Immature Gran # (Auto) 0.07 (0.01-0.20) K/uL Sodium 138 (136-145) mmol/L Potassium 4.5 (3.5-5.1) mmol/L Chloride 104 (98-107) mmol/L Carbon Dioxide 23 (21-32) mmol/L Anion Gap 11 (3-11) BUN 36 H (6-23) mg/dl Creatinine 1.06 (0.6-1.2) mg/dl Est Cr Clr Drug Dosing 62.4 ml/min eGFR 58.30 BUN/Creatinine Ratio 34.0 H (10-20) Glucose 105 H (70-99(Fasting)) mg/dl Calcium 9.4 (8.6-10.3) mg/dl Total Bilirubin 0.6 (0.2-1.0) mg/dl AST 17 (13-39) U/L ALT 11 (7-52) U/L Alkaline Phosphatase 74 (34-104) U/L Troponin I High Sens 8.6 (0-14) pg/ml Total Protein 6.7 (6.0-8.3) gm/dl Albumin 4.2 (3.4-5.0) gm/dl Globulin 2.5 (2.5-4.0) gm/dl Albumin/Globulin Ratio 1.7 (0.9-2) Lipase 36 (11-82) U/L Procalcitonin 0.17 (0-0.5) ng/ml Urine Color Red Urine Appearance Turbid A (Clear) Urine pH 5.5 (4.5-7.5) Ur Specific [place] 1.019 (1.000-1.030) Urine Protein 4+ H (Negative) Urine Glucose (UA) Negative (Negative) Urine Ketones 1+ H (Negative) Urine Blood 3+ H (Negative) Urine Nitrite Negative (Negative) Urine Bilirubin Negative (Negative) Urine Urobilinogen Negative (Negative) Ur Leukocyte Esterase 2+ H (Negative) Urine WBC (Auto) 21-50 H (0-5) /hpf Urine RBC (Auto) >20 H (0-2) /hpf U Hyaline Cast (Auto) >20 H (0-2) /lpf U Epithel Cells (Auto) 3-5 H (0-2) /hpf Urine Bacteria (Auto) 2+ H (None Seen) Uric Acid Crystals Present A (None Prsent) Administered Medications Acyclovir (Acyclovir 400 Mg Tab) 400 mg PO BID SIGRID Stop: 02/17/24 20:59 Last Admin: 01/18/24 21:25 Dose: 400 mg Documented By: YOHANAK Docusate Sodium (Docusate Sodium 100 Mg Cap) 100 mg PO BID SIGRID Stop: 02/17/24 20:59 Last Admin: 01/18/24 21:29 Dose: 100 mg Documented By: TERESITA Heparin Sodium (Porcine) (Heparin Sod 5,000 Unit/0.5 Ml Vial) 5,000 units SQ Q8 SIGRID Stop: 02/17/24 21:59 Last Admin: 01/18/24 21:29 Dose: 5,000 units Documented By: YOHANAK Pregabalin (Pregabalin 50 Mg Cap) 50 mg PO BID SIGRID Stop: 02/17/24 20:59 Last Admin: 01/18/24 21:29 Dose: 50 mg Documented By: YOHANAK Discontinued Medications Sodium Chloride (Nss) 1,000 mls @ 999 mls/hr IV .Q1H1M ONE Stop: 01/18/24 16:53 Last Infusion: 01/18/24 17:21 Dose: Infused Documented By: Admin: 01/18/24 16:16 Dose: 999 mls/hr Documented By: LUAN Ceftriaxone Sodium (Rocephin) 2,000 mg in 50 mls @ 100 mls/hr IV NOW STA Stop: 01/18/24 17:46 Last Infusion: 01/18/24 18:30 Dose: Infused Documented By: Admin: 01/18/24 17:26 Dose: 100 mls/hr Documented By: LUAN Ioversol (Optiray 320 100ml) 91 ml IV ONCE ONE Stop: 01/18/24 16:57 Last Admin: 01/18/24 16:56 Dose: 91 ml Documented By: EMETERIO Imaging Data Radiologist's Impression: Chest X-Ray 01/18/24 15:52 EXAM: Radiograph of the Chest 1 View INDICATION: Tachycardia. TECHNIQUE: Frontal view of the chest. COMPARISON: 01/16/2024 FINDINGS: Lungs and pleural spaces: No consolidation or pulmonary edema. No pleural effusion or pneumothorax. Heart: Stable mild cardiomegaly. Mediastinum: Normal contour. Bones/joints: Lower cervical anterior fusion hardware unchanged. Mild calcific tendinitis left shoulder. Soft tissues: Left mastectomy and axillary node dissection changes stable. Tubes, lines and devices: Right internal jugular port catheter tip terminates in the distal SVC. Upper abdomen: No abnormality noted. IMPRESSION: No acute cardiopulmonary disease. ACT 112: Negative or not required by law. Electronically signed by Emelia Sumner 01-18-2024 4:20 PM Abdomen/Pelvis CT 01/18/24 16:20 EXAM: CT Abdomen and Pelvis With Intravenous Contrast INDICATION: History Reason For Study TECHNIQUE: Axial computed tomography images of the abdomen and pelvis with intravenous contrast. Sagittal and coronal reformatted images were created and reviewed. This CT exam was performed using one or more of the following dose reduction techniques: automated exposure control, adjustment of the mA and/or kV according to patient size, and/or use of iterative reconstruction technique. CONTRAST: 91ml of Optiray 320 was administered intravenously. COMPARISON: Limited comparison to CT pelvis 01/12/2024 and abdomen and pelvis 01/09/2024 FINDINGS: Limitations: None. Lung bases: No abnormality noted. Pleural space: No visualized pleural effusion or pneumothorax. Heart: No abnormality noted. Mediastinum: No abnormality noted. ABDOMEN: Liver: Stable simple hepatic cysts. Smooth hepatic contour. Stable trace perihepatic fluid. Gallbladder and bile ducts: No calcified stones or surrounding fluid. Pancreas: Homogeneous enhancement. No mass, inflammation or ductal dilation. Spleen: No significant abnormality noted. Adrenals: No significant abnormality noted. Kidneys and ureters: Bilateral ureteral stents have been placed and are in good position. There is slight decreased bilateral hydroureteronephrosis. No urinary stone. No perinephric fluid. Stomach and bowel: Left lateral hernia containing mass, fat and possibly a bowel loop. No bowel obstruction. No pneumatosis. PELVIS: Appendix: No findings to suggest acute appendicitis. Bladder: No filling defects to suggest mass or large stone. No inflammation. Reproductive: No abnormalities noted. Subperitoneal space: Stable perirectal encasement with mass and fluid measuring 5.0 x 7.0 cm. ABDOMEN and PELVIS: Intraperitoneal space: No intraperitoneal abscess. No free air. Bones/joints: Degenerative changes noted throughout the spine. No acute osseous abnormality seen. Vasculature: No aneurysm or dissection. Lymph nodes: There is significant increase in diffuse multicompartment adenopathy involving the anterior cardiophrenic sulci, omentum, mesentery, retroperitoneum and iliac compartments. Largest left external iliac node measures 2.7 cm short axis dimension (was 2.3). Increasing confluent carlie group along the transverse colon measuring 5.9 cm transverse by 3.0 cm AP by 2.7 cm long (was 3.6 x 2.1 cm). IMPRESSION: 1. Worsening diffuse multicompartment abdominal and pelvic adenopathy with increasing masslike encasement of the mid transverse colon and stable mass and fluid encasement of the rectum. 2. Bilateral ureteral stents now present with decreased hydronephrosis. 3. Stable left lateral abdominal wall hernia containing mass, fluid and possibly small bowel without obstruction. ACT 112: Negative or not required by law. Electronically signed by Emelia Sumner 01-18-2024 5:32 PM Discharge Plan Visit Data Chief Complaint: Catheter Replacement Stated Complaint: CATH IN/UNABLE TO VOID, PELVIC PRESSURE, CANCER P ED Provider: Robbi Salmeron Discharge Problem: Weakness, Lymphoma, Abdominal pain, Tachycardia Patient Disposition: Admitted As Inpatient Discharge Instructions Interventions: ED Discharge Assessment Last Done: 01/18/24 20:08 Discharge Problem: Abdominal pain Qualifiers: Abdominal location: unspecified location Qualified Code(s): R10.9 - Unspecified abdominal pain
[2024-01-18] MEDS: SODIUM CHLORIDE 0.9% 1,000 ML IV ONE (16:16)
--- NOTE | 2024-01-18 16:20 | XRay Report ---
EXAM: Radiograph of the Chest 1 View INDICATION: Tachycardia. TECHNIQUE: Frontal view of the chest. COMPARISON: 01/16/2024 FINDINGS: Lungs and pleural spaces: No consolidation or pulmonary edema. No pleural effusion or pneumothorax. Heart: Stable mild cardiomegaly. Mediastinum: Normal contour. Bones/joints: Lower cervical anterior fusion hardware unchanged. Mild calcific tendinitis left shoulder. Soft tissues: Left mastectomy and axillary node dissection changes stable. Tubes, lines and devices: Right internal jugular port catheter tip terminates in the distal SVC. Upper abdomen: No abnormality noted. IMPRESSION: No acute cardiopulmonary disease. ACT 112: Negative or not required by law. Electronically signed by Emelia Sumner 01-18-2024 4:20 PM
[2024-01-18 16:22] LABS: Basophils # (auto) 0.02 K/uL (0.00-0.20); Basophils % (auto) 0.3 %; Eosinophils # (auto) 0.06 K/uL (0.00-0.50); Eosinophils % (auto) 0.9 %; Hematocrit (blood only) 35.2 % (37.0-47.0); Hemoglobin 12.1 g/dl (12.0-16.0); Immature Granulocytes # (auto) 0.07 K/uL (0.01-0.20); Lymphocytes # (auto) 0.36 K/uL (1.20-3.40); Lymphocytes % (auto) 5.3 %; Mean Corpuscular Hgb Conc 34.4 g/dL (32.0-36.0); Mean Corpuscular Volume 87.3 fL (80.0-100.0); Mean Platelet Volume 9.2 fL (9.4-12.4); Monocytes # (auto) 0.57 K/uL (0.11-0.59); Monocytes % (auto) 8.4 %; Neutrophils # (auto) 5.69 K/uL (1.40-6.50); Neutrophils % (auto) 84.1 %; Platelet Count 224 K/uL (130-400); RDW Coefficient of Variation 13.9 % (11.5-14.5); RDW Standard Deviation 43.8 fL (36.4-46.3); Red Blood Count 4.03 M/uL (4.20-5.40); White Blood Count 6.77 K/ul (4.8-10.8)
[2024-01-18 16:38] LABS: Albumin Globulin Ratio 1.7 (0.9-2); Albumin Level 4.2 gm/dl (3.4-5.0); Bilirubin,Total 0.6 mg/dl (0.2-1.0); Calcium 9.4 mg/dl (8.6-10.3); Creatinine Clr Calc Pharmacy 62.4 ml/min; Globulin 2.5 gm/dl (2.5-4.0); Potassium 4.5 mmol/L (3.5-5.1); Total Protein 6.7 gm/dl (6.0-8.3)
[2024-01-18 16:45] LABS: Troponin I High Sensitivity 8.6 pg/ml (0-14)
[2024-01-18 16:46] LABS: Appearance Urine Turbid (Clear); Bacteria Urine Automated 2+ (None Seen); Bilirubin Urine Negative (Negative); Blood Urine 3+ (Negative); Cast Urine Automated >20 /lpf (0-2); Color Urine Red; Glucose Urine UA Negative (Negative); Ketones Urine 1+ (Negative); Leukocyte Esterase Urine 2+ (Negative); Nitrite Urine Negative (Negative); Protein Urine 4+ (Negative); RBC Urine Automated >20 /hpf (0-2); Specific Gravity Urine 1.019 (1.000-1.030); Uric Acid Crystals Urine Present (None Prsent); Urobilinogen Urine Negative (Negative); WBC Urine Automated 21-50 /hpf (0-5); pH Urine 5.5 (4.5-7.5)
[2024-01-18] MEDS: OPTIRAY 320 100ml IV ONE (16:56)
[2024-01-18] MEDS: cefTRIAXone SODIUM 2,000 MG/50 ML BAG IV STA (17:26)
--- NOTE | 2024-01-18 17:32 | CT Scan Report ---
EXAM: CT Abdomen and Pelvis With Intravenous Contrast INDICATION: History Reason For Study TECHNIQUE: Axial computed tomography images of the abdomen and pelvis with intravenous contrast. Sagittal and coronal reformatted images were created and reviewed. This CT exam was performed using one or more of the following dose reduction techniques: automated exposure control, adjustment of the mA and/or kV according to patient size, and/or use of iterative reconstruction technique. CONTRAST: 91ml of Optiray 320 was administered intravenously. COMPARISON: Limited comparison to CT pelvis 01/12/2024 and abdomen and pelvis 01/09/2024 FINDINGS: Limitations: None. Lung bases: No abnormality noted. Pleural space: No visualized pleural effusion or pneumothorax. Heart: No abnormality noted. Mediastinum: No abnormality noted. ABDOMEN: Liver: Stable simple hepatic cysts. Smooth hepatic contour. Stable trace perihepatic fluid. Gallbladder and bile ducts: No calcified stones or surrounding fluid. Pancreas: Homogeneous enhancement. No mass, inflammation or ductal dilation. Spleen: No significant abnormality noted. Adrenals: No significant abnormality noted. Kidneys and ureters: Bilateral ureteral stents have been placed and are in good position. There is slight decreased bilateral hydroureteronephrosis. No urinary stone. No perinephric fluid. Stomach and bowel: Left lateral hernia containing mass, fat and possibly a bowel loop. No bowel obstruction. No pneumatosis. PELVIS: Appendix: No findings to suggest acute appendicitis. Bladder: No filling defects to suggest mass or large stone. No inflammation. Reproductive: No abnormalities noted. Subperitoneal space: Stable perirectal encasement with mass and fluid measuring 5.0 x 7.0 cm. ABDOMEN and PELVIS: Intraperitoneal space: No intraperitoneal abscess. No free air. Bones/joints: Degenerative changes noted throughout the spine. No acute osseous abnormality seen. Vasculature: No aneurysm or dissection. Lymph nodes: There is significant increase in diffuse multicompartment adenopathy involving the anterior cardiophrenic sulci, omentum, mesentery, retroperitoneum and iliac compartments. Largest left external iliac node measures 2.7 cm short axis dimension (was 2.3). Increasing confluent carlie group along the transverse colon measuring 5.9 cm transverse by 3.0 cm AP by 2.7 cm long (was 3.6 x 2.1 cm). IMPRESSION: 1. Worsening diffuse multicompartment abdominal and pelvic adenopathy with increasing masslike encasement of the mid transverse colon and stable mass and fluid encasement of the rectum. 2. Bilateral ureteral stents now present with decreased hydronephrosis. 3. Stable left lateral abdominal wall hernia containing mass, fluid and possibly small bowel without obstruction. ACT 112: Negative or not required by law. Electronically signed by Emelia Sumner 01-18-2024 5:32 PM
--- NOTE | 2024-01-18 18:26 | History & Physical Report ---
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 Notes since the stents were placed, she has been having increasing lower abdominal/pelvic pressure with decreased urinary output into her catheter bag. Would like to consider having them out. Has not been eating and drinking much at home, notes whenever she drinks the nutritional supplements her encourages her to take (like Boost) "it passes right through". Notes that she has been having daily liquid stools with use of daily miralax but has not had a "normal bowel movement" for over a week. Notes that she previously followed with palliative care last year before stopping when she started feeling better. She notes that she is at the brink of giving up. States she does not want to be resuscitated nor intubated. Generalized weakness Hx of multiple Cancers (lymphoma, breast) Rectal mass s/p radiation Malnutrition CAUTI Pt presenting with generalized weakness Extensive cancer hx with now current rectal mass, undergoing radiation UA suggestive of infection urine Cx pending. Pt has an indwelling catheter Blood cx x 2 sets pending lactate pending Procal normal CT abd/pelvis now showing worsening of "multicompartment abdominal and pelvic adenopathy with increasing masslike encasement of the mid transverse colon and stable mass and fluid encasement of the rectum." Weakness likely in setting of above IV Rocephin, follow cultures PT/OT Surg Tech consult, appreciate recs Palliative care consult, appreciate recs Moderate bilateral Hydronephrosis s/p stent placement s/p bilateral stent placement on Jan 11, 2024 with Urology States has been having persistent abdominal and pelvic pressure since then Pt asking about having them removed Urology consulted, appreciate recs Continue other home meds as ordered. 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 Notes since the stents were placed, she has been having increasing lower abdominal/pelvic pressure with decreased urinary output into her catheter bag. Would like to consider having them out. Has not been eating and drinking much at home, notes whenever she drinks the nutritional supplements her encourages her to take (like Boost) "it passes right through". Notes that she has been having daily liquid stools with use of daily miralax but has not had a "normal bowel movement" for over a week. Notes that she previously followed with palliative care last year before stopping when she started feeling better. She notes that she is at the brink of giving up. States she does not want to be resuscitated nor intubated. Allergies Allergy/AdvReac Type Severity Reaction Status Date / Time cephalexin Allergy Intermediate HIVES Verified 11/18/22 16:04 Home Medications Medication Instructions Recorded Confirmed Type lisinopril 30 mg tablet 30 mg PO QAM 11/14/22 01/18/24 History mirabegron 50 mg tablet,extended 50 mg PO QAM 11/14/22 01/18/24 History release 24 hr (Myrbetriq) pregabalin 50 mg capsule 50 mg PO BID 11/14/22 01/18/24 History acyclovir 400 mg tablet 400 mg PO BID 01/09/24 01/18/24 History allopurinol 300 mg tablet 300 mg PO QAM 01/09/24 01/18/24 History docusate sodium 100 mg capsule 100 mg PO BID #14 caps 01/12/24 01/18/24 Rx oxycodone 5 mg tablet 5 mg PO Q6H PRN pain #10 tabs 01/12/24 01/18/24 Rx polyethylene glycol 3350 17 gram 17 g PO DAILY #14 ea 01/12/24 01/18/24 Rx oral powder packet (Miralax) acetaminophen 500 mg tablet 500 mg PO Q6H PRN Pain 01/16/24 01/18/24 History cefdinir 300 mg capsule 300 mg PO BID 10 days #20 caps 01/16/24 01/18/24 Rx fluconazole 150 mg tablet 150 mg PO Q3D 2 doses #2 tabs 01/16/24 01/18/24 Rx Past Med/Surg History Problem List (Updated 01/18/24 @ 19:03 by Vianey Fields MD) Catheter-associated urinary tract infection Generalized weakness S/P ureteral stent placement (Acute) Lymphoma (Acute) Bilateral hydronephrosis (Acute) Intra-abdominal tumor (Acute) Hypoxia (Acute) Intractable abdominal pain (Acute) Abdominal pain (Acute) Leukopenia (Acute) Splenomegaly (Acute) History of breast cancer Thickened endometrium Social History Smoking Status: Never smoker Second Hand Exposure: No; Do You Dip or Chew Tobacco: No; Hx Alcohol Use: No Hx Substance Use: No Preferred Language: Kiswahili Communication Ability: Effective Academic Affairs Dean Required: No Beliefs That Will Affect Care: None Current Living Situation: Spouse Feels Safe at Home: Yes Assistive Devices: Walker Review of Systems Review of Systems: All systems reviewed & are unremarkable except as noted in HPI & below Physical Exam Physical Exam: General: Alert, oriented. No acute distress Psych: Appropriate mood and affect Neuro: difficulty with movements in the bed HEENT: NC/AT CV: RRR Resp: Breath sounds clear bilaterally, no increased effort of breathing Abdomen: diffusely tender especially in the lower quadrants, firmer in lower quadrants Extremities: edema in lower extremities bilaterally. Results & Data Results & Data Vital Signs (Past 12 Hours) Vital Signs Temp Pulse Resp BP Pulse Ox O2 Del Method 01/18/24 16:41 96 H 01/18/24 15:39 36.3 C L 123 H 20 104/75 95 Room Air Diagnostic Findings Chest X-Ray 01/18/24 15:52 EXAM: Radiograph of the Chest 1 View INDICATION: Tachycardia. TECHNIQUE: Frontal view of the chest. COMPARISON: 01/16/2024 FINDINGS: Lungs and pleural spaces: No consolidation or pulmonary edema. No pleural effusion or pneumothorax. Heart: Stable mild cardiomegaly. Mediastinum: Normal contour. Bones/joints: Lower cervical anterior fusion hardware unchanged. Mild calcific tendinitis left shoulder. Soft tissues: Left mastectomy and axillary node dissection changes stable. Tubes, lines and devices: Right internal jugular port catheter tip terminates in the distal SVC. Upper abdomen: No abnormality noted. IMPRESSION: No acute cardiopulmonary disease. ACT 112: Negative or not required by law. Electronically signed by Emelia Sumner 01-18-2024 4:20 PM Abdomen/Pelvis CT 01/18/24 16:20 EXAM: CT Abdomen and Pelvis With Intravenous Contrast INDICATION: History Reason For Study TECHNIQUE: Axial computed tomography images of the abdomen and pelvis with intravenous contrast. Sagittal and coronal reformatted images were created and reviewed. This CT exam was performed using one or more of the following dose reduction techniques: automated exposure control, adjustment of the mA and/or kV according to patient size, and/or use of iterative reconstruction technique. CONTRAST: 91ml of Optiray 320 was administered intravenously. COMPARISON: Limited comparison to CT pelvis 01/12/2024 and abdomen and pelvis 01/09/2024 FINDINGS: Limitations: None. Lung bases: No abnormality noted. Pleural space: No visualized pleural effusion or pneumothorax. Heart: No abnormality noted. Mediastinum: No abnormality noted. ABDOMEN: Liver: Stable simple hepatic cysts. Smooth hepatic contour. Stable trace perihepatic fluid. Gallbladder and bile ducts: No calcified stones or surrounding fluid. Pancreas: Homogeneous enhancement. No mass, inflammation or ductal dilation. Spleen: No significant abnormality noted. Adrenals: No significant abnormality noted. Kidneys and ureters: Bilateral ureteral stents have been placed and are in good position. There is slight decreased bilateral hydroureteronephrosis. No urinary stone. No perinephric fluid. Stomach and bowel: Left lateral hernia containing mass, fat and possibly a bowel loop. No bowel obstruction. No pneumatosis. PELVIS: Appendix: No findings to suggest acute appendicitis. Bladder: No filling defects to suggest mass or large stone. No inflammation. Reproductive: No abnormalities noted. Subperitoneal space: Stable perirectal encasement with mass and fluid measuring 5.0 x 7.0 cm. ABDOMEN and PELVIS: Intraperitoneal space: No intraperitoneal abscess. No free air. Bones/joints: Degenerative changes noted throughout the spine. No acute osseous abnormality seen. Vasculature: No aneurysm or dissection. Lymph nodes: There is significant increase in diffuse multicompartment adenopathy involving the anterior cardiophrenic sulci, omentum, mesentery, retroperitoneum and iliac compartments. Largest left external iliac node measures 2.7 cm short axis dimension (was 2.3). Increasing confluent carlie group along the transverse colon measuring 5.9 cm transverse by 3.0 cm AP by 2.7 cm long (was 3.6 x 2.1 cm). IMPRESSION: 1. Worsening diffuse multicompartment abdominal and pelvic adenopathy with increasing masslike encasement of the mid transverse colon and stable mass and fluid encasement of the rectum. 2. Bilateral ureteral stents now present with decreased hydronephrosis. 3. Stable left lateral abdominal wall hernia containing mass, fluid and possibly small bowel without obstruction. ACT 112: Negative or not required by law. Electronically signed by Emelia Sumner 01-18-2024 5:32 PM Code Status & VTE Plan VTE Prophylaxis Plan VTE Prophylaxis will be ordered: Yes
[2024-01-18] MEDS ORDERED: oxyCODONE HCL IR 5 MG TAB (IMMEDIATE RELEASE) PO PRN (18:55)
[2024-01-18] MEDS ORDERED: ONDANSETRON INJ 2 MG/ML 2 ML VIAL IV PRN (20:37)
[2024-01-18] MEDS: ACYCLOVIR 400 MG TAB PO SCH (21:25)
[2024-01-18] MEDS: PREGABALIN 50 MG CAP PO SCH (21:29)
[2024-01-18] MEDS: HEPARIN SOD 5,000 UNIT/0.5 ML VIAL SQ SCH (21:29)
[2024-01-18] MEDS: DOCUSATE SODIUM 100 MG CAP PO SCH (21:29)
[2024-01-19 06:39] LABS: Basophils # (auto) 0.01 K/uL (0.00-0.20); Basophils % (auto) 0.2 %; Eosinophils # (auto) 0.11 K/uL (0.00-0.50); Eosinophils % (auto) 2.6 %; Hematocrit (blood only) 32.8 % (37.0-47.0); Immature Granulocytes # (auto) 0.05 K/uL (0.01-0.20); Immature Granulocytes % (auto) 1.2 %; Lymphocytes % (auto) 7.1 %; Mean Corpuscular Hemoglobin 29.8 pg (25.0-34.0); Mean Corpuscular Hgb Conc 33.5 g/dL (32.0-36.0); Mean Corpuscular Volume 88.9 fL (80.0-100.0); Mean Platelet Volume 9.3 fL (9.4-12.4); Monocytes # (auto) 0.46 K/uL (0.11-0.59); Monocytes % (auto) 10.9 %; Platelet Count 155 K/uL (130-400); RDW Coefficient of Variation 13.8 % (11.5-14.5); RDW Standard Deviation 44.6 fL (36.4-46.3); Red Blood Count 3.69 M/uL (4.20-5.40); White Blood Count 4.23 K/ul (4.8-10.8)
[2024-01-19 07:23] LABS: Albumin Globulin Ratio 1.8 (0.9-2); Albumin Level 3.5 gm/dl (3.4-5.0); BUN Creatinine Ratio 28.6 (10-20); Bilirubin,Total 0.5 mg/dl (0.2-1.0); Calcium 8.6 mg/dl (8.6-10.3); Creatinine Clr Calc Pharmacy 64.5 ml/min; Phosphorus 3.8 mg/dl (2.5-4.9); Potassium 4.5 mmol/L (3.5-5.1); Total Protein 5.5 gm/dl (6.0-8.3)
[2024-01-19] MEDS: allopurinoL 300 MG TAB PO SCH (08:51)
[2024-01-19] MEDS: VIBEGRON 75 MG TAB PO SCH (08:51)
[2024-01-19] MEDS: HEPARIN 100 UNIT/ML 5ML FLUSH FLUSH PRN (09:44)
[2024-01-19] MEDS: POLYETHYLENE (MIRALAX) 17 GM PACK PO SCH (09:46)
--- NOTE | 2024-01-19 11:23 | Hospitalist Progress Note ---
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 Notes since the stents were placed, she has been having increasing lower abdominal/pelvic pressure with decreased urinary output into her catheter bag. Would like to consider having them out. Has not been eating and drinking much at home, notes whenever she drinks the nutritional supplements her encourages her to take (like Boost) "it passes right through". Notes that she has been having daily liquid stools with use of daily miralax but has not had a "normal bowel movement" for over a week. Notes that she previously followed with palliative care last year before stopping when she started feeling better. She notes that she is at the brink of giving up. States she does not want to be resuscitated nor intubated. Generalized weakness Hx of multiple Cancers (lymphoma, breast) Rectal mass s/p radiation Malnutrition CAUTI Pt presenting with generalized weakness Extensive cancer hx with now current rectal mass, undergoing radiation UA suggestive of infection, urine Cx with no significant growth. 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 CODE STATUS: DNR/DNI Diet: clears, advance as tolerated DVT prophylaxis: heparin SQ Dispo: PT/OT ordered for further recs Admission and Anticipated Discharge Date Admission Date: January 18, 2024 Subjective Patient was seen in the morning. Appearing anxious, initially stating that she did not want to see palliative care or physical therapy. Noted she felt better and wanted to go home. Discussion of progression of her rectal mass and that her symptoms would likely cause her to return given her most recent admission as well without physical therapy. Notes that her real concern was that she would have to leave the hospital to be evaluated by physical therapy or palliative care. Patient reassured those services were available inpatient and would be by to see her today. Notes she is also anxious that she will miss her radiation session today. Dr. Phillip Chavez as well as Dr. Alejo Chavez from [facility] were both contacted via [facility] text. Dr. Vicky Chavez noting that patient can be brought down for her radiation today. Review of Systems Review of Systems: All systems reviewed & are unremarkable except as noted in Subjective Physical Exam Physical Exam: General: Alert, oriented. No acute distress Psych: Appropriate mood and affect Neuro: difficulty with movements in the bed HEENT: NC/AT CV: RRR Resp: Breath sounds clear bilaterally, no increased effort of breathing Abdomen: diffusely tender especially in the lower quadrants, firmer in lower quadrants : doty bag in place on lower extremity with noted hematuria Extremities: edema in lower extremities bilaterally. Results & Data Results & Data Vital Signs (Past 12 Hours) Vital Signs Temp Pulse Pulse Resp BP Pulse Ox O2 Del Method 01/19/24 07:22 36.6 C 84 18 114/78 94 Room Air 01/19/24 07:00 83 01/19/24 03:25 36.5 C 71 18 104/71 97 Room Air
--- NOTE | 2024-01-19 11:59 | Palliative Care Consultation ---
Date of Consultation January 19, 2024 Assessment & Plan (1) Generalized weakness: (2) Advanced care planning/counseling discussion: I met with pt face to face at bedside for 30min She is looking forward to getting back home She has agreed to RT which concludes 02/02. She would like [facility] follow up. She does not want any aggressive interventions. 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 She feels she has taken into consideration all the options and she has made the best decision for her. She states she feels well supported and has a strong family support. She has not dwelled on and dying but knows she has an incurable cancer. She reaffirms her DNR/DNI (3) Palliative care by specialist: Introduced Palliative Medicine and explained our role in patient's care. Patient and/or family were receptive to palliative services for goals of care discussions. Reviewed we are different from hospice, a home health nurse visiting service. Plan As above Mild dose increase to OxyIR Thank you for allowing us to participate in the ongoing care of this patient. Please page with any additional concerns. Terrance Leyva DNP Director, Palliative Medicine History of Present Illness Reason for Consultation: [facility] Attending Physician: Vianey Fields MD History of Present Illness Heather Olmos is a 63yo female admitted for progressive weakness. 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 Now with +new rectal mass currently undergoing radiation treatments who presents with generalized weakness at RT. 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 Notes since the stents were placed, she has been having increasing lower abdominal/pelvic pressure with decreased urinary output into her catheter bag. Would like to consider having them out. Has not been eating and drinking much at home, notes whenever she drinks the nutritional supplements her encourages her to take (like Boost) "it passes right through". Notes that she has been having daily liquid stools with use of daily miralax but has not had a "normal bowel movement" for over a week. Notes that she previously followed with palliative care last year before stopping when she started feeling better. She notes that she is at the brink of giving up. States she does not want to be resuscitated nor intubated." Oncology Hx: Diagnosis/Treatment History: 1993. Left neck lymphoma. Status post radiation therapy. 2020. Left breast carcinoma. Ductal carcinoma. [id number]. Oncotype DX score of 19. Status postlumpectomy. Radiation with MammoSite radiation therapy. [id number]. Tamoxifen therapy. Briefly discontinued due to findings on a CT. She had PERRI/BSO 04/24/2017. Benign. [id number]. Tamoxifen therapy 09/2021. Follicular lymphoma involving marrow marrow, spleen with adenopathy of the chest and abdomen. 05/12/2022. 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 11/27/2022-03/03/2023. 6 cycles of R-CHOP (Dr. Hugh Chavez). Allergies Allergy/AdvReac Type Severity Reaction Status Date / Time cephalexin Allergy Intermediate HIVES Verified 11/18/22 16:04 Home Medications Medication Instructions Recorded Confirmed Type mirabegron 50 mg tablet,extended 50 mg PO QAM 11/14/22 01/18/24 History release 24 hr (Myrbetriq) pregabalin 50 mg capsule 50 mg PO BID 11/14/22 01/18/24 History acyclovir 400 mg tablet 400 mg PO BID 01/09/24 01/18/24 History allopurinol 300 mg tablet 300 mg PO QAM 01/09/24 01/18/24 History docusate sodium 100 mg capsule 100 mg PO BID #14 caps 01/12/24 01/18/24 Rx oxycodone 5 mg tablet 5 mg PO Q6H PRN pain #10 tabs 01/12/24 01/18/24 Rx polyethylene glycol 3350 17 gram 17 g PO DAILY #14 ea 01/12/24 01/18/24 Rx oral powder packet (Miralax) acetaminophen 500 mg tablet 500 mg PO Q6H PRN Pain 01/16/24 01/18/24 History cefdinir 300 mg capsule 300 mg PO BID 8 days #16 caps 01/20/24 01/18/24 Rx tamsulosin 0.4 mg capsule 0.4 mg PO HS #30 caps 01/20/24 Rx Patient History Social History Smoking Status: Never smoker Second Hand Exposure: No; Do You Dip or Chew Tobacco: No; Hx Alcohol Use: No Hx Substance Use: No Preferred Language: Indonesian Communication Ability: Effective 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 Required: No Beliefs That Will Affect Care: None Current Living Situation: Spouse Other Information That Helps Us Care for You: No Feels Safe at Home: Yes Safety Concerns: Feels Safe At This Time Assistive Devices: Walker Review of Systems Review of Systems: All systems reviewed & are unremarkable except as noted in Subjective Physical Exam Physical Exam: Reclined in bed no acute distress but notes she is not in pain if she does not move NCAT, perrla, eomi's pharynx pink, dentition intact neck supple, no stridor chest diminished s1s2 abd distended, TTP, firm BLE edema +2 Results & Data Vital Signs (Past 12 Hours) Vital Signs Temp Pulse Pulse Resp BP Pulse Ox O2 Del Method 01/19/24 07:22 36.6 C 84 18 114/78 94 Room Air 01/19/24 07:00 83 01/19/24 03:25 36.5 C 71 18 104/71 97 Room Air Laboratory Results 01/19/24 01/18/24 01/18/24 Range/Units 05:31 19:43 16:18 WBC 4.23 L (4.8-10.8) K/ul RBC 3.69 L (4.20-5.40) M/uL Hgb 11.0 L (12.0-16.0) g/dl Hct 32.8 L (37.0-47.0) % MCV 88.9 (80.0-100.0) fL MCH 29.8 (25.0-34.0) pg MCHC 33.5 (32.0-36.0) g/dL RDW Std Deviation 44.6 (36.4-46.3) fL RDW Coeff of Sudhakar 13.8 (11.5-14.5) % Plt Count 155 (130-400) K/uL MPV 9.3 L (9.4-12.4) fL Immature Gran % (Auto) 1.2 % Neut % (Auto) 78.0 % Lymph % (Auto) 7.1 % [place] % (Auto) 10.9 % Eos % (Auto) 2.6 % Baso % (Auto) 0.2 % Neut # (Auto) 3.30 (1.40-6.50) K/uL Lymph # (Auto) 0.30 L (1.20-3.40) K/uL [place] # (Auto) 0.46 (0.11-0.59) K/uL Eos # (Auto) 0.11 (0.00-0.50) K/uL Baso # (Auto) 0.01 (0.00-0.20) K/uL Immature Gran # (Auto) 0.05 (0.01-0.20) K/uL Sodium 138 (136-145) mmol/L Potassium 4.5 (3.5-5.1) mmol/L Chloride 106 (98-107) mmol/L Carbon Dioxide 23 (21-32) mmol/L Anion Gap 9 (3-11) BUN 26 H (6-23) mg/dl Creatinine 0.91 (0.6-1.2) mg/dl Est Cr Clr Drug Dosing 64.5 ml/min eGFR 70.01 BUN/Creatinine Ratio 28.6 H (10-20) Glucose 93 (70-99(Fasting)) mg/dl Lactate 1.1 (0.4-2.0) mmol/L Calcium 8.6 (8.6-10.3) mg/dl Phosphorus 3.8 (2.5-4.9) mg/dl Magnesium 2.0 (1.7-2.4) mg/dl Total Bilirubin 0.5 (0.2-1.0) mg/dl AST 16 (13-39) U/L ALT 10 (7-52) U/L Alkaline Phosphatase 62 (34-104) U/L Troponin I High Sens (0-14) pg/ml Total Protein 5.5 L (6.0-8.3) gm/dl Albumin 3.5 (3.4-5.0) gm/dl Globulin 2.0 L (2.5-4.0) gm/dl Albumin/Globulin Ratio 1.8 (0.9-2) Lipase (11-82) U/L Procalcitonin (0-0.5) ng/ml Urine Color Red Urine Appearance Turbid A (Clear) Urine pH 5.5 (4.5-7.5) Ur Specific [place] 1.019 (1.000-1.030) Urine Protein 4+ H (Negative) Urine Glucose (UA) Negative (Negative) Urine Ketones 1+ H (Negative) Urine Blood 3+ H (Negative) Urine Nitrite Negative (Negative) Urine Bilirubin Negative (Negative) Urine Urobilinogen Negative (Negative) Ur Leukocyte Esterase 2+ H (Negative) Urine WBC (Auto) 21-50 H (0-5) /hpf Urine RBC (Auto) >20 H (0-2) /hpf U Hyaline Cast (Auto) >20 H (0-2) /lpf U Epithel Cells (Auto) 3-5 H (0-2) /hpf Urine Bacteria (Auto) 2+ H (None Seen) Uric Acid Crystals Present A (None Prsent) 01/18/24 Range/Units 16:05 WBC 6.77 (4.8-10.8) K/ul RBC 4.03 L (4.20-5.40) M/uL Hgb 12.1 (12.0-16.0) g/dl Hct 35.2 L (37.0-47.0) % MCV 87.3 (80.0-100.0) fL MCH 30.0 (25.0-34.0) pg MCHC 34.4 (32.0-36.0) g/dL RDW Std Deviation 43.8 (36.4-46.3) fL RDW Coeff of Sudhakar 13.9 (11.5-14.5) % Plt Count 224 (130-400) K/uL MPV 9.2 L (9.4-12.4) fL Immature Gran % (Auto) 1.0 % Neut % (Auto) 84.1 % Lymph % (Auto) 5.3 % [place] % (Auto) 8.4 % Eos % (Auto) 0.9 % Baso % (Auto) 0.3 % Neut # (Auto) 5.69 (1.40-6.50) K/uL Lymph # (Auto) 0.36 L (1.20-3.40) K/uL [place] # (Auto) 0.57 (0.11-0.59) K/uL Eos # (Auto) 0.06 (0.00-0.50) K/uL Baso # (Auto) 0.02 (0.00-0.20) K/uL Immature Gran # (Auto) 0.07 (0.01-0.20) K/uL Sodium 138 (136-145) mmol/L Potassium 4.5 (3.5-5.1) mmol/L Chloride 104 (98-107) mmol/L Carbon Dioxide 23 (21-32) mmol/L Anion Gap 11 (3-11) BUN 36 H (6-23) mg/dl Creatinine 1.06 (0.6-1.2) mg/dl Est Cr Clr Drug Dosing 62.4 ml/min eGFR 58.30 BUN/Creatinine Ratio 34.0 H (10-20) Glucose 105 H (70-99(Fasting)) mg/dl Lactate (0.4-2.0) mmol/L Calcium 9.4 (8.6-10.3) mg/dl Phosphorus (2.5-4.9) mg/dl Magnesium (1.7-2.4) mg/dl Total Bilirubin 0.6 (0.2-1.0) mg/dl AST 17 (13-39) U/L ALT 11 (7-52) U/L Alkaline Phosphatase 74 (34-104) U/L Troponin I High Sens 8.6 (0-14) pg/ml Total Protein 6.7 (6.0-8.3) gm/dl Albumin 4.2 (3.4-5.0) gm/dl Globulin 2.5 (2.5-4.0) gm/dl Albumin/Globulin Ratio 1.7 (0.9-2) Lipase 36 (11-82) U/L Procalcitonin 0.17 (0-0.5) ng/ml Urine Color Urine Appearance (Clear) Urine pH (4.5-7.5) Ur Specific [place] (1.000-1.030) Urine Protein (Negative) Urine Glucose (UA) (Negative) Urine Ketones (Negative) Urine Blood (Negative) Urine Nitrite (Negative) Urine Bilirubin (Negative) Urine Urobilinogen (Negative) Ur Leukocyte Esterase (Negative) Urine WBC (Auto) (0-5) /hpf Urine RBC (Auto) (0-2) /hpf U Hyaline Cast (Auto) (0-2) /lpf U Epithel Cells (Auto) (0-2) /hpf Urine Bacteria (Auto) (None Seen) Uric Acid Crystals (None Prsent) Diagnostic Findings Chest X-Ray 01/18/24 15:52 EXAM: Radiograph of the Chest 1 View INDICATION: Tachycardia. TECHNIQUE: Frontal view of the chest. COMPARISON: 01/16/2024 FINDINGS: Lungs and pleural spaces: No consolidation or pulmonary edema. No pleural effusion or pneumothorax. Heart: Stable mild cardiomegaly. Mediastinum: Normal contour. Bones/joints: Lower cervical anterior fusion hardware unchanged. Mild calcific tendinitis left shoulder. Soft tissues: Left mastectomy and axillary node dissection changes stable. Tubes, lines and devices: Right internal jugular port catheter tip terminates in the distal SVC. Upper abdomen: No abnormality noted. IMPRESSION: No acute cardiopulmonary disease. ACT 112: Negative or not required by law. Electronically signed by Emelia Sumner 01-18-2024 4:20 PM Abdomen/Pelvis CT 01/18/24 16:20 EXAM: CT Abdomen and Pelvis With Intravenous Contrast INDICATION: History Reason For Study TECHNIQUE: Axial computed tomography images of the abdomen and pelvis with intravenous contrast. Sagittal and coronal reformatted images were created and reviewed. This CT exam was performed using one or more of the following dose reduction techniques: automated exposure control, adjustment of the mA and/or kV according to patient size, and/or use of iterative reconstruction technique. CONTRAST: 91ml of Optiray 320 was administered intravenously. COMPARISON: Limited comparison to CT pelvis 01/12/2024 and abdomen and pelvis 01/09/2024 FINDINGS: Limitations: None. Lung bases: No abnormality noted. Pleural space: No visualized pleural effusion or pneumothorax. Heart: No abnormality noted. Mediastinum: No abnormality noted. ABDOMEN: Liver: Stable simple hepatic cysts. Smooth hepatic contour. Stable trace perihepatic fluid. Gallbladder and bile ducts: No calcified stones or surrounding fluid. Pancreas: Homogeneous enhancement. No mass, inflammation or ductal dilation. Spleen: No significant abnormality noted. Adrenals: No significant abnormality noted. Kidneys and ureters: Bilateral ureteral stents have been placed and are in good position. There is slight decreased bilateral hydroureteronephrosis. No urinary stone. No perinephric fluid. Stomach and bowel: Left lateral hernia containing mass, fat and possibly a bowel loop. No bowel obstruction. No pneumatosis. PELVIS: Appendix: No findings to suggest acute appendicitis. Bladder: No filling defects to suggest mass or large stone. No inflammation. Reproductive: No abnormalities noted. Subperitoneal space: Stable perirectal encasement with mass and fluid measuring 5.0 x 7.0 cm. ABDOMEN and PELVIS: Intraperitoneal space: No intraperitoneal abscess. No free air. Bones/joints: Degenerative changes noted throughout the spine. No acute osseous abnormality seen. Vasculature: No aneurysm or dissection. Lymph nodes: There is significant increase in diffuse multicompartment adenopathy involving the anterior cardiophrenic sulci, omentum, mesentery, retroperitoneum and iliac compartments. Largest left external iliac node measures 2.7 cm short axis dimension (was 2.3). Increasing confluent carlie group along the transverse colon measuring 5.9 cm transverse by 3.0 cm AP by 2.7 cm long (was 3.6 x 2.1 cm). IMPRESSION: 1. Worsening diffuse multicompartment abdominal and pelvic adenopathy with increasing masslike encasement of the mid transverse colon and stable mass and fluid encasement of the rectum. 2. Bilateral ureteral stents now present with decreased hydronephrosis. 3. Stable left lateral abdominal wall hernia containing mass, fluid and possibly small bowel without obstruction. ACT 112: Negative or not required by law. Electronically signed by Emelia Sumner 01-18-2024 5:32 PM PG Care Time/CCT Total # of Minutes Spent Total Time Spent with Patient: Total time spent is greater than 50% in coordination of care (as documented) at patient's floor/unit and/or counseling patient: I spent 90 minutes overall addressing this case: 15 min in medical data review/discussion with referring provider(s) and/or preparation for the visit 15 min in direct interaction with the patient/exam 30 min in Advance Care Planning/Goals of Care discussions as detailed above in note (must be >16min) 15 min in subsequent review and synthesis of assessment and plan 15 min communicating with other providers regarding the patient's case: Advanced Care Planning 33457 Advanced Care Planning 30 [place] [address] IN/OBS CONSULT LVL 4,60M (25 - SIGNIFICANT, SEPARATELY IDENTIFIABLE ) Patient Type New Medical Decision Making High Complexity Diagnoses Generalized weakness R53.1 Advanced care planning/counseling discussion Z71.89 Palliative care by specialist Z51.5 Additional Codes Advanced Care Planning - 30276 Advanced Care Planning 30 Min: 55743 Advanced Care Planning 30 Min ([id number])
--- NOTE | 2024-01-19 12:01 | Urology Consultation ---
Date of Consultation January 19, 2024 Assessment & Plan (1) Bilateral hydronephrosis: (2) S/P ureteral stent placement: 63-year-old female with a history of lymphoma, breast cancer, rectal mass, and bilateral hydronephrosis status post cystoscopy and bilateral ureteral stent placement on 01/11/2024 admitted for generalized weakness. Urology is consulted regarding bilateral ureteral stents Patient afebrile, hemodynamically stable Labs reviewedcreatinine 0.91, WBC 14.23, hemoglobin 11.0 Urine culture prelim with no growth Blood cultures are pending Continue with antibiotics and follow cultures CT abdomen pelvis demonstrated bilateral ureteral stents in good position with decreased hydronephrosis We discussed that she has bilateral obstruction from masses in the pelvis Recommend maintaining bilateral ureteral stents to maximize drainage of the kidneys Discussed that removal of ureteral stents may lead to renal failure Can consider bilateral percutaneous nephrostomy tubes as an alternative to stents Discussed that percutaneous nephrostomy tubes would need to be done at a tertiary center with IR For now, she would like to continue with ureteral stents Discussed with her that we typically exchange ureteral stents every 3 months, but can consider exchanging sooner with trial of comfort stents if she is not tolerating current stents Recommend continue with supportive care, hydration and pain management as needed Added scheduled tamsulosin to help with stent management Maintain Hawkins catheter for now, can consider void trial prior to discharge or can set up void trial with urology as an outpatient will follow History of Present Illness Attending Physician: Vianey Fields MD History of Present Illness This is a 63-year-old female with history of lymphoma, breast cancer and rectal mass currently undergoing radiation treatments who was admitted on 02/06 with generalized weakness after radiation treatment. Of note, she was hospitalized from 01/08 through 01/[address] scan at that time showed bilateral hydronephrosis. Her creatinine was worsening so she underwent cystoscopy and bilateral ureteral stent placement with urology on 01/11/2024. She was recently seen in the emergency department on 01/16/2024 with inability to void and a Hawkins catheter was placed. Urology is consulted regarding possible removal of bilateral ureteral stents. Chart review: Labs todaycreatinine 0.91, WBC 4.23, hemoglobin 11.0 Urine culture 01/18/2024 prelim with no growth Blood cultures are pending CT abdomen pelvis shows bilateral ureteral stents in appropriate position bilaterally with decreased hydronephrosis. Patient seen and examined at bedside. She is awake and resting in bed. Her sister is present. Patient reports intermittent flank discomfort, improved at present. She reports difficulty voiding over the weekend and required Hawkins catheter placement in the ED. Reports darker urine. Tolerating catheter. Hawkins intact. Reports loose, liquid stools. Denies nausea, vomiting, fever or chills. Allergies Allergy/AdvReac Type Severity Reaction Status Date / Time cephalexin Allergy Intermediate HIVES Verified 11/18/22 16:04 Home Medications Medication Instructions Recorded Confirmed Type mirabegron 50 mg tablet,extended 50 mg PO QAM 11/14/22 01/18/24 History release 24 hr (Myrbetriq) pregabalin 50 mg capsule 50 mg PO BID 11/14/22 01/18/24 History acyclovir 400 mg tablet 400 mg PO BID 01/09/24 01/18/24 History allopurinol 300 mg tablet 300 mg PO QAM 01/09/24 01/18/24 History docusate sodium 100 mg capsule 100 mg PO BID #14 caps 01/12/24 01/18/24 Rx oxycodone 5 mg tablet 5 mg PO Q6H PRN pain #10 tabs 01/12/24 01/18/24 Rx polyethylene glycol 3350 17 gram 17 g PO DAILY #14 ea 01/12/24 01/18/24 Rx oral powder packet (Miralax) acetaminophen 500 mg tablet 500 mg PO Q6H PRN Pain 01/16/24 01/18/24 History cefdinir 300 mg capsule 300 mg PO BID 8 days #16 caps 01/20/24 01/18/24 Rx tamsulosin 0.4 mg capsule 0.4 mg PO HS #30 caps 01/20/24 Rx Patient History Social History Smoking Status: Never smoker Second Hand Exposure: No; Do You Dip or Chew Tobacco: No; Hx Alcohol Use: No Hx Substance Use: No Preferred Language: Turkish Communication Ability: Effective Board Saw Runner Required: No Beliefs That Will Affect Care: None Current Living Situation: Spouse Other Information That Helps Us Care for You: No Feels Safe at Home: Yes Safety Concerns: Feels Safe At This Time Assistive Devices: Walker Review of Systems Review of Systems: All systems reviewed & are unremarkable except as noted in HPI & below Physical Exam Constitutional: well developed and well nourished; no acute distress Respiratory: normal respiratory effort; no respiratory distress and no labored breathing Gastrointestinal (Abdomen): Inspection/Auscultation: abdomen normal to inspection Musculoskeletal: Head/Neck/Chest: normocephalic Neurologic: moves all extremities and awake Psychiatric: Orientation: alert and oriented x 3 Genitourinary: Hawkins patent and draining yamileth urine Results & Data Vital Signs (Past 12 Hours) Vital Signs Temp Pulse Pulse Resp BP Pulse Ox O2 Del Method 01/19/24 07:22 36.6 C 84 18 114/78 94 Room Air 01/19/24 07:00 83 01/19/24 03:25 36.5 C 71 18 104/71 97 Room Air PG Care Time/CCT Total # of Minutes Spent Total Time Spent with Patient: Total time spent is greater than 50% in coordination of care (as documented) at patient's floor/unit and/or counseling patient: Coding Level of Care Code 58003 INT INP/OBS CARE 40MIN Diagnoses Bilateral hydronephrosis N13.30 S/P ureteral stent placement Z96.0
--- NOTE | 2024-01-19 14:20 | Electrocardiogram Report ---
Test Reason : Blood Pressure : */* mmHG Vent. Rate : 100 BPM Atrial Rate : 100 BPM P-R Int : 154 ms QRS Dur : 88 ms QT Int : 342 ms P-R-T Axes : 38 9 20 degrees QTcB Int : 441 ms Normal sinus rhythm Normal ECG When compared with ECG of 16-Jan-2024 12:17, No significant change was found Confirmed by Nicholas Morrison ([id number]) on 01/19/2024 2:20:24 PM Referred By: REFERRED SELF Confirmed By: Nicholas Morrison
--- NOTE | 2024-01-19 15:52 | Communication Note ---
Date of Service: January 19, 2024 Attempted to see pt x2, she was not in her room Thank you for allowing us to participate in the ongoing care of this patient. Please page with any additional concerns. Terrance Leyva DNP Director, Palliative Medicine
[2024-01-19] MEDS: cefTRIAXone SODIUM 2,000 MG/50 ML BAG IV SCH (18:06)
[2024-01-19] MEDS: ACETAMINOPHEN 500 MG TAB PO PRN (18:34)
[2024-01-19] MEDS: TAMSULOSIN HCL 0.4 MG CAP PO SCH (20:42)
[2024-01-19] MEDS: FLUCONAZOLE 50 MG TAB PO SCH (20:42)
[2024-01-20 04:13] VITALS: O2SAT 92
[2024-01-20 07:55] LABS: Basophils # (auto) 0.02 K/uL (0.00-0.20); Basophils % (auto) 0.6 %; Eosinophils # (auto) 0.09 K/uL (0.00-0.50); Eosinophils % (auto) 2.7 %; Hematocrit (blood only) 31.7 % (37.0-47.0); Hemoglobin 10.8 g/dl (12.0-16.0); Immature Granulocytes # (auto) 0.04 K/uL (0.01-0.20); Immature Granulocytes % (auto) 1.2 %; Lymphocytes # (auto) 0.35 K/uL (1.20-3.40); Lymphocytes % (auto) 10.3 %; Mean Corpuscular Hgb Conc 34.1 g/dL (32.0-36.0); Mean Corpuscular Volume 88.1 fL (80.0-100.0); Mean Platelet Volume 9.4 fL (9.4-12.4); Monocytes # (auto) 0.49 K/uL (0.11-0.59); Monocytes % (auto) 14.5 %; Neutrophils % (auto) 70.7 %; Platelet Count 143 K/uL (130-400); RDW Coefficient of Variation 13.7 % (11.5-14.5); RDW Standard Deviation 43.6 fL (36.4-46.3); White Blood Count 3.39 K/ul (4.8-10.8)
[2024-01-20 08:15] LABS: Albumin Globulin Ratio 1.6 (0.9-2); Albumin Level 3.6 gm/dl (3.4-5.0); BUN Creatinine Ratio 18.5 (10-20); Bilirubin,Total 0.5 mg/dl (0.2-1.0); Calcium 8.7 mg/dl (8.6-10.3); Creatinine Clr Calc Pharmacy 54.9 ml/min; Globulin 2.2 gm/dl (2.5-4.0); Phosphorus 3.7 mg/dl (2.5-4.9); Potassium 4.4 mmol/L (3.5-5.1); Total Protein 5.8 gm/dl (6.0-8.3)
--- NOTE | 2024-01-20 10:40 | Urology Progress Note ---
Date of Service January 20, 2024 Assessment & Plan (1) Bilateral hydronephrosis: (2) S/P ureteral stent placement: Plan: 63-year-old female with a history of lymphoma, breast cancer, rectal mass, and bilateral hydronephrosis status post cystoscopy and bilateral ureteral stent placement on 01/11/2024 admitted for generalized weakness. Urology is consulted regarding bilateral ureteral stents Patient afebrile, hemodynamically stable Labs reviewedcreatinine 1.08, WBC 3.39, hemoglobin 10.8 Urine culture 01/15 w/ no growth, UC 11/ prelim with no growth Blood cultures no growth x [address] abdomen pelvis demonstrated bilateral ureteral stents in good position with decreased hydronephrosis Recommend maintaining bilateral ureteral stents to maximize drainage of the kidneys Discussed that removal of ureteral stents may lead to renal failure Can consider bilateral percutaneous nephrostomy tubes as an alternative to stents Discussed that percutaneous nephrostomy tubes would need to be done at a tertiary center with IR For now, she would like to continue with ureteral stents Discussed with her that we typically exchange ureteral stents every 3 months, but can consider exchanging sooner with trial of comfort stents if she is not tolerating current stents Recommend continue with supportive care, hydration and pain management as needed Maintain Hawkins catheter for now, can consider void trial prior to discharge or can set up void trial with urology as an outpatient Will arrange follow-up with our service will sign off, recall as needed Admission and Anticipated Discharge Date Admission Date: January 18, 2024 Subjective Patient seen and examined at bedside this morning. She is ambulating in the room. Reports no acute issues overnight. Reports some pelvic pressure and occasional right flank discomfort. Catheter intact. Reports loose bowels. She had radiation yesterday. No fever or chills. Review of Systems Constitutional: as per Subjective / HPI Genitourinary: as per Subjective / HPI Physical Exam Constitutional: well developed and well nourished; no acute distress Respiratory: normal respiratory effort; no respiratory distress and no labored breathing Gastrointestinal (Abdomen): Inspection/Auscultation: abdomen normal to inspe ction Musculoskeletal: Head/Neck/Chest: normocephalic Neurologic: moves all extremities and awake Psychiatric: Orientation: alert and oriented x 3 Genitourinary: Hawkins draining light yamileth urine Results & Data Vital Signs (Past 12 Hours) Vital Signs Temp Pulse Pulse Resp BP Pulse Ox O2 Del Method 01/20/24 05:44 95 H 01/20/24 04:12 36.3 C L 88 20 95/63 L 92 Room Air 01/20/24 00:31 89 01/20/24 00:27 36.5 C 83 20 99/68 L 93 Room Air PG Care Time/CCT Total # of Minutes Spent Total Time Spent with Patient: Total time spent is greater than 50% in coordination of care (as documented) at patient's floor/unit and/or counseling patient: Coding Level of Care Code 01253 SUB INP/OBS CARE /25MIN Diagnoses Bilateral hydronephrosis N13.30 S/P ureteral stent placement Z96.0
--- NOTE | 2024-01-20 11:34 | Discharge Summary ---
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 She attributes to pain and pressure after stent placement. Patient evaluated by Urology who started tamsulosin. They also discussed stent exchange or perhaps "comfort stents" Doty placed and continued. Patient noted to have lower blood pressures. Lisinopril discontinued. Patient infectious cultures negative, therefore patient to resume cefdinir upon discharge until 01/26. Hospital bed ordered for patient's home. The patient has metastatic cancer with obstruction which requires positioning in ways not feasible with an ordinary bed to alleviate pain. Patient with obstructive masses that press and cause incontinence in certain positions. Patient completed course of radiation on 01/19 and reports feeling generally better then prior. Discharge plan discussed with at bedside. #Generalized weakness #Multiple concurrent malignancies (lymphoma, breast) #Rectal mass s/p ongoing raditation Extensive cancer hx with now current rectal mass, undergoing radiation UA suggestive of infection, urine Cx with no significant growth. Pt has an indwelling catheter Blood cx x 2 sets NGTD lactate normal Procal normal CT abd/pelvis now showing worsening of "multicompartment abdominal and pelvic adenopathy with increasing masslike encasement of the mid transverse colon and stable mass and fluid encasement of the rectum." Weakness likely in setting of above IV Rocephin, cultures negative--transition to PO cefdinir to complete course through 01/26 PT/OT: home #Malnutrition is chronic disease & malginancy encouraged to prioritize high protein meals #CAUTI POA #Moderate bilateral Hydronephrosis s/p stent placement s/p bilateral stent placement on Jan 11, 2024 with Urology States has been having persistent abdominal and pelvic pressure since then CT abd/pelvis noting improvement in hydronephrosis with stent placement Pt asking about having them removed: plan to keep, follow up OP Urology consulted, appreciate recs -Continue doty at this time -Start tamsulosin Continue other bernardo Notes For Next Care Provider Hospital bed ordered for patient's home. The patient has metastatic cancer with obstruction which requires positioning in ways not feasible with an ordinary bed to alleviate pain. Patient with obstructive masses that press and cause incontinence in certain positions. 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 Notes since the stents were placed, she has been having increasing lower abdominal/pelvic pressure with decreased urinary output into her catheter bag. Would like to consider having them out. Has not been eating and drinking much at home, notes whenever she drinks the nutritional supplements her encourages her to take (like Boost) "it passes right through". Notes that she has been having daily liquid stools with use of daily miralax but has not had a "normal bowel movement" for over a week. Notes that she previously followed with palliative care last year before stopping when she started feeling better. She notes that she is at the brink of giving up. States she does not want to be resuscitated nor intubated. Admission Exam Per Admitting Provider al: Alert, oriented. No acute distress Psych: Appropriate mood and affect Neuro: difficulty with movements in the bed HEENT: NC/AT CV: RRR Resp: Breath sounds clear bilaterally, no increased effort of breathing Abdomen: diffusely tender especially in the lower quadrants, firmer in lower quadrants Extremities: edema in lower extremities bilaterally. Discharge Exam Constitutional WD/WN, vitals as above laying supine with head elevated 2/2 abdominal pain Respiratory normal respiratory effort, lungs clear to auscultation Cardiovascular RRR Skin nonpitting edema of BLE Updated Medication List Medication Instructions Recorded Confirmed Type mirabegron 50 mg tablet,extended 50 mg PO QAM 11/14/22 01/18/24 History release 24 hr (Myrbetriq) pregabalin 50 mg capsule 50 mg PO BID 11/14/22 01/18/24 History acyclovir 400 mg tablet 400 mg PO BID 01/09/24 01/18/24 History allopurinol 300 mg tablet 300 mg PO QAM 01/09/24 01/18/24 History docusate sodium 100 mg capsule 100 mg PO BID #14 caps 01/12/24 01/18/24 Rx oxycodone 5 mg tablet 5 mg PO Q6H PRN pain #10 tabs 01/12/24 01/18/24 Rx polyethylene glycol 3350 17 gram 17 g PO DAILY #14 ea 01/12/24 01/18/24 Rx oral powder packet (Miralax) acetaminophen 500 mg tablet 500 mg PO Q6H PRN Pain 01/16/24 01/18/24 History cefdinir 300 mg capsule 300 mg PO BID 8 days #16 caps 01/20/24 01/18/24 Rx tamsulosin 0.4 mg capsule 0.4 mg PO HS #30 caps 01/20/24 Rx Hospital Stay Data Consultations 01/18/24 18:14 ED Decision to Admit Stat 01/18/24 20:37 Consult Palliative Care Routine Consult Urology Routine Diagnostic Imagining Performed 01/18/24 16:20 CT abd pelvis IV con only Stat Discharge Instructions Given to Patient (Per Discharging Provider) You were admitted for evaluation of weakness. You were noted to have stents in good position. You reported general improvement. Doty catheter was placed on 01/17. Please ensure follow up with urology in 1-2 weeks to discuss void trial. Please start tamsulosin 0.4 mg at bedtime Please continue home cefdinir starting tomorrow morning. Continue two times a day until 01/27/2024. Please discontinue fluconazole. Please follow up with routine radiation treatments. Please emphasize protein in diet. Given your poor intake and your current condition, your blood pressure is on the lower side--please discontinue lisinopril. Total Time Total Time Spent Total Time Spent (In Minutes): 45
[2024-01-20] MEDS ORDERED: oxyCODONE HCL IR 5 MG TAB (IMMEDIATE RELEASE) PO PRN (12:05)
[2024-01-20 12:54] VITALS: RESP 18; TEMP 98.1
[2024-01-20 15:48] VITALS: BP 95/63
[2024-01-20 16:28] VITALS: PULSE 90
== END 2024-01-20 16:59 | disposition home health service (06) | DRG 699 ==
LOC: ED 15:10 → SUATTDRO 18:24 → 2N 18:24